=== PATIENT | female | born 1960 | race Caucasian/White ===

== ENCOUNTER 2020-09-07 13:49 | Outpatient (REF) | payer MEDICARE, MEDICAID, SELFPAY ==
[2020-09-07 15:20] LABS: Thyroid Stimulating Hormone 1.63 uIU/mL (0.32-4.0)
== END 2020-09-07 13:50 | disposition home or self-care (01) ==
LOC: HO.LAB 13:49
PROVIDERS: PCP Internal Medicine; Visit Provider Internal Medicine
DX: E89.0 Postprocedural hypothyroidism (principal); I10 Essential (primary) hypertension; J45.909 Unspecified asthma, uncomplicated; M54.5 Low back pain
CPT/HCPCS: 36415; 84443

== ENCOUNTER 2021-01-30 13:10 | Outpatient (REF) | payer MEDICARE, MEDICAID, SELFPAY ==
[2021-01-30 15:13] LABS: MANUAL DIFF FLAG NO
[2021-01-30 15:25] LABS: Basophils Percent Auto 0.8 % (0-2); Eosinophils Absolute Auto 0.1 X10*3/uL (0.0-0.4); Eosinophils Percent Auto 2.5 % (0-4); Hematocrit 38.5 % (37-47); Hemoglobin 12.8 g/dl (12.0-16.0); Imm Gran Abs Auto 0.01 X10*3/uL (0.00-0.03); Imm Gran Pct Auto 0.2 % (0.0-0.4); Lymphocytes Absolute Auto 1.9 X10*3/uL (1.2-4.9); Lymphocytes Percent Auto 36.1 % (20-40); Mean Corpuscular HGB Conc 33.2 g/dl (31.0-35.0); Mean Corpuscular Hemoglobin 31.8 pg (27.0-33.0); Mean Corpuscular Volume 95.5 fL (80-98); Mean Platelet Volume 10.4 fL (9.4-12.3); Monocytes Absolute Auto 0.6 X10*3/uL (0.1-1.2); Monocytes Percent Auto 10.5 % (2-11); Neutrophils Absolute Auto 2.6 X10*3/uL (2.0-8.3); Neutrophils Percent Auto 49.9 % (45-73); Platelet Count 273 X10*3/uL (160-400); Red Blood Count 4.03 X10*6/uL (4.20-5.50); Red Cell Distribution Width 12.3 % (11.0-16.0); White Blood Count 5.2 X10*3/uL (4.8-10.8)
[2021-01-30 15:32] LABS: Alanine Aminotransferase 17 U/L (0-31); Albumin Level 4.1 g/dL (3.5-5.0); Anion Gap 12 (12-20); Aspartate Amino Transferase 12 U/L (5-31); Bilirubin Total 0.5 mg/dL (0.0-1.0); Blood Urea Nitrogen 13 mg/dL (9-16); Calcium 9.1 mg/dL (8.4-10.2); Carbon Dioxide 28 mmol/L (22-29); Chloride 103 mmol/L (96-108); Cholesterol 135 mg/dL; Estimated Glomerular Filt Rate 56; Glucose Random 84 mg/dL (60-115); HDL Cholesterol 55 mg/dL; Potassium 3.6 mmol/L (3.3-5.1); Sodium 139 mmol/L (135-145); Total Protein 6.8 g/dL (6.5-8.0); Triglycerides 80 mg/dL
[2021-01-30 15:33] LABS: Alkaline Phosphatase 69 U/L (39-117); LDL Cholesterol Calculated 64 mg/dl
[2021-01-30 15:57] LABS: Thyroid Stimulating Hormone 1.66 uIU/mL (0.32-4.0)
== END 2021-01-30 13:11 | disposition home or self-care (01) ==
LOC: HO.LAB 13:10
PROVIDERS: PCP Internal Medicine; Visit Provider Internal Medicine
DX: E89.0 Postprocedural hypothyroidism (principal); F90.1 Attention-deficit hyperactivity disorder, predominantly hyperactive type; H81.12 Benign paroxysmal vertigo, left ear; I10 Essential (primary) hypertension; N30.00 Acute cystitis without hematuria
CPT/HCPCS: 36415; 80053; 80061; 84443; 85025

== ENCOUNTER 2021-02-15 12:31 | Outpatient (REF) | payer MEDICARE, MEDICAID, SELFPAY | END 2021-02-15 12:32 | disposition home or self-care (01) | LOC: HO.10HDL 12:31 | PROVIDERS: Visit Provider Internal Medicine | DX: R35.0 Frequency of micturition (principal); E89.0 Postprocedural hypothyroidism; G47.33 Obstructive sleep apnea (adult) (pediatric); I10 Essential (primary) hypertension | CPT/HCPCS: 87086 ==

== ENCOUNTER → 2021-03-15 11:35 | Outpatient (BNVA) | payer MEDICARE, MEDICAID, SELFPAY | PROVIDERS: PCP Internal Medicine | DX: N39.0 Urinary tract infection, site not specified (principal) | CPT/HCPCS: Q3014 ==

== ENCOUNTER 2021-03-22 11:04 | Outpatient (REF) | payer MEDICARE, MEDICAID, SELFPAY ==
--- NOTE | ~2021-03-22 | MM_ITS ---
EXAMINATION: MM SCREENING DIGITAL BREAST TOMOSYNTHESIS, BILATERAL CLINICAL INFORMATION: Screening. Asymptomatic. The lifetime risk of breast cancer based on the Tyrer-Cuzick Model is 3.8%. COMPARISON: Mammography: February 10, 2020 and studies dating back to May 03, 2014 TECHNIQUE: Digital breast tomosynthesis is performed in both the craniocaudal and mediolateral oblique views along with computer-aided detection (CAD). Synthesized 2D images are generated from the tomosynthesis. FINDINGS: There are scattered areas of fibroglandular density (ACR BI-RADS breast composition Category b). There are no significant masses, abnormal calcifications, or other abnormalities. MM/MM tomosynthesis screening BI IMPRESSION: There are no significant changes from prior study. ASSESSMENT: BI-RADS 1: Negative RECOMMENDATION: Routine annual mammography screening. This patient's information was entered into a reminder system with a target due date for their next mammogram.
== END 2021-03-22 11:05 | disposition home or self-care (01) ==
LOC: HO.MAMMO 11:04
PROVIDERS: Visit Provider Internal Medicine
DX: Z12.31 Encounter for screening mammogram for malignant neoplasm of breast (principal)
CPT/HCPCS: 77063; 77067

== ENCOUNTER → 2021-06-08 11:41 | Outpatient (BNVA) | payer MEDICARE, MEDICAID, SELFPAY | PROVIDERS: PCP Internal Medicine | DX: N39.0 Urinary tract infection, site not specified (principal); R32 Unspecified urinary incontinence | CPT/HCPCS: 51798; 99212 ==

== ENCOUNTER 2021-07-20 13:29 | Outpatient (REF) | payer MEDICARE, MEDICAID, SELFPAY | END 2021-07-20 13:30 | disposition home or self-care (01) | LOC: HO.LAB 13:29 | PROVIDERS: PCP Internal Medicine | DX: N39.0 Urinary tract infection, site not specified (principal) | CPT/HCPCS: 87086; 87088; 87186; 99212 ==

== ENCOUNTER 2021-08-08 14:43 | Outpatient (REF) | payer MEDICARE, MEDICAID, SELFPAY ==
[2021-08-08 15:44] LABS: Alanine Aminotransferase 17 U/L (0-31); Albumin Level 4.1 g/dL (3.5-5.0); Alkaline Phosphatase 66 U/L (39-117); Anion Gap 13 (12-20); Aspartate Amino Transferase 13 U/L (5-31); Bilirubin Total 0.8 mg/dL (0.0-1.0); Blood Urea Nitrogen 17 mg/dL (9-16); Calcium 9.3 mg/dL (8.4-10.2); Carbon Dioxide 23 mmol/L (22-29); Chloride 103 mmol/L (96-108); Estimated Glomerular Filt Rate 50; Glucose Random 116 mg/dL (60-115); Sodium 136 mmol/L (135-145); Total Protein 6.8 g/dL (6.5-8.0)
[2021-08-08 16:05] LABS: Thyroid Stimulating Hormone 1.12 uIU/mL (0.32-4.0)
[2021-08-08 16:43] LABS: Appearance Urine CLEAR; Color Urine YELLOW; Glucose Urine UA NEG (NEG); Leukocyte Esterase Urine NEG (NEG); Nitrite Urine NEG (NEG); Specific Gravity - Urine <= 1.005 (1.005-1.025); Urine Blood NEG (NEG); Urine Ketones NEG (NEG); Urine Protein NEG (NEG-TRACE)
[2021-08-08 16:52] LABS: RBC Urine 0 /HPF (0); WBC Urine 0 /HPF (0-4)
== END 2021-08-08 14:44 | disposition home or self-care (01) ==
LOC: HO.LAB 14:43
PROVIDERS: PCP Internal Medicine; Visit Provider Internal Medicine
DX: E89.0 Postprocedural hypothyroidism (principal); N39.0 Urinary tract infection, site not specified; G47.33 Obstructive sleep apnea (adult) (pediatric); I10 Essential (primary) hypertension; R35.0 Frequency of micturition
CPT/HCPCS: 36415; 80053; 81001; 84443; 87086

== ENCOUNTER 2021-08-15 11:56 | Outpatient (REF) | payer MEDICARE, MEDICAID, SELFPAY ==
--- NOTE | ~2021-08-15 | XR_ITS ---
EXAMINATION: BILATERAL HIP X-RAY CLINICAL INFORMATION: Osteoarthritis COMPARISON: Previous right hip x-ray August 2014 TECHNIQUE: 2 views of each hip FINDINGS: Right hip: Bone alignment is normal. No fracture or dislocation is seen. The joint space is normal. Soft tissues are normal. Left hip: Bone alignment is normal. No fracture or dislocation is seen. The joint space is normal. Soft tissues are normal. XR/XR hip RT min 2V IMPRESSION: Unremarkable exam.
--- NOTE | ~2021-08-15 | XR_ITS ---
EXAMINATION: BILATERAL HIP X-RAY CLINICAL INFORMATION: Osteoarthritis COMPARISON: Previous right hip x-ray August 2014 TECHNIQUE: 2 views of each hip FINDINGS: Right hip: Bone alignment is normal. No fracture or dislocation is seen. The joint space is normal. Soft tissues are normal. Left hip: Bone alignment is normal. No fracture or dislocation is seen. The joint space is normal. Soft tissues are normal. XR/XR hip LT min 2V IMPRESSION: Unremarkable exam.
== END 2021-08-15 11:57 | disposition home or self-care (01) ==
LOC: HO.XRAY 11:56
PROVIDERS: PCP Internal Medicine; Visit Provider Internal Medicine
DX: M16.0 Bilateral primary osteoarthritis of hip (principal)
CPT/HCPCS: 73502

== ENCOUNTER → 2021-08-17 10:47 | Outpatient (BNVA) | payer MEDICARE, MEDICAID, SELFPAY | PROVIDERS: PCP Internal Medicine | CPT/HCPCS: Q3014 ==

== ENCOUNTER 2021-09-12 10:08 | Outpatient (REF) | payer MEDICARE, MEDICAID, SELFPAY ==
--- NOTE | ~2021-09-12 | XR_ITS ---
EXAMINATION: XR CHEST CLINICAL INFORMATION: Nicotine dependence COMPARISON: 10/21/2006 TECHNIQUE: 2 views of the chest were obtained. FINDINGS: The lungs are well expanded. There is no focal consolidation, edema, or effusion. No pneumothorax. The cardiomediastinal silhouette is within normal limits. No acute osseous abnormality. XR/XR chest 2V IMPRESSION: Clear lungs.
== END 2021-09-12 10:09 | disposition home or self-care (01) ==
LOC: HO.XRAY 10:08
PROVIDERS: PCP Internal Medicine; Visit Provider Internal Medicine
DX: R06.00 Dyspnea, unspecified (principal); G47.33 Obstructive sleep apnea (adult) (pediatric); E66.01 Morbid (severe) obesity due to excess calories; Z87.891 Personal history of nicotine dependence
CPT/HCPCS: 71046; 99202

== ENCOUNTER → 2021-10-18 09:55 | Outpatient (BNVA) | payer MEDICARE, MEDICAID, SELFPAY | PROVIDERS: PCP Internal Medicine | DX: Z13.89 Encounter for screening for other disorder (principal) | CPT/HCPCS: Q3014 ==

== ENCOUNTER → 2021-10-19 13:55 | Outpatient (REF) | payer MEDICARE, MEDICAID, SELFPAY ==
--- NOTE | 2021-10-19 17:17 | PFT_ITS ---
Forced vital capacity 95%, FEV1 103%, FEV1/FVC ratio is 83. FEF 25-75 126% and MVV 91%. Postbronchodilator therapy, there is no change. Total lung capacity 95%. Residual volume 96%. Diffusion capacity 81%. CONCLUSION: Normal pulmonary function test. There is no evidence of obstructive or restrictive pulmonary disorder. MD NADIR Russell/LOU / [id number]
== END | disposition home or self-care (01) ==
LOC: HO.RESP 13:55
PROVIDERS: PCP Internal Medicine; Visit Provider Internal Medicine
DX: R06.00 Dyspnea, unspecified (principal); E66.01 Morbid (severe) obesity due to excess calories; Z87.891 Personal history of nicotine dependence; Z79.52 Long term (current) use of systemic steroids
CPT/HCPCS: 94060; 94727; 94729

== ENCOUNTER 2021-10-25 10:28 | Outpatient (REF) | payer MEDICARE, MEDICAID, SELFPAY ==
[2021-10-25 10:38] LABS: MANUAL DIFF FLAG NO
[2021-10-25 11:15] LABS: Basophils Percent Auto 0.7 % (0-2); Eosinophils Absolute Auto 0.1 X10*3/uL (0.0-0.4); Eosinophils Percent Auto 2.3 % (0-4); Hematocrit 37.6 % (37.0-47.0); Hemoglobin 12.4 g/dl (12.0-16.0); Imm Gran Abs Auto 0.02 X10*3/uL (0.00-0.03); Imm Gran Pct Auto 0.5 % (0.0-0.4); Lymphocytes Absolute Auto 1.8 X10*3/uL (1.2-4.9); Lymphocytes Percent Auto 41.2 % (20-40); Mean Corpuscular Volume 96.9 fL (80.0-98.0); Monocytes Absolute Auto 0.4 X10*3/uL (0.1-1.2); Monocytes Percent Auto 8.8 % (2-11); Neutrophils Percent Auto 46.5 % (45-73); Platelet Count 248 X10*3/uL (160-400); Red Blood Count 3.88 X10*6/uL (4.20-5.50); Red Cell Distribution Width 12.6 % (11.0-16.0); White Blood Count 4.3 X10*3/uL (4.8-10.8)
[2021-10-25 12:02] LABS: Alanine Aminotransferase 16 U/L (0-31); Albumin Level 3.9 g/dL (3.5-5.0); Alkaline Phosphatase 71 U/L (39-117); Anion Gap 11 (12-20); Aspartate Amino Transferase 11 U/L (5-31); Bilirubin Total 0.5 mg/dL (0.0-1.0); Blood Urea Nitrogen 15 mg/dL (9-16); Calcium 8.9 mg/dL (8.4-10.2); Carbon Dioxide 23 mmol/L (22-29); Chloride 109 mmol/L (96-108); Estimated Glomerular Filt Rate 51; Glucose Random 95 mg/dL (60-115); Potassium 4.3 mmol/L (3.3-5.1); Sodium 139 mmol/L (135-145); Total Protein 6.7 g/dL (6.5-8.0)
[2021-10-25 12:58] LABS: Vitamin B12 262 pg/mL (200-900)
== END 2021-10-25 10:29 | disposition home or self-care (01) ==
LOC: HO.LAB 10:28
PROVIDERS: Visit Provider Internal Medicine
DX: B35.8 Other dermatophytoses (principal); E87.6 Hypokalemia; E89.0 Postprocedural hypothyroidism; I10 Essential (primary) hypertension; M25.552 Pain in left hip; M54.50 Low back pain, unspecified; R06.02 Shortness of breath; R53.83 Other fatigue
CPT/HCPCS: 36415; 80053; 82607; 85025

== ENCOUNTER 2021-10-26 14:32 | Outpatient (REF) | payer MEDICARE, MEDICAID, SELFPAY ==
--- NOTE | ~2021-10-26 | CT_ITS ---
EXAMINATION: CT CHEST SCREENING CLINICAL INFORMATION: Personal history of nicotine dependence. Former smoker quit 30 years ago. COMPARISON: Chest x-ray 09/12/2021. TECHNIQUE: Multidetector volumetric CT imaging of the chest is performed without contrast using low dose technique. Additional 2D coronal and sagittal reformatted images and axial 3D maximum intensity projection (MIP) images are generated on the CT workstation. This CT examination was performed using dose optimization techniques as appropriate, variously including the following: *Automated exposure control *Adjustment of mA and/or kV according to patient size (this includes techniques or standardized protocols for targeted exams where dose is matched to indication/reason for exam; i.e. extremities or head) *Use of iterative reconstruction technique DLP: 67 mGy-cm FINDINGS: LUNGS: The lungs are well expanded and clear of acute pneumonic process. There are 1 mm punctate calcifications scattered in the superior segments of both lower lobes likely tiny granulomas. No noncalcified pulmonary nodule, mass, consolidation or atelectasis seen. MEDIASTINUM: The thyroid lobes are symmetrical and normal. Central trachea and the bronchi are widely patent. The heart size and the great vessels are normal caliber. No abnormal size mediastinal or hilar lymph node seen. PLEURA: There is no pleural effusion. No pleural mass or thickening. AXILLA: No lymphadenopathy. UPPER ABDOMEN: Unremarkable. OSSEOUS STRUCTURES: Unremarkable. CT/CT lung screening IMPRESSION: Unremarkable chest exam except for tiny 1 mm calcified granulomas. ASSESSMENT: Lung-RADS category: 2. Benign. RECOMMENDATION: Low-dose annual yearly CT chest exam.
== END 2021-10-26 14:33 | disposition home or self-care (01) ==
LOC: HO.CT 14:32
PROVIDERS: PCP Internal Medicine; Visit Provider Physician Assistant Medical
DX: Z12.2 Encounter for screening for malignant neoplasm of respiratory organs (principal); Z87.891 Personal history of nicotine dependence
CPT/HCPCS: 71271; G0296

== ENCOUNTER → 2021-11-08 14:10 | Outpatient (BNVA) | payer MEDICARE, MEDICAID, SELFPAY | PROVIDERS: PCP Internal Medicine; Visit Provider Internal Medicine | DX: R06.00 Dyspnea, unspecified (principal); E66.01 Morbid (severe) obesity due to excess calories; G47.33 Obstructive sleep apnea (adult) (pediatric); Z68.41 Body mass index [BMI] 40.0-44.9, adult | CPT/HCPCS: 99212 ==

== ENCOUNTER 2022-02-07 11:41 | Outpatient (REF) | payer MEDICARE, MEDICAID, SELFPAY ==
[2022-02-07 12:02] LABS: MANUAL DIFF FLAG NO
[2022-02-07 12:17] LABS: Basophils Percent Auto 0.8 % (0-2); Eosinophils Absolute Auto 0.1 X10*3/uL (0.0-0.4); Eosinophils Percent Auto 1.6 % (0-4); Hematocrit 38.5 % (37.0-47.0); Imm Gran Abs Auto 0.01 X10*3/uL (0.00-0.03); Imm Gran Pct Auto 0.3 % (0.0-0.4); Lymphocytes Absolute Auto 1.4 X10*3/uL (1.2-4.9); Lymphocytes Percent Auto 37.7 % (20-40); Mean Corpuscular HGB Conc 33.8 g/dl (31.0-35.0); Mean Corpuscular Hemoglobin 32.4 pg (27.0-33.0); Mean Platelet Volume 9.8 fL (9.4-12.3); Monocytes Absolute Auto 0.3 X10*3/uL (0.1-1.2); Monocytes Percent Auto 9.3 % (2-11); Neutrophils Absolute Auto 1.8 x10*3/uL (2.0-8.3); Neutrophils Percent Auto 50.3 % (45-73); Platelet Count 247 X10*3/uL (160-400); Red Blood Count 4.01 X10*6/uL (4.20-5.50); Red Cell Distribution Width 12.4 % (11.0-16.0); White Blood Count 3.7 X10*3/uL (4.8-10.8)
[2022-02-07 12:52] LABS: Alanine Aminotransferase 15 U/L (0-31); Albumin Level 4.2 g/dL (3.5-5.0); Alkaline Phosphatase 71 U/L (39-117); Anion Gap 16 (12-20); Aspartate Amino Transferase 11 U/L (5-31); Bilirubin Total 0.6 mg/dL (0.0-1.0); Blood Urea Nitrogen 15 mg/dL (9-16); Calcium 9.1 mg/dL (8.4-10.2); Carbon Dioxide 20 mmol/L (22-29); Chloride 106 mmol/L (96-108); Cholesterol 157 mg/dL; Estimated Glomerular Filt Rate 45; Glucose Random 96 mg/dL (60-115); HDL Cholesterol 49 mg/dL; LDL Cholesterol Calculated 98 mg/dl; Potassium 4.5 mmol/L (3.3-5.1); Sodium 137 mmol/L (135-145); Triglycerides 52 mg/dL
[2022-02-07 13:05] LABS: Appearance Urine Cloudy; Color Urine Yellow; Glucose Urine UA Negative (Negative); Leukocyte Esterase Urine Large (3+) (Negative); Nitrite Urine Positive (Negative); PH 6.5 (5.0-9.0); UMIC TRIGGER UA YES; Urine Blood Negative (Negative); Urine Ketones Negative (Negative); Urine Protein Negative (Neg-Trace)
[2022-02-07 13:09] LABS: Bacteria Urine 4+ (None Seen); Hyaline Casts Urine 0-2 /LPF (0-2); RBC Urine 0-2 /HPF (0-2); WBC Urine >50 /HPF (0-5)
[2022-02-07 13:15] LABS: Thyroid Stimulating Hormone 0.29 uIU/mL (0.32-4.0)
== END 2022-02-07 11:42 | disposition home or self-care (01) ==
LOC: HO.LAB 11:41
PROVIDERS: PCP Internal Medicine; Visit Provider Internal Medicine
DX: E87.6 Hypokalemia (principal); E89.0 Postprocedural hypothyroidism; I10 Essential (primary) hypertension
CPT/HCPCS: 36415; 80053; 80061; 81001; 81003; 84443; 85025

== ENCOUNTER 2022-02-14 12:35 | Outpatient (REF) | payer MEDICARE, MEDICAID, SELFPAY | END 2022-02-14 12:36 | disposition home or self-care (01) | LOC: HO.10HDL 12:35 | PROVIDERS: Visit Provider Internal Medicine | DX: Z00.00 Encounter for general adult medical examination without abnormal findings (principal); I10 Essential (primary) hypertension; N18.9 Chronic kidney disease, unspecified; N30.00 Acute cystitis without hematuria; E89.0 Postprocedural hypothyroidism; G47.33 Obstructive sleep apnea (adult) (pediatric); B96.1 Klebsiella pneumoniae [K. pneumoniae] as the cause of diseases classified elsewhere; Z16.11 Resistance to penicillins | CPT/HCPCS: 87086; 87088; 87186 ==

== ENCOUNTER 2022-03-28 13:08 | Outpatient (REF) | payer MEDICARE, MEDICAID, SELFPAY ==
--- NOTE | ~2022-03-28 | MM_ITS ---
EXAMINATION: MM SCREENING DIGITAL BREAST TOMOSYNTHESIS, BILATERAL CLINICAL INFORMATION: Screening. Asymptomatic. COMPARISON: Mammography: March 22, 2021 and studies dating back to June 01, 2015 TECHNIQUE: Digital breast tomosynthesis is performed in both the craniocaudal and mediolateral oblique views along with computer-aided detection (CAD). Synthesized 2D images are generated from the tomosynthesis. FINDINGS: The breasts are almost entirely fatty (ACR BI-RADS breast composition Category a). There are no significant masses, abnormal calcifications, or other abnormalities. MM/MM tomosynthesis screening BI IMPRESSION: No significant changes ASSESSMENT: BI-RADS 1: Negative RECOMMENDATION: Routine annual mammography screening. This patient's information was entered into a reminder system with a target due date for their next mammogram.
== END 2022-03-28 13:09 | disposition home or self-care (01) ==
LOC: HO.MAMMO 13:08
PROVIDERS: PCP Internal Medicine; Visit Provider Internal Medicine
DX: Z12.31 Encounter for screening mammogram for malignant neoplasm of breast (principal)
CPT/HCPCS: 77063; 77067

== ENCOUNTER 2022-04-12 11:54 | Outpatient (REF) | payer MEDICARE, MEDICAID, SELFPAY ==
--- NOTE | ~2022-04-12 | US_ITS ---
EXAMINATION: US RETROPERITONEAL LIMITED (RENAL ONLY) CLINICAL INFORMATION: Other symptoms and signs involving the genitourinary system. COMPARISON: None TECHNIQUE: Real-time imaging of the kidneys. FINDINGS: RIGHT KIDNEY: 9.9 x 3.9 x 6.1 cm (SAG x AP x TRV). The kidney is normal in size, contour, and echogenicity. Renal cortical thickness is normal. No calculi or focal parenchymal lesions. No hydronephrosis. LEFT KIDNEY: 8.9 x 5.2 x 5.5 cm (SAG x AP x TRV). The kidney is normal in size, contour, and echogenicity. Renal cortical thickness is normal. No calculi or focal parenchymal lesions. No hydronephrosis. US/US renal BI IMPRESSION: Unremarkable renal ultrasound.
== END 2022-04-12 11:55 | disposition home or self-care (01) ==
LOC: HO.US 11:54
DX: R39.89 Other symptoms and signs involving the genitourinary system (principal)
CPT/HCPCS: 76775

== ENCOUNTER 2022-04-26 11:29 | Outpatient (REF) | payer MEDICARE, MEDICAID, SELFPAY | END 2022-04-26 11:30 | disposition home or self-care (01) | LOC: HO.LAB 11:29 | PROVIDERS: Visit Provider Nurse Practitioner Family | DX: N32.81 Overactive bladder (principal); K58.9 Irritable bowel syndrome, unspecified; R32 Unspecified urinary incontinence; N39.0 Urinary tract infection, site not specified | CPT/HCPCS: 51798; 87086; 99212 ==

== ENCOUNTER → 2022-05-02 14:28 | Outpatient (BNVA) | payer MEDICARE, MEDICAID, SELFPAY | PROVIDERS: PCP Internal Medicine; Visit Provider Internal Medicine | DX: R06.00 Dyspnea, unspecified (principal); E66.01 Morbid (severe) obesity due to excess calories; G47.33 Obstructive sleep apnea (adult) (pediatric); Z68.41 Body mass index [BMI] 40.0-44.9, adult; Z87.891 Personal history of nicotine dependence; Z99.89 Dependence on other enabling machines and devices | CPT/HCPCS: 99212 ==

== ENCOUNTER 2022-05-09 12:42 | Outpatient (REF) | payer MEDICARE, MEDICAID, SELFPAY ==
[2022-05-09 14:19] LABS: Alanine Aminotransferase 16 U/L (0-31); Albumin Level 4.3 g/dL (3.5-5.0); Alkaline Phosphatase 74 U/L (39-117); Anion Gap 16 (12-20); Aspartate Amino Transferase 13 U/L (5-31); Bilirubin Total 0.5 mg/dL (0.0-1.0); Blood Urea Nitrogen 17 mg/dL (9-16); Calcium 9.2 mg/dL (8.4-10.2); Carbon Dioxide 23 mmol/L (22-29); Chloride 104 mmol/L (96-108); Estimated Glomerular Filt Rate 45; Glucose Random 88 mg/dL (60-115); Potassium 4.5 mmol/L (3.3-5.1); Sodium 138 mmol/L (135-145); Total Protein 7.1 g/dL (6.5-8.0)
== END 2022-05-09 12:43 | disposition home or self-care (01) ==
LOC: HO.10HDL 12:42
PROVIDERS: Visit Provider Internal Medicine
DX: Z00.00 Encounter for general adult medical examination without abnormal findings (principal); E89.0 Postprocedural hypothyroidism; N30.00 Acute cystitis without hematuria; I12.9 Hypertensive chronic kidney disease with stage 1 through stage 4 chronic kidney disease, or unspecified chronic kidney disease; N18.9 Chronic kidney disease, unspecified
CPT/HCPCS: 36415; 80053

== ENCOUNTER → 2022-07-25 11:03 | Outpatient (BNVA) | payer MEDICARE, MEDICAID, SELFPAY | PROVIDERS: PCP Internal Medicine; Visit Provider Nurse Practitioner Family | DX: N32.81 Overactive bladder (principal); Z79.899 Other long term (current) drug therapy | CPT/HCPCS: Q3014 ==

== ENCOUNTER → 2022-08-29 11:01 | Outpatient (BNVA) | payer MEDICARE, MEDICAID, SELFPAY | PROVIDERS: PCP Internal Medicine; Visit Provider Internal Medicine | DX: R06.00 Dyspnea, unspecified (principal); E66.01 Morbid (severe) obesity due to excess calories; Z68.42 Body mass index [BMI] 45.0-49.9, adult; G47.33 Obstructive sleep apnea (adult) (pediatric); Z87.891 Personal history of nicotine dependence | CPT/HCPCS: 99212 ==

== ENCOUNTER 2022-09-19 12:21 | Outpatient (REF) | payer MEDICARE, MEDICAID, SELFPAY ==
[2022-09-19 15:29] LABS: Alanine Aminotransferase 16 U/L (0-31); Albumin Level 3.9 g/dL (3.5-5.0); Alkaline Phosphatase 69 U/L (39-117); Anion Gap 9 (12-20); Aspartate Amino Transferase 13 U/L (5-31); Bilirubin Total 0.5 mg/dL (0.0-1.0); Blood Urea Nitrogen 16 mg/dL (9-16); Calcium 8.9 mg/dL (8.4-10.2); Carbon Dioxide 23 mmol/L (22-29); Chloride 108 mmol/L (96-108); Estimated Glomerular Filt Rate 48; Glucose Random 93 mg/dL (60-115); Potassium 4.3 mmol/L (3.3-5.1); Sodium 136 mmol/L (135-145); Total Protein 6.4 g/dL (6.5-8.0)
[2022-09-19 16:04] LABS: Free T4 (Free Thyroxine) 1.08 ng/dL (0.71-1.85)
[2022-09-20 18:39] LABS: Triiodothyronine T3 Free 3.3 pg/mL (2.3-4.2)
== END 2022-09-19 12:22 | disposition home or self-care (01) ==
LOC: HO.10HDL 12:21
PROVIDERS: Visit Provider Internal Medicine
DX: E89.0 Postprocedural hypothyroidism (principal); G47.33 Obstructive sleep apnea (adult) (pediatric); I10 Essential (primary) hypertension; M54.9 Dorsalgia, unspecified; F17.201 Nicotine dependence, unspecified, in remission
CPT/HCPCS: 36415; 80053; 84439; 84443; 84481

== ENCOUNTER 2022-10-31 10:36 | Outpatient (REF) | payer MEDICARE, MEDICAID, SELFPAY ==
--- NOTE | ~2022-10-31 | CT_ITS ---
EXAMINATION: LUNG CANCER SCREENING CT CHEST WITHOUT CONTRAST CLINICAL INFORMATION: Former smoker with 30 pack year history, quit 2 years ago COMPARISON: 10/26/2021 TECHNIQUE: Multidetector volumetric CT imaging of the chest was obtained noncontrast using low dose screening CT technique. Axial thin section 0.625 mm reformations in soft tissue and lung windows were obtained. Sagittal and coronal reformations were obtained. Axial MIP images were also created and reviewed. This CT examination was performed using dose optimization techniques as appropriate, variously including the following: *Automated exposure control *Adjustment of mA and/or kV according to patient size (this includes techniques or standardized protocols for targeted exams where dose is matched to indication/reason for exam; i.e. extremities or head) *Use of iterative reconstruction technique TOTAL EXAM DLP: 79.78 mGy-cm FINDINGS: PULMONARY NODULES (see saunders images): No suspicious pulmonary nodules. LUNGS / PLEURA: Lungs are clear. No pleural effusion or pneumothorax. MEDIASTINUM / KITA: Heart normal in size without pericardial effusion. Great vessels normal caliber. No lymphadenopathy. Coronary calcifications absent. Imaged thyroid gland unremarkable. CHEST WALL / AXILLA: Unremarkable. UPPER ABDOMEN: Included portions grossly unremarkable allowing for limitations in technique. OSSEOUS STRUCTURES: No acute or suspicious osseous abnormalities. CT/CT lung screening IMPRESSION: * No evidence of pulmonary malignancy. * There are no pulmonary nodules that meet criteria for short interval follow-up at this time. ASSESSMENT: Lung RADS category: 1. Negative. No nodules or definitely benign nodules. Continue annual screening with low-dose CT in 12 months. Probability of malignancy less than 1%. RECOMMENDATION: Follow up low dose CT chest in 1 year.
== END 2022-10-31 10:37 | disposition home or self-care (01) ==
LOC: HO.CT 10:36
PROVIDERS: PCP Internal Medicine; Visit Provider Physician Assistant Medical
DX: Z12.2 Encounter for screening for malignant neoplasm of respiratory organs (principal); Z87.891 Personal history of nicotine dependence
CPT/HCPCS: 71271

== ENCOUNTER 2022-11-08 12:31 | Outpatient (REF) | payer MEDICARE, MEDICAID, SELFPAY ==
[2022-11-08 14:00] LABS: Appearance Urine Clear; Color Urine Yellow; Glucose Urine UA Negative (Negative); Leukocyte Esterase Urine Small (1+) (Negative); Nitrite Urine Negative (Negative); PH 5.5 (5.0-9.0); UMIC TRIGGER UA YES; Urine Blood Negative (Negative); Urine Ketones Negative (Negative); Urine Protein Negative (Neg-Trace)
[2022-11-08 14:04] LABS: Bacteria Urine 4+ (None Seen); Hyaline Casts Urine 0-2 /LPF (0-2); RBC Urine 0-2 /HPF (0-2); Squamous Epithelial Cell Urine 0-2 /HPF (0-2)
== END 2022-11-08 12:32 | disposition home or self-care (01) ==
LOC: HO.LAB 12:31
PROVIDERS: PCP Internal Medicine; Visit Provider Nurse Practitioner Family
DX: N39.0 Urinary tract infection, site not specified (principal)
CPT/HCPCS: 81001; 87086; 87088; 87186

== ENCOUNTER 2022-12-24 11:05 | Outpatient (REF) | payer MEDICARE, MEDICAID, SELFPAY ==
[2022-12-24 11:39] LABS: MANUAL DIFF FLAG NO
[2022-12-24 12:09] LABS: Basophils Percent Auto 0.6 % (0-2); Eosinophils Absolute Auto 0.1 X10*3/uL (0.0-0.4); Eosinophils Percent Auto 1.8 % (0-4); Hematocrit 37.8 % (37.0-47.0); Hemoglobin 12.6 g/dl (12.0-16.0); Imm Gran Abs Auto 0.01 X10*3/uL (0.00-0.03); Imm Gran Pct Auto 0.2 % (0.0-0.4); Lymphocytes Absolute Auto 1.7 X10*3/uL (1.2-4.9); Lymphocytes Percent Auto 33.2 % (20-40); Mean Corpuscular HGB Conc 33.3 g/dl (31.0-35.0); Mean Corpuscular Hemoglobin 32.1 pg (27.0-33.0); Mean Corpuscular Volume 96.2 fL (80.0-98.0); Mean Platelet Volume 9.9 fL (9.4-12.3); Monocytes Absolute Auto 0.4 X10*3/uL (0.1-1.2); Monocytes Percent Auto 8.5 % (2-11); Neutrophils Absolute Auto 2.8 x10*3/uL (2.0-8.3); Neutrophils Percent Auto 55.7 % (45-73); Platelet Count 238 X10*3/uL (160-400); Red Blood Count 3.93 X10*6/uL (4.20-5.50); Red Cell Distribution Width 12.2 % (11.0-16.0)
[2022-12-24 13:18] LABS: Alanine Aminotransferase 16 U/L (0-31); Albumin Level 4.1 g/dL (3.5-5.0); Alkaline Phosphatase 67 U/L (39-117); Anion Gap 12 (12-20); Aspartate Amino Transferase 14 U/L (5-31); Bilirubin Total 0.6 mg/dL (0.0-1.0); Blood Urea Nitrogen 12 mg/dL (9-16); Carbon Dioxide 23 mmol/L (22-29); Chloride 106 mmol/L (96-108); Cholesterol 133 mg/dL; Estimated Glomerular Filt Rate 53; Glucose Random 94 mg/dL (60-115); HDL Cholesterol 49 mg/dL; LDL Cholesterol Calculated 74 mg/dl; Potassium 3.9 mmol/L (3.3-5.1); Sodium 137 mmol/L (135-145); Total Protein 6.9 g/dL (6.5-8.0); Triglycerides 51 mg/dL
[2022-12-24 13:36] LABS: Free T4 (Free Thyroxine) 1.09 ng/dL (0.71-1.85); Thyroid Stimulating Hormone 0.97 uIU/mL (0.32-4.0)
[2022-12-26 00:38] LABS: Triiodothyronine T3 Free 3.3 pg/mL (2.3-4.2)
== END 2022-12-24 11:06 | disposition home or self-care (01) ==
LOC: HO.LAB 11:05
PROVIDERS: PCP Internal Medicine; Visit Provider Internal Medicine
DX: E89.0 Postprocedural hypothyroidism (principal); L30.4 Erythema intertrigo; G47.33 Obstructive sleep apnea (adult) (pediatric); N39.0 Urinary tract infection, site not specified
CPT/HCPCS: 36415; 80053; 80061; 84439; 84443; 84481; 85025; 87086; 87088; 87186

== ENCOUNTER 2023-02-12 11:34 | Outpatient (AMB) | payer MEDICARE, MEDICAID, SELFPAY ==
--- NOTE | 2023-02-12 11:34 | A.OFFVIS_ITS ---
Intake Intake Visit Reasons: 6m follow up/PVR Intake Note: Patient is present for follow up OAB/incontinence Urology Medications: solifenacin (vesicare) Blood Thinner: none PVR: 28ml's Patient Safety Coordinator Required: No Accompanied by: Self / Same As Patient Allergies adhesive tape [ADHESIVE TAPE] Allergy (Intermediate, Verified 02/12/23 19:34) BLISTERS clindamycin [CLINDAMYCIN] Allergy (Intermediate, Verified 02/12/23 19:34) FACE SWELLING/ITCHING epinephrine [EPINEPHRINE] Adverse Reaction (Intermediate, Verified 02/12/23 19:34) TACHYCARDIA FROM SANIYA W/EPINEPHRINE adhesive Allergy (Unknown, Uncoded 02/12/23 19:34) Unknown Clindamycin HCl Allergy (Unknown, Uncoded 02/12/23 19:34) Unknown -SANIYA W/EPINEPHRINE Adverse Reaction (Intermediate, Uncoded 02/12/23 19:34) TACHYCARDIA Medication List - Last Reconciled 02/12/23 by DASH Restrepo- albuterol sulfate 90 mcg/actuation (ProAir HFA) 2 puffs inhalation Q4-6H PRN 60 days budesonide 180 mcg/actuation (Pulmicort Flexhaler) 2 inhalations inhalation BID bupropion HCl 300 mg PO QAM ciprofloxacin HCl 250 mg PO BID 5 days clotrimazole-betamethasone 1-0.05 % appl topical dextroamphetamine-amphetamine 10 mg 1 tab PO TID levothyroxine 125 mcg PO DAILY lorazepam 0.5 mg PO DAILY PRN nystatin 1 appl topical DAILY omeprazole 20 mg PO DAILY solifenacin (Vesicare) 10 mg PO DAILY 90 days spironolactone 25 mg PO DAILY telmisartan 80 mg PO DAILY HPI HPI Comments History of Present Illness Details Jacqueline is a 62-year-old female patient of Dr. Nova. She has a past medical history of overactive bladder, urinary incontinence, history of Graves disease, nicotine dependence quit in 2019, obstructive sleep apnea, obesity, and frequent urinary tract infections. She presents to the office today for follow-up of her lower urinary tract symptoms and recurrent urinary tract infections. In discussion with the patient today she discusses at length recently losing her 100 year old mother over the last 2 weeks. When asked she reports to be coping well as she reports her mother to have lives a long good life. When asked she reports foul-smelling urine in bladder pressure. In office urinalysis results reviewed with the patient today negative nitrates negative leukocytes however 2+ microscopic hematuria noted. She also discusses at length her attempt in trying to lose weight and manage better eating habits now that her mom has passed and she van have a better schedule. In discussion with the patient today regarding urological issues and concerns she reports [employer] to be working extremely well for her and her urinary incontinence she had been experiencing. She denies urinary urgency, urinary frequency, incontinence, nocturia, hematuria, dysuria, changes to urinary stream, flank pain, fever, and or chills. PVR 28ml's. She otherwise offers no issues or concerns at this time. [facility] Medical History Overactive bladder Urinary incontinence Bladder pain Urinary incontinence History of Graves' disease Personal history of nicotine dependence VAHE (obstructive sleep apnea) (~2010) Dyspnea on exertion Morbid obesity Frequent UTI Surgical History History of hysterectomy History of eye surgery History of colonoscopy History of appendectomy (~1999) Social History Patient Tobacco Use Status: Former Tobacco user Quit Date: 07/2019 Years Smoked: (onset 14, 1on/off - 1ppd x 35yrs, 35pyh - quit 07/2019) Review of Systems Const Reports as per HPI Eyes Reports no additional complaints ENT Reports no additional complaints Card Reports as per HPI Resp Reports as per HPI GI Reports as per HPI Reports as per HPI Musc Reports no additional complaints Neuro Reports no additional complaints Psych Reports as per HPI Endo Reports as per HPI Evans/Lymph Reports no additional complaints Aller/Immun Reports no additional complaints Physical Exam Const General: cooperative, healthy appearing, comfortable, no acute distress, well developed, alert and awake Orientation/consciousness: patient oriented x3 Limitations: no limitations HEENT Head: Yes normal to inspection, Yes normocephalic and Yes atraumatic Ears: hearing grossly normal bilaterally Eyes General: appearance normal, both eyes and all related structures Neck Neck: Yes normal visual inspection and Yes trachea midline Chest Chest palpation & inspection: normal inspection of the chest Resp Effort & Inspection: normal respiratory effort and able to speak in complete sentences Cardio Rate: regular rate GI Inspection: Yes normal to inspection General: Yes no CVA tenderness Back/Spine/Pelvis Back: no CVA tenderness Skin General skin exam: no rashes or lesions noted Neuro General: patient oriented x3 Extrem General: Yes normal to inspection Psych Appearance: grossly normal and well kempt Mental Status: mental status grossly normal Speech and movement: Normal speech and movement present and Clear speech present Affect: normal affect Attitude: cooperative Thought process: Normal thought process present Thought content: Normal thought content present Insight: Fair insight present (Psych) Judgement: Fair judgement present (Psych) Office Procedures Post Void Residual Post Residual Void Post Void Residual (PVR): 28 [id number] Void Residual by ultrasound Results AMB Urinalysis, Automated UA Leukoctes 0 Lluvia/uL Last Edit by [employer] on 02/12/23 11:58 UA Nitrite Last Edit by [employer] on 02/12/23 11:58 UA Urobilinogen 0.2 mg/dL Last Edit by [employer] on 02/12/23 11:58 UA Protein 0 mg/dL Last Edit by [employer] on 02/12/23 11:58 UA pH 7.0 Last Edit by [employer] on 02/12/23 11:58 UA Blood 25 Joss/uL Last Edit by [employer] on 02/12/23 11:58 UA Specific [place] 1.010 Last Edit by [employer] on 02/12/23 11:58 UA Ketone Last Edit by [employer] on 02/12/23 11:58 UA Bilirubin 0 mg/dL Last Edit by [employer] on 02/12/23 11:58 UA Glucose 0 mg/dL Last Edit by [employer] on 02/12/23 11:58 Results Reviewed Results Reviewed: Laboratory Last Values Urine pH (Auto) 7.0 02/12/23 11:37 Specific [place] (Auto) 1.010 02/12/23 11:37 Urine Protein (Auto) 0 mg/dL 02/12/23 11:37 Glucose (UA)(Auto) 0 mg/dL 02/12/23 11:37 Urine Blood (Auto) 25 Joss/uL 02/12/23 11:37 Urine Bilirubin (Auto) 0 mg/dL 02/12/23 11:37 Urine Urobilinogen (Auto) 0.2 mg/dL 02/12/23 11:37 Leukocyte Esterase (Auto) 0 Lluvia/uL 02/12/23 11:37 Assessment & Plan Assessment & Plan (1) Overactive bladder: Code(s): N32.81 - Overactive bladder (2) Urinary incontinence: Code(s): R32 - Unspecified urinary incontinence (3) Foul smelling urine: Code(s): R82.90 - Unspecified abnormal findings in urine (4) Sensation of pressure in bladder area: Code(s): R39.89 - Other symptoms and signs involving the genitourinary system Plan In office urinalysis results reviewed with the patient today; will send for urine culture. Continue VESIcare as patient reports to be happy with lessened incontinent episodes. Discussed at length symptoms can be related to microscopic hematuria. Discussed at length microscopic hematuria workup given patient's history of nicotine dependence however patient declines at this time. Will send urine for cytology. Discussed obtaining retroperitoneal ultrasound for further assessment evaluation. Continue Estrace creamDiscussed UTI prevention with D mannose supplement, vitamin-C, increasing fluid intake, behavioral therapy with timed voiding, perineal hygiene and postcoital voiding, and management of constipation with stool softeners and increased fiber intake. as discussed and prescribed. Follow-up in 6-8 weeks with imaging to be completed prior; or sooner with any issues, concerns, and or questions. Orders: Orders US retroperitoneal comp Today N32.81 - Overactive bladder, R32 - Unspecified urinary incontinence AMB Urinalysis Automated Today Z13.9 - Encounter for screening, unspecified AMB Post Void Residual by ultrasound Today N32.81 - Overactive bladder Urine Culture Today N39.0 - Urinary tract infection, site not specified Urine Cytology Today R39.89 - Other symptoms and signs involving the genitourinary system Patient Instructions: The patient had an opportunity to ask questions regarding the treatment plan. All questions were answered. Physical exam, labs, and imaging were discussed and reviewed in detail. As well as risks, benefits, and discussion of treatment choices. No major barriers to understanding were identified. The patient expressed understanding and agreement with the above treatment plan. The patient was made aware they should contact our office by phone for worsening of their current condition, the appearance of new symptoms, or with any questions or concerns. Compliance is encouraged with any medications and follow up testing that is ordered. It is a privilege to be allowed the opportunity to participate in? your urological care.? Again, if you have any questions or concerns If you have any questions or concerns please do not hesitate to contact me. The office is [phone]. This note is constructed using voice recognition software. While every effort has been made to ensure accuracy motor vehicle emissions inspector errors may have been included. Yours sincerely, GEE Restrepo Coding Level of Care Code Est Pt Level 3 (53010) Diagnoses Overactive bladder N32.81 Urinary incontinence R32 Foul smelling urine R82.90 Sensation of pressure in bladder area R39.89 CPT Codes Post Residual Void - PVR CPT Code: 82802-Dwfj Void Residual by ultrasound ([id number])
== END 2023-02-12 12:17 | disposition home or self-care (01) ==
PROVIDERS: PCP Internal Medicine; Visit Provider Nurse Practitioner Family
DX: N32.81 Overactive bladder (principal); R32 Unspecified urinary incontinence; R82.90 Unspecified abnormal findings in urine; R39.89 Other symptoms and signs involving the genitourinary system; Z13.9 Encounter for screening, unspecified
CPT/HCPCS: 99213

== ENCOUNTER 2023-02-12 11:34 | Outpatient (REF) | payer MEDICARE, MEDICAID, SELFPAY ==
[2023-02-12 16:52] LABS: Urine Cytology See Pathology rpt
== END 2023-02-12 11:35 | disposition home or self-care (01) ==
LOC: HO.LNP 11:34
PROVIDERS: Visit Provider Nurse Practitioner Family
DX: N39.0 Urinary tract infection, site not specified (principal); R32 Unspecified urinary incontinence; N32.81 Overactive bladder; R82.90 Unspecified abnormal findings in urine; R39.89 Other symptoms and signs involving the genitourinary system; Z79.899 Other long term (current) drug therapy
CPT/HCPCS: 51798; 81003; 87086; 87088; 87186; 88112; 99212

== ENCOUNTER 2023-02-27 11:09 | Outpatient (AMB) | payer MEDICARE, MEDICAID, SELFPAY ==
--- NOTE | 2023-02-27 11:20 | MHC.OFFVIS ---
Intake Vital Signs 02/27/23 11:21 Height 5 ft 1 in Weight 234 lb BMI 44.2 BP 110/64 Blood Pressure Location Lt radial Position Sitting Pulse 82 Pulse Source Pulse Oximeter Pulse Oximetry (%) 98 Oxygen Delivery Method Room Air Intake Visit Reasons: Dyspnea Intake Note: pt is here for follow of of VAHE and dyspnea, she lost her mom a few months ago, and had cpap missing dates due to this. Answering Service Operator Required: No Allergies adhesive tape [ADHESIVE TAPE] Allergy (Intermediate, Verified 02/27/23 11:44) BLISTERS clindamycin [CLINDAMYCIN] Allergy (Intermediate, Verified 02/27/23 11:44) FACE SWELLING/ITCHING epinephrine [EPINEPHRINE] Adverse Reaction (Intermediate, Verified 02/27/23 11:44) TACHYCARDIA FROM SANIYA W/EPINEPHRINE adhesive Allergy (Unknown, Uncoded 02/27/23 11:44) Unknown Clindamycin HCl Allergy (Unknown, Uncoded 02/27/23 11:44) Unknown -SANIYA W/EPINEPHRINE Adverse Reaction (Intermediate, Uncoded 02/27/23 11:44) TACHYCARDIA Medication List - Last Reconciled 02/27/23 by Mac Irene MD albuterol sulfate 90 mcg/actuation (ProAir HFA) 2 puffs inhalation Q4-6H PRN 60 days bupropion HCl 300 mg PO QAM clotrimazole-betamethasone 1-0.05 % appl topical dextroamphetamine-amphetamine 10 mg 1 tab PO TID estradiol 0.01%(0.1mg/gram) (Estrace) pea sized amount to urethra three times a week; 30 days levothyroxine 125 mcg PO DAILY lorazepam 0.5 mg PO DAILY PRN nystatin 1 appl topical DAILY omeprazole 20 mg PO DAILY solifenacin (Vesicare) 10 mg PO DAILY 90 days spironolactone 25 mg PO DAILY telmisartan 80 mg PO DAILY Do you need a note to return to daycare/school/sports/work: No HPI Dyspnea HPI Details 63 YEARS OLD FEMALE IS HERE AFTER 6 MONTHS FOR FOLLOW-UP. SHE IS GROSSLY OBESE , WITH DIAGNOSIS OF OBSTRUCTIVE SLEEP APNEA, AND USES CPAP EVERY NIGHT. LATELY SHE WAS TAKING CARE OF HER 100 YEARS OLD MOTHER WHO FINALLY . SO SHE WAS STAYING WITH HER MOST OF THE TIME AND THUS FOR THE LAST FEW WEEKS HAS NOT USE THE CPAP REGULARLY. NOW SHE IS USING CPAP EVERY NIGHT AND SLEEPS WELL. THERE IS NO ISSUE WITH THE CPAP MASK OR MACHINE. SHE DENIES ANY DAYTIME SLEEPINESS. WEIGHT IS DOWN BY A FEW LBS. BREATHING HAS BEEN OKAY AND SHE DOES USE ALBUTEROL ONLY ONCE IN A WHILE. [facility] Medical History Overactive bladder Urinary incontinence Bladder pain Urinary incontinence History of Graves' disease Personal history of nicotine dependence VAHE (obstructive sleep apnea) (~2010) Dyspnea on exertion Morbid obesity Frequent UTI Surgical History History of hysterectomy History of eye surgery History of colonoscopy History of appendectomy (~1999) Social History Patient Tobacco Use Status: Former Tobacco user Quit Date: 07/2019 Years Smoked: (onset 14, 1on/off - 1ppd x 35yrs, 35pyh - quit 07/2019) Review of Systems Const All systems reviewed & are unremarkable except as noted in HPI and below Reports fatigue and Reports weight gain Eyes Reports no additional complaints ENT Reports no additional complaints Card Denies chest pain, Denies edema and Denies irregular heart rhythm Resp Reports as per HPI GI Reports heartburn (GERD symptoms controlled with medicine) Reports nocturia Musc Reports myalgias (Chronic muscle aches) Skin/Breast Reports system reviewed and no additional complaints, except as documented Neuro Reports no additional complaints Psych Reports anxiety Endo Reports fatigue Physical Exam Vital Signs: Last Vital Signs Pulse 82 02/27/23 11:21 BP 110/64 02/27/23 11:21 Pulse Ox 98 02/27/23 11:21 Oxygen Delivery Method Room Air 02/27/23 11:21 BMI result Body Mass Index 44.2 Patient is grossly obese with a round face and short and obese neck Const General: comfortable (But short of breath during conversation), no acute distress, alert and awake Orientation/consciousness: patient oriented x3 HEENT Head: Yes normal to inspection General nose exam: No nasal polyps present and No nasal discharge present Face and sinus: Yes sinuses nontender Mouth: oropharynx normal Throat: Yes posterior oropharynx normal Eyes General: appearance normal, both eyes and all related structures Neck Neck: Yes normal visual inspection, Yes no lymphadenopathy, Yes trachea midline, Yes no JVD and Yes other (Neck circumference 18 in) Thyroid: Thyroid normal Chest Chest palpation & inspection: normal inspection of the chest, normal palpation of entire chest wall and no tenderness Resp Other: Percussion note is not perceptible because of the obese chest wall. Breath sounds are distant and decreased especially over the basilar areas. No wheezes or rhonchi are heard. Cardio Palpation: PMI not normal (Not palpable) Rate: regular rate Rhythm: regular rhythm Heart sounds: no gallops and no murmurs GI Palpation (GI): Soft to palpation, nontender, No hepatosplenomegaly present, no masses and Other GI palpation findings present (Abdomen is grossly obese and protuberant) Auscultation: normal bowel sounds Back/Spine/Pelvis Thoracic/Lumbar Spine: thoracic and lumbar spine normal to inspection and thoraco-lumbar ROM limited Skin General skin exam: no rashes or lesions noted Neuro General: patient oriented x3 and no focal motor deficits Cranial nerves: Yes CN's II-XII intact bilaterally Extrem General: Yes normal to inspection (But somewhat bulky), Yes no clubbing, cyanosis or edema and Yes no calf tenderness Psych Speech and movement: Normal speech and movement present Affect: Anxious affect present Results Reviewed Results Reviewed: COMPLIANCE REPORT NOT AVAILABLE. BUT PATIENT CLAIMS THAT SHE IS USING CPAP. REGULARLY EVERY NIGHT Assessment & Plan Assessment & Plan (1) Personal history of nicotine dependence: Comment: (onset 14, 1on/off - 1ppd x 35yrs, 35pyh - QUIT IN 2019 Code(s): Z87.891 - Personal history of nicotine dependence (2) Morbid obesity: Comment: CONTINUES TO BE GROSSLY OBESE BMI= 44.2 I HAVE STRESS THAT SHE SHOULD TRY TO WALK AT LEAST ABOUT 1 OR 2 MILES EVERY DAY. AND CUT DOWN THE PORTIONS OF HER DIET. Code(s): E66.01 - Morbid (severe) obesity due to excess calories (3) VAHE (obstructive sleep apnea): Onset Date: ~2010 Comment: (Hx VAHE, dx 2010 - on cpap) PATIENT DOES HAVE CPAP, HIS SAY NEW, REFURBISHED DEVICE. FUNCTIONS WELL, SHE IS INSTRUCTED TO USE IT REGULARLY AT LEAST FOR 5 HOURS PER NIGHT. Code(s): G47.33 - Obstructive sleep apnea (adult) (pediatric) (4) Dyspnea on exertion: Comment: Dyspnea on exertion is multi factorial, including gross abdominal obesity, history of past smoking, PULMONARY FUNCTION TEST HAS NOT SHOWN ANY OBSTRUCTIVE OR RESTRICTIVE PULMONARY DISORDER. I explained to her all the findings, reassured her. Advise that she should continue to do deep breathing exercises. Continue to lose weight slowly. May keep ProAir on hand to use just in case if she feels like having wheezing or congestion. Code(s): R06.00 - Dyspnea, unspecified Coding Level of Care Code Est Pt Level 3 (39967) Diagnoses Personal history of nicotine dependence Z87.891 Morbid obesity E66.01 VAHE (obstructive sleep apnea) G47.33 Dyspnea on exertion R06.00
[2023-02-27 11:21] VITALS: BP 110/64; PULSE 82; O2SAT 98; BMI 44.2
== END 2023-02-27 11:48 | disposition home or self-care (01) ==
PROVIDERS: PCP Internal Medicine; Visit Provider Internal Medicine
DX: Z87.891 Personal history of nicotine dependence (principal); E66.01 Morbid (severe) obesity due to excess calories; G47.33 Obstructive sleep apnea (adult) (pediatric); R06.00 Dyspnea, unspecified
CPT/HCPCS: 99213

== ENCOUNTER → 2023-02-27 11:09 | Outpatient (BNVA) | payer MEDICARE, MEDICAID, SELFPAY | PROVIDERS: PCP Internal Medicine; Visit Provider Internal Medicine | DX: G47.33 Obstructive sleep apnea (adult) (pediatric) (principal); E66.01 Morbid (severe) obesity due to excess calories; R06.00 Dyspnea, unspecified; Z87.891 Personal history of nicotine dependence; Z68.41 Body mass index [BMI] 40.0-44.9, adult | CPT/HCPCS: 99212 ==

== ENCOUNTER 2023-03-05 12:21 | Outpatient (REF) | payer MEDICARE, MEDICAID, SELFPAY ==
--- NOTE | ~2023-03-05 | US_ITS ---
EXAMINATION: US RETROPERITONEAL COMPLETE (RENAL) CLINICAL INFORMATION: Overactive bladder. COMPARISON: Ultrasound retroperitoneal limited (renal only) 04/12/2022. TECHNIQUE: Real-time imaging of the kidneys and bladder. FINDINGS: RIGHT KIDNEY: 10.2 x 3.6 x 5.0 cm (SAG x AP x TRV). The kidney is normal in size, contour, and echogenicity. Renal cortical thickness is normal. No calculi or focal parenchymal lesions. No hydronephrosis. LEFT KIDNEY: 8.9 x 5.6 x 5.0 cm (SAG x AP x TRV). The kidney is normal in size, contour, and echogenicity. Renal cortical thickness is normal. No calculi or focal parenchymal lesions. No hydronephrosis. BLADDER: Well distended and normal. Bilateral ureteral jets are demonstrated. Prevoid bladder volume is 239 mL. Postvoid bladder volume is 33 mL. US/US retroperitoneal comp IMPRESSION: Unremarkable examination.
== END 2023-03-05 12:22 | disposition home or self-care (01) ==
LOC: HO.US 12:21
PROVIDERS: PCP Internal Medicine; Visit Provider Nurse Practitioner Family
DX: N32.81 Overactive bladder (principal); R32 Unspecified urinary incontinence
CPT/HCPCS: 76770

== ENCOUNTER 2023-04-16 12:08 | Outpatient (REF) | payer MEDICARE, MEDICAID, SELFPAY ==
[2023-04-16 13:25] LABS: Alanine Aminotransferase 21 U/L (0-31); Alkaline Phosphatase 61 U/L (39-117); Anion Gap 11 (12-20); Aspartate Amino Transferase 14 U/L (5-31); Bilirubin Total 0.3 mg/dL (0.0-1.0); Blood Urea Nitrogen 20 mg/dL (9-16); Calcium 9.1 mg/dL (8.4-10.2); Carbon Dioxide 24 mmol/L (22-29); Chloride 105 mmol/L (96-108); Estimated Glomerular Filt Rate 47; Glucose Random 79 mg/dL (60-115); Potassium 4.4 mmol/L (3.3-5.1); Sodium 136 mmol/L (135-145); Total Protein 7.2 g/dL (6.5-8.0)
[2023-04-16 13:40] LABS: Thyroid Stimulating Hormone 2.34 uIU/mL (0.32-4.0)
== END 2023-04-16 12:09 | disposition home or self-care (01) ==
LOC: HO.LAB 12:08
PROVIDERS: PCP Internal Medicine; Visit Provider Internal Medicine
DX: E89.0 Postprocedural hypothyroidism (principal); G47.33 Obstructive sleep apnea (adult) (pediatric); I10 Essential (primary) hypertension; M54.50 Low back pain, unspecified; F17.201 Nicotine dependence, unspecified, in remission
CPT/HCPCS: 36415; 80053; 84443; 87086; 87088; 87186

== ENCOUNTER 2023-05-20 12:00 | Outpatient (AMB) | payer MEDICARE, MEDICAID, SELFPAY ==
--- NOTE | 2023-05-20 12:03 | A.OFFVIS_ITS ---
Intake Intake Visit Reasons: US f/u Intake Note: Patient is present for follow up OAB/incontinence Urology Medications: solifenacin (vesicare), estrace cream Blood Thinner: none PVR: 13ml's Medical Data Entry Clerk Required: No Accompanied by: Self / Same As Patient Allergies adhesive tape [ADHESIVE TAPE] Allergy (Intermediate, Verified 05/20/23 12:36) BLISTERS clindamycin [CLINDAMYCIN] Allergy (Intermediate, Verified 05/20/23 12:36) FACE SWELLING/ITCHING epinephrine [EPINEPHRINE] Adverse Reaction (Intermediate, Verified 05/20/23 12:36) TACHYCARDIA FROM SANIYA W/EPINEPHRINE adhesive Allergy (Unknown, Uncoded 05/20/23 12:36) Unknown Clindamycin HCl Allergy (Unknown, Uncoded 05/20/23 12:36) Unknown -SANIYA W/EPINEPHRINE Adverse Reaction (Intermediate, Uncoded 05/20/23 12:36) TACHYCARDIA Medication List - Last Reconciled 05/20/23 by DASH Restrepo-STACY albuterol sulfate 90 mcg/actuation (ProAir HFA) 2 puffs inhalation Q4-6H PRN 60 days bupropion HCl 300 mg PO QAM clotrimazole-betamethasone 1-0.05 % appl topical dextroamphetamine-amphetamine 10 mg 1 tab PO TID estradiol 0.01%(0.1mg/gram) (Estrace) pea sized amount to urethra three times a week; 30 days levothyroxine 125 mcg PO DAILY lorazepam 0.5 mg PO DAILY PRN nystatin 1 appl topical DAILY omeprazole 20 mg PO DAILY solifenacin (Vesicare) 10 mg PO DAILY 90 days spironolactone 25 mg PO DAILY telmisartan 80 mg PO DAILY HPI HPI Comments History of Present Illness Details Jacqueline is a 63-year-old female patient of Dr. Nova. She has a past medical history of overactive bladder, urinary incontinence, history of Graves disease, nicotine dependence quit in 2019, obstructive sleep apnea, obesity, and frequent urinary tract infections. She presents to the office today for follow-up of her lower urinary tract symptoms and recurrent urinary tract infections. Recent retroperitoneal ultrasound results reviewed with the patient today. Bilateral kidneys with no calculi, lesions, and or hydronephrosis. The bladder is well distended and normal. Bilateral ureteral jets are demonstrated. Prevoid bladder volume is approximately 240 mL. Postvoid bladder volume is approximately 30 mLs. In office urinalysis results reviewed with the patient today. She also discusses at length her attempt in trying to lose weight and manage better eating habits now that her mom has passed. In discussion with the patient today regarding urological issues and concerns she reports VESIcare to be working extremely well for her and her urinary incontinence she had been experiencing. She reports having decreased her use of incontinent pads with taking 5mg of Vesicare daily. She denies urinary urgency, urinary frequency, incontinence, nocturia, hematuria, dysuria, changes to urinary stream, flank pain, fever, and or chills. PVR 13 ml's. She otherwise offers no issues or concerns at this time. [facility] Medical History (Updated 05/20/23 @ 12:35 by Franca Snyder [facility]) Overactive bladder Urinary incontinence Bladder pain History of Graves' disease Personal history of nicotine dependence VAHE (obstructive sleep apnea) (~2010) Dyspnea on exertion Morbid obesity Frequent UTI Surgical History History of hysterectomy History of eye surgery History of colonoscopy History of appendectomy (~1999) Social History Patient Tobacco Use Status: Former Tobacco user Quit Date: 07/2019 Years Smoked: (onset 14, 1on/off - 1ppd x 35yrs, 35pyh - quit 07/2019) Review of Systems Const Reports as per HPI Eyes Reports no additional complaints ENT Reports no additional complaints Card Reports as per HPI Resp Reports as per HPI GI Reports as per HPI Reports as per HPI Musc Reports no additional complaints Neuro Reports no additional complaints Psych Reports as per HPI Endo Reports as per HPI Evans/Lymph Reports no additional complaints Aller/Immun Reports no additional complaints Physical Exam Const General: cooperative, healthy appearing, comfortable, no acute distress, well developed, alert and awake Orientation/consciousness: patient oriented x3 Limitations: no limitations HEENT Head: Yes normal to inspection, Yes normocephalic and Yes atraumatic Ears: hearing grossly normal bilaterally Eyes General: appearance normal, both eyes and all related structures Neck Neck: Yes normal visual inspection and Yes trachea midline Chest Chest palpation & inspection: normal inspection of the chest Resp Effort & Inspection: normal respiratory effort and able to speak in complete sentences Cardio Rate: regular rate GI Inspection: Yes normal to inspection General: Yes no CVA tenderness Back/Spine/Pelvis Back: no CVA tenderness Skin General skin exam: no rashes or lesions noted Neuro General: patient oriented x3 Extrem General: Yes normal to inspection Psych Appearance: grossly normal and well kempt Mental Status: mental status grossly normal Speech and movement: Normal speech and movement present and Clear speech present Affect: normal affect Attitude: cooperative Thought process: Normal thought process present Thought content: Normal thought content present Insight: Fair insight present (Psych) Judgement: Fair judgement present (Psych) Office Procedures Post Void Residual Post Residual Void Post Void Residual (PVR): 13 [id number] Void Residual by ultrasound Results AMB Urinalysis, Automated UA Leukoctes 0 Lluvia/uL Last Edit by Angelica Grimes on 05/20/23 12:24 UA Nitrite Negative Last Edit by Angelica Quinterojesse on 05/20/23 12:24 UA Urobilinogen 0.2 mg/dL Last Edit by Angelica Grimes on 05/20/23 12:24 UA Protein 15 mg/dL Last Edit by Angelica [employer] on 05/20/23 12:24 UA pH 6.0 Last Edit by [employer] on 05/20/23 12:24 UA Blood 0 Joss/uL Last Edit by Angelica Grimes on 05/20/23 12:24 UA Specific [place] 1.030 Last Edit by [employer] on 05/20/23 12:24 UA Ketone Negative Last Edit by [employer] on 05/20/23 12:24 UA Bilirubin 0 mg/dL Last Edit by [employer] on 05/20/23 12:24 UA Glucose 0 mg/dL Last Edit by [employer] on 05/20/23 12:24 Results Reviewed Results Reviewed: Laboratory Last Values Urine pH (Auto) 6.0 05/20/23 12:05 Specific [place] (Auto) 1.030 05/20/23 12:05 Urine Protein (Auto) 15 mg/dL 05/20/23 12:05 Glucose (UA)(Auto) 0 mg/dL 05/20/23 12:05 Urine Ketones (Auto) Negative 05/20/23 12:05 Urine Blood (Auto) 0 Joss/uL 05/20/23 12:05 Urine Nitrite (Auto) Negative 05/20/23 12:05 Urine Bilirubin (Auto) 0 mg/dL 05/20/23 12:05 Urine Urobilinogen (Auto) 0.2 mg/dL 05/20/23 12:05 Leukocyte Esterase (Auto) 0 Lluvia/uL 05/20/23 12:05 Date of Service: 03/05/23 EXAMINATION: US RETROPERITONEAL COMPLETE (RENAL) FINDINGS: RIGHT KIDNEY: 10.2 x 3.6 x 5.0 cm (SAG x AP x TRV). The kidney is normal in size, contour, and echogenicity. Renal cortical thickness is normal. No calculi or focal parenchymal lesions. No hydronephrosis. LEFT KIDNEY: 8.9 x 5.6 x 5.0 cm (SAG x AP x TRV). The kidney is normal in size, contour, and echogenicity. Renal cortical thickness is normal. No calculi or focal parenchymal lesions. No hydronephrosis. BLADDER: Well distended and normal. Bilateral ureteral jets are demonstrated. Prevoid bladder volume is 239 mL. Postvoid bladder volume is 33 mL. US/US retroperitoneal comp IMPRESSION: Unremarkable examination. Assessment & Plan Assessment & Plan (1) Urinary incontinence: Code(s): R32 - Unspecified urinary incontinence (2) Frequent UTI: Code(s): N39.0 - Urinary tract infection, site not specified (3) Overactive bladder: Code(s): N32.81 - Overactive bladder (4) Foul smelling urine: Code(s): R82.90 - Unspecified abnormal findings in urine (5) Sensation of pressure in bladder area: Code(s): R39.89 - Other symptoms and signs involving the genitourinary system Plan In office urinalysis results reviewed with the patient today; as noted above Continue VESIcare as patient reports to be happy with lessened incontinent episodes. Recent retroperitoneal ultrasound results reviewed with the patient today. Continue Estrace cream Discussed UTI prevention with D mannose supplement, vitamin-C, increasing fluid intake, behavioral therapy with timed voiding, perineal hygiene and postcoital voiding, and management of constipation with stool softeners and increased fiber intake. as discussed and prescribed. Follow-up in 6 months with PVR; or sooner with any issues, concerns, and or questions. Orders: Orders AMB Urinalysis Automated Today Z13.9 - Encounter for screening, unspecified AMB Post Void Residual by ultrasound Today R32 - Unspecified urinary incontinence Patient Instructions: The patient had an opportunity to ask questions regarding the treatment plan. All questions were answered. Physical exam, labs, and imaging were discussed and reviewed in detail. As well as risks, benefits, and discussion of treatment choices. No major barriers to understanding were identified. The patient expressed understanding and agreement with the above treatment plan. The patient was made aware they should contact our office by phone for worsening of their current condition, the appearance of new symptoms, or with any questions or concerns. Compliance is encouraged with any medications and follow up testing that is ordered. It is a privilege to be allowed the opportunity to participate in? your urological care.? Again, if you have any questions or concerns If you have any questions or concerns please do not hesitate to contact me. The office is [phone]. This note is constructed using voice recognition software. While every effort has been made to ensure accuracy plant equipment engineer errors may have been included. Yours sincerely, GEE Restrepo Coding Level of Care Code Est Pt Level 3 (53266) Diagnoses Urinary incontinence R32 Frequent UTI N39.0 Overactive bladder N32.81 Foul smelling urine R82.90 Sensation of pressure in bladder area R39.89 CPT Codes Post Residual Void - PVR CPT Code: 51423-[id number] Void Residual by ultrasound ([id number])
== END 2023-05-20 12:34 | disposition home or self-care (01) ==
PROVIDERS: PCP Internal Medicine; Visit Provider Nurse Practitioner Family
DX: R32 Unspecified urinary incontinence (principal); N39.0 Urinary tract infection, site not specified; N32.81 Overactive bladder; R82.90 Unspecified abnormal findings in urine; R39.89 Other symptoms and signs involving the genitourinary system
CPT/HCPCS: 99213

== ENCOUNTER → 2023-05-20 12:00 | Outpatient (BNVA) | payer MEDICARE, MEDICAID, SELFPAY | PROVIDERS: PCP Internal Medicine; Visit Provider Nurse Practitioner Family | DX: N32.81 Overactive bladder (principal); N39.0 Urinary tract infection, site not specified; R82.90 Unspecified abnormal findings in urine; R39.89 Other symptoms and signs involving the genitourinary system | CPT/HCPCS: 51798; 81003; 99212 ==

== ENCOUNTER 2023-06-12 10:58 | Outpatient (REF) | payer MEDICARE, MEDICAID, SELFPAY | END 2023-06-12 10:59 | disposition home or self-care (01) | LOC: HO.MAMMO 10:58 | PROVIDERS: PCP Internal Medicine; Visit Provider Internal Medicine | DX: Z12.31 Encounter for screening mammogram for malignant neoplasm of breast (principal) | CPT/HCPCS: 77063; 77067 ==

== ENCOUNTER → 2023-06-12 11:00 | Outpatient (BNV) | payer MEDICARE, MEDICAID, SELFPAY | PROVIDERS: PCP Internal Medicine; Visit Provider Radiology Diagnostic Radiology | DX: Z12.31 Encounter for screening mammogram for malignant neoplasm of breast (principal) | CPT/HCPCS: 77063; 77067 ==

== ENCOUNTER 2023-08-21 15:00 | Outpatient (REF) | payer MEDICARE, MEDICAID, SELFPAY ==
[2023-08-21 15:43] LABS: Appearance Urine Clear; Color Urine Yellow; Glucose Urine UA Negative (Negative); Leukocyte Esterase Urine Small (1+) (Negative); Nitrite Urine Positive (Negative); PH 6.5 (5.0-9.0); UMIC TRIGGER UA YES; Urine Blood Trace (Negative); Urine Ketones Negative (Negative); Urine Protein Negative (Neg-Trace)
[2023-08-21 15:49] LABS: Bacteria Urine 4+ (None Seen); Hyaline Casts Urine 0-2 /LPF (0-2); RBC Urine 0-2 /HPF (0-2); WBC Urine 21-50 /HPF (0-5)
== END 2023-08-21 15:01 | disposition home or self-care (01) ==
LOC: HO.LAB 15:00
PROVIDERS: PCP Internal Medicine; Visit Provider Nurse Practitioner Family
DX: N39.0 Urinary tract infection, site not specified (principal)
CPT/HCPCS: 81001; 87086; 87088; 87186

== ENCOUNTER 2023-08-25 10:27 | Outpatient (AMB) | payer MEDICARE, MEDICAID, SELFPAY ==
[2023-08-25 10:46] VITALS: BP 104/74; PULSE 80; O2SAT 96; BMI 46.5
--- NOTE | 2023-08-25 10:46 | MHC.OFFVIS ---
Intake Vital Signs 08/25/23 10:46 Height 5 ft 1 in Weight 246 lb BMI 46.5 BP 104/74 Blood Pressure Location Lt brachial Position Sitting Pulse 80 Pulse Source Pulse Oximeter Pulse Oximetry (%) 96 Oxygen Delivery Method Room Air Intake Visit Reasons: Dyspnea Intake Note: pt is here for follow up and states she is starting to exercise, some short of breath, but not bad, but pain is the cause of this. Japanese Professor Required: No Allergies adhesive tape [ADHESIVE TAPE] Allergy (Intermediate, Verified 08/25/23 11:01) BLISTERS clindamycin [CLINDAMYCIN] Allergy (Intermediate, Verified 08/25/23 11:01) FACE SWELLING/ITCHING epinephrine [EPINEPHRINE] Adverse Reaction (Intermediate, Verified 08/25/23 11:01) TACHYCARDIA FROM SANIYA W/EPINEPHRINE adhesive Allergy (Unknown, Uncoded 08/25/23 11:01) Unknown Clindamycin HCl Allergy (Unknown, Uncoded 08/25/23 11:01) Unknown -SANIYA W/EPINEPHRINE Adverse Reaction (Intermediate, Uncoded 08/25/23 11:01) TACHYCARDIA Medication List - Last Reconciled 08/25/23 by Mac Irene MD albuterol sulfate 90 mcg/actuation (ProAir HFA) 2 puffs inhalation Q4-6H PRN 60 days bupropion HCl XL 300 mg PO QAM ciprofloxacin HCl 250 mg PO BID 7 days clotrimazole-betamethasone 1-0.05 % appl topical dextroamphetamine-amphetamine 10 mg 1 tab PO TID diclofenac sodium 75 mg PO BID estradiol 0.01%(0.1mg/gram) (Estrace) pea sized amount to urethra three times a week; 30 days ibuprofen 600 mg PO TID levothyroxine 125 mcg PO DAILY lorazepam 0.5 mg PO DAILY PRN nystatin 1 appl topical DAILY omeprazole 20 mg PO DAILY solifenacin (Vesicare) 10 mg PO DAILY 90 days spironolactone 25 mg PO DAILY telmisartan 80 mg PO DAILY Do you need a note to return to daycare/school/sports/work: No HPI Dyspnea HPI Details Jacqueline is 63 years old female with morbid obesity, and obstructive sleep apnea. She is here for 6 months follow-up. She uses CPAP very regularly every night and sleeps well at least for 6 hours at night. There is no issue with the CPAP mask or CPAP device. Her main problem is that she is not able to lose weight. During the winter months she has actually gained about 12 lb of weight due to inactivity. She is not in any regular exercise program. She is watching her diet on her own but she is not participating in any program. She denies any depression but she is somewhat frustrated, as she is not able to lose weight. She is on thyroid replacement therapy and her TSH level has been in normal range [facility] Medical History Overactive bladder Urinary incontinence Bladder pain History of Graves' disease Personal history of nicotine dependence VAHE (obstructive sleep apnea) (~2010) Dyspnea on exertion Morbid obesity Frequent UTI Surgical History History of hysterectomy History of eye surgery History of colonoscopy History of appendectomy (~1999) Social History Patient Tobacco Use Status: Former Tobacco user Quit Date: 07/2019 Years Smoked: (onset 14, 1on/off - 1ppd x 35yrs, 35pyh - quit 07/2019) Review of Systems Const All systems reviewed & are unremarkable except as noted in HPI and below Reports fatigue and Reports weight gain Eyes Reports no additional complaints ENT Reports no additional complaints Card Denies chest pain, Denies edema and Denies irregular heart rhythm Resp Reports as per HPI GI Reports heartburn (GERD symptoms controlled with medicine) Reports nocturia Musc Reports myalgias (Chronic muscle aches) Skin/Breast Reports system reviewed and no additional complaints, except as documented Neuro Reports no additional complaints Psych Reports anxiety Endo Reports fatigue Physical Exam Vital Signs: Last Vital Signs Pulse 80 08/25/23 10:46 BP 104/74 08/25/23 10:46 Pulse Ox 96 08/25/23 10:46 Oxygen Delivery Method Room Air 08/25/23 10:46 BMI result Body Mass Index 46.5 Patient is grossly obese with a round face and short and obese neck Const General: comfortable (But short of breath during conversation), no acute distress, alert and awake Orientation/consciousness: patient oriented x3 HEENT Head: Yes normal to inspection General nose exam: No nasal polyps present and No nasal discharge present Face and sinus: Yes sinuses nontender Mouth: oropharynx normal Throat: Yes posterior oropharynx normal Eyes General: appearance normal, both eyes and all related structures Neck Neck: Yes normal visual inspection, Yes no lymphadenopathy, Yes trachea midline, Yes no JVD and Yes other (Neck circumference 18 in) Thyroid: Thyroid normal Chest Chest palpation & inspection: normal inspection of the chest, normal palpation of entire chest wall and no tenderness Resp Other: Percussion note is not perceptible because of the obese chest wall. Breath sounds are distant and decreased especially over the basilar areas. No wheezes or rhonchi are heard. Cardio Palpation: PMI not normal (Not palpable) Rate: regular rate Rhythm: regular rhythm Heart sounds: no gallops and no murmurs GI Palpation (GI): Soft to palpation, nontender, No hepatosplenomegaly present, no masses and Other GI palpation findings present (Abdomen is grossly obese and protuberant) Auscultation: normal bowel sounds Back/Spine/Pelvis Thoracic/Lumbar Spine: thoracic and lumbar spine normal to inspection and thoraco-lumbar ROM limited Skin General skin exam: no rashes or lesions noted Neuro General: patient oriented x3 and no focal motor deficits Cranial nerves: Yes CN's II-XII intact bilaterally Extrem General: Yes normal to inspection (But somewhat bulky), Yes no clubbing, cyanosis or edema and Yes no calf tenderness Psych Speech and movement: Normal speech and movement present Affect: Anxious affect present Results Reviewed Results Reviewed: Compliance report not available Assessment & Plan Assessment & Plan (1) Morbid obesity: Comment: CONTINUES TO BE GROSSLY OBESE BMI= 46.5 Code(s): E66.01 - Morbid (severe) obesity due to excess calories Plan: I HAVE STRESSED THAT SHE SHOULD TRY TO WALK AT LEAST ABOUT 1 OR 2 MILES EVERY DAY. AND CUT DOWN THE PORTIONS OF HER DIET. NEEDS TO JOIN A WEIGHT MANAGEMENT PROGRAM (2) VAHE (obstructive sleep apnea): Onset Date: ~2010 Comment: (Hx VAHE, dx 2010 - on cpap) PATIENT DOES HAVE CPAP, HAS A NEW REFURBISHED DEVICE. FUNCTIONS WELL, Code(s): G47.33 - Obstructive sleep apnea (adult) (pediatric) Plan: ADVISED TO KEEP ON USING THE CPAP AT [facility] FOR 6 HOURS EVERY NIGHT. (3) Personal history of nicotine dependence: Comment: (onset 14, 1on/off - 1ppd x 35yrs, 35pyh - QUIT IN 2019 . SHE IS IN ANNUAL SCREENING PROGRAM Code(s): Z87.891 - Personal history of nicotine dependence Plan: Continue to have annual lung screening with LDCT (4) Dyspnea on exertion: Comment: Dyspnea on exertion is multi factorial, including gross abdominal obesity, history of past smoking, PULMONARY FUNCTION TEST HAS NOT SHOWN ANY OBSTRUCTIVE OR RESTRICTIVE PULMONARY DISORDER. Code(s): R06.00 - Dyspnea, unspecified Plan: I explained to her the findings of pulmonary function test, which are almost normal. Advised that she should continue to do deep breathing exercises. Continue to lose weight slowly. May keep ProAir on hand to use just in case if she feels like having wheezing or congestion. Coding Level of Care Code Est Pt Level 3 (30229) Diagnoses Morbid obesity E66.01 VAHE (obstructive sleep apnea) G47.33 Personal history of nicotine dependence Z87.891 Dyspnea on exertion R06.00
== END 2023-08-25 11:16 | disposition home or self-care (01) ==
PROVIDERS: PCP Internal Medicine; Visit Provider Internal Medicine
DX: E66.01 Morbid (severe) obesity due to excess calories (principal); G47.33 Obstructive sleep apnea (adult) (pediatric); Z87.891 Personal history of nicotine dependence; R06.00 Dyspnea, unspecified
CPT/HCPCS: 99213

== ENCOUNTER → 2023-08-25 10:27 | Outpatient (BNVA) | payer MEDICARE, MEDICAID, SELFPAY | PROVIDERS: PCP Internal Medicine; Visit Provider Internal Medicine | DX: R06.00 Dyspnea, unspecified (principal); E66.01 Morbid (severe) obesity due to excess calories; G47.33 Obstructive sleep apnea (adult) (pediatric); Z87.891 Personal history of nicotine dependence; Z68.42 Body mass index [BMI] 45.0-49.9, adult | CPT/HCPCS: 99212 ==

== ENCOUNTER 2023-10-08 06:13 | Day surgery (SDC) | payer MEDICARE, OTHER, SELFPAY ==
[2023-10-06 14:32] VITALS: BMI 43.9
--- NOTE | 2023-10-07 09:41 | HO.ANESPROP2 ---
HPI - Anesthesia Eval Consult details Narrative: 63yo F for Upper Endoscopy BMI = 46.5 Seen by pulmo 08/2023 for [place]: I explained to her the findings of pulmonary function test, which are almost normal. Advised that she should continue to do deep breathing exercises. Continue to lose weight slowly. PMFSH Active Problems Active Problems: All Active Problems Sensation of pressure in bladder area (Acute) Foul smelling urine (Acute) Overactive bladder (Acute) Urinary incontinence (Acute) Bladder pain (Acute) Personal history of nicotine dependence (Acute) VAHE (obstructive sleep apnea) (Acute ~2010) Dyspnea on exertion (Acute) Morbid obesity (Acute) Frequent UTI (Acute) Past Medical History Medical History IBS (irritable bowel syndrome) GERD (gastroesophageal reflux disease) HTN (hypertension) Back pain Arthritis Anxiety Depression ADHD Overactive bladder Urinary incontinence Bladder pain History of Graves' disease Personal history of nicotine dependence VAHE (obstructive sleep apnea) (~2010) Dyspnea on exertion Morbid obesity Frequent UTI Surgical History Surgical History History of esophagogastroduodenoscopy (EGD) Hx of foot surgery Hx of breast lump removal History of hysterectomy History of eye surgery History of colonoscopy History of appendectomy (~1999) Social History Social History Patient Tobacco Use Status: Former Tobacco user Years Smoked: (onset 14, 1on/off - 1ppd x 35yrs, 35pyh - quit 07/2019) Meds Allergies Allergy/AdvReac Type Severity Reaction Status Date / Time adhesive tape [ADHESIVE TAPE] Allergy Intermediate BLISTERS Verified 10/15/23 11:03 clindamycin [CLINDAMYCIN] Allergy Intermediate FACE Verified 10/15/23 11:03 SWELLING/ITCHING epinephrine [EPINEPHRINE] AdvReac Intermediate TACHYCARDIA Verified 10/15/23 11:03 FROM SANIYA W/EPINEPHRINE adhesive Allergy Unknown Unknown Uncoded 10/15/23 11:03 Clindamycin HCl Allergy Unknown Unknown Uncoded 10/15/23 11:03 -SANIYA W/EPINEPHRINE AdvReac Intermediate TACHYCARDIA Uncoded 10/15/23 11:03 Home Medications ?Medication ?Instructions ?Recorded ?Confirmed ?Last Taken ?Type dextroamphetamine-amphetamine 10 20 tab PO DAILY 06/08/21 10/15/23 Unknown History mg tablet omeprazole 20 mg capsule,delayed 20 mg PO DAILY 06/08/21 10/15/23 Unknown History release bupropion HCl 300 mg 24 hr tablet, 300 mg PO QAM 07/20/21 10/15/23 Unknown History extended release lorazepam 0.5 mg tablet 0.5 mg PO DAILY PRN Anxiety 07/20/21 10/15/23 Unknown History nystatin 100,000 unit/gram topical 1 appl topical TID 09/12/21 10/15/23 Unknown History powder telmisartan 80 mg tablet 80 mg PO DAILY 09/12/21 10/15/23 Unknown History spironolactone 25 mg tablet 25 mg PO DAILY 11/08/21 10/15/23 Unknown History levothyroxine 125 mcg tablet 125 mcg PO DAILY 02/12/23 10/15/23 Unknown History ibuprofen 600 mg tablet 600 mg PO TID 08/25/23 10/15/23 Unknown History Voltaren 10/06/23 10/15/23 Unknown History acetaminophen 10/06/23 10/15/23 Unknown History loperamide 2 mg tablet 2 mg PO QID PRN Diarrhea 10/06/23 10/15/23 Unknown History Exam Height,Weight and Vital Signs: Height 5 ft 2 in Weight 108.862 kg Pertinent Lab Results Pertinent Lab Results: Laboratory Tests 12/24/22 04/16/23 11:32 12:21 WBC 5.0 Hgb 12.6 Hct 37.8 Plt Count 238 Sodium 136 Potassium 4.4 Chloride 105 Carbon Dioxide 24 BUN 20 H Creatinine 1.15 Assessment and Plan Assessment Anesthesia Assessment: Chart Reviewed
[2023-10-08 06:19] VITALS: BMI 44.0
[2023-10-08 06:36] VITALS: BP 128/68; PULSE 82; RESP 16; TEMP 36.1; O2SAT 96
[2023-10-08] MEDS: Lactated Ringers 1,000 ML 100 ML IVCONT (06:44)
--- NOTE | 2023-10-08 07:20 | P.CONAN_ITS ---
[facility] Active Problems Active Problems: All Active Problems Sensation of pressure in bladder area (Acute) Foul smelling urine (Acute) Overactive bladder (Acute) Urinary incontinence (Acute) Bladder pain (Acute) Personal history of nicotine dependence (Acute) VAHE (obstructive sleep apnea) (Acute ~2010) Dyspnea on exertion (Acute) Morbid obesity (Acute) Frequent UTI (Acute) Past Medical History Medical History IBS (irritable bowel syndrome) GERD (gastroesophageal reflux disease) HTN (hypertension) Back pain Arthritis Anxiety Depression ADHD Overactive bladder Urinary incontinence Bladder pain History of Graves' disease Personal history of nicotine dependence VAHE (obstructive sleep apnea) (~2010) Dyspnea on exertion Morbid obesity Frequent UTI Functional capacity: independent ambulation Patient : No Family History Family history of problems with anesthesia: No Surgical History Surgical History History of esophagogastroduodenoscopy (EGD) Hx of foot surgery Hx of breast lump removal History of hysterectomy History of eye surgery History of colonoscopy History of appendectomy (~1999) History of Problems with Anesthesia: No Social History Social History Patient Tobacco Use Status: Former Tobacco user Quit Date: 2020 Years Smoked: (onset 14, 1on/off - 1ppd x 35yrs, 35pyh - quit 07/2019) Use of substances other than those prescribed or required for medical reasons: No Are you DNR?: No Advance Directives: No Advance Directives Information Provided: Yes Meds Allergies Allergy/AdvReac Type Severity Reaction Status Date / Time adhesive tape [ADHESIVE TAPE] Allergy Intermediate BLISTERS Verified 08/25/23 11:01 clindamycin [CLINDAMYCIN] Allergy Intermediate FACE Verified 08/25/23 11:01 SWELLING/ITCHING epinephrine [EPINEPHRINE] AdvReac Intermediate TACHYCARDIA Verified 08/25/23 11:01 FROM SANIYA W/EPINEPHRINE adhesive Allergy Unknown Unknown Uncoded 08/25/23 11:01 Clindamycin HCl Allergy Unknown Unknown Uncoded 08/25/23 11:01 -SANIYA W/EPINEPHRINE AdvReac Intermediate TACHYCARDIA Uncoded 08/25/23 11:01 Active Medications: Current Medications Lactated Ringer's (Lr) 1,000 mls @ 100 mls/hr IVCONT .Q10H DELIA Last Admin: 10/08/23 06:44 Dose: 100 mls/hr Home Medications ?Medication ?Instructions ?Recorded ?Confirmed ?Last Taken ?Type dextroamphetamine-amphetamine 10 20 tab PO DAILY 06/08/21 10/06/23 Unknown History mg tablet omeprazole 20 mg capsule,delayed 20 mg PO DAILY 06/08/21 10/06/23 Unknown History release bupropion HCl 300 mg 24 hr tablet, 300 mg PO QAM 07/20/21 10/06/23 Unknown History extended release lorazepam 0.5 mg tablet 0.5 mg PO DAILY PRN Anxiety 07/20/21 10/06/23 Unknown History nystatin 100,000 unit/gram topical 1 appl topical TID 09/12/21 10/06/23 Unknown History powder telmisartan 80 mg tablet 80 mg PO DAILY 09/12/21 10/06/23 Unknown History spironolactone 25 mg tablet 25 mg PO DAILY 11/08/21 10/06/23 Unknown History levothyroxine 125 mcg tablet 125 mcg PO DAILY 02/12/23 10/06/23 Unknown History ibuprofen 600 mg tablet 600 mg PO TID 08/25/23 08/25/23 Unknown History Voltaren 10/06/23 Unknown History acetaminophen 10/06/23 Unknown History loperamide 2 mg tablet 2 mg PO QID PRN Diarrhea 10/06/23 10/06/23 Unknown History Exam Height,Weight and Vital Signs: Height 5 ft 2 in Weight 109.032 kg Last Vital Signs Temp 96.9 F 10/08/23 06:36 Pulse 82 10/08/23 06:36 Resp 16 10/08/23 06:36 BP 128/68 10/08/23 06:36 Pulse Ox 96 10/08/23 06:36 O2 Del Method Room Air 10/08/23 06:36 Airway Mallampati Class: IV TM Dist: >3cm Neck ROM: Full Heart: RRR Lungs: CTA Assessment and Plan Assessment Anesthesia Assessment: Anesthesia Plan Discussed Final Anesthetic Review Family History of Problems with Anesthesia: No History of Problems with Anesthesia: No NPO: Yes ASA Class: III Final Preanesthetic Review: Meds/Allgs Chart Reviewed, Consent Obtained/Reviewed and Anes Risks/Benef Reviewed Patient Risk: Intermediate Procedure Risk: Low Anesthetic Plan Anesthetic Plan: MAC: Disposition: Standard PACU
[2023-10-08 08:05] VITALS: BP 154/78; PULSE 98; RESP 16; TEMP 36.3; O2SAT 95
--- NOTE | 2023-10-08 08:08 | PM.OP ---
Brief Operative Note Date of Service: 10/08/23 Pre-op diagnosis: GERD Post-op diagnosis: other (Hiatal hernia, GERD) Procedure: EGD with biopsies Surgeon: Anthony Alvarado MD Anesthesia: MAC Was an Forming And Assembling Supervisor used for this Procedure?: No Estimated blood loss (mL): 2.0 Pathology: other (A. EG Junction at 35cm B. Gastric antrum) Condition: stable Disposition: PACU
[2023-10-08 08:20] VITALS: BP 146/74; PULSE 95; RESP 20; TEMP 37.2; O2SAT 97
--- NOTE | 2023-10-08 08:32 | OP_ITS ---
DATE OF SERVICE: 10/08/2023 SURGEON: Anthony Alvarado MD INDICATIONS: The patient presents for evaluation of gastroesophageal reflux. Full consent obtained from her for this, including risks of bleeding and perforation. PREOPERATIVE DIAGNOSIS: Gastroesophageal reflux. POSTOPERATIVE DIAGNOSIS: Gastroesophageal reflux, hiatal hernia, gastritis. PROCEDURE PERFORMED: Esophagogastroduodenoscopy with biopsy. ESTIMATED BLOOD LOSS: COMPLICATIONS: ANESTHESIA: Monitored anesthesia care. ASSISTANTS: SPECIMENS: DESCRIPTION OF PROCEDURE: The patient was placed in the left lateral decubitus position. The Olympus video gastroscope was passed in the posterior oropharynx and upper esophagus under direct vision. The scope was passed slowly into the distal esophagus. The gastroesophageal junction appeared at 35 cm. This area was slightly irregular consistent with chronic reflux and possibly small, less than 1 cm areas of Clark mucosa. There was no esophagitis nor ulceration. The scope entered the stomach. There was a small hiatal hernia. The scope was advanced to pylorus and duodenum was cannulated to the descending portion. The duodenum including the bulb appeared normal without mass or ulceration. The scope was withdrawn back in the stomach. The gastric antrum had some areas of erythema and less than 5 mm erosions. There was good peristalsis. The scope was retroflexed visualizing the proximal stomach carefully which appeared normal, without any sign of mass or ulceration. The scope was straightened. Biopsies were obtained from the gastric antrum. The scope was withdrawn back in the esophagus. Biopsies were obtained from the EG junction at 35 cm. Proximal to this, the esophageal mucosa appeared normal. Scope was withdrawn from the patient. She tolerated the procedure well and was returned to the recovery area in stable condition. IMPRESSION: 1. Hiatal hernia, gastroesophageal reflux, rule out Clark esophagus. 2. Gastritis. PLAN: The results of biopsies will be checked. She has been advised to not use any aspirin and NSAIDs for at least 2 weeks. She was advised to continue omeprazole at least once a day, but take a 2nd dose later in the day if need be. We did review that she definitely needs to consider joining a weight loss program such as at the [facility] to try to lose weight as I would obviously be good for her overall health as well as to help with her reflux. She will see me on a p.r.n. basis. MD VIN Bell/LOU / [phone]
--- NOTE | 2023-10-08 16:48 | HO.POSTANES ---
Post Anesthesia Evaluation Post Anesthesia Evaluation Date of Service: 10/08/23 Vital Signs: Vital Signs Temp Pulse Resp BP Pulse Ox O2 Del Method O2 Flow Rate 10/08/23 08:20 98.9 F 95 20 146/74 H 97 Room Air 10/08/23 08:05 97.3 F 98 16 154/78 H 95 Simple Mask 4 10/08/23 06:36 96.9 F 82 16 128/68 96 Room Air Anesthesia: Monitored Mental Status: Awake Pain Control: Satisfactory Nausea/Vomiting: None Hydration: Adequate Anesthesia-Related Issues: No Anes. Related Issues
== END 2023-10-08 08:46 | disposition home or self-care (01) ==
PROVIDERS: PCP Internal Medicine; Visit Provider Internal Medicine
PROC: 0DJ08ZZ Inspection of Upper Intestinal Tract, Via Natural or Artificial Opening Endoscopic (ICD-10-PCS; CPT 43235; principal; 2023-10-08 07:30)
DX: K29.60 Other gastritis without bleeding (principal); K31.A19 Gastric intestinal metaplasia without dysplasia, unspecified site; K44.9 Diaphragmatic hernia without obstruction or gangrene; R19.2 Visible peristalsis; K21.9 Gastro-esophageal reflux disease without esophagitis; I10 Essential (primary) hypertension; E05.00 Thyrotoxicosis with diffuse goiter without thyrotoxic crisis or storm; F90.9 Attention-deficit hyperactivity disorder, unspecified type; E66.9 Obesity, unspecified; Z68.42 Body mass index [BMI] 45.0-49.9, adult; G47.33 Obstructive sleep apnea (adult) (pediatric); Z99.89 Dependence on other enabling machines and devices; Z87.891 Personal history of nicotine dependence; Z87.440 Personal history of urinary (tract) infections; Z79.899 Other long term (current) drug therapy
CPT/HCPCS: 43239; 88305; 88313; 88342; J1596; J2704

== ENCOUNTER 2023-10-15 07:07 | Outpatient (REF) | payer MEDICARE, OTHER, SELFPAY ==
--- NOTE | ~2023-10-15 | XR_ITS ---
EXAMINATION: XR SHOULDER, LEFT CLINICAL INFORMATION: Pain in left shoulder. COMPARISON: None available. TECHNIQUE: Two views of the left shoulder. FINDINGS: The bones are diffusely demineralized. Mild narrowing of the acromioclavicular joint. Mild hypertrophic change along the inferomedial aspect of the humeral head. Small calcification in the soft tissues adjacent to the greater tuberosity. XR/XR shoulder LT min 2V IMPRESSION: Mild degenerative changes.
== END 2023-10-15 07:08 | disposition home or self-care (01) ==
LOC: HO.HOSX 07:07
PROVIDERS: Visit Provider Orthopaedic Surgery
DX: Z13.89 Encounter for screening for other disorder (principal)
CPT/HCPCS: 73030

== ENCOUNTER 2023-10-15 10:24 | Outpatient (REF) | payer MEDICARE, OTHER, SELFPAY ==
[2023-10-15 13:11] LABS: MANUAL DIFF FLAG NO
[2023-10-15 13:29] LABS: Basophils Percent Auto 0.7 % (0-2); Eosinophils Absolute Auto 0.1 X10*3/uL (0.0-0.4); Eosinophils Percent Auto 1.5 % (0-4); Hematocrit 38.8 % (37.0-47.0); Hemoglobin 13.3 g/dl (12.0-16.0); Imm Gran Abs Auto 0.01 X10*3/uL (0.00-0.03); Imm Gran Pct Auto 0.2 % (0.0-0.4); Lymphocytes Absolute Auto 1.5 X10*3/uL (1.2-4.9); Lymphocytes Percent Auto 33.6 % (20-40); Mean Corpuscular HGB Conc 34.3 g/dl (31.0-35.0); Mean Corpuscular Hemoglobin 32.8 pg (27.0-33.0); Mean Corpuscular Volume 95.8 fL (80.0-98.0); Mean Platelet Volume 10.1 fL (9.4-12.3); Monocytes Absolute Auto 0.4 X10*3/uL (0.1-1.2); Monocytes Percent Auto 9.1 % (2-11); Neutrophils Absolute Auto 2.5 x10*3/uL (2.0-8.3); Neutrophils Percent Auto 54.9 % (45-73); Platelet Count 254 X10*3/uL (160-400); Red Blood Count 4.05 X10*6/uL (4.20-5.50); Red Cell Distribution Width 12.5 % (11.0-16.0); White Blood Count 4.5 X10*3/uL (4.8-10.8)
[2023-10-15 13:53] LABS: Alanine Aminotransferase 22 U/L (0-31); Albumin Level 4.2 g/dL (3.5-5.0); Alkaline Phosphatase 54 U/L (39-117); Anion Gap 12 (12-20); Aspartate Amino Transferase 17 U/L (5-31); Bilirubin Total 0.4 mg/dL (0.0-1.0); Blood Urea Nitrogen 16 mg/dL (9-16); Calcium 8.9 mg/dL (8.4-10.2); Carbon Dioxide 20 mmol/L (22-29); Chloride 109 mmol/L (96-108); Cholesterol 131 mg/dL (<200); Estimated Glomerular Filt Rate 47; Glucose Random 103 mg/dL (60-115); HDL Cholesterol 51 mg/dL (>40); LDL Cholesterol Calculated 71 mg/dL (<100); Potassium 4.2 mmol/L (3.3-5.1); Sodium 137 mmol/L (135-145); Total Protein 7.2 g/dL (6.5-8.0); Triglycerides 47 mg/dL (<150)
[2023-10-15 14:12] LABS: Thyroid Stimulating Hormone 0.84 uIU/mL (0.32-4.0)
== END 2023-10-15 10:25 | disposition home or self-care (01) ==
LOC: HO.10HDL 10:24
PROVIDERS: Visit Provider Internal Medicine
DX: E89.0 Postprocedural hypothyroidism (principal); F17.201 Nicotine dependence, unspecified, in remission; G47.33 Obstructive sleep apnea (adult) (pediatric); I10 Essential (primary) hypertension; M25.512 Pain in left shoulder
CPT/HCPCS: 36415; 73030; 80053; 80061; 84443; 85025; 99202; 99285

== ENCOUNTER 2023-10-15 10:40 | Outpatient (AMB) | payer MEDICARE, MEDICAID, SELFPAY ==
[2023-10-15 10:50] VITALS: BMI 43.9
--- NOTE | 2023-10-15 10:50 | MHC.OFFVIS ---
Vital Signs 10/15/23 10:50 Height 5 ft 2 in Weight 240 lb BMI 43.9 Intake Visit Reasons: [employer]-Left shoulder RTC tendinitis Intake Note: Jacqueline is a 63 year old Right hand dominant female who presents as a new patient with Left shoulder pain and weakness. The patient describes her pain as sharp and severe in nature. Her pain has gotten worse over the last 3 years in spite of continued non operative treatments. The patient states that she did injure her shoulder over the last few years while taking care of her sick mother. Her mother last January. The patient reports difficulty lifting her left hand above shoulder height. She has had injections which gave her minimal relief. She has also done physical therapy exercises which aggravated her pain. She reports weakness when lifting her left hand above shoulder height. Allergies adhesive tape [ADHESIVE TAPE] Allergy (Intermediate, Verified 10/15/23 11:03) BLISTERS clindamycin [CLINDAMYCIN] Allergy (Intermediate, Verified 10/15/23 11:03) FACE SWELLING/ITCHING epinephrine [EPINEPHRINE] Adverse Reaction (Intermediate, Verified 10/15/23 11:03) TACHYCARDIA FROM SANIYA W/EPINEPHRINE adhesive Allergy (Unknown, Uncoded 10/15/23 11:03) Unknown Clindamycin HCl Allergy (Unknown, Uncoded 10/15/23 11:03) Unknown -SANIYA W/EPINEPHRINE Adverse Reaction (Intermediate, Uncoded 10/15/23 11:03) TACHYCARDIA Medication List - Last Reconciled 10/15/23 by Alvaro Jaquez MD [acetaminophen ] bupropion HCl XL 300 mg PO QAM dextroamphetamine-amphetamine 10 mg 20 tabs PO DAILY ibuprofen 600 mg PO TID levothyroxine 125 mcg PO DAILY loperamide 2 mg PO QID PRN lorazepam 0.5 mg PO DAILY PRN nystatin 1 appl topical TID omeprazole 20 mg PO DAILY solifenacin (Vesicare) 10 mg PO DAILY 90 days spironolactone 25 mg PO DAILY telmisartan 80 mg PO DAILY [Voltaren ] [facility] Medical History IBS (irritable bowel syndrome) GERD (gastroesophageal reflux disease) HTN (hypertension) Back pain Arthritis Anxiety Depression ADHD Overactive bladder Urinary incontinence Bladder pain History of Graves' disease Personal history of nicotine dependence VAHE (obstructive sleep apnea) (~2010) Dyspnea on exertion Morbid obesity Frequent UTI Surgical History History of esophagogastroduodenoscopy (EGD) Hx of foot surgery Hx of breast lump removal History of hysterectomy History of eye surgery History of colonoscopy History of appendectomy (~1999) Social History Patient Tobacco Use Status: Former Tobacco user Quit Date: 2020 Years Smoked: (onset 14, 1on/off - 1ppd x 35yrs, 35pyh - quit 07/2019) Physical Exam Vital Signs: BMI result Body Mass Index 43.9 Const Other: Well-nourished well-developed very friendly female awake alert and oriented x3 in no acute distress Extrem Other: Bilateral upper extremity examination shows good capillary refill, no skin lesions noted, normal sensation light touch Left shoulder examination shows decreased range of motion when compared to her right shoulder, positive impingement signs, 4+ out of 5 strength with supraspinatus testing, tenderness over her acromioclavicular joint, no instability Results Reviewed Results Reviewed: X-rays of the patient's left shoulder taken today show severe acromioclavicular joint narrowing, a type 2 acromion, no acute bony abnormalities Assessment & Plan Assessment & Plan (1) Left shoulder pain: Code(s): M25.512 - Pain in left shoulder Category: Medical Plan Ms. Casillas presents with progressively worsening left shoulder pain and weakness most likely due to a full-thickness rotator cuff tear. Thus, I will send the patient for an MRI of her left shoulder for further evaluation. She will continue with her range of motion exercises in the meantime to prevent stiffness. I will see her back following the MRI to discuss the findings and treatment options. Feel free to call me at any time should questions regarding her orthopedic management arise. Thank you very much for asking me to see this very friendly patient. I spent 21 minutes in reviewing the patient's records and imaging studies, seeing the patient and documenting in the medical record. Orders: Orders XR shoulder LT min 2V 10/15/23 M25.512 - Pain in left shoulder MR shoulder LT wo con 10/15/23 M75.122 - Complete rotator cuff tear or rupture of left shoulder, not specified as traumatic Coding Level of Care Code New Pt Level 3 (45928) Diagnoses Left shoulder pain M25.512
== END 2023-10-15 11:25 | disposition home or self-care (01) ==
PROVIDERS: PCP Internal Medicine; Visit Provider Orthopaedic Surgery
DX: M25.512 Pain in left shoulder (principal)
CPT/HCPCS: 99203

== ENCOUNTER 2023-11-03 10:50 | Outpatient (REF) | payer MEDICARE, MEDICAID, SELFPAY ==
--- NOTE | ~2023-11-03 | CT_ITS ---
EXAMINATION: CT LOW-DOSE SCREENING CHEST WITHOUT CONTRAST CLINICAL INFORMATION: Personal history of nicotine dependence. The patient has a 30 pack-year history of smoking, having quit 4 years ago. COMPARISON: CT chest 10/31/2022. X-ray chest 09/12/2021. TECHNIQUE: Multidetector volumetric CT imaging of the chest is performed on a Siemens SOMATOM Definition scanner without contrast using low dose technique. Additional 2D coronal and sagittal reformatted images and axial 3D maximum intensity projection (MIP) images are generated on the CT workstation. This CT examination was performed using dose optimization techniques as appropriate, variously including the following: *Automated exposure control *Adjustment of mA and/or kV according to patient size (this includes techniques or standardized protocols for targeted exams where dose is matched to indication/reason for exam; i.e. extremities or head) *Use of iterative reconstruction technique TOTAL EXAM DLP: 80 mGy-cm. CTDIvol: 2.42 mGy. FINDINGS: PULMONARY NODULES: Tiny punctate left lower lobe granuloma is again seen. Some small micronodules are present none larger than 3 mm. Turner images of all have been saved. No new, worrisome or concerning nodule detected. LUNGS: Lungs bilaterally symmetrically expanded. There are mild emphysematous changes seen along with bronchial thickening without bronchiectasis. No effusion or pneumothorax. Central airways patent. MEDIASTINUM: No mediastinal, hilar or axillary adenopathy or free fluid collection. CORONARY ARTERY CALCIFICATION: None visualized on this study. THYROID GLAND: Unremarkable to the extent seen. CARDIOVASCULAR STRUCTURES: Aortic and heart size normal. No pericardial effusion. CHEST WALL/AXILLA: Unremarkable. UPPER ABDOMEN: Included portions of the solid organs in the upper abdomen unremarkable on noncontrast imaging. Small hiatal hernia is noted. OSSEOUS STRUCTURES: No suspicious focal findings. CT/CT lung screening IMPRESSION: 1. No evidence of pulmonary malignancy. 2. Mild emphysema and bronchial thickening. 3. Other incidental findings as described above. 4. Lung-RADS Category Negative. There are no clinically significant or potentially clinically significant findings not related to the lungs requiring urgent additional evaluation. ASSESSMENT: 1. Lung-RADS Category 2: Benign appearance or behavior of nodules. N/A RECOMMENDATION: Continued routine annual low-dose CT lung screening in 1 year is recommended. An order for CT CHEST LOW DOSE CANCER SCREENING ([id number]) can be placed.
== END 2023-11-03 10:51 | disposition home or self-care (01) ==
LOC: HO.CT 10:50
PROVIDERS: PCP Internal Medicine; Visit Provider Physician Assistant Medical
DX: Z12.2 Encounter for screening for malignant neoplasm of respiratory organs (principal); Z87.891 Personal history of nicotine dependence
CPT/HCPCS: 71271

== ENCOUNTER 2023-11-18 12:36 | Outpatient (AMB) | payer MEDICARE, MEDICAID, SELFPAY ==
--- NOTE | 2023-11-18 12:42 | A.OFFVIS_ITS ---
Intake Visit Reasons: O/V left shoulder MRI review Intake Note: Jacqueline is a 63 year old Right hand dominant female who presents with left shoulder pain. The patient states that she did aggravate her left shoulder while caring for her sick mother over the last few years. Her mother in January of 2023. The patient is due to start formal physical therapy at [facility] next week. She has tried Tylenol which gives only mild relief. She has not had an injection given into her shoulder. Allergies adhesive tape [ADHESIVE TAPE] Allergy (Intermediate, Verified 11/18/23 12:42) BLISTERS clindamycin [CLINDAMYCIN] Allergy (Intermediate, Verified 11/18/23 12:42) FACE SWELLING/ITCHING epinephrine [EPINEPHRINE] Adverse Reaction (Intermediate, Verified 11/18/23 12:42) TACHYCARDIA FROM SANIYA W/EPINEPHRINE adhesive Allergy (Unknown, Uncoded 11/18/23 12:42) Unknown Clindamycin HCl Allergy (Unknown, Uncoded 11/18/23 12:42) Unknown -SANIYA W/EPINEPHRINE Adverse Reaction (Intermediate, Uncoded 11/18/23 12:42) TACHYCARDIA Medication List - Last Reconciled 11/18/23 by Alvaro Jaquez MD [acetaminophen ] bupropion HCl XL 300 mg PO QAM dextroamphetamine-amphetamine 10 mg 20 tabs PO DAILY ibuprofen 600 mg PO TID levothyroxine 125 mcg PO DAILY loperamide 2 mg PO QID PRN lorazepam 0.5 mg PO DAILY PRN nystatin 1 appl topical TID omeprazole 20 mg PO DAILY solifenacin (Vesicare) 10 mg PO DAILY 90 days telmisartan 80 mg PO DAILY [Voltaren ] [facility] Medical History IBS (irritable bowel syndrome) GERD (gastroesophageal reflux disease) HTN (hypertension) Back pain Arthritis Anxiety Depression ADHD Overactive bladder Urinary incontinence Bladder pain History of Graves' disease Personal history of nicotine dependence VAHE (obstructive sleep apnea) (~2010) Dyspnea on exertion Morbid obesity Frequent UTI Surgical History History of esophagogastroduodenoscopy (EGD) Hx of foot surgery Hx of breast lump removal History of hysterectomy History of eye surgery History of colonoscopy History of appendectomy (~1999) Social History Patient Tobacco Use Status: Former Tobacco user Years Smoked: (onset 14, 1on/off - 1ppd x 35yrs, 35pyh - quit 07/2019) Physical Exam Const Other: Well-nourished well-developed very friendly female awake alert and oriented x3 in no acute distress Extrem Other: Bilateral upper extremity examination shows good capillary refill, no skin lesions noted, normal sensation light touch Left shoulder examination shows decreased active and passive range of motion when compared to her right shoulder, 4+ out of 5 strength with supraspinatus testing, positive impingement signs, tenderness over her acromioclavicular joint, no instability Office Procedures Joint Injection/Drain Joint Injection/Drain Primary Site: left shoulder Prep: site was prepped using aseptic technique Injected: 40 mg of, DepoMedrol and 1% plain lidocaine Procedure: The patient tolerated the procedure well Coding 41947 - Large joint Procedure code (CPT) selection complete Results Reviewed Results Reviewed: MRI of the patient's left shoulder shows mild to moderate glenohumeral joint degenerative changes, a type 2 acromion, severe acromioclavicular joint narrowing, signal change within the supraspinatus tendon due to rotator cuff tendinosis versus a possible small tear Assessment & Plan Assessment & Plan (1) Left shoulder pain: Code(s): M25.512 - Pain in left shoulder Category: Medical Plan Ms. Casillas presents with left shoulder pain due to impingement syndrome, acromioclavicular joint arthritis and rotator cuff tendinosis versus a small tear. I had a lengthy discussion with the patient regarding the treatment options. The risks and benefits of a left shoulder cortisone injection were discussed at length with the patient. The patient wished to proceed with the injection. She tolerated the injection well. The do's and don'ts of lifting were discussed at length with the patient. She will follow up for formal physical therapy next week. She will follow up with me on an as-needed basis should her symptoms not plateau at an unacceptable level over the next few months. Feel free to call me at any time should questions regarding her orthopedic management arise. I spent 22 minutes in reviewing the patient's records and imaging studies, seeing the patient and documenting in the medical record. Orders: Orders AMB Joint Injection/Aspiration Today M25.512 - Pain in left shoulder Coding Level of Care Code Est Pt Level 3 (67678) Diagnoses Left shoulder pain M25.512 CPT Codes Coding - 42731 Large joint: 72539 - Large joint ([id number])
== END 2023-11-18 13:11 | disposition home or self-care (01) ==
PROVIDERS: PCP Internal Medicine; Visit Provider Orthopaedic Surgery
DX: M25.512 Pain in left shoulder (principal)
CPT/HCPCS: 20610; 99213

== ENCOUNTER 2023-11-18 12:36 | Outpatient (REF) | payer MEDICARE, MEDICAID, SELFPAY ==
[2023-11-18 14:08] LABS: Appearance Urine Cloudy; Color Urine Yellow; Glucose Urine UA Negative (Negative); Leukocyte Esterase Urine Moderate (2+) (Negative); Nitrite Urine Positive (Negative); UMIC TRIGGER UA YES; Urine Blood Negative (Negative); Urine Ketones Negative (Negative); Urine Protein Negative (Neg-Trace)
[2023-11-18 14:13] LABS: Bacteria Urine 4+ (None Seen); Hyaline Casts Urine 0-2 /LPF (0-2); RBC Urine 0-2 /HPF (0-2); WBC Urine 21-50 /HPF (0-5)
== END 2023-11-18 12:37 | disposition home or self-care (01) ==
LOC: HO.LAB 12:36
PROVIDERS: Absent Provider Nurse Practitioner Family; PCP Internal Medicine; Visit Provider Orthopaedic Surgery
DX: M25.512 Pain in left shoulder (principal); N39.0 Urinary tract infection, site not specified; R39.89 Other symptoms and signs involving the genitourinary system; R82.90 Unspecified abnormal findings in urine
CPT/HCPCS: 20610; 81001; 87086; 87088; 87186; 99212; J1010

== ENCOUNTER 2023-12-19 16:33 | Outpatient (REF) | payer MEDICARE, MEDICAID, SELFPAY ==
[2023-12-19 19:20] LABS: Appearance Urine Cloudy; Color Urine Yellow; Glucose Urine UA Negative (Negative); Leukocyte Esterase Urine Large (3+) (Negative); Nitrite Urine Positive (Negative); PH 6.5 (5.0-9.0); UMIC TRIGGER UA YES; Urine Blood Negative (Negative); Urine Ketones Negative (Negative); Urine Protein Negative (Neg-Trace)
[2023-12-19 19:24] LABS: Bacteria Urine 4+ (None Seen); Hyaline Casts Urine 0-2 /LPF (0-2); RBC Urine 0-2 /HPF (0-2); Squamous Epithelial Cell Urine 0-2 /HPF (0-2); WBC Urine >50 /HPF (0-5)
== END 2023-12-19 16:34 | disposition home or self-care (01) ==
LOC: HO.LAB 16:33
PROVIDERS: PCP Internal Medicine; Visit Provider Nurse Practitioner Family
DX: N32.81 Overactive bladder (principal); R32 Unspecified urinary incontinence; R39.89 Other symptoms and signs involving the genitourinary system; N39.0 Urinary tract infection, site not specified
CPT/HCPCS: 81001; 87086; 87088; 87186

== ENCOUNTER 2024-01-06 14:41 | Outpatient (AMB) | payer MEDICARE, MEDICAID, SELFPAY ==
--- NOTE | 2024-01-06 14:46 | MHC.OFFVIS ---
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 Accompanied by: Self / Same As Patient Allergies adhesive tape [ADHESIVE TAPE] Allergy (Intermediate, Verified 01/06/24 15:15) BLISTERS clindamycin [CLINDAMYCIN] Allergy (Intermediate, Verified 01/06/24 15:15) FACE SWELLING/ITCHING epinephrine [EPINEPHRINE] Adverse Reaction (Intermediate, Verified 01/06/24 15:15) TACHYCARDIA FROM SANIYA W/EPINEPHRINE adhesive Allergy (Unknown, Uncoded 01/06/24 15:15) Unknown Clindamycin HCl Allergy (Unknown, Uncoded 01/06/24 15:15) Unknown -SANIYA W/EPINEPHRINE Adverse Reaction (Intermediate, Uncoded 01/06/24 15:15) TACHYCARDIA Medication List - Last Reconciled 01/06/24 by DASH Restrepo-BC [acetaminophen ] bupropion HCl XL 300 mg PO QAM dextroamphetamine-amphetamine 10 mg 20 tabs PO DAILY estradiol 0.01%(0.1mg/gram) (Estrace) 1 g vaginal 3XW ibuprofen 600 mg PO TID levothyroxine 125 mcg PO DAILY loperamide 2 mg PO QID PRN lorazepam 0.5 mg PO DAILY PRN nitrofurantoin macrocrystal 100 mg PO BID 14 days nystatin 1 appl topical TID omeprazole 20 mg PO DAILY solifenacin (Vesicare) 10 mg PO DAILY 90 days telmisartan 80 mg PO DAILY [Voltaren ] HPI Comments Details: Jacqueline is a 63-year-old female patient of Dr. Nova. She has a past medical history of overactive bladder, urinary incontinence, history of Graves disease, nicotine dependence quit in 2019, obstructive sleep apnea, obesity, and frequent urinary tract infections. She presents to the office today for follow-up of her lower urinary tract symptoms and recurrent urinary tract infections. Of note, since last office visit approximately 7 months ago has had 3 urinary tract infections. Urine culture results have been reviewed with the patient today 09/09 noted citrobacter youngae, 12/09 Klebsiella pneumoniae and most recent 01/09 E coli. She has since finished/completed antibiotic therapy with Macrobid as prescribed. She does report since her last office visit here she has not been compliant with her Estrace cream as prescribed and since the beginning of August has been on a no sugar and no flour diet as she has gained a significant amount of weight since the loss of her mother. She currently denies any bothersome urinary issues or concerns. She denies any UTI like symptoms however has recently completed antibiotic therapy just 2 days ago. In office urinalysis results reviewed with the patient today. PVR 148 mL. Discussed discontinuation of VESIcare given incomplete bladder emptying. Previous workup has included a retroperitoneal ultrasound noting bilateral kidneys with no calculi, lesions, and or hydronephrosis. The bladder is well distended and normal. Bilateral ureteral jets are demonstrated. Prevoid bladder volume is approximately 240 mL. Postvoid bladder volume is approximately 30 mLs. She denies urinary urgency, urinary frequency, incontinence,hematuria, dysuria, changes to urinary stream, flank pain, fever, and or chills. She otherwise offers no issues or concerns at this time. [facility] Medical History IBS (irritable bowel syndrome) GERD (gastroesophageal reflux disease) HTN (hypertension) Back pain Arthritis Anxiety Depression ADHD Overactive bladder Urinary incontinence Bladder pain History of Graves' disease Personal history of nicotine dependence VAHE (obstructive sleep apnea) (~2010) Dyspnea on exertion Morbid obesity Frequent UTI Surgical History History of esophagogastroduodenoscopy (EGD) Hx of foot surgery Hx of breast lump removal History of hysterectomy History of eye surgery History of colonoscopy History of appendectomy (~1999) Social History Patient Tobacco Use Status: Former Tobacco user Years Smoked: (onset 14, 1on/off - 1ppd x 35yrs, 35pyh - quit 07/2019) Review of Systems Const Reports as per HPI Eyes Reports no additional complaints ENT Reports no additional complaints Card Reports as per HPI Resp Reports as per HPI GI Reports as per HPI Reports as per HPI Musc Reports no additional complaints Neuro Reports no additional complaints Psych Reports as per HPI Endo Reports as per HPI Evans/Lymph Reports no additional complaints Aller/Immun Reports no additional complaints Physical Exam Const General: cooperative, healthy appearing, comfortable, no acute distress, well developed, alert and awake Nutritional Appearance: overweight Orientation/consciousness: patient oriented x3 Limitations: no limitations HEENT Head: Yes normal to inspection, Yes normocephalic and Yes atraumatic Ears: hearing grossly normal bilaterally Eyes General: appearance normal, both eyes and all related structures Neck Neck: Yes normal visual inspection and Yes trachea midline Chest Chest palpation & inspection: normal inspection of the chest Resp Effort & Inspection: normal respiratory effort and able to speak in complete sentences Cardio Rate: regular rate GI Inspection: Yes normal to inspection General: Yes no CVA tenderness Back/Spine/Pelvis Back: no CVA tenderness Skin General skin exam: no rashes or lesions noted Neuro General: patient oriented x3 Extrem General: Yes normal to inspection Psych Appearance: grossly normal and well kempt Mental Status: mental status grossly normal Speech and movement: Normal speech and movement present and Clear speech present Affect: normal affect Attitude: cooperative Thought process: Normal thought process present Thought content: Normal thought content present Insight: Fair insight present (Psych) Judgement: Fair judgement present (Psych) Results AMB Urinalysis, Automated UA Leukoctes 0 Lluvia/uL Last Edit by [employer] on 01/06/24 15:16 UA Nitrite Negative Last Edit by [employer] on 01/06/24 15:16 UA Urobilinogen 0.2 mg/dL Last Edit by [employer] on 01/06/24 15:16 UA Protein 0 mg/dL Last Edit by [employer] on 01/06/24 15:16 UA pH 6.0 Last Edit by [employer] on 01/06/24 15:16 UA Blood 0 Joss/uL Last Edit by [employer] on 01/06/24 15:16 UA Specific Brooks 1.005 Last Edit by [employer] on 01/06/24 15:16 UA Ketone Negative Last Edit by [employer] on 01/06/24 15:16 UA Bilirubin 0 mg/dL Last Edit by [employer] on 01/06/24 15:16 UA Glucose 0 mg/dL Last Edit by [employer] on 01/06/24 15:16 Results Reviewed Results Reviewed: Laboratory Last Values Urine pH (Auto) 6.0 01/06/24 15:15 Specific Brooks (Auto) 1.005 01/06/24 15:15 Urine Protein (Auto) 0 mg/dL 01/06/24 15:15 Glucose (UA)(Auto) 0 mg/dL 01/06/24 15:15 Urine Ketones (Auto) Negative 01/06/24 15:15 Urine Blood (Auto) 0 Joss/uL 01/06/24 15:15 Urine Nitrite (Auto) Negative 01/06/24 15:15 Urine Bilirubin (Auto) 0 mg/dL 01/06/24 15:15 Urine Urobilinogen (Auto) 0.2 mg/dL 01/06/24 15:15 Leukocyte Esterase (Auto) 0 Lluvia/uL 01/06/24 15:15 Assessment & Plan Assessment & Plan (1) Overactive bladder: Code(s): N32.81 - Overactive bladder Category: Medical (2) Urinary incontinence: Code(s): R32 - Unspecified urinary incontinence Category: Medical (3) Frequent UTI: Code(s): N39.0 - Urinary tract infection, site not specified Category: Medical (4) Incomplete bladder emptying: Code(s): R33.9 - Retention of urine, unspecified Category: Medical Plan In office urinalysis results reviewed with the patient today; as noted above. PVR 148 mL. Discussed, educated, and stressed the importance of taking medications as prescribed. Stop VESIcare. Discussed at length potential causes of recurrent urinary tract infections. Discussed UTI prevention with D mannose supplement, vitamin-C, increasing fluid intake, behavioral therapy with timed voiding, perineal hygiene and postcoital voiding, and management of constipation with stool softeners and increased fiber intake. Continue Estrace cream as discussed and prescribed. . Discussed double voiding to assist with incomplete bladder emptying. Discuss trial of other OAB meds however will await PVR in 2 weeks with nursing to further assess. Follow-up with nursing in 2 weeks for in office PVR; or sooner with any issues, concerns, and or questions. Orders: Orders AMB Urinalysis Automated Today Z13.9 - Encounter for screening, unspecified Medications: Discontinued solifenacin (Vesicare) over active bladder Discontinued Reason: Doctor's Order 10 mg PO DAILY 90 days 90 tabs 1RF Patient Instructions: The patient had an opportunity to ask questions regarding the treatment plan. All questions were answered. Physical exam, labs, and imaging were discussed and reviewed in detail. As well as risks, benefits, and discussion of treatment choices. No major barriers to understanding were identified. The patient expressed understanding and agreement with the above treatment plan. The patient was made aware they should contact our office by phone for worsening of their current condition, the appearance of new symptoms, or with any questions or concerns. Compliance is encouraged with any medications and follow up testing that is ordered. It is a privilege to be allowed the opportunity to participate in? your urological care.? Again, if you have any questions or concerns If you have any questions or concerns please do not hesitate to contact me. The office is [phone]. This note is constructed using voice recognition software. While every effort has been made to ensure accuracy head start assistant teacher errors may have been included. Yours sincerely, GEE Restrepo Coding Level of Care Code Est Pt Level 4 (25972) Complex EM visit Add On G2211 Diagnoses Overactive bladder N32.81 Urinary incontinence R32 Frequent UTI N39.0 Incomplete bladder emptying R33.9 Time Spent (min) 35
== END 2024-01-06 15:39 | disposition home or self-care (01) ==
PROVIDERS: PCP Internal Medicine; Visit Provider Nurse Practitioner Family
DX: N32.81 Overactive bladder (principal); R32 Unspecified urinary incontinence; N39.0 Urinary tract infection, site not specified; R33.9 Retention of urine, unspecified; Z13.9 Encounter for screening, unspecified
CPT/HCPCS: 99214; G2211

== ENCOUNTER → 2024-01-06 14:41 | Outpatient (BNVA) | payer MEDICARE, MEDICAID, SELFPAY | PROVIDERS: PCP Internal Medicine; Visit Provider Nurse Practitioner Family | DX: N32.81 Overactive bladder (principal); N39.0 Urinary tract infection, site not specified; R32 Unspecified urinary incontinence; R33.9 Retention of urine, unspecified | CPT/HCPCS: 81003; 99212 ==

== ENCOUNTER 2024-01-20 13:04 | Outpatient (REF) | payer MEDICARE, MEDICAID, SELFPAY | END 2024-01-20 13:05 | disposition home or self-care (01) | LOC: HO.LAB 13:04 | PROVIDERS: PCP Internal Medicine; Visit Provider Nurse Practitioner Family | DX: R33.9 Retention of urine, unspecified (principal); R39.89 Other symptoms and signs involving the genitourinary system; R82.90 Unspecified abnormal findings in urine; N32.81 Overactive bladder; R32 Unspecified urinary incontinence; N39.0 Urinary tract infection, site not specified | CPT/HCPCS: 51798; 81003; 87086; 87088; 87186 ==

== ENCOUNTER 2024-01-20 13:04 | Outpatient (AMB) | payer MEDICARE, MEDICAID, SELFPAY ==
--- NOTE | 2024-01-20 13:25 | AM.OFFVISNUR ---
Intake Visit Reasons: 2w/PVR Allergies adhesive tape [ADHESIVE TAPE] Allergy (Intermediate, Verified 01/06/24 15:15) BLISTERS clindamycin [CLINDAMYCIN] Allergy (Intermediate, Verified 01/06/24 15:15) FACE SWELLING/ITCHING epinephrine [EPINEPHRINE] Adverse Reaction (Intermediate, Verified 01/06/24 15:15) TACHYCARDIA FROM SANIYA W/EPINEPHRINE adhesive Allergy (Unknown, Uncoded 01/06/24 15:15) Unknown Clindamycin HCl Allergy (Unknown, Uncoded 01/06/24 15:15) Unknown -SANIYA W/EPINEPHRINE Adverse Reaction (Intermediate, Uncoded 01/06/24 15:15) TACHYCARDIA Office Procedures Post Void Residual Post Residual Void Details: Patient presents to office for PVR after office visit approximately 2 weeks ago. Patient medication vesicare was discontinued at last office visit. Per last office visit note, depending on outcome of PVR trial of OAB can be discussed. Patient reporting having urgency, frequency, foul odor in urine and is unsure if it is a UTI again or because she stopped the vesicare medication. Reviewed with Franca FLYNN- run UA and culture to ensure no infection and still do PVR. Patient able to provide urine sample, urinalysis run. Urine will be sent for culture. Bladder scanned for approximately 54mls. Reviewed all information with Franca FLYNN: send patient 25mg myrbetriq and follow up with her in 6-8 weeks. Appt to be scheduled at checkout. Patient understood and agreeable with plan at this time Post Void Residual (PVR): 54 [id number] Void Residual by ultrasound Assessment & Plan Assessment & Plan Orders: Orders AMB Urinalysis Automated Today N32.81 - Overactive bladder, N39.0 - Urinary tract infection, site not specified, R32 - Unspecified urinary incontinence, R33.9 - Retention of urine, unspecified, R39.89 - Other symptoms and signs involving the genitourinary system, R82.90 - Unspecified abnormal findings in urine Urine Culture Today N32.81 - Overactive bladder, N39.0 - Urinary tract infection, site not specified, R32 - Unspecified urinary incontinence, R33.9 - Retention of urine, unspecified, R39.89 - Other symptoms and signs involving the genitourinary system, R82.90 - Unspecified abnormal findings in urine AMB Post Void Residual by ultrasound Today N32.81 - Overactive bladder, N39.0 - Urinary tract infection, site not specified, R32 - Unspecified urinary incontinence, R33.9 - Retention of urine, unspecified, R39.89 - Other symptoms and signs involving the genitourinary system
== END 2024-01-20 14:04 | disposition home or self-care (01) ==
PROVIDERS: PCP Internal Medicine; Visit Provider Nurse Practitioner Family
DX: R33.9 Retention of urine, unspecified (principal); R39.89 Other symptoms and signs involving the genitourinary system; R82.90 Unspecified abnormal findings in urine; N32.81 Overactive bladder; R32 Unspecified urinary incontinence; N39.0 Urinary tract infection, site not specified

== ENCOUNTER 2024-02-03 14:40 | Outpatient (AMB) | payer MEDICARE, MEDICAID, SELFPAY ==
[2024-02-03 14:41] VITALS: BMI 43.9
--- NOTE | 2024-02-03 14:41 | A.OFFVIS_ITS ---
Vital Signs 02/03/24 14:41 Height 5 ft 2 in Weight 240 lb BMI 43.9 Intake Visit Reasons: Left shoulder pain Intake Note: Jacqueline is a 63 year old Right hand dominant female who presents with left shoulder pain and stiffness. The patient states that she did aggravate her left shoulder while caring for her sick mother over the last few years. Her mother in January of 2023. The patient has been to formal physical therapy at [facility] which gave her mild relief. She has tried Tylenol which gives only mild relief. She has had injections in the past which gave her no relief. The patient reports difficulty lifting her left hand above shoulder height. Allergies adhesive tape [ADHESIVE TAPE] Allergy (Intermediate, Verified 02/03/24 14:41) BLISTERS clindamycin [CLINDAMYCIN] Allergy (Intermediate, Verified 02/03/24 14:41) FACE SWELLING/ITCHING epinephrine [EPINEPHRINE] Adverse Reaction (Intermediate, Verified 02/03/24 14:41) TACHYCARDIA FROM SANIYA W/EPINEPHRINE adhesive Allergy (Unknown, Uncoded 01/06/24 15:15) Unknown Clindamycin HCl Allergy (Unknown, Uncoded 01/06/24 15:15) Unknown -SANIYA W/EPINEPHRINE Adverse Reaction (Intermediate, Uncoded 01/06/24 15:15) TACHYCARDIA Medication List - Last Reconciled 02/03/24 by Alvaro Jaquez MD [acetaminophen ] bupropion HCl XL 300 mg PO QAM dextroamphetamine-amphetamine 10 mg 20 tabs PO DAILY estradiol 0.01%(0.1mg/gram) (Estrace) 1 g vaginal 3XW ibuprofen 600 mg PO TID levothyroxine 125 mcg PO DAILY loperamide 2 mg PO QID PRN lorazepam 0.5 mg PO DAILY PRN nitrofurantoin macrocrystal 100 mg PO BID 14 days nitrofurantoin monohyd/m-cryst 100 mg (Macrobid) 100 mg PO BID 14 days nystatin 1 appl topical TID omeprazole 20 mg PO DAILY telmisartan 80 mg PO DAILY vibegron (Gemtesa) 75 mg PO DAILY 30 days [Voltaren ] [facility] Medical History IBS (irritable bowel syndrome) GERD (gastroesophageal reflux disease) HTN (hypertension) Back pain Arthritis Anxiety Depression ADHD Overactive bladder Urinary incontinence Bladder pain History of Graves' disease Personal history of nicotine dependence VAHE (obstructive sleep apnea) (~2010) Dyspnea on exertion Morbid obesity Frequent UTI Surgical History History of esophagogastroduodenoscopy (EGD) Hx of foot surgery Hx of breast lump removal History of hysterectomy History of eye surgery History of colonoscopy History of appendectomy (~1999) Social History Patient Tobacco Use Status: Former Tobacco user Years Smoked: (onset 14, 1on/off - 1ppd x 35yrs, 35pyh - quit 07/2019) Physical Exam Vital Signs: BMI result Body Mass Index 43.9 Const Other: Well-nourished well-developed very friendly female awake alert and oriented x3 in no acute distress Extrem Other: Bilateral upper extremity examination shows good capillary refill, no skin lesions noted, normal sensation light touch Left shoulder examination shows decreased active and passive range of motion when compared to her right shoulder, 4+ out of 5 strength with supraspinatus testing, positive impingement signs, tenderness over her acromioclavicular joint, no instability Results Reviewed Results Reviewed: MRI of the patient's left shoulder shows severe acromioclavicular joint narrowing, a type 2 acromion, signal change within the supraspinatus tendon most likely due to adhesive capsulitis Assessment & Plan Assessment & Plan (1) Left shoulder pain: Code(s): M25.512 - Pain in left shoulder Category: Medical Plan Ms. Casillas presents with left shoulder pain and stiffness due to impingement syndrome, acromioclavicular joint arthritis and adhesive capsulitis. I had a lengthy discussion with the patient regarding the treatment options. At this point she has failed continued non operative treatments. The risks and benefits of left shoulder surgery were discussed at length with the patient. The patient wishes to proceed with surgery. Surgery will most likely involve left shoulder diagnostic arthroscopy with distal clavicle excision, acromioplasty, anterior ca psular release and manipulation under anesthesia. The patient will be scheduled for next available date. She will follow-up as instructed. Feel free to call me at any time should questions regarding her orthopedic management arise. I spent 20 minutes in reviewing the patient's records and imaging studies, seeing the patient and documenting in the medical record. Coding Level of Care Code Est Pt Level 3 (94853) Complex EM visit Add On G2211 Diagnoses Left shoulder pain M25.512
== END 2024-02-03 14:58 | disposition home or self-care (01) ==
PROVIDERS: PCP Internal Medicine; Visit Provider Orthopaedic Surgery
DX: M75.42 Impingement syndrome of left shoulder (principal)
CPT/HCPCS: 99213; G2211

== ENCOUNTER → 2024-02-03 14:40 | Outpatient (BNVA) | payer MEDICARE, MEDICAID, SELFPAY | PROVIDERS: PCP Internal Medicine; Visit Provider Orthopaedic Surgery | DX: M25.512 Pain in left shoulder (principal); M25.612 Stiffness of left shoulder, not elsewhere classified | CPT/HCPCS: 99212 ==

== ENCOUNTER 2024-02-26 14:03 | Outpatient (AMB) | payer MEDICARE, MEDICAID, SELFPAY ==
[2024-02-26 14:13] VITALS: BP 132/72; PULSE 90; O2SAT 98; BMI 39.5
--- NOTE | 2024-02-26 14:13 | A.OFFVIS_ITS ---
Vital Signs 02/26/24 14:13 Height 5 ft 2 in Weight 216 lb BMI 39.5 BP 132/72 Blood Pressure Location Lt brachial Position Sitting Pulse 90 Pulse Source Pulse Oximeter Pulse Oximetry (%) 98 Oxygen Delivery Method Room Air Intake Visit Reasons: Pre Op Asia Wu Shoulder Arthroscopy Intake Note: pre-op clearance for shoulder surgery on Mar.[address] Betancourt at , athroscopy surgery. She is using the cpap everynight. 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 Allergies adhesive tape [ADHESIVE TAPE] Allergy (Intermediate, Verified 02/26/24 14:33) BLISTERS clindamycin [CLINDAMYCIN] Allergy (Intermediate, Verified 02/26/24 14:33) FACE SWELLING/ITCHING epinephrine [EPINEPHRINE] Adverse Reaction (Intermediate, Verified 02/26/24 14:33) TACHYCARDIA FROM SANIYA W/EPINEPHRINE adhesive Allergy (Unknown, Uncoded 02/26/24 14:33) Unknown Clindamycin HCl Allergy (Unknown, Uncoded 02/26/24 14:33) Unknown -SANIYA W/EPINEPHRINE Adverse Reaction (Intermediate, Uncoded 02/26/24 14:33) TACHYCARDIA Medication List - Last Reconciled 02/26/24 by Mac Irene MD [acetaminophen ] bupropion HCl XL 300 mg PO QAM dextroamphetamine-amphetamine 10 mg 20 tabs PO DAILY estradiol 0.01%(0.1mg/gram) (Estrace) 1 g vaginal 3XW ibuprofen 600 mg PO TID PRN levothyroxine 125 mcg PO DAILY loperamide 2 mg PO QID PRN lorazepam 0.5 mg PO DAILY PRN nystatin 1 appl topical TID PRN omeprazole 20 mg PO DAILY telmisartan 80 mg PO DAILY vibegron (Gemtesa) 75 mg PO DAILY 30 days [Voltaren ] Do you need a note to return to daycare/school/sports/work: No HPI HPI Pre Op Asia Wu Shoulder Arthroscopy: Details: This 64 years old very pleasant female is here for follow-up for her sleep apnea. She also needs clearance for her surgical procedure, arthroscopy of the left shoulder by . Patient is a case of obstructive sleep apnea and is using CPAP very regularly every night. Except for the mask issue CPAP has been working fine and she uses it at least 6 hours every night. She denies any daytime sleepiness. However she takes dextroamphetamine 10 mg 2 tablets daily. Breathing brantley she is okay has only occasional cough. Denies any shortness of breath at rest or wheezing. She had pulmonary function test in 2021 which was normal . [facility] Medical History IBS (irritable bowel syndrome) GERD (gastroesophageal reflux disease) HTN (hypertension) Back pain Arthritis Anxiety Depression ADHD Overactive bladder Urinary incontinence Bladder pain History of Graves' disease Personal history of nicotine dependence VAHE (obstructive sleep apnea) (~2010) Dyspnea on exertion Morbid obesity Frequent UTI Surgical History History of esophagogastroduodenoscopy (EGD) Hx of foot surgery Hx of breast lump removal History of hysterectomy History of eye surgery History of colonoscopy History of appendectomy (~1999) Social History Patient Tobacco Use Status: Former Tobacco user Years Smoked: (onset 14, 1on/off - 1ppd x 35yrs, 35pyh - quit 07/2019) Review of Systems Const All systems reviewed & are unremarkable except as noted in HPI and below Reports fatigue and Reports weight gain Eyes Reports no additional complaints ENT Reports no additional complaints Card Denies chest pain, Denies edema and Denies irregular heart rhythm Resp Reports as per HPI GI Reports heartburn (GERD symptoms controlled with medicine) Reports nocturia Musc Reports myalgias (Chronic muscle aches) Skin/Breast Reports system reviewed and no additional complaints, except as documented Neuro Reports no additional complaints Psych Reports anxiety Endo Reports fatigue Physical Exam Vital Signs: Last Vital Signs Pulse 90 02/26/24 14:13 BP 132/72 02/26/24 14:13 Pulse Ox 98 02/26/24 14:13 Oxygen Delivery Method Room Air 02/26/24 14:13 BMI result Body Mass Index 39.5 Patient is grossly obese with a round face and short and obese neck Const General: comfortable (But short of breath during conversation), no acute distres s, alert and awake Orientation/consciousness: patient oriented x3 HEENT Head: Yes normal to inspection General nose exam: No nasal polyps present and No nasal discharge present Face and sinus: Yes sinuses nontender Mouth: oropharynx normal Throat: Yes posterior oropharynx normal Eyes General: appearance normal, both eyes and all related structures Neck Neck: Yes normal visual inspection, Yes no lymphadenopathy, Yes trachea midline, Yes no JVD and Yes other (Neck circumference 18 in) Thyroid: Thyroid normal Chest Chest palpation & inspection: normal inspection of the chest, normal palpation of entire chest wall and no tenderness Resp Other: Percussion note is not perceptible because of the obese chest wall. Breath sounds are distant and decreased especially over the basilar areas. No wheezes or rhonchi are heard. Cardio Palpation: PMI not normal (Not palpable) Rate: regular rate Rhythm: regular rhythm Heart sounds: no gallops and no murmurs GI Palpation (GI): Soft to palpation, nontender, No hepatosplenomegaly present, no masses and Other GI palpation findings present (Abdomen is grossly obese and protuberant) Auscultation: normal bowel sounds Back/Spine/Pelvis Thoracic/Lumbar Spine: thoracic and lumbar spine normal to inspection and thoraco-lumbar ROM limited Skin General skin exam: no rashes or lesions noted Neuro General: patient oriented x3 and no focal motor deficits Cranial nerves: Yes CN's II-XII intact bilaterally Extrem General: Yes normal to inspection (But somewhat bulky), Yes no clubbing, cyanosis or edema and Yes no calf tenderness Psych Speech and movement: Normal speech and movement present Affect: Anxious affect present Results Reviewed Results Reviewed: SPIROMETRY IN OFFICE COMPLIANCE REPORT NOT AVAILABLE, SHE HAS AN OLD RESPIRONICS MODEL. BUT SHE DOES USE IT VERY REGULARLY EVERY NIGHT LDCT ON 11/03/23 1. No evidence of pulmonary malignancy. 2. Mild emphysema and bronchial thickening. 3. Other incidental findings as described above. 4. Lung-RADS Category Negative. There are no clinically significant or potentially clinically significant findings not related to the lungs requiring urgent additional evaluation. ASSESSMENT: 1. Lung-RADS Category 2: Benign appearance or behavior of nodules. N/A RECOMMENDATION: Continued routine annual low-dose CT lung screening in 1 year is recommended. An order for CT CHEST LOW DOSE CANCER SCREENING ([id number]) can be placed. Assessment & Plan Assessment & Plan (1) Morbid obesity: Comment: CONTINUES TO BE GROSSLY OBESE BMI WAS 46.5. NOW DOWN TO 39.5 ( WAS 4 EXERCISES AT THE [employer], AND IS WATCHING HER DIET ) Code(s): E66.01 - Morbid (severe) obesity due to excess calories Category: Medical Plan: ENCOURAGED TO KEEP ON GOING FOR EXERCISE PROGRAM AND WATCH THE DIET. (2) VAHE (obstructive sleep apnea): Onset Date: ~2010 Comment: (Hx VAHE, dx 2010 - on cpap) PATIENT DOES HAVE CPAP, HAS A NEW REFURBISHED DEVICE. FUNCTIONS WELL, BUT DOES NOT TRANSMIT THE DATA FOR COMPLIANCE. Code(s): G47.33 - Obstructive sleep apnea (adult) (pediatric) Category: Medical Plan: CONTINUE TO USE CPAP EVERY NIGHT. WE WILL CONTACT THE DME ([facility]ER[facility] ) ABOUT COMPLIANCE AND ALSO ABOUT SUPPLIES. SHE HAS SOME ISSUES WITH THE FULLFACE MASK, WITH SOME PRESSURE OVER THE NASAL BRIDGE, ADVISED TO GO TO CPAP CLINIC OF THE DME SERVICE AND DISCUSS ABOUT THE MASK PROBLEM. (3) Personal history of nicotine dependence: Comment: (onset 14, 1on/off - 1ppd x 35yrs, 35pyh - QUIT IN 2020 . SHE IS IN ANNUAL SCREENING PROGRAM . LAST CT SCAN IN AUGUST 2023, BENIGN AND NO EVIDENCE OF ANY SIGNIFICANT NODULE OR MASS. Code(s): Z87.891 - Personal history of nicotine dependence Category: Medical Plan: CONTINUE LUNG SCREENING ON AN ANNUAL BASIS (4) Dyspnea on exertion: Comment: Dyspnea on exertion is multi factorial, including gross abdominal obesity, history of past smoking, PULMONARY FUNCTION TEST IN 2021 AND SPIROMETRY TODAY ARE ESSENTIALLY NORMAL. HER EXERCISE PROGRAM AND WEIGHT LOSS IS DEFINITELY HELPING. Code(s): R06.00 - Dyspnea, unspecified Category: Medical Plan: * PULMONARY CLEARANCE : FROM PULMONARY POINT OF VIEW SHE HAS NO CONTRAINDICATION TO THE PLANNED SURGICAL PROCEDURE AND IS CLEARED. Coding Level of Care Code Tele Est Pt Level 4 (07149) Diagnoses Morbid obesity E66.01 VAHE (obstructive sleep apnea) G47.33 Personal history of nicotine dependence Z87.891 Dyspnea on exertion R06.00
== END 2024-02-26 15:09 | disposition home or self-care (01) ==
PROVIDERS: PCP Internal Medicine; Visit Provider Internal Medicine
DX: G47.33 Obstructive sleep apnea (adult) (pediatric) (principal); Z87.891 Personal history of nicotine dependence; Z01.811 Encounter for preprocedural respiratory examination
CPT/HCPCS: 99214

== ENCOUNTER → 2024-02-26 14:03 | Outpatient (BNVA) | payer MEDICARE, MEDICAID, SELFPAY | PROVIDERS: PCP Internal Medicine; Visit Provider Internal Medicine | DX: Z01.811 Encounter for preprocedural respiratory examination (principal); E66.01 Morbid (severe) obesity due to excess calories; R06.00 Dyspnea, unspecified; G47.33 Obstructive sleep apnea (adult) (pediatric); Z68.39 Body mass index [BMI] 39.0-39.9, adult; Z99.89 Dependence on other enabling machines and devices; Z79.899 Other long term (current) drug therapy; Z87.891 Personal history of nicotine dependence | CPT/HCPCS: 99212 ==

== ENCOUNTER 2024-03-03 15:54 | Outpatient (AMB) | payer MEDICARE, MEDICAID, SELFPAY ==
--- NOTE | 2024-03-03 15:59 | MHC.OFFVIS ---
Intake Visit Reasons: 6w/med review Intake Note: Patient is present for follow up OAB/incontinence Urology Medications: solifenacin (vesicare), estrace cream Blood Thinner: none PVR: 0 Motel Clerk Required: No Accompanied by: Self / Same As Patient Allergies adhesive tape [ADHESIVE TAPE] Allergy (Intermediate, Verified 03/03/24 20:47) BLISTERS clindamycin [CLINDAMYCIN] Allergy (Intermediate, Verified 03/03/24 20:47) FACE SWELLING/ITCHING epinephrine [EPINEPHRINE] Adverse Reaction (Intermediate, Verified 03/03/24 20:47) TACHYCARDIA FROM SANIYA W/EPINEPHRINE adhesive Allergy (Unknown, Uncoded 03/03/24 20:47) Unknown Clindamycin HCl Allergy (Unknown, Uncoded 03/03/24 20:47) Unknown -SANIYA W/EPINEPHRINE Adverse Reaction (Intermediate, Uncoded 03/03/24 20:47) TACHYCARDIA Medication List - Last Reconciled 03/03/24 by DASH Restrepo-BC [acetaminophen ] bupropion HCl XL 300 mg PO QAM dextroamphetamine-amphetamine 10 mg 20 tabs PO DAILY estradiol 0.01%(0.1mg/gram) (Estrace) 1 g vaginal 3XW ibuprofen 600 mg PO TID PRN levothyroxine 125 mcg PO DAILY loperamide 2 mg PO QID PRN lorazepam 0.5 mg PO DAILY PRN nystatin 1 appl topical TID PRN omeprazole 20 mg PO DAILY solifenacin (Vesicare) 5 mg PO DAILY 90 days telmisartan 80 mg PO DAILY [Voltaren ] HPI Comments Details: Jacqueline is a 64-year-old female patient of Dr. Nova. She has a past medical history of overactive bladder, urinary incontinence, history of Graves disease, nicotine dependence quit in 2019, obstructive sleep apnea, obesity, and frequent urinary tract infections. She presents to the office today for follow-up of her lower urinary tract symptoms and recurrent urinary tract infections. Of note, patient was seen approximately 2 months ago at which time she was reporting UTI like symptoms and a urine culture was ordered and obtained in noted positive for E coli. She reports having completed a proximally 7 days of Macrobid however 10 day course was prescribed. She reports she was starting experience a med like taste in her mouth and was unsure if this is related to an oral issue she has been experiencing or the medication therefore she stopped taking all urological medications except her Estrace cream. Previous Urine culture results noted 09/09 noted citrobacter youngae, 12/09 Klebsiella pneumoniae and most recent 01/09 E coli. She currently denies any bothersome urinary issues. She reports no UTI like symptoms. She discusses her ongoing issue with her left shoulder and will be undergoing surgical intervention within the next 2 weeks. In office urinalysis results reviewed with the patient today. PVR 0 mL. Previous workup has included a retroperitoneal ultrasound noting bilateral kidneys with no calculi, lesions, and or hydronephrosis. The bladder is well distended and normal. Bilateral ureteral jets are demonstrated. Prevoid bladder volume is approximately 240 mL. Postvoid bladder volume is approximately 30 mLs. She denies urinary urgency, urinary frequency, incontinence,hematuria, dysuria, changes to urinary stream, flank pain, fever, and or chills. She discusses having lost a proximally 30 lb in the last 6 months and feels this has been helpful in lower urinary tract symptoms she had been experiencing. She otherwise offers no issues or concerns at this time. [facility] Medical History IBS (irritable bowel syndrome) GERD (gastroesophageal reflux disease) HTN (hypertension) Back pain Arthritis Anxiety Depression ADHD Overactive bladder Urinary incontinence Bladder pain History of Graves' disease Personal history of nicotine dependence VAHE (obstructive sleep apnea) (~2010) Dyspnea on exertion Morbid obesity Frequent UTI Surgical History History of esophagogastroduodenoscopy (EGD) Hx of foot surgery Hx of breast lump removal History of hysterectomy History of eye surgery History of colonoscopy History of appendectomy (~1999) Social History Patient Tobacco Use Status: Former Tobacco user Years Smoked: (onset 14, 1on/off - 1ppd x 35yrs, 35pyh - quit 07/2019) Review of Systems Const Reports as per HPI Eyes Reports no additional complaints ENT Reports no additional complaints Card Reports as per HPI Resp Reports as per HPI GI Reports as per HPI Reports as per HPI Musc Reports no additional complaints Neuro Reports no additional complaints Psych Reports as per HPI Endo Reports as per HPI Evans/Lymph Reports no additional complaints Aller/Immun Reports no additional complaints Physical Exam Const General: cooperative, healthy appearing, comfortable, no acute distress, well developed, alert and awake Nutritional Appearance: overweight Orientation/consciousness: patient oriented x3 Limitations: no limitations HEENT Head: Yes normal to inspection, Yes normocephalic and Yes atraumatic Ears: hearing grossly normal bilaterally Eyes General: appearance normal, both eyes and all related structures Neck Neck: Yes normal visual inspection and Yes trachea midline Chest Chest palpation & inspection: normal inspection of the chest Resp Effort & Inspection: normal respiratory effort and able to speak in complete sentences Cardio Rate: regular rate GI Inspection: Yes normal to inspection General: Yes no CVA tenderness Back/Spine/Pelvis Back: no CVA tenderness Skin General skin exam: no rashes or lesions noted Neuro General: patient oriented x3 Extrem General: Yes normal to inspection Psych Appearance: grossly normal and well kempt Mental Status: mental status grossly normal Speech and movement: Normal speech and movement present and Clear speech present Affect: normal affect Attitude: cooperative Thought process: Normal thought process present Thought content: Normal thought content present Insight: Fair insight present (Psych) Judgement: Fair judgement present (Psych) Office Procedures Post Void Residual Post Residual Void Post Void Residual (PVR): 0 [id number] Void Residual by ultrasound Results AMB Urinalysis, Automated UA Leukoctes 15 Lluvia/uL Last Edit by [employer] on 03/03/24 16:44 UA Nitrite Negative Last Edit by [employer] on 03/03/24 16:44 UA Urobilinogen 0.2 mg/dL Last Edit by [employer] on 03/03/24 16:44 UA Protein 0 mg/dL Last Edit by [employer] on 03/03/24 16:44 UA pH 6.5 Last Edit by [employer] on 03/03/24 16:44 UA Blood 0 Joss/uL Last Edit by [employer] on 03/03/24 16:44 UA Specific [place] 1.005 Last Edit by [employer] on 03/03/24 16:44 UA Ketone Negative Last Edit by [employer] on 03/03/24 16:44 UA Bilirubin 0 mg/dL Last Edit by [employer] on 03/03/24 16:44 UA Glucose 0 mg/dL Last Edit by Angelica Grimes on 03/03/24 16:44 Results Reviewed Results Reviewed: Laboratory Last Values Urine pH (Auto) 6.5 03/03/24 16:43 Specific [place] (Auto) 1.005 03/03/24 16:43 Urine Protein (Auto) 0 mg/dL 03/03/24 16:43 Glucose (UA)(Auto) 0 mg/dL 03/03/24 16:43 Urine Ketones (Auto) Negative 03/03/24 16:43 Urine Blood (Auto) 0 Joss/uL 03/03/24 16:43 Urine Nitrite (Auto) Negative 03/03/24 16:43 Urine Bilirubin (Auto) 0 mg/dL 03/03/24 16:43 Urine Urobilinogen (Auto) 0.2 mg/dL 03/03/24 16:43 Leukocyte Esterase (Auto) 15 Lluvia/uL 03/03/24 16:43 Assessment & Plan Assessment & Plan (1) Overactive bladder: Code(s): N32.81 - Overactive bladder Category: Medical (2) Urinary incontinence: Code(s): R32 - Unspecified urinary incontinence Category: Medical (3) Frequent UTI: Code(s): N39.0 - Urinary tract infection, site not specified Category: Medical (4) Incomplete bladder emptying: Code(s): R33.9 - Retention of urine, unspecified Category: Medical Plan In office urinalysis results reviewed with the patient today; as noted above. PVR 0mL. Continue VESIcare; prescription provided. Discussed at length potential causes of recurrent urinary tract infections. Discussed UTI prevention with D mannose supplement, vitamin-C, increasing fluid intake, behavioral therapy with timed voiding, perineal hygiene and postcoital voiding, and management of constipation with stool softeners and increased fiber intake. Continue Estrace cream as discussed and prescribed. Patient currently denies any bothersome urinary issues or concerns. She reports be happy with current voiding parameters. Wounds denies follow-up in 3 months with PVR; or sooner with any issues, concerns, and or questions. Orders: Orders AMB Urinalysis Automated Today Z13.9 - Encounter for screening, unspecified AMB Post Void Residual by ultrasound Today N39.41 - Urge incontinence Medications: New solifenacin (Vesicare) 5 mg PO DAILY 90 days 90 tabs 1RF Discontinued vibegron (Gemtesa) Discontinued Reason: Doctor's Order 75 mg PO DAILY 30 days 30 tabs 2RF N32.81 - Overactive bladder Patient Instructions: The patient had an opportunity to ask questions regarding the treatment plan. All questions were answered. Physical exam, labs, and imaging were discussed and reviewed in detail. As well as risks, benefits, and discussion of treatment choices. No major barriers to understanding were identified. The patient expressed understanding and agreement with the above treatment plan. The patient was made aware they should contact our office by phone for worsening of their current condition, the appearance of new symptoms, or with any questions or concerns. Compliance is encouraged with any medications and follow up testing that is ordered. It is a privilege to be allowed the opportunity to participate in? your urological care.? Again, if you have any questions or concerns If you have any questions or concerns please do not hesitate to contact me. The office is [phone]. This note is constructed using voice recognition software. While every effort has been made to ensure accuracy machine stripper cutter errors may have been included. Yours sincerely, GEE Restrepo Coding Level of Care Code Est Pt Level 4 (73957) Complex EM visit Add On G2211 Diagnoses Overactive bladder N32.81 Urinary incontinence R32 Frequent UTI N39.0 Incomplete bladder emptying R33.9 CPT Codes Post Residual Void - PVR CPT Code: 01756-Butw Void Residual by ultrasound ([id number]) Time Spent (min) 25
== END 2024-03-03 16:32 | disposition home or self-care (01) ==
PROVIDERS: PCP Internal Medicine; Visit Provider Nurse Practitioner Family
DX: N32.81 Overactive bladder (principal); R32 Unspecified urinary incontinence; N39.0 Urinary tract infection, site not specified; R33.9 Retention of urine, unspecified; Z13.9 Encounter for screening, unspecified
CPT/HCPCS: 99214; G2211

== ENCOUNTER → 2024-03-03 15:54 | Outpatient (BNVA) | payer MEDICARE, MEDICAID, SELFPAY | PROVIDERS: PCP Internal Medicine; Visit Provider Nurse Practitioner Family | DX: N32.81 Overactive bladder (principal); N39.41 Urge incontinence; N39.0 Urinary tract infection, site not specified; R33.9 Retention of urine, unspecified | CPT/HCPCS: 51798; 81003; 99212 ==

== ENCOUNTER 2024-03-19 05:50 | Day surgery (SDC) | payer MEDICARE, MEDICAID, SELFPAY ==
[2024-03-09 13:58] VITALS: BMI 39.5
--- NOTE | 2024-03-15 12:33 | HO.ANESPROP2 ---
Documented by User: Tereza Bell NP 03/15/24 12:36 HPI - Anesthesia Eval Consult details Narrative: 64yo F for Left Shoulder Arthroscopy, distal clavicle excision, acromioplasty, capuslar release, and manipulation, 03/19/[address] [facility] Pulmo. Optimized per 02/2024 office visit Dyspnea on exertion is multi factorial, including gross abdominal obesity, history of past smoking, PULMONARY FUNCTION TEST IN 2021 AND SPIROMETRY TODAY ARE ESSENTIALLY NORMAL. HER EXERCISE PROGRAM AND WEIGHT LOSS IS DEFINITELY HELPING. [facility] Active Problems Active Problems: All Active Problems Incomplete bladder emptying (Acute) Left shoulder pain (Acute) Sensation of pressure in bladder area (Acute) Foul smelling urine (Acute) Overactive bladder (Acute) Urinary incontinence (Acute) Bladder pain (Acute) Personal history of nicotine dependence (Acute) VAHE (obstructive sleep apnea) (Acute ~2010) Dyspnea on exertion (Acute) Morbid obesity (Acute) Frequent UTI (Acute) Past Medical History Medical History Bowel obstruction COVID-19 Hx of radiation therapy Thyroid disease IBS (irritable bowel syndrome) GERD (gastroesophageal reflux disease) HTN (hypertension) Back pain Arthritis Anxiety Depression ADHD Overactive bladder Urinary incontinence Bladder pain History of Graves' disease Personal history of nicotine dependence VAHE (obstructive sleep apnea) (~2010) Dyspnea on exertion Morbid obesity Frequent UTI Family History Family history of problems with anesthesia: No Surgical History Surgical History History of esophagogastroduodenoscopy (EGD) Hx of foot surgery Hx of breast lump removal History of hysterectomy History of eye surgery History of colonoscopy History of appendectomy (~1999) History of Problems with Anesthesia: No Social History Social History Are you a primary child care group leader to a significant other at home: No Do you presently have visiting nurse or other home services: No Patient Tobacco Use Status: Former Tobacco user Years Smoked: (onset 14, 1on/off - 1ppd x 35yrs, 35pyh - quit 07/2019) Use of substances other than those prescribed or required for medical reasons: No Have you been hit, kicked, punched, or otherwise hurt by someone within the past year? If so, by whom?: No Are you DNR?: No Advance Directives: No Advance Directives Information Provided: Yes Advance Directives on File: No Recently lost weight without trying: No Eating poorly because of decreased appetite: No Nutrition Risks: No Nutritional Risk Patient : No : No Poor oral hygiene: Yes (upper and lower crowns and missing teeth) Meds Allergies Allergy/AdvReac Type Severity Reaction Status Date / Time adhesive tape [ADHESIVE TAPE] Allergy Intermediate BLISTERS Verified 03/03/24 20:47 clindamycin [CLINDAMYCIN] Allergy Intermediate FACE Verified 03/03/24 20:47 SWELLING/ITCHING epinephrine [EPINEPHRINE] AdvReac Intermediate TACHYCARDIA Verified 03/03/24 20:47 FROM SANIYA W/EPINEPHRINE adhesive Allergy Unknown Unknown Uncoded 03/03/24 20:47 Clindamycin HCl Allergy Unknown Unknown Uncoded 03/03/24 20:47 -SANIYA W/EPINEPHRINE AdvReac Intermediate TACHYCARDIA Uncoded 03/03/24 20:47 Home Medications ?Medication ?Instructions ?Recorded ?Confirmed ?Last Taken ?Type dextroamphetamine-amphetamine 10 10 tab PO TID 06/08/21 03/09/24 Unknown History mg tablet omeprazole 20 mg capsule,delayed 20 mg PO DAILY 06/08/21 03/09/24 03/19/24 History release bupropion HCl 300 mg 24 hr tablet, 300 mg PO QAM 07/20/21 03/09/24 03/19/24 History extended release lorazepam 0.5 mg tablet 0.5 mg PO DAILY PRN Anxiety 07/20/21 03/09/24 Unknown History telmisartan 80 mg tablet 80 mg PO DAILY 09/12/21 03/09/24 Unknown History levothyroxine 125 mcg tablet 125 mcg PO DAILY 02/12/23 03/09/24 03/19/24 History loperamide 2 mg tablet 2 mg PO DAILY Diarrhea 10/06/23 03/09/24 Unknown History ibuprofen 600 mg tablet 600 mg PO TID PRN Pain 02/26/24 03/09/24 03/15/24 History nystatin 100,000 unit/gram topical 1 appl topical TID PRN Rash 02/26/24 03/09/24 Unknown History powder albuterol sulfate 90 mcg/actuation 1 inh inhalation QID PRN Shortness 03/09/24 03/09/24 Unknown History aerosol inhaler (Ventolin HFA) Of Breath Or Wheezing Exam Height,Weight and Vital Signs: Height 5 ft 2 in Weight 97.976 kg Pertinent Lab Results Pertinent Lab Results: Laboratory Tests 10/15/23 10:32 WBC 4.5 L Hgb 13.3 Hct 38.8 Plt Count 254 Sodium 137 Potassium 4.2 Chloride 109 H Carbon Dioxide 20 L BUN 16 Creatinine 1.15 Assessment and Plan Assessment Anesthesia Assessment: Chart Reviewed Final Anesthetic Review Family History of Problems with Anesthesia: No History of Problems with Anesthesia: No Documented by User: Barb Youssef MD 03/19/24 08:36 PMFSH Past Medical History Medical History Bowel obstruction COVID-19 Hx of radiation therapy Thyroid disease IBS (irritable bowel syndrome) GERD (gastroesophageal reflux disease) HTN (hypertension) Back pain Arthritis Anxiety Depression ADHD Overactive bladder Urinary incontinence Bladder pain History of Graves' disease Personal history of nicotine dependence VAHE (obstructive sleep apnea) (~2010) Dyspnea on exertion Morbid obesity Frequent UTI Surgical History Surgical History History of esophagogastroduodenoscopy (EGD) Hx of foot surgery Hx of breast lump removal History of hysterectomy History of eye surgery History of colonoscopy History of appendectomy (~1999) Social History Social History Are you a primary child care group leader to a significant other at home: No Do you presently have visiting nurse or other home services: No Patient Tobacco Use Status: Former Tobacco user Years Smoked: (onset 14, 1on/off - 1ppd x 35yrs, 35pyh - quit 07/2019) Use of substances other than those prescribed or required for medical reasons: No Have you been hit, kicked, punched, or otherwise hurt by someone within the past year? If so, by whom?: No Are you DNR?: No Advance Directives: No Advance Directives Information Provided: Yes Advance Directives on File: No Recently lost weight without trying: No Eating poorly because of decreased appetite: No Nutrition Risks: No Nutritional Risk Patient : No : No Poor oral hygiene: Yes (upper and lower crowns and missing teeth) Meds Allergies Allergy/AdvReac Type Severity Reaction Status Date / Time adhesive tape [ADHESIVE TAPE] Allergy Intermediate BLISTERS Verified 03/03/24 20:47 clindamycin [CLINDAMYCIN] Allergy Intermediate FACE Verified 03/03/24 20:47 SWELLING/ITCHING epinephrine [EPINEPHRINE] AdvReac Intermediate TACHYCARDIA Verified 03/03/24 20:47 FROM SANIYA W/EPINEPHRINE adhesive Allergy Unknown Unknown Uncoded 03/03/24 20:47 Clindamycin HCl Allergy Unknown Unknown Uncoded 03/03/24 20:47 -SANIYA W/EPINEPHRINE AdvReac Intermediate TACHYCARDIA Uncoded 03/03/24 20:47 Home Medications ?Medication ?Instructions ?Recorded ?Confirmed ?Last Taken ?Type dextroamphetamine-amphetamine 10 10 tab PO TID 06/08/21 03/09/24 Unknown History mg tablet omeprazole 20 mg capsule,delayed 20 mg PO DAILY 06/08/21 03/09/24 03/19/24 History release bupropion HCl 300 mg 24 hr tablet, 300 mg PO QAM 07/20/21 03/09/24 03/19/24 History extended release lorazepam 0.5 mg tablet 0.5 mg PO DAILY PRN Anxiety 07/20/21 03/09/24 Unknown History telmisartan 80 mg tablet 80 mg PO DAILY 09/12/21 03/09/24 Unknown History levothyroxine 125 mcg tablet 125 mcg PO DAILY 02/12/23 03/09/24 03/19/24 History loperamide 2 mg tablet 2 mg PO DAILY Diarrhea 10/06/23 03/09/24 Unknown History ibuprofen 600 mg tablet 600 mg PO TID PRN Pain 02/26/24 03/09/24 03/15/24 History nystatin 100,000 unit/gram topical 1 appl topical TID PRN Rash 02/26/24 03/09/24 Unknown History powder albuterol sulfate 90 mcg/actuation 1 inh inhalation QID PRN Shortness 03/09/24 03/09/24 Unknown History aerosol inhaler (Ventolin HFA) Of Breath Or Wheezing Exam Airway Mallampati Class: III TM Dist: >3cm Neck ROM: Limited Heart: rrr Lungs: cta Assessment and Plan Assessment Anesthesia Assessment: Anesthesia Plan Discussed Final Anesthetic Review NPO: Yes ASA Class: III Final Preanesthetic Review: No Changes in Pt Med Stat, Meds/Allgs Chart Reviewed, Consent Obtained/Reviewed and Anes Risks/Benef Reviewed Patient Risk: Intermediate Procedure Risk: Intermediate Anesthetic Plan Anesthetic Plan: GA and Regional Block Disposition: Standard PACU
[2024-03-19] VITALS (9 sets, daily range): BP systolic 106–139; BP diastolic 53–86; PULSE 67–89; RESP 16–22; TEMP 36.3–36.9; O2SAT 93–98; BMI 39.5
[2024-03-19] MEDS: Lactated Ringers 1,000 ML 100 ML IVCONT (06:34)
--- NOTE | 2024-03-19 07:35 | PC.NURSE ---
nerve block by dr alonzo patient tolerated well timeout prior to block patient verbalized understanding of careplan
[2024-03-19] MEDS: ondansetron HCL 4 MG/2 ML VIAL IVPUSH (09:25)
--- NOTE | 2024-03-19 09:25 | PM.OP ---
Brief Operative Note Date of Service: 03/19/24 Pre-op diagnosis: Left shoulder impingement syndrome, left shoulder acromioclavicular joint arthritis, left shoulder adhesive capsulitis Post-op diagnosis: same Procedure: Left shoulder diagnostic arthroscopy with left shoulder arthroscopic distal clavicle excision, left shoulder arthroscopic acromioplasty, left shoulder arthroscopic anterior capsular release, left shoulder manipulation under anesthesia Implants: none Surgeon: Alvaro Jaquez MD Anesthesia: GETA and regional Was an Marketing Database Consultant used for this Procedure?: No Estimated blood loss (mL): 10 Pathology: none sent Condition: stable Disposition: PACU
--- NOTE | 2024-03-19 09:26 | P.OP_ITS ---
Operative Note Operative Note Date of Service: 03/19/24 Narrative: After the patient was identified as Jacqueline Casillas and her left shoulder was initialed by myself the patient was brought to the holding area where a left shoulder interscalene regional block was performed by the anesthesiologist in routine fashion. The patient was then brought to the operating room where general anesthesia was induced by the anesthesiologist in routine fashion. The patient was given 2 g of IV Ancef preoperatively for infection prophylaxis. Examination under anesthesia of the patient's left shoulder showed decreased range of motion when compared to the right shoulder. The patient's left shoulder had forward flexion to 120 degrees compared to 170 degrees, external rotation to 20 degrees compared to 60 degrees, and internal rotation to 40 degrees compared to 50 degrees. The patient was gently positioned in the beach chair position with all bony prominences well padded. The patient's left shoulder region and upper extremity were prepped and draped in sterile fashion. A formal time-out was completed. A #11 scalpel blade was used to make a posterior portal 2 cm inferior and 1 cm medial to the posterolateral corner of the acromion. Blunt trocar technique was used to enter the glenohumeral joint in routine fashion. An anterior portal was made just lateral to the coracoid process after proper positioning was confirmed using a spinal needle. Diagnostic arthroscopy showed diffuse grade 1 and 2 degenerative changes of the glenoid and humeral head articular surfaces. The articular surfaces of the glenoid and humeral head were made smooth using the arthroscopic shaver. There was no evidence of rotator cuff tearing. There was no evidence of injury to the biceps tendon or its insertion onto the glenoid. There was inflammation of the anterior joint capsule consistent with adhesive capsulitis. The ArthroCare Wand was then used to perform an anterior capsular release between the inferior border of the biceps tendon and the superior border of the subscapularis tendon. The arthroscope was then placed from the posterior portal into the subacromial space. A lateral portal was made 2 fingerbreadths lateral to the anterior lateral corner of the acromion. The ArthroCare Wand was used to ablate soft tissues along the undersurface of the acromion as well as to excise the coracoacromial ligament. There was a sharp spur along the undersurface of the acromion which was removed using the hooded bur. The arthroscope was then placed into the lateral portal and the acromioplasty was completed with the bur in the posterior portal using the posterior aspect of the acromion as a cutting block. The ArthroCare Wand was then brought in through the anterior portal and was used to ablate soft tissues along the acromioclavicular joint and distal clavicle. The posterior and superior ligamentous structures were left intact. A distal clavicle excision of 8 mm was performed using the hooded bur. Any remaining bursal tissue was removed using the arthroscopic shaver. The subacrom ial space was irrigated and then drained. All arthroscopic instruments were removed. A gentle manipulation under anesthesia was then performed. Full passive range of motion was easily attained. The 3 portals were closed with 3-0 nylon interrupted suture. The subacromial space was injected with Marcaine. Dry sterile dressing was placed over all incisions. The patient's left upper extremity was placed into a sling. The patient was awoken and extubated in the operating room. The patient was transferred to the recovery room in stable condition.
[2024-03-19] MEDS: Haloperidol Lactate 5 MG/ML VIAL 1 MG IVPUSH (09:57)
[2024-03-19] MEDS: cefTRIAXone sodium 1 GM VIAL IVPUSH (10:01)
== END 2024-03-19 12:01 | disposition home or self-care (01) ==
PROVIDERS: PCP Internal Medicine; Visit Provider Orthopaedic Surgery
PROC: (CPT 29805; principal; 2024-03-19 07:30)
DX: M75.42 Impingement syndrome of left shoulder (principal); M75.02 Adhesive capsulitis of left shoulder; M19.012 Primary osteoarthritis, left shoulder; M25.612 Stiffness of left shoulder, not elsewhere classified; I10 Essential (primary) hypertension; E66.01 Morbid (severe) obesity due to excess calories; Z68.39 Body mass index [BMI] 39.0-39.9, adult; R06.00 Dyspnea, unspecified; G47.33 Obstructive sleep apnea (adult) (pediatric); F32.A Depression, unspecified; F41.9 Anxiety disorder, unspecified; Z88.1 Allergy status to other antibiotic agents; Z88.8 Allergy status to other drugs, medicaments and biological substances; L23.1 Allergic contact dermatitis due to adhesives; Z79.1 Long term (current) use of non-steroidal anti-inflammatories (NSAID); Z79.899 Other long term (current) drug therapy; Z87.891 Personal history of nicotine dependence; Z98.890 Other specified postprocedural states
CPT/HCPCS: 29824; 29825; 29826; J0131; J0171; J0665; J0690; J0696; J1100; J1630; J1885; J2003; J2250; J2371; J2405; J2704; J2795; J3010

== ENCOUNTER → 2024-03-19 05:50 | Outpatient (BNV) | payer MEDICARE, MEDICAID, SELFPAY | PROVIDERS: PCP Internal Medicine; Visit Provider Orthopaedic Surgery | DX: M75.42 Impingement syndrome of left shoulder (principal); M19.012 Primary osteoarthritis, left shoulder; M75.02 Adhesive capsulitis of left shoulder | CPT/HCPCS: 29824; 29826 ==

== ENCOUNTER 2024-04-01 11:34 | Outpatient (AMB) | payer MEDICARE, MEDICAID, SELFPAY ==
--- NOTE | 2024-04-01 11:52 | A.OFFVIS_ITS ---
Vital Signs 04/01/24 11:56 Height 5 ft 2 in Weight 212 lb BMI 38.8 Handedness Right Intake Visit Reasons: PO LT shoulder 03/19/24 DR Intake Note: Jacqueline is a 64 year old female who presents today post operatively s/p left shoulder 03/19/2024. She reports mild to moderate discomfort in her left shoulder. She continues with her home stretching program. She denies any fevers or chills. Allergies adhesive tape [ADHESIVE TAPE] Allergy (Intermediate, Verified 04/01/24 11:56) BLISTERS clindamycin [CLINDAMYCIN] Allergy (Intermediate, Verified 04/01/24 11:56) FACE SWELLING/ITCHING epinephrine [EPINEPHRINE] Adverse Reaction (Intermediate, Verified 04/01/24 11:56) TACHYCARDIA FROM SANIYA W/EPINEPHRINE adhesive Allergy (Unknown, Uncoded 04/01/24 11:56) Unknown Clindamycin HCl Allergy (Unknown, Uncoded 04/01/24 11:56) Unknown -SANIYA W/EPINEPHRINE Adverse Reaction (Intermediate, Uncoded 04/01/24 11:56) TACHYCARDIA Medication List - Last Reconciled 04/01/24 by Alvaro Jaquez MD albuterol sulfate 90 mcg/actuation (Ventolin HFA) 1 inh inhalation QID PRN bupropion HCl XL 300 mg PO QAM dextroamphetamine-amphetamine 10 mg 10 tabs PO TID estradiol 0.01%(0.1mg/gram) (Estrace) 1 g vaginal 3XW ibuprofen 600 mg PO TID PRN levothyroxine 125 mcg PO DAILY loperamide 2 mg PO DAILY lorazepam 0.5 mg PO DAILY PRN nystatin 1 appl topical TID PRN omeprazole 20 mg PO DAILY oxycodone 10 mg (2 x 5 mg) PO Q4H PRN 1 week solifenacin (Vesicare) 5 mg PO DAILY 90 days telmisartan 80 mg PO DAILY PFSH Medical History Bowel obstruction COVID-19 Hx of radiation therapy Thyroid disease IBS (irritable bowel syndrome) GERD (gastroesophageal reflux disease) HTN (hypertension) Back pain Arthritis Anxiety Depression ADHD Overactive bladder Urinary incontinence Bladder pain History of Graves' disease Personal history of nicotine dependence VAHE (obstructive sleep apnea) (~2010) Dyspnea on exertion Morbid obesity Frequent UTI Surgical History History of esophagogastroduodenoscopy (EGD) Hx of foot surgery Hx of breast lump removal History of hysterectomy History of eye surgery History of colonoscopy History of appendectomy (~1999) Social History Are you a primary childcare administrator to a significant other at home: No Do you presently have visiting nurse or other home services: No Patient Tobacco Use Status: Former Tobacco user Years Smoked: (onset 14, 1on/off - 1ppd x 35yrs, 35pyh - quit 07/2019) Physical Exam Vital Signs: BMI result Body Mass Index 38.8 Extrem Other: Left shoulder examination shows that the surgical incisions are well healed, no erythema, mild discomfort with active range of motion, no instability Assessment & Plan Assessment & Plan (1) Left shoulder pain: Code(s): M25.512 - Pain in left shoulder Category: Medical Plan Jacqueline is doing very well after undergoing left shoulder arthroscopic surgery on 03/19/2024. Her sutures were removed and Steri-Strips placed over her incisions. I did give her a prescription to go to formal physical therapy. I also refilled her prescription for oxycodone. The do's and don'ts of lifting were discussed at length with the patient. She will contact me prior to her follow- up appointment in 6 weeks should any questions or concerns arise. Feel free to call me at any time should questions regarding her orthopedic management arise. Orders: Orders PT Evaluation and Treatment Today M25.512 - Pain in left shoulder Medications: Changed From oxycodone Partial Fill upon patient request. Take 1-2 tabs every 4 hours as needed for pain following your left shoulder surgery on 03/19/24 10 mg (2 x 5 mg) PO Q4H 1 week PRN 40 tabs 0RF pain To oxycodone Partial Fill upon patient request. Take 1-2 tabs every 4 hours as needed for pain following your left shoulder surgery on 03/19/24 5 mg PO Q6H PRN 35 tabs 0RF pain Coding Level of Care Code Global (37946) Diagnoses Left shoulder pain M25.512
[2024-04-01 11:56] VITALS: BMI 38.8
== END 2024-04-01 12:09 | disposition home or self-care (01) ==
PROVIDERS: PCP Internal Medicine; Visit Provider Orthopaedic Surgery
DX: M25.512 Pain in left shoulder (principal)
CPT/HCPCS: 99024

== ENCOUNTER → 2024-04-01 11:34 | Outpatient (BNVA) | payer MEDICARE, MEDICAID, SELFPAY | PROVIDERS: PCP Internal Medicine; Visit Provider Orthopaedic Surgery | DX: M25.512 Pain in left shoulder (principal); Z47.89 Encounter for other orthopedic aftercare; Z98.890 Other specified postprocedural states | CPT/HCPCS: 99212 ==

== ENCOUNTER 2024-04-26 10:25 | Outpatient (REF) | payer MEDICARE, MEDICAID, SELFPAY ==
[2024-04-26 10:41] LABS: MANUAL DIFF FLAG NO
[2024-04-26 11:16] LABS: Basophils Percent Auto 0.6 % (0-2); Eosinophils Absolute Auto 0.1 X10*3/uL (0.0-0.4); Eosinophils Percent Auto 2.1 % (0-4); Hematocrit 39.9 % (37.0-47.0); Hemoglobin 13.5 g/dl (12.0-16.0); Imm Gran Abs Auto 0.01 X10*3/uL (0.00-0.03); Imm Gran Pct Auto 0.2 % (0.0-0.4); Lymphocytes Absolute Auto 1.6 X10*3/uL (1.2-4.9); Lymphocytes Percent Auto 34.3 % (20-40); Mean Corpuscular HGB Conc 33.8 g/dl (31.0-35.0); Mean Corpuscular Hemoglobin 32.5 pg (27.0-33.0); Mean Corpuscular Volume 96.1 fL (80.0-98.0); Mean Platelet Volume 10.7 fL (9.4-12.3); Monocytes Absolute Auto 0.4 X10*3/uL (0.1-1.2); Monocytes Percent Auto 9.2 % (2-11); Neutrophils Absolute Auto 2.5 x10*3/uL (2.0-8.3); Neutrophils Percent Auto 53.6 % (45-73); Platelet Count 203 X10*3/uL (160-400); Red Blood Count 4.15 X10*6/uL (4.20-5.50); White Blood Count 4.7 X10*3/uL (4.8-10.8)
[2024-04-26 12:35] LABS: Alanine Aminotransferase 23 U/L (0-31); Albumin Level 3.9 g/dL (3.5-5.0); Alkaline Phosphatase 58 U/L (39-117); Anion Gap 12 (12-20); Aspartate Amino Transferase 23 U/L (5-31); Bilirubin Total 0.4 mg/dL (0.0-1.0); Blood Urea Nitrogen 13 mg/dL (9-16); Calcium 9.1 mg/dL (8.4-10.2); Carbon Dioxide 24 mmol/L (22-29); Chloride 106 mmol/L (96-108); Cholesterol 142 mg/dL (<200); Estimated Glomerular Filt Rate > 60; Glucose Random 98 mg/dL (60-115); HDL Cholesterol 50 mg/dL (>40); LDL Cholesterol Calculated 83 mg/dL (<100); Potassium 4.4 mmol/L (3.3-5.1); Sodium 138 mmol/L (135-145); Total Protein 6.9 g/dL (6.5-8.0); Triglycerides 45 mg/dL (<150)
[2024-04-26 12:39] LABS: Thyroid Stimulating Hormone 0.14 uIU/mL (0.32-4.0)
--- OUTSIDE RECORDS SUMMARY | 2024-04-28 14:34 | XMS_ITS ---
Author Organization [facility] Address [address] [place] [id number] Care Team Providers Care Glove Wrapper Name Role Phone Lorie Nova Primary Care Provider Unavailab Anthony Hughes Unavailable [phone] REASON FOR VISIT Patient presents today for gerd Encounters Encounter Location Date Provider Diagnosis [facility] [address] [place] [phone] 04/17/2023 Anthony Alvarado PLAN OF TREATMENT No Information
--- OUTSIDE RECORDS SUMMARY | 2024-04-28 14:34 | XMS_ITS ---
Author Organization [facility] Address [address] [place] [phone] Care Team Providers Care Granite Fabricator Name Role Phone Lorie Nova Primary Care Provider Unavailab Anthony Hughes Unavailable [phone] REASON FOR VISIT gerd PROBLEMS Problem Type ICD Code Onset Dates Problem Status W/U Status Risk SNOMED Code Notes Problem Gastro-esophagea l reflux disease without esophagitis (K21.9) Active confirmed Gastro-esophage al reflux disease without esophagitis (348098902) Problem Gastritis, chronic (K29.50) Active confirmed Chronic gastritis (7644804) Encounters Encounter Location Date Provider Diagnosis [facility] Outpatient [address] [place] [phone] 10/08/2023 Anthony Alvarado Gastro-esophageal reflux disease without esophagitis K21.9 ; Gastritis, chronic K29.50 and Hiatal hernia K44.9 ASSESSMENTS Encounter Date Diagnosis Assessment Notes Treatment Notes Treatment Clinical Notes 10/08/2023 Gastro-esophageal reflux disease without esophagitis (ICD-10 - K21.9) 10/08/2023 Gastritis, chronic (ICD-10 - K29.50) 10/08/2023 Hiatal hernia (ICD-10 - K44.9) PLAN OF TREATMENT No Information
--- OUTSIDE RECORDS SUMMARY | 2024-04-28 14:34 | XMS_ITS ---
[facility] Address [address] [place] [phone] Care Team Providers Care Telegraphic Instrument Supervisor Name Role Phone Lorie Nova Primary Care Provider Anthony Chacon Unavailable [phone] ALLERGIES Allergen (clinical drug ingredient) Drug/Non Drug Allergy documented on EMR Reaction Allergy Type Onset Date Status epinephrine Epinephrine Unknown Drug Allergy Act garrett Sulfa Unknown Drug Allergy Active clindamycin Clindamycin HCl Unknown Drug Allergy Active bandage adhesive (uncoded) Unknown Allergy Active REASON FOR VISIT Patient presents today for gerd MEDICATIONS Medication SIG (Take, Route, Frequency, Duration) Notes Start Date End Date Status Spironolactone 25 MG Oral for 90 Active Nystatin [id number] UNIT/GM APPLY TOPICALLY TO AFFECTED AREA(S) THREE TIMES DAILY External for 14 Active Triamcinolone Acetonide 0.5 % APPLY TOPICALLY TO RASH TWICE DAILY External for 30 Active Solifenacin Succinate 10 MG TAKE 1 TABLE T BY MOUTH ONCE DAILY Oral for 90 Active Telmisartan 80 MG TAKE 1 TABLET BY TARAH TH ONCE DAILY Oral for 90 Active buPROPion HCl 300 mg 1 tablet Orally onc e a day Active Lorazepam 0.5 mg 1 tablet Oral once a day Active Loperamide HCl 2 MG 1 tablet Orally 1-3 times a day Active Levothyroxine Sodium 125 MCG 1 capsule O rally Once a day Active Amphetamine-Dextroamphetamin e 20 MG Oral for 30 Active tylenol Active ibuprofen Active Omeprazole 20 MG 1 capsule Orally Onc e a day Active Voltaren Active SOCIAL HISTORY Tobacco Use: Social History Observation Description Date Details (start date - stop date) Former Smoker NA - NA Sex Assigned At : Social History Observation Description Sex Assigned At Unknown Tobacco Use/Smoking Question Answer Notes Patient is a former smoker How long has it been since you last smoked? 5-10 years PROBLEMS Problem Type ICD Code Onset Dates Problem Status W/U Status Risk SNOMED Code Notes Problem Chronic GERD (K21.9) Active confirmed Gastroesophagea l reflux disease (425390432) VITAL SIGNS BMI 43.89 kg/m2 07/31/2023 Blood pressure systolic 00 mm Hg 07/31/19 24 Blood pressure diastolic 00 mm Hg 024 Height 62 in 07/31/2023 Temperature 97.1 degrees Fahrenheit 07/31/19 24 Weight 240 lbs 07/31/2023 Encounters Encounter Location Date Provider Diagnosis [facility] [address] [place] [phone] 07/31/2023 Anthony Alvarado Chronic GERD K21.9 ; Irritable bowel syndrome with diarrhea K58.0 and Encounter for screening for malignant neoplasm of colon Z12.11 ASSESSMENTS Encounter Date Diagnosis Assessment Notes Treatment Notes Treatment Clinical Notes 07/31/2023 Chronic GERD (ICD-10 - K21.9) 07/31/2023 Irritable bowel syndrome with diarrhea (ICD-10 - K58.0) Use Imodium as needed for loose stools 07/31/2023 Encounter for screening for malignant neoplasm of colon (ICD-10 - Z12.11) Repeat colonoscopy in 2025 PLAN OF TREATMENT Medication Medication Name Sig Start Date Stop Date Notes Omeprazole 20 MG 1 capsule Orally Once a day Treatment Notes Assessment Notes Irritable bowel syndrome with diarrhea U se Imodium as needed for loose stools Encounter for screening for malignant neoplasm of colon Repeat colonoscopy in 2025 Future Test Test Name Order Date UPPER GI ENDOSCOPY 07/31/2023 Next Appt Details Follow Up: prn, Reason: Progress Notes * Examination Category Sub-Category Detail Notes General Examination GENERAL APPEARANCE: pleasant , well nourished, well developed, in no acute distress HEAD: EYES: sclera non-icteric EARS: NOSE: THROAT: NECK/THYROID: no cervical lymphade nopathy, neck supple HEART: S1, S2 normal CHEST: LUNGS: clear to auscultatio n bilaterally ABDOMEN: normal bowel sounds, no guarding or rigidity, no guarding or rigidity, no masses palpable, soft, nontender, nondistended NEUROLOGIC: alert and oriented SKIN: nonjaundiced, no spi brenda angiomata EXTREMITIES: no edema PERIPHERAL PULSES: BACK: BREASTS: MUSCULOSKELETAL: MALE GENITOURINARY: LYMPH NODES: RECTAL EXAM: FEMALE GENITOURINARY: ORAL CAVITY: mucosa moist
--- OUTSIDE RECORDS SUMMARY | 2024-04-28 14:34 | XMS_ITS | Patient Health Record ---
Author Organization [facility] Address [address] [place] [address] Care Team Providers Care Head Of Marketing Name Role Phone Lorie Nova Primary Care Provider Anthony Chacon [phone] ALLERGIES Allergen (clinical drug ingredient) Drug/Non Drug Allergy documented on EMR Reaction Allergy Type Onset Date Status epinephrine Epinephrine Unknown Drug Allergy Act garrett Sulfa Unknown Drug Allergy Active clindamycin Clindamycin HCl Unknown Drug Allergy Active bandage adhesive (uncoded) Unknown Allergy Active RESULTS Component Value Reference Range Notes Pathology Reviewed date:10/30/2023 10:36:04 AM Interpretation: Performing Lab:[facility], [address] [place] [id number] Notes/Report: REASON FOR REFERRAL No Information MEDICATIONS Medication SIG (Take, Route, Frequency, Duration) Notes Start Date End Date Status Spironolactone 25 MG Oral for 90 Active buPROPion HCl 300 mg 1 tablet Orally onc e a day Active tylenol Active Nystatin 035164 UNIT/GM APPLY TOPICALLY TO AFFECTED AREA(S) THREE TIMES DAILY External for 14 Active ibuprofen Active Triamcinolone Acetonide 0.5 % APPLY TOPICALLY TO RASH TWICE DAILY External for 30 Active Omeprazole 20 MG 1 capsule Orally Onc e a day Active Voltaren Active Solifenacin Succinate 10 MG TAKE 1 TABLE T BY MOUTH ONCE DAILY Oral for 90 Active Lorazepam 0.5 mg 1 tablet Oral once a day Active Loperamide HCl 2 MG 1 tablet Orally 1-3 times a day Active Levothyroxine Sodium 125 MCG 1 capsule O rally Once a day Active Telmisartan 80 MG TAKE 1 TABLET BY TARAH TH ONCE DAILY Oral for 90 Active Amphetamine-Dextroamphetamin e 20 MG Oral for 30 Active IMMUNIZATIONS Vaccine Route Administration Date Status Comme nts Influenza Unknown 02/16/2015 Administered SOCIAL HISTORY Tobacco Use: Social History Observation [...] W/U Status Risk SNOMED Code Notes Problem Irritable bowel syndrome with diarrhea (K58.0) Active confirmed 139509544 Problem Encounter for screening for malignant neoplasm of colon (Z12.11) Active confirmed 117812546 Problem Encounter for screening for malignant neoplasm of rectum (Z12.12) Active confirmed Screening for malignant neoplasm of rectum (632659445) Problem Gastroesophageal reflux disease, esophagitis presence not specified (K21.9) Active confirmed 846527816 Problem Chronic GERD (K21.9) Active confirmed Gastroesophagea l reflux disease (421333071) Problem Gastro-esophageal reflux disease without esophagitis (K21.9) Active confirmed Gastro-esophage al reflux disease without esophagitis (326700883) Problem Gastritis, chronic (K29.50) Active confirmed Chronic gastrit is (3892347) VITAL SIGNS Temperature 97.1 degrees Fahrenheit 07/31/2023 Blood pressure diastolic 00 mm Hg 07/31/2023 Height 62 in 07/31/2023 Blood pressure systolic 00 mm Hg 07/31/2023 Weight 240 lbs 07/31/2023 BMI 43.89 kg/m2 07/31/2023 Encounters Encounter Location Date Provider Diagnosis [facility] [place] [address] [place], [place] [phone] 10/08/2023 Anthony Alvarado Gastro-esophageal reflux disease without esophagitis K21.9 ; Gastritis, chronic K29.50 and Hiatal hernia K44.9 [facility] [address] [place] [address] 07/31/2023 Anthony Alvaraod Chronic GERD K21.9 ; Irritable bowel syndrome with diarrhea K58.0 and Encounter for screening for malignant neoplasm of colon Z12.11 ASSESSMENTS Encounter Date Diagnosis Assessment Notes Treatment Notes Treatment Clinical Notes 10/08/2023 Gastro-esophageal reflux disease without esophagitis (ICD-10 - K21.9) 10/08/2023 Gastritis, chronic (ICD-10 - K29.50) 07/31/2023 Irritable bowel syndrome with diarrhea (ICD-10 - K58.0) Use Imodium as needed for loose stools 07/31/2023 Chronic GERD (ICD-10 - K21.9) 10/08/2023 Hiatal hernia (ICD-10 - K44.9) 07/31/2023 Encounter for screening for malignant neoplasm of colon (ICD-10 - Z12.11) Repeat colonoscopy in 2025 PLAN OF TREATMENT Future Test Test Name Order Date COLONOSCOPY 08/29/2015 UPPER GI ENDOSCOPY 07/31/2023 Insurance Providers Payer Name Payer Address Payer Phone Subscriber Number Group Number Insured Name Patient Relationship to Insured Coverage Start Date Coverage End Date MEDICARE OF [place] [address] [place] [address] [id number] JACQUELINE HENRY Self - patient is the insured MEDICAID OF [facility] [address] [place] [address] [id number] JACQUELINE HENRY Self - patient is the insured MEDICAL (GENERAL) HISTORY Medical History History ICD Code Colonoscopy 03/2005--hyperplastic polyp, no colitis Irritable bowel syndrome--no rmal duodenal biopsies in 1995 and colon biopsies in 2004; she had negative transglutaminase antibodies in 2008 Reflux--EGD in 1995--no esophagitis Hypertension Arthritis/back and knee Urinary incontinence/UTI's Depression/Anxiety ADHD GERD--EGD in 1995-no esophagitis Sleep apnea--uses CPAP Denies [place],DM,CVA,Lung disease,renal dise ase Grave's disease Eating disorder--overeats--goes to a sup port group Negative screening colonoscopy in 2015 Surgical History Surgery Date(Month/Year) Appendectomy JOSE Left breast lumpectomy-benign Foot surgery
== END 2024-04-26 10:26 | disposition home or self-care (01) ==
LOC: HO.LAB 10:25
PROVIDERS: PCP Internal Medicine; Visit Provider Internal Medicine
DX: E03.8 Other specified hypothyroidism (principal); E66.01 Morbid (severe) obesity due to excess calories; G47.33 Obstructive sleep apnea (adult) (pediatric); I10 Essential (primary) hypertension; K22.70 Barrett's esophagus without dysplasia
CPT/HCPCS: 36415; 80053; 80061; 84443; 85025

== ENCOUNTER 2024-06-01 13:14 | Outpatient (AMB) | payer MEDICARE, MEDICAID, SELFPAY ==
--- NOTE | 2024-06-01 13:18 | MHC.OFFVIS ---
Intake Visit Reasons: PO LT shoulder 03/19/24 DR-2 month follow up Intake Note: Jacqueline is a 64 year old female who presents today for a post operative visit after undergoing a left shoulder arthroscopy on 03/19/2024. She reports mild to moderate discomfort in her left shoulder. She continues with her physical therapy exercises. She denies any fevers or chills. Allergies adhesive tape [ADHESIVE TAPE] Allergy (Intermediate, Verified 06/01/24 13:21) BLISTERS clindamycin [CLINDAMYCIN] Allergy (Intermediate, Verified 06/01/24 13:21) FACE SWELLING/ITCHING epinephrine [EPINEPHRINE] Adverse Reaction (Intermediate, Verified 06/01/24 13:21) TACHYCARDIA FROM SANIYA W/EPINEPHRINE adhesive Allergy (Unknown, Uncoded 06/01/24 13:21) Unknown Clindamycin HCl Allergy (Unknown, Uncoded 06/01/24 13:21) Unknown -SANIYA W/EPINEPHRINE Adverse Reaction (Intermediate, Uncoded 06/01/24 13:21) TACHYCARDIA Medication List - Last Reviewed 06/01/24 by HOWARD Holder albuterol sulfate 90 mcg/actuation (Ventolin HFA) 1 inh inhalation QID PRN bupropion HCl XL 300 mg PO QAM dextroamphetamine-amphetamine 10 mg 10 tabs PO TID estradiol 0.01%(0.1mg/gram) (Estrace) 1 g vaginal 3XW ibuprofen 600 mg PO TID PRN levothyroxine 125 mcg PO DAILY loperamide 2 mg PO DAILY lorazepam 0.5 mg PO DAILY PRN nystatin 1 appl topical TID PRN omeprazole 20 mg PO DAILY solifenacin (Vesicare) 5 mg PO DAILY 90 days telmisartan 80 mg PO DAILY [facility] Medical History Bowel obstruction COVID-19 Hx of radiation therapy Thyroid disease IBS (irritable bowel syndrome) GERD (gastroesophageal reflux disease) HTN (hypertension) Back pain Arthritis Anxiety Depression ADHD Overactive bladder Urinary incontinence Bladder pain History of Graves' disease Personal history of nicotine dependence VAHE (obstructive sleep apnea) (~2010) Dyspnea on exertion Morbid obesity Frequent UTI Surgical History History of esophagogastroduodenoscopy (EGD) Hx of foot surgery Hx of breast lump removal History of hysterectomy History of eye surgery History of colonoscopy History of appendectomy (~1999) Social History Are you a primary progressive care manager to a significant other at home: No Do you presently have visiting nurse or other home services: No Patient Tobacco Use Status: Former Tobacco user Years Smoked: (onset 14, 1on/off - 1ppd x 35yrs, 35pyh - quit 07/2019) Physical Exam Extrem Other: Left shoulder examination shows that the surgical incisions are well healed, no erythema, slightly decreased range of motion when compared to her right shoulder, no instability Assessment & Plan Assessment & Plan (1) Left shoulder pain: Code(s): M25.512 - Pain in left shoulder Category: Medical Plan Ms. Casillas continues to do fairly well after undergoing left shoulder arthroscopic surgery on 03/19/2024. She will continue with her physical therapy exercises. The do's and don'ts of lifting were discussed at length with the patient. She will contact me prior to her follow-up appointment in 3 months should any questions or concerns arise. Feel free to call me at any time should questions regarding her orthopedic management arise. Coding Level of Care Code Global (24782) Diagnoses Left shoulder pain M25.512
--- OUTSIDE RECORDS SUMMARY | 2024-06-01 15:27 | XMS_ITS ---
Author Organization [facility] Address [address] [place] [address] Care Team Providers Care Sharepoint Solutions Architect Name Role Phone Lorie Nova Primary Care Provider Unavailab Anthony Hughes Unavailable [phone] REASON FOR VISIT gerd PROBLEMS Problem Type ICD Code Onset Dates Problem Status W/U Status Risk SNOMED Code Notes Problem Gastro-esophagea l reflux disease without esophagitis (K21.9) Active confirmed Gastro-esophage al reflux disease without esophagitis (472137985) Problem Gastritis, chronic (K29.50) Active confirmed Chronic gastritis (7566964) Encounters Encounter Location Date Provider Diagnosis [facility] [place] [address] [place] [phone] 10/08/2023 Anthony Alvarado Gastro-esophageal reflux disease without esophagitis K21.9 ; Gastritis, chronic K29.50 and Hiatal hernia K44.9 ASSESSMENTS Encounter Date Diagnosis Assessment Notes Treatment Notes Treatment Clinical Notes 10/08/2023 Gastro-esophageal reflux disease without esophagitis (ICD-10 - K21.9) 10/08/2023 Gastritis, chronic (ICD-10 - K29.50) 10/08/2023 Hiatal hernia (ICD-10 - K44.9) PLAN OF TREATMENT No Information
--- OUTSIDE RECORDS SUMMARY | 2024-06-01 15:27 | XMS_ITS | Patient Health Record ---
Author Organization [facility] Address [address] [place] [address] Care Team Providers Care Director Technical Name Role Phone Lorie Nova Primary Care Provider Anthony Chacon [phone] ALLERGIES Allergen (clinical drug ingredient) Drug/Non Drug Allergy documented on EMR Reaction Allergy Type Onset Date Status epinephrine Epinephrine Unknown Drug Allergy Act garrett Sulfa Unknown Drug Allergy Active clindamycin Clindamycin HCl Unknown Drug Allergy Active bandage adhesive (uncoded) Unknown Allergy Active RESULTS Component Value Reference Range Notes Pathology Reviewed date:10/30/2023 10:36:04 AM Interpretation: Performing Lab:[facility], [address] [place] [id number] Notes/Report: REASON FOR REFERRAL No Information MEDICATIONS Medication SIG (Take, Route, Frequency, Duration) Notes Start Date End Date Status Spironolactone 25 MG Oral for 90 Active buPROPion HCl 300 mg 1 tablet Orally onc e a day Active tylenol Active Nystatin 881302 UNIT/GM APPLY TOPICALLY TO AFFECTED AREA(S) THREE [...] bowel syndrome with diarrhea (K58.0) Active confirmed 104786872 Problem Encounter for screening for malignant neoplasm of colon (Z12.11) Active confirmed 513008393 Problem Encounter for screening for malignant neoplasm of rectum (Z12.12) Active confirmed Screening for malignant neoplasm of rectum (184893756) Problem Gastroesophageal reflux disease, esophagitis presence not specified (K21.9) Active confirmed 727286757 Problem Chronic GERD (K21.9) Active confirmed Gastroesophagea l reflux disease (250617491) Problem Gastro-esophageal reflux disease without esophagitis (K21.9) Active confirmed Gastro-esophage al reflux disease without esophagitis (979325874) Problem Gastritis, chronic (K29.50) Active confirmed Chronic gastrit is (4950089) VITAL SIGNS Temperature 97.1 degrees Fahrenheit 07/31/2023 Blood pressure diastolic 00 mm Hg 07/31/2023 Height 62 in 07/31/2023 Blood pressure systolic 00 mm Hg 07/31/2023 Weight 240 lbs 07/31/2023 BMI 43.89 kg/m2 07/31/2023 Encounters Encounter Location Date Provider Diagnosis [facility] [place] [address] [place], [place] [phone] 10/08/2023 Anthony Alvarado Gastro-esophageal reflux disease without esophagitis K21.9 ; Gastritis, chronic K29.50 and Hiatal hernia K44.9 [facility] [address] [place] [address] 07/31/2023 Anthony Alvarado Chronic GERD K21.9 ; [...] OF [place] [address] [place] [address] [id number] JACQUELINE HENRY Self - patient is the insured MEDICAID OF [facility] [address] [place] [address] [id number] JACQUELINE HENRY Self - patient is the insured MEDICAL (GENERAL) HISTORY Medical History History ICD Code Colonoscopy 03/2005--hyperplastic polyp, no colitis Irritable bowel syndrome--no rmal duodenal biopsies in 1995 and colon biopsies in 2004; she had negative transglutaminase antibodies in 2008 Reflux--EGD in 1995--no esophagitis Hypertension Arthritis/back and knee Urinary incontinence/UTI's Depression/Anxiety ADHD GERD--EGD in 1995-no esophagitis Sleep apnea--uses CPAP Denies [place],DM,CVA,Lung disease,renal dise ase Grave's disease Eating disorder--overeats--goes to a sup port group Negative screening colonoscopy in 2015 Surgical History Surgery Date(Month/Year) Appendectomy JOSE Left breast lumpectomy-benign Foot surgery
--- OUTSIDE RECORDS SUMMARY | 2024-06-01 15:27 | XMS_ITS ---
Author Organization [facility] Address [address] [place] [address] Care Team Providers Care Incident Commander Name Role Phone Lorie Nova Primary Care Provider Unavailab Anthony Hughes Unavailable [phone] REASON FOR VISIT Patient presents today for gerd Encounters Encounter Location Date Provider Diagnosis [facility] [address] [place] [phone] 04/17/2023 Anthony Alvarado PLAN OF TREATMENT No Information
--- OUTSIDE RECORDS SUMMARY | 2024-06-01 15:27 | XMS_ITS ---
Author Organization [facility] Address [address] [place] [phone] Care Team Providers Care Rabbit Dresser Name Role Phone Lorie Nova Primary Care Provider Anthony Chacon Unavailable [phone] ALLERGIES Allergen (clinical drug ingredient) Drug/Non Drug [...] 25 MG Oral for 90 Active Nystatin 432995 UNIT/GM APPLY TOPICALLY TO AFFECTED AREA(S) THREE [...] (K21.9) Active confirmed Gastroesophagea l reflux disease (802856073) VITAL SIGNS BMI 43.89 kg/m2 07/31/2023 Blood pressure systolic 00 mm Hg 07/31/19 24 Blood pressure diastolic 00 mm Hg 024 Height 62 in 07/31/2023 Temperature 97.1 degrees Fahrenheit 07/31/19 24 Weight 240 lbs 07/31/2023 Encounters Encounter Location Date Provider Diagnosis [facility] [address] [place] [address] 07/31/2023 Anthony Alvarado Chronic GERD K21.9 ; [...]
== END 2024-06-01 13:35 | disposition home or self-care (01) ==
PROVIDERS: PCP Internal Medicine; Visit Provider Orthopaedic Surgery
DX: M25.512 Pain in left shoulder (principal)
CPT/HCPCS: 99024

== ENCOUNTER → 2024-06-01 13:14 | Outpatient (BNVA) | payer MEDICARE, MEDICAID, SELFPAY | PROVIDERS: PCP Internal Medicine; Visit Provider Orthopaedic Surgery | DX: M25.512 Pain in left shoulder (principal) | CPT/HCPCS: 99212 ==

== ENCOUNTER 2024-06-09 10:32 | Outpatient (REF) | payer MEDICARE, MEDICAID, SELFPAY ==
--- OUTSIDE RECORDS SUMMARY | 2024-06-09 13:13 | XMS_ITS | Encounter Summary ---
Author Organization [facility] [employer] Address [address] [place] [address] [address] [place] [address] Care Team Providers Care Tin Whiz Machine Operator Name Role Phone Unavailable Primary Care Provider Unavailabl e Encounter Details Date Type Department Care Team (Latest Contact Info) Description 02/28/2022 Abstract [facility] Dental, Provider, DDS Social History Tobacco [...] Description 06/23/2024 11:00 AM EST Office Visit [facility] [address] [place] [address] Nino Ray BDS [address] [place] [address] 10/27/2024 11:00 AM EDT Office Visit [facility] [address] [place] [id number] Dory Heard [address] [place], [place] [phone] documented as of this encounter Visit Diagnoses Not on filedocumented in this encounter
--- OUTSIDE RECORDS SUMMARY | 2024-06-09 13:13 | XMS_ITS | Clinical Summary ---
Author Organization [employer] Address [address] [place] [address] 7[address] [place] [address] Care Team Providers Care Baseboard Heating Installer Name Role Phone Unavailable Primary Care Provider [...] Description 04/22/2024 2:00 PM EST Office Visit [address] [address] Dory Heard from Last 3 Months Social [...] Description 06/23/2024 11:00 AM EST Office Visit [facility] [address] [place] [address] Nino Ray BDS [address] [place] [address] 10/27/2024 11:00 AM EDT Office Visit [facility] [address] [place], [place] [phone] Dory Heard [address] [place], [place] [phone] Health Maintenance Due Date Last Done Comments [...]
== END 2024-06-09 10:33 | disposition home or self-care (01) ==
LOC: HO.LAB 10:32
PROVIDERS: PCP Internal Medicine; Visit Provider Nurse Practitioner Family
DX: N39.0 Urinary tract infection, site not specified (principal); N32.81 Overactive bladder; R32 Unspecified urinary incontinence; R82.90 Unspecified abnormal findings in urine; R33.9 Retention of urine, unspecified
CPT/HCPCS: 51798; 81003; 87086; 87088; 87186; 99212

== ENCOUNTER 2024-06-09 10:32 | Outpatient (AMB) | payer MEDICARE, MEDICAID, SELFPAY ==
--- NOTE | 2024-06-09 10:58 | MHC.OFFVIS ---
Intake Visit Reasons: 3M/ PVR Intake Note: Patient is Present for Follow Up PVR Urology Medication: Vesicare, Estradiol Antibiotic Allergies: Clindamycin Blood Thinners: None Last PVR:0ml Todays PVR:50ML Air Intercept Controller Required: No Accompanied by: Self / Same As Patient Allergies adhesive tape [ADHESIVE TAPE] Allergy (Intermediate, Verified 06/09/24 11:45) BLISTERS clindamycin [CLINDAMYCIN] Allergy (Intermediate, Verified 06/09/24 11:45) FACE SWELLING/ITCHING epinephrine [EPINEPHRINE] Adverse Reaction (Intermediate, Verified 06/09/24 11:45) TACHYCARDIA FROM SANIYA W/EPINEPHRINE adhesive Allergy (Unknown, Uncoded 06/09/24 11:45) Unknown Clindamycin HCl Allergy (Unknown, Uncoded 06/09/24 11:45) Unknown -SANIYA W/EPINEPHRINE Adverse Reaction (Intermediate, Uncoded 06/09/24 11:45) TACHYCARDIA Medication List - Last Reconciled 06/09/24 by DASH Restrepo- albuterol sulfate 90 mcg/actuation (Ventolin HFA) 1 inh inhalation QID PRN bupropion HCl XL 300 mg PO QAM ciprofloxacin HCl 250 mg PO BID 7 days dextroamphetamine-amphetamine 10 mg 10 tabs PO TID estradiol 0.01%(0.1mg/gram) (Estrace) 1 g vaginal 3XW ibuprofen 600 mg PO TID PRN levothyroxine 125 mcg PO DAILY loperamide 2 mg PO DAILY lorazepam 0.5 mg PO DAILY PRN nystatin 1 appl topical TID PRN omeprazole 20 mg PO DAILY solifenacin (Vesicare) 5 mg PO DAILY 90 days telmisartan 80 mg PO DAILY HPI Comments Details: Jacqueline is a 64-year-old female patient of Dr. Nova. She has a past medical history of overactive bladder, urinary incontinence, history of Graves disease, nicotine dependence quit in 2019, obstructive sleep apnea, obesity, and frequent urinary tract infections. She presents to the office today for follow-up of her lower urinary tract symptoms and recurrent urinary tract infections. In discussion with the patient today she reports noting over the last 3-5 days she has been having foul-smelling urine however new she had an appointment today and therefore did not call the office. In office urinalysis results reviewed with the patient today 1+ leukocytes positive nitrates. We discussed potential for urinary tract infection given foul-smelling urine and urinalysis today. When asked she does report compliance with Estrace cream as prescribed. She discusses her ongoing issues with her teeth and has an upcoming appointment with the dentist. Previous Urine culture results noted 09/09 noted citrobacter youngae, 12/09 Klebsiella pneumoniae and most recent 01/09 and 02/09 E coli. She discusses her recent left shoulder surgery with Dr. Jaquez and is recovering well. Previous workup has included a retroperitoneal ultrasound 03/10 noting bilateral kidneys with no calculi, lesions, and or hydronephrosis. The bladder is well distended and normal. Bilateral ureteral jets are demonstrated. Prevoid bladder volume is approximately 240 mL. Postvoid bladder volume is approximately 30 mLs. She denies urinary urgency, urinary frequency, incontinence,hematuria, dysuria, changes to urinary stream, flank pain, fever, and or chills. She does report utilizing 1 peripad per day as at times she can experience episodes of urge/stress incontinence however episodes are variable. She otherwise offers no issues or concerns at this time. [facility] Medical History Bowel obstruction COVID-19 Hx of radiation therapy Thyroid disease IBS (irritable bowel syndrome) GERD (gastroesophageal reflux disease) HTN (hypertension) Back pain Arthritis Anxiety Depression ADHD Overactive bladder Urinary incontinence Bladder pain History of Graves' disease Personal history of nicotine dependence VAHE (obstructive sleep apnea) (~2010) Dyspnea on exertion Morbid obesity Frequent UTI Surgical History History of esophagogastroduodenoscopy (EGD) Hx of foot surgery Hx of breast lump removal History of hysterectomy History of eye surgery History of colonoscopy History of appendectomy (~1999) Social History Are you a primary child care counselor to a significant other at home: No Do you presently have visiting nurse or other home services: No Patient Tobacco Use Status: Former Tobacco user Years Smoked: (onset 14, 1on/off - 1ppd x 35yrs, 35pyh - quit 07/2019) Review of Systems Const Reports as per HPI Eyes Reports no additional complaints ENT Reports no additional complaints Card Reports as per HPI Resp Reports as per [facility] GI Reports as per [facility] Reports as per [facility] Musc Reports no additional complaints Neuro Reports no additional complaints Psych Reports as per [facility] Endo Reports as per [facility] Evans/Lymph Reports no additional complaints Aller/Immun Reports no additional complaints Physical Exam Const General: cooperative, healthy appearing, comfortable, no acute distress, well developed, alert and awake Nutritional Appearance: overweight Orientation/consciousness: patient oriented x3 Limitations: no limitations HEENT Head: Yes normal to inspection, Yes normocephalic and Yes atraumatic Ears: hearing grossly normal bilaterally Eyes General: appearance normal, both eyes and all related structures Neck Neck: Yes normal visual inspection and Yes trachea midline Chest Chest palpation & inspection: normal inspection of the chest Resp Effort & Inspection: normal respiratory effort and able to speak in complete sentences Cardio Rate: regular rate GI Inspection: Yes normal to inspection General: Yes no CVA tenderness Back/Spine/Pelvis Back: no CVA tenderness Skin General skin exam: no rashes or lesions noted Neuro General: patient oriented x3 Extrem General: Yes normal to inspection Psych Appearance: grossly normal and well kempt Mental Status: mental status grossly normal Speech and movement: Normal speech and movement present and Clear speech present Affect: normal affect Attitude: cooperative Thought process: Normal thought process present Thought content: Normal thought content present Insight: Fair insight present (Psych) Judgement: Fair judgement present (Psych) Office Procedures Post Void Residual Post Residual Void Post Void Residual (PVR): 50 39360-[id number] Void Residual by ultrasound Results AMB Urinalysis, Automated UA Leukoctes 70 Lluvia/uL Last Edit by HOWARD Katz on 06/09/24 11:24 UA Nitrite Positive Last Edit by HOWARD Katz on 06/09/24 11:24 UA Urobilinogen 0.2 mg/dL Last Edit by HOWARD Katz on 06/09/24 11:24 UA Protein 0 mg/dL Last Edit by HOWARD Katz on 06/09/24 11:24 UA pH 6.0 Last Edit by HOWARD Katz on 06/09/24 11:24 UA Blood 0 Joss/uL Last Edit by HOWARD Katz on 06/09/24 11:24 UA Specific [place] 1.020 Last Edit by HOWARD Katz on 06/09/24 11:24 UA Ketone Negative Last Edit by HOWARD Katz on 06/09/24 11:24 UA Bilirubin 0 mg/dL Last Edit by HOWARD Katz on 06/09/24 11:24 UA Glucose 0 mg/dL Last Edit by HOWARD Katz on 06/09/24 11:24 Results Reviewed Results Reviewed: Laboratory Last Values Urine pH (Auto) 6.0 06/09/24 11:09 Specific [place] (Auto) 1.020 06/09/24 11:09 Urine Protein (Auto) 0 mg/dL 06/09/24 11:09 Glucose (UA)(Auto) 0 mg/dL 06/09/24 11:09 Urine Ketones (Auto) Negative 06/09/24 11:09 Urine Blood (Auto) 0 Joss/uL 06/09/24 11:09 Urine Nitrite (Auto) Positive 06/09/24 11:09 Urine Bilirubin (Auto) 0 mg/dL 06/09/24 11:09 Urine Urobilinogen (Auto) 0.2 mg/dL 06/09/24 11:09 Leukocyte Esterase (Auto) 70 Lluvia/uL 06/09/24 11:09 Assessment & Plan Assessment & Plan (1) Overactive bladder: Code(s): N32.81 - Overactive bladder Category: Medical (2) Urinary incontinence: Code(s): R32 - Unspecified urinary incontinence Category: Medical (3) Foul smelling urine: Code(s): R82.90 - Unspecified abnormal findings in urine Category: Medical (4) Frequent UTI: Code(s): N39.0 - Urinary tract infection, site not specified Category: Medical Plan In office urinalysis results reviewed the patient today; as noted above; will send for urine culture. PVR 50 mL. We discussed at length further treatment options for recurrent urinary tract infections. She does not wish to undergo further treatment options at this time. We discussed importance of calling office with UTI like symptoms when experiencing them. Discussed UTI prevention with D mannose supplement, vitamin-C, increasing fluid intake, behavioral therapy with timed voiding, perineal hygiene and postcoital voiding, and management of constipation with stool softeners and increased fiber intake. Continue Estrace cream as prescribed. Start Cipro as discussed and prescribed. We discussed near future in office cystoscopy given recurrent urinary tract infections however patient declines at this time. Follow-up in 3 months with PVR; or sooner with any issues, concerns, and or questions. Orders: Orders AMB Urinalysis Automated Today Z13.9 - Encounter for screening, unspecified AMB Post Void Residual by ultrasound Today R33.9 - Retention of urine, unspecified Urine Culture Today N39.0 - Urinary tract infection, site not specified Medications: Refilled ciprofloxacin HCl 250 mg PO BID 14 tabs 0RF 7 days N32.81 - Overactive bladder Patient Instructions: The patient had an opportunity to ask questions regarding the treatment plan. All questions were answered. Physical exam, labs, and imaging were discussed and reviewed in detail. As well as risks, benefits, and discussion of treatment choices. No major barriers to understanding were identified. The patient expressed understanding and agreement with the above treatment plan. The patient was made aware they should contact our office by phone for worsening of their current condition, the appearance of new symptoms, or with any questions or concerns. Compliance is encouraged with any medications and follow up testing that is ordered. It is a privilege to be allowed the opportunity to participate in? your urological care.? Again, if you have any questions or concerns If you have any questions or concerns please do not hesitate to contact me. The office is [phone]. This note is constructed using voice recognition software. While every effort has been made to ensure accuracy water supply technician errors may have been included. Yours sincerely, GEE Restrepo Coding Level of Care Code Est Pt Level 4 (21688) Diagnoses Overactive bladder N32.81 Urinary incontinence R32 Foul smelling urine R82.90 Frequent UTI N39.0 CPT Codes Post Residual Void - PVR CPT Code: [id number]-[id number] Void Residual by ultrasound ([id number])
--- OUTSIDE RECORDS SUMMARY | 2024-06-09 11:42 | XMS_ITS | Clinical Summary ---
Author Organization [employer] Address [address] [place] [address] [address] [place] [address] Care Team Providers Care Mineral Surveying Technician Name Role Phone Unavailable Primary Care Provider Unavailabl e Allergies Active Allergy Reactions Criticality Noted Date Comments Clindamycin Unknown 12/14/2012 Lidocaine 12/14/2012 Other reaction(s): heart palpatations Sulfa Antibiotics Hives 12/14/2012 Medications telmisartan (MIcarDIS) 80 MG tablet TAKE 1 TABLET BY MOUTH ONCE DAILY DISCONTINUE LOSARTAN/HCTZ 3 Active levothyroxine (Synthroid, Levoxyl) 125 MCG tablet Take 125 mcg by mouth in the morning. 3 Active spironolactone (Aldactone) 25 MG tablet Take 25 mg by mouth in the morning. 3 Active solifenacin (VESIcare) 10 MG tablet TAKE 1 TABLET BY MOUTH ONCE DAILY FOR OVER ACTIVE BLADDER 3 Active buPROPion XL (Wellbutrin XL) 300 MG 24 hr tablet 3 Active triamcinolone (Kenalog) 0.5 % cream APPLY TOPICALLY TO RASH TWICE DAILY 3 Active amphetamine-dex troamphetamine (Adderall) 10 MG tablet Take 1 tablet by mouth 3 times daily. 3 Active LORazepam (Ativan) 0.5 MG tablet TAKE 1 TABLET BY MOUTH AT BEDTIME NEEDED FOR SLEEP AND 1/2 TO 1 (ONE-HALF TO ONE) TABLET DAILY NEEDED FOR ANXIETY 3 Active omeprazole (PriLOSEC) [address] capsule Take 20 mg by mouth in the morning. 3 Active nystatin (Mycostatin) cream APPLY TOPICALLY TO AFFECTED AREA(S) THREE TIMES DAILY 3 Active loperamide (Imodium) 2 MG capsule Take 2 capsules by mouth. Active ibuprofen 600 MG tablet take 1 tablet (600MG) by oral route 3 times with food 9 Active diclofenac (Voltaren) 75 MG EC tablet Take 75 mg by mouth 2 times daily. 3 Active clotrimazole-be tamethasone (Lotrisone) cream APPLY CREAM TOPICALLY TWICE DAILY 2 Active ciclopirox (Loprox) 0.77 % cream Apply topically every 12 (twelve) hours. Active Ventolin HFA 108 (90 Base) MCG/ACT inhaler INHALE 2 PUFFS BY MOUTH 4 TIMES DAILY NEEDED 3 Active Encounters Date Type Department Care Team Description 04/22/2024 2:00 PM EST Office Visit [address] [address] Dory Heard from Last 3 Months Social History Tobacco Use Types Packs/Day Years Used Date Smoking Tobacco: Former Cigarettes Smokeless Tobacco: Never Tobacco Cessation:Counseling Given: Not Answered Comments Unknown Sex and Gender Information Value Date Recorded Sex Assigned at Female 03/18/2022 10:23 AM EDT Legal Sex Female 10:23 AM EDT Gender Identity Female 03/18/2022 10:23 AM EDT Sexual Orientation Straight 03/18/2022 10 :23 AM EDT Last Filed Vital Signs Vital Sign Reading Time Taken Comments Blood Pressure 135/64 04/22/2024 2:18 PM EST Pulse 88 04/22/2024 2:18 PM EST Temperature - - Respiratory Rate - - Oxygen Saturation - - Inhaled Oxygen Concentration - - Weight - - Height - - Body Mass Index - - Plan of Treatment Upcoming Encounters Date Type Department Care Team (Late st Contact Info) Description 06/23/2024 11:00 AM EST Office Visit [facility] [address] [place] [address] Nino Ray BDS [address] [place] [address] 10/27/2024 11:00 AM EDT Office Visit [facility] [address] [place], [place] [phone] Dory Heard [address] [place], [place] [id number] Health Maintenance Due Date Last Done Comments CT Colonography 1958 Colonoscopy 1958 Colorectal Cancer Screening 1958 Depression Screening 1958 FIT DNA/Cologuard 1958 FIT 1958 FOBT 1958 Lipid Panel 1958 SDOH Screening 1958 Sigmoidoscopy 1958 Alcohol/Substance Use Screening 1970 Hepatitis C Screening 02/24/1976 DTaP/Tdap/Td Vaccines (1 - Tdap) 1977 Mammogram 1998 Zoster Vaccines (1 of 2) 02/24/2008 Dental X-Ray: Full Mouth 06/20/2015 06/19/2012 Pneumococcal Vaccine: 65+ Years (1 of 1 - PCV) 2023 COVID-19 Vaccine (1 - season) 2024 Influenza Vaccine (#1) 2024 Dental Oral Exam 10/22/2024 04/22/2024, , 05/01/2018, Additional history exists Dental Prophylaxis 10/22/2024 04/22/2024, 1 , 05/06/2019, Additional history exists Tobacco Screening 04/22/2025 04/22/2024 Dental X-Ray: Bitewings 04/23/2025 04/22/20 24, 10/03/2022, 02/28/2022, Additional history exists RSV Patients and Patients Aged 60 years or older (1 - 1-dose 75+ series) 2033 HIB Vaccines Aged Out No longer eligi ble based on patient's age to complete this topic HPV Vaccines Aged Out No longer eligi ble based on patient's age to complete this topic Hepatitis A Vaccines Aged Out No long er eligible based on patient's age to complete this topic Hepatitis B Vaccines Aged Out No long er eligible based on patient's age to complete this topic IPV Vaccines Aged Out No longer eligi ble based on patient's age to complete this topic Meningococcal Vaccine Aged Out No pee gael eligible based on patient's age to complete this topic RSV under 20 months Aged Out No longe r eligible based on patient's age to complete this topic Rotavirus Vaccines Aged Out No longer eligible based on patient's age to complete this topic Procedures Procedure Name Priority Date/Time Associated Diagnosis Comments PERIODIC ORAL EVALUATION - ESTABLISHED PATIENT Routine 04/22/2024 2:00 PM EST PROPHYLAXIS - ADULT Routine 04/22/2024 2 :00 PM EST BITEWINGS - 4 RADIOGRAPHIC IMAGES Routine 04/22/2024 2:00 PM EST ADJUNCTIVE GENERAL SERVICES - PROFESSIONAL VISITS - CASE PRESENTATION, SUBSEQUENT TO DETAILED AND EXTENSIVE TREATMENT PLANNING Routine 04/22/2024 2:00 PM EST DIAGNOSTIC - DIAGNOSTIC IMAGING - INTRAORAL - COMPREHENSIVE SERIES OF RADIOGRAPHIC IMAGES Routine 06/19/2012 12:00 AM EST from Last 3 Months or Most Recently Relevant to Health Maintenance Insurance [employer] [employer] ST[place] AD[place]
--- OUTSIDE RECORDS SUMMARY | 2024-06-09 11:42 | XMS_ITS ---
Author Organization [facility] Address [address] [place] [phone] Care Team Providers Care Marketing Strategy Lead Name Role Phone Lorie Nova Primary Care Provider Anthony Chacon Unavailable [phone] ALLERGIES Allergen (clinical drug ingredient) Drug/Non Drug [...] 25 MG Oral for 90 Active Nystatin 141224 UNIT/GM APPLY TOPICALLY TO AFFECTED AREA(S) THREE [...] (K21.9) Active confirmed Gastroesophagea l reflux disease (099181979) VITAL SIGNS BMI 43.89 kg/m2 07/31/2023 Blood pressure systolic 00 mm Hg 07/31/19 24 Blood pressure diastolic 00 mm Hg 024 Height 62 in 07/31/2023 Temperature 97.1 degrees Fahrenheit 07/31/19 24 Weight 240 lbs 07/31/2023 Encounters Encounter Location Date Provider Diagnosis [facility] [address] [place] [address] 07/31/2023 Anthony Alvarado Chronic GERD K21.9 ; [...]
--- OUTSIDE RECORDS SUMMARY | 2024-06-09 11:42 | XMS_ITS | Encounter Summary ---
Author Organization [facility] [facility] [employer] Address [address] [place] [address] [address] [place] [address] Care Team Providers Care Wood Carver Hand Name Role Phone Unavailable Primary Care Provider Unavailabl e Encounter Details Date Type Department Care Team (Latest Contact Info) Description 02/28/2022 Abstract [facility] CONVERSIONS Dental, Provider, DDS Social History Tobacco Use Types Packs/Day Years Used Date Smoking Tobacco: Never Assessed Comments Unknown Sex and Gender Information Value Date Recorded Sex Assigned at Female 03/18/2022 10:23 AM EDT Legal Sex Female 10:23 AM EDT Gender Identity Female 03/18/2022 10:23 AM EDT Sexual Orientation Straight 03/18/2022 10 :23 AM EDT documented as of this encounter Plan of Treatment Upcoming Encounters Date Type Department Care Team (Late st Contact Info) Description 06/23/2024 11:00 AM EST Office Visit [facility] [address] [place] [address] Nino Ray BDS [address] [place] [address] 10/27/2024 11:00 AM EDT Office Visit [facility] [address] [place] [address] Dory Heard [address] [place], [place] [phone] documented as of this encounter Visit Diagnoses Not on filedocumented in this encounter
--- OUTSIDE RECORDS SUMMARY | 2024-06-09 11:42 | XMS_ITS | Patient Health Record ---
Author Organization [facility] Address [address] [place] [phone] Care Team Providers Care Golf Range Attendant Name Role Phone Lorie Nova Primary Care Provider Anthony Chacon [phone] ALLERGIES Allergen (clinical drug ingredient) Drug/Non Drug Allergy documented on EMR Reaction Allergy Type Onset Date Status epinephrine Epinephrine Unknown Drug Allergy Act garrett Sulfa Unknown Drug Allergy Active clindamycin Clindamycin HCl Unknown Drug Allergy Active bandage adhesive (uncoded) Unknown Allergy Active RESULTS Component Value Reference Range Notes Pathology Reviewed date:10/30/2023 10:36:04 AM Interpretation: Performing Lab:[facility], [address] [place] [phone] Notes/Report: REASON FOR REFERRAL No Information MEDICATIONS Medication SIG (Take, Route, Frequency, Duration) Notes Start Date End Date Status Spironolactone 25 MG Oral for 90 Active buPROPion HCl 300 mg 1 tablet Orally onc e a day Active tylenol Active Nystatin 304622 UNIT/GM APPLY TOPICALLY TO AFFECTED AREA(S) THREE [...] bowel syndrome with diarrhea (K58.0) Active confirmed 803808306 Problem Encounter for screening for malignant neoplasm of colon (Z12.11) Active confirmed 957129397 Problem Encounter for screening for malignant neoplasm of rectum (Z12.12) Active confirmed Screening for malignant neoplasm of rectum (694599062) Problem Gastroesophageal reflux disease, esophagitis presence not specified (K21.9) Active confirmed 141695715 Problem Chronic GERD (K21.9) Active confirmed Gastroesophagea l reflux disease (861143389) Problem Gastro-esophageal reflux disease without esophagitis (K21.9) Active confirmed Gastro-esophage al reflux disease without esophagitis (361456467) Problem Gastritis, chronic (K29.50) Active confirmed Chronic gastrit is (0653982) VITAL SIGNS Temperature 97.1 degrees Fahrenheit 07/31/2023 Blood pressure diastolic 00 mm Hg 07/31/2023 Height 62 in 07/31/2023 Blood pressure systolic 00 mm Hg 07/31/2023 Weight 240 lbs 07/31/2023 BMI 43.89 kg/m2 07/31/2023 Encounters Encounter Location Date Provider Diagnosis [facility] [address] [place], [place] [phone] 10/08/2023 Anthony Alvarado Gastro-esophageal reflux disease without esophagitis K21.9 ; Gastritis, chronic K29.50 and Hiatal hernia K44.9 [facility] [address] [place] [address] 07/31/2023 Anthony Alvarado Chronic GERD K21.9 ; [...] OF [place] [address] [place] [address] [id number] JACQUELINE HENRY Self - patient is the insured MEDICAID OF [facility] [address] [place] [address] [id number] JACQUELINE HENRY Self - patient is the insured MEDICAL (GENERAL) HISTORY Medical History History ICD Code Colonoscopy 03/2005--hyperplastic polyp, no colitis Irritable bowel syndrome--no rmal duodenal biopsies in 1995 and colon biopsies in 2004; she had negative transglutaminase antibodies in 2008 Reflux--EGD in 1995--no esophagitis Hypertension Arthritis/back and knee Urinary incontinence/UTI's Depression/Anxiety ADHD GERD--EGD in 1995-no esophagitis Sleep apnea--uses CPAP Denies IN,DM,CVA,Lung disease,renal dise ase Grave's disease Eating disorder--overeats--goes to a sup port group Negative screening colonoscopy in 2015 Surgical History Surgery Date(Month/Year) Appendectomy JOSE Left breast lumpectomy-benign Foot surgery
--- OUTSIDE RECORDS SUMMARY | 2024-06-09 11:42 | XMS_ITS ---
Author Organization [facility] Address [address] [place] [phone] Care Team Providers Care Sand Polisher Name Role Phone Lorie Nova Primary Care Provider Unavailab Anthony Hughes Unavailable [phone] REASON FOR VISIT gerd PROBLEMS Problem Type ICD Code Onset Dates Problem Status W/U Status Risk SNOMED Code Notes Problem Gastro-esophagea l reflux disease without esophagitis (K21.9) Active confirmed Gastro-esophage al reflux disease without esophagitis (460848064) Problem Gastritis, chronic (K29.50) Active confirmed Chronic gastritis (2667712) Encounters Encounter Location Date Provider Diagnosis [facility] Outpatient [address] [place] [phone] 10/08/2023 Anthony Alvarado Gastro-esophageal reflux disease without esophagitis K21.9 ; Gastritis, chronic K29.50 and Hiatal hernia K44.9 ASSESSMENTS Encounter Date Diagnosis Assessment Notes Treatment Notes Treatment Clinical Notes 10/08/2023 Gastro-esophageal reflux disease without esophagitis (ICD-10 - K21.9) 10/08/2023 Gastritis, chronic (ICD-10 - K29.50) 10/08/2023 Hiatal hernia (ICD-10 - K44.9) PLAN OF TREATMENT No Information
--- OUTSIDE RECORDS SUMMARY | 2024-06-09 11:42 | XMS_ITS ---
Author Organization [facility] Address [address] [place] [phone] Care Team Providers Care Hoop Driving Machine Operator Name Role Phone Lorie Nova Primary Care Provider Unavailab Anthony Hughes Unavailable [phone] REASON FOR VISIT Patient presents today for gerd Encounters Encounter Location Date Provider Diagnosis [facility] [address] [place] [phone] 04/17/2023 Anthony Alvarado PLAN OF TREATMENT No Information
== END 2024-06-09 11:45 | disposition home or self-care (01) ==
PROVIDERS: PCP Internal Medicine; Visit Provider Nurse Practitioner Family
DX: N32.81 Overactive bladder (principal); R32 Unspecified urinary incontinence; R82.90 Unspecified abnormal findings in urine; N39.0 Urinary tract infection, site not specified; Z13.9 Encounter for screening, unspecified
CPT/HCPCS: 99214

== ENCOUNTER 2024-06-25 10:17 | Outpatient (REF) | payer MEDICARE, MEDICAID, SELFPAY | END 2024-06-25 10:18 | disposition home or self-care (01) | LOC: HO.MAMMO 10:17 | PROVIDERS: PCP Internal Medicine; Visit Provider Internal Medicine | DX: Z12.31 Encounter for screening mammogram for malignant neoplasm of breast (principal) ==

== ENCOUNTER → 2024-06-25 11:15 | Outpatient (BNV) | payer MEDICARE, MEDICAID, SELFPAY | PROVIDERS: PCP Internal Medicine; Visit Provider Internal Medicine | DX: Z12.31 Encounter for screening mammogram for malignant neoplasm of breast (principal) | CPT/HCPCS: 77063; 77067 ==

== ENCOUNTER 2024-07-26 13:08 | Outpatient (REF) | payer MEDICARE, MEDICAID, SELFPAY ==
--- OUTSIDE RECORDS SUMMARY | 2024-07-26 14:50 | XMS_ITS | Encounter Summary ---
Author Organization [facility] [employer] Address [address] [place] [address] 7 [place] [address] Care Team Providers Care Textile Knitter Name Role Phone Unavailable Primary Care Provider Unavailabl e Encounter Details Date Type Department Care Team (Latest Contact Info) Description 02/28/2022 Abstract [facility] Dental, Provider, DDS Social History Tobacco [...] Care Team (Late st Contact Info) Description 07/28/2024 3:00 PM EDT Office Visit [facility] [address] [place] [address] Nino Ray BDS [address] [place] [address] 10/27/2024 11:00 AM EDT Office Visit [facility] [address] [place] [address] Dory Heard [address] [place] [address] documented as of this encounter Visit Diagnoses Not on filedocumented in this encounter
--- OUTSIDE RECORDS SUMMARY | 2024-07-26 14:50 | XMS_ITS ---
Author Organization [facility] Address [address] [place] [phone] Care Team Providers Care Waterproofing Mixer Name Role Phone Lorie Nova Primary Care Provider Anthony Chacon Unavailable [phone] Allergies Allergen (clinical drug ingredient) Drug/Non Drug Allergy documented on EMR Reaction Allergy Type Onset Date Status epinephrine Epinephrine Unknown Drug Allergy Act garrett Sulfa Unknown Drug Allergy Active clindamycin Clindamycin HCl Unknown Drug Allergy Active bandage adhesive (uncoded) Unknown Allergy Active REASON FOR VISIT Patient presents today for gerd Medications Medication SIG (Take, Route, Frequency, Duration) Notes Start Date End Date Status Spironolactone 25 MG Oral for 90 Active Nystatin 470610 UNIT/GM APPLY TOPICALLY TO AFFECTED AREA(S) THREE [...] Onc e a day Active Voltaren Active Social History Tobacco Use: Social History Observation Description Date Details (start date - stop date) Former Smoker NA - NA Tobacco Use/Smoking Question Answer Notes Patient is a former smoker How long has it been since you last smoked? 5-10 years Section Notes: Nonsmoker since 2019; no alc ohol Problems Problem Type SNOMED Code ICD Code Onset Dates Problem Status W/U Status Risk Notes Problem Gastroesophageal reflux disease (986131647) Chronic GERD (K21.9) Active confirmed Vital Signs Temperature 97.1 degrees Fahrenheit 07/31/19 24 Blood pressure systolic 00 mm Hg 07/31/19 24 Blood pressure diastolic 00 mm Hg 024 Height 62 in 07/31/2023 Weight 240 lbs 07/31/2023 BMI 43.89 kg/m2 07/31/2023 Encounters Encounter Location Date Provider Diagnosis [facility] [address] [place] [address] 07/31/2023 Anthony Alvarado Chronic GERD K21.9 ; Irritable bowel syndrome with diarrhea K58.0 and Encounter for screening for malignant neoplasm of colon Z12.11 Assessments Encounter Date Diagnosis (ICD Code) Assessment Notes Treatment Notes Treatment Clinical Notes Section Notes 07/31/2023 Chronic GERD (ICD-10 - K21.9) Overall, Jacqueline's reflux remains somewhat problematic despite daily omeprazole. She is also having some discomfort with swallowing. We did have a detailed discussion today regarding her weight and eating habits which certainly play a role in her GI symptoms, as well as in her other medical issues including her sleep apnea and fatigue. Given her increasing upper GI complaints, long-standing symptomatology of reflux, and ongoing heartburn despite omeprazole, I did recommend she undergo an upper endoscopy for further evaluation. Full consent was obtained from her for this, including risks of bleeding and perforation. The procedure will be done with monitored anesthesia care. We did review that it would be important to assess for any significant esophagitis, Clark's esophagus, and/or a hiatal hernia. In the meantime, I did advise her to continue the daily omeprazole, use TUMS p.r.n., and to try to watch her diet carefully and lose weight. I've also given her the phone number for the [facility] weight loss clinic. We did review that she will be due for a followup screening colonoscopy in 2025 as well. Jacqueline was comfortable with this plan. Thank you again for allowing me to participate in Jacqueline's care. I shall continue to keep you advised of her progress. 07/31/2023 Irritable bowel syndrome with diarrhea (ICD-10 - K58.0) Use Imodium as needed for loose stools Overall, Yaas reflux remains somewhat problematic despite daily omeprazole. She is also having some discomfort with swallowing. We did have a detailed discussion today regarding her weight and eating habits which certainly play a role in her GI symptoms, as well as in her other medical issues including her sleep apnea and fatigue. Given her increasing upper GI complaints, long-standing symptomatology of reflux, and ongoing heartburn despite omeprazole, I did recommend she undergo an upper endoscopy for further evaluation. Full consent was obtained from her for this, including risks of bleeding and perforation. The procedure will be done with monitored anesthesia care. We did review that it would be important to assess for any significant esophagitis, Clark's esophagus, and/or a hiatal hernia. In the meantime, I did advise her to continue the daily omeprazole, use TUMS p.r.n., and to try to watch her diet carefully and lose weight. I've also given her the phone number for the [facility] weight loss clinic. We did review that she will be due for a followup screening colonoscopy in 2025 as well. Jacqueline was comfortable with this plan. Thank you again for allowing me to participate in Jacqueline's care. I shall continue to keep you advised of her progress. 07/31/2023 Encounter for screening for malignant neoplasm of colon (ICD-10 - Z12.11) Repeat colonoscopy in 2025 Overall, Yaas reflux remains somewhat problematic despite daily omeprazole. She is also having some discomfort with swallowing. We did have a detailed discussion today regarding her weight and eating habits which certainly play a role in her GI symptoms, as well as in her other medical issues including her sleep apnea and fatigue. Given her increasing upper GI complaints, long-standing symptomatology of reflux, and ongoing heartburn despite omeprazole, I did recommend she undergo an upper endoscopy for further evaluation. Full consent was obtained from her for this, including risks of bleeding and perforation. The procedure will be done with monitored anesthesia care. We did review that it would be important to assess for any significant esophagitis, Clark's esophagus, and/or a hiatal hernia. In the meantime, I did advise her to continue the daily omeprazole, use TUMS p.r.n., and to try to watch her diet carefully and lose weight. I've also given her the phone number for the [facility] weight loss clinic. We did review that she will be due for a followup screening colonoscopy in 2025 as well. Jacqueline was comfortable with this plan. Thank you again for allowing me to participate in Jacqueline's care. I shall continue to keep you advised of her progress. Plan Of Treatment Medication Medication Name Sig Start Date Stop [...] Follow Up: prn, Reason: Progress Notes * JACQUELINE CASILLAS MDOB:1960 ( 63 yo F)Acc No.[id number]:07/31/2023 Progress Notes Patient:?JACQUELINE CASILLAS Provider:?Anthony Alvarado MD :1960???Age:63 Y???Sex:Female D ate:07/31/2023 Address:[address] [place] [address] Pcp:Lorie Nova Subjective: * Chief Complaints: * ???Patient presents today fo r gerd * HPI: ???incontinence:? I saw Jacqueline in consultation today in regard to further evaluation of her chronic gastroesophageal reflux, irritable bowel syndrome, and discussion of colorectal cancer screen. ?I last saw Jacqueline in 2015, at which time she underwent a negative screening colonoscopy. She has had a long-standing history of GI complaints including reflux, irregular bowel movements, and occasional incontinence. She has been on long- standing omeprazole with generally good relief of reflux symptoms. She had upper endoscopy in 1995 that was negative for any significant esophagitis nor Clark's esophagus. ?Recently she has been having increasing symptoms of heartburn and some discomfort with swallowing. She denies any actual dysphagia, early satiety, nausea, nor vomiting. She does take intermittent TUMS with some relief. She reports her bowel movements remain somewhat irregular and she does use Imodium with generally good relief of diarrhea. She has not noticed any hematochezia nor melena. She denies abdominal pains nor jaundice. ?She has been troubled by issues with eating and her weight for many years. Since she was here last she has gained 20 pounds. * ROS:?General/Constitutional:?Change in appetite?denies.?Chills?denies.?Fatigue?denies.?Ophthalmologic:?Comments?all negative.?ENT:?Comments?all negative.?Respiratory:?hemoptysis?denies.?Cough?denies.?Cardiovascular:?Chest pain?denies.?Orthopnea?denies.?Gastrointestinal:?Comments?See HPI for details.?Genitourinary:?Hematuria?denies.?Dysuria?denies.?Musculoskeletal:?Painful joints?Per [facility].?Weakness?denies.?Skin:?Itching?denies.?Rash?denies.?Neurologic:?Headache?denies.?Seizures?denies.?Psychiatric:?Comments?Per [facility].? * Medical History:? * Surgical History:?Appendecto my JOSE Left breast lumpectomy-benign Foot surgery * Hospitalization/Major Diagno stic Procedure:?No Hospitalization History. * Family History:?Father: dece ased 78 yrs, diagnosed with Colon polyps.?Mother: 100 yrs.? No colorectal cancer. * Social History:?Tobacco Use:?Tobacco Use/Smoking?Patient is a?former smoker,?How long has it been since you last smoked??5-10 years.?Drugs/Alcohol:?Alcohol Screen?Points: 0, Interpretation: Negative.?Miscellaneous:?Caffeine: more than 4 cups per day--she reports at least 6 cups of coffee per day. Marital status: single, . Occupation: unemployed. ???Nonsmoker since 2019; no alcohol. * Medications:?TakingVoltaren ibuprofen tylenol buPROPion HCl 300 mg Tablet 1 tablet Orally once a dayOmeprazole 20 MG Capsule Delayed Release 1 capsule Orally Once a dayLevothyroxine Sodium 125 MCG Tablet 1 capsule Orally Once a dayLoperamide HCl 2 MG Tablet 1 tablet Orally 1-3 times a dayLorazepam 0.5 mg tablet 1 tablet Oral once a dayAmphetamine-Dextroamphetamine 20 MG Tablet Oral Telmisartan 80 MG Tablet TAKE 1 TABLET BY MOUTH ONCE DAILY Oral Spironolactone 25 MG Tablet Oral Solifenacin Succinate 10 MG Tablet TAKE 1 TABLET BY MOUTH ONCE DAILY Oral Triamcinolone Acetonide 0.5 % Cream APPLY TOPICALLY TO RASH TWICE DAILY External Nystatin 993318 UNIT/GM Cream APPLY TOPICALLY TO AFFECTED AREA(S) THREE TIMES DAILY External Taking Voltaren Taking ibuprofen Taking tylenol Taking buPROPion HCl 300 mg Tablet 1 tablet Orally once a dayTaking Omeprazole 20 MG Capsule Delayed Release 1 capsule Orally Once a dayTaking Levothyroxine Sodium 125 MCG Tablet 1 capsule Orally Once a dayTaking Loperamide HCl 2 MG Tablet 1 tablet Orally 1-3 times a dayTaking Lorazepam 0.5 mg tablet 1 tablet Oral once a dayTaking Amphetamine-Dextroamphetamine 20 MG Tablet Oral Taking Telmisartan 80 MG Tablet TAKE 1 TABLET BY MOUTH ONCE DAILY Oral Taking Spironolactone 25 MG Tablet Oral Taking Solifenacin Succinate 10 MG Tablet TAKE 1 TABLET BY MOUTH ONCE DAILY Oral Taking Triamcinolone Acetonide 0.5 % Cream APPLY TOPICALLY TO RASH TWICE DAILY External Taking Nystatin 810656 UNIT/GM Cream APPLY TOPICALLY TO AFFECTED AREA(S) THREE TIMES DAILY External DiscontinuedAdderall 10 MG Tablet 1 tablet in the morning Orally TIDProAir HFA 108 (90 Base) MCG/ACT Aerosol Solution 2 puffs as needed Inhalation every 4 hrsClotrimazole-Betamethasone 1- 0.05 % Cream 1 application to affected area Externally as neededNaproxen 500 MG Tablet Delayed Release 1 tablet Orally Twice a daytiZANidine HCl 4 MG Tablet 1 tablet as needed Orally 1-3 times a dayMedication List reviewed and reconciled with the patientDiscontinued Adderall 10 MG Tablet 1 tablet in the morning Orally TIDDiscontinued ProAir HFA 108 (90 Base) MCG/ACT Aerosol Solution 2 puffs as needed Inhalation every 4 hrsDiscontinued Clotrimazole-Betamethasone 1-0.05 % Cream 1 application to affected area Externally as neededDiscontinued Naproxen 500 MG Tablet Delayed Release 1 tablet Orally Twice a dayDiscontinued tiZANidine HCl 4 MG Tablet 1 tablet as needed Orally 1-3 times a dayMedication List reviewed and reconciled with the patient * Allergies:?Clindamycin HClSu lfabandage adhesiveEpinephrineyes[Allergies Verified] Objective: * Vitals:?Wt: 240 lbs, Ht: 62 in, BMI:43.89 Index, BP: 00/00 mm Hg, Temp: 97.1. * Examination: ???General Examination: ?GENERAL APPEARANCE:?pleasant, well nourished, well developed, in no acute distress.?EYES:?sclera non-icteric.?ORAL CAVITY:?mucosa moist.?NECK/THYROID:?no cervical lymphadenopathy, neck supple.?SKIN:?nonjaundiced, no spider angiomata.?HEART:?S1, S2 normal.?LUNGS:?clear to auscultation bilaterally.?ABDOMEN:?normal bowel sounds, no guarding or rigidity, no guarding or rigidity, no masses palpable, soft, nontender, nondistended.?EXTREMITIES:?no edema.?NEUROLOGIC:?alert and oriented.? Assessment: * Assessment: 1.?Chronic GERD - K21.9 (Jemma melissa)?2.?Irritable bowel syndrome with diarrhea - K58.0?3.?Encounter for screening for malignant neoplasm of colon - Z12.11? Overall, Jacqueline's reflux remai ns somewhat problematic despite daily omeprazole. She is also having some discomfort with swallowing. We did have a detailed discussion today regarding her weight and eating habits which certainly play a role in her GI symptoms, as well as in her other medical issues including her sleep apnea and fatigue. Given her increasing upper GI complaints, long-standing symptomatology of reflux, and ongoing heartburn despite omeprazole, I did recommend she undergo an upper endoscopy for further evaluation. Full consent was obtained from her for this, including risks of bleeding and perforation. The procedure will be done with monitored anesthesia care. We did review that it would be important to assess for any significant esophagitis, Clark's esophagus, and/or a hiatal hernia. In the meantime, I did advise her to continue the daily omeprazole, use TUMS p.r.n., and to try to watch her diet carefully and lose weight. I've also given her the phone number for the [facility] weight loss clinic. We did review that she will be due for a followup screening colonoscopy in 2025 as well. Jacqueline was comfortable with this plan. Thank you again for allowing me to participate in Jacqueline's care. I shall continue to keep you advised of her progress. Plan: * Treatment: 2.?Irritable bowel syndrome with diarrhea? Notes: Use Imodium as needed for loose stools??3.?Encounter for screening for malignant neoplasm of colon? Notes: Repeat colonoscopy in 2025??4.?Others? Continue Omeprazole Capsule Delayed Release, 20 MG, 1 capsule, Orally, Once a day.?? * Procedure Codes:?3017F COLOR ECTAL CA SCREEN DOC [id number] TOBACCO [id number] BP SCR NOT PRFRM REC REASON NOS * Preventive Medicine:? ??Counseling:?Care goal follow-up plan:?Above Normal BMI Follow-up?Giving encouragement to exercise,?BMI management provided?Yes.? ??Urinary Incontinence:?Urinary Incontinence?Assessment:?Present,?Plan of care documented:?Yes,?Type of plan of care:?Lifestyle interventions.? * Follow Up:?prn * * Sign off status: Completed true * Provider:?Anthony Alvarado MD Date:? 024 Generated for Santino lópez/Angelica/Shawnitting on:?07/26/2024 02:50 PM EDT History and Physical Notes * HPI (History of Present Illness) Category Sub-Category Detail Notes Category Not es incontinence I saw Jacqueline in consultation today in regard to further evaluation of her chronic gastroesophageal reflux, irritable bowel syndrome, and discussion of colorectal cancer screen. I last saw Jacquelien in 2016, at which time she underwent a negative screening colonoscopy. She has had a long-standing history of GI complaints including reflux, irregular bowel movements, and occasional incontinence. She has been on long-standing omeprazole with generally good relief of reflux symptoms. She had upper endoscopy in 1995 that was negative for any significant esophagitis nor Clark's esophagus. Recently she has been having increasing symptoms of heartburn and some discomfort with swallowing. She denies any actual dysphagia, early satiety, nausea, nor vomiting. She does take intermittent TUMS with some relief. She reports her bowel movements remain somewhat irregular and she does use Imodium with generally good relief of diarrhea. She has not noticed any hematochezia nor melena. She denies abdominal pains nor jaundice. She has been troubled by issues with eating and her weight for many years. Since she was here last she has gained 20 pounds. Examination Category Sub-Category Detail Notes Category Not es General Examination GENERAL APPEARANCE: pleasant , well [...]
--- OUTSIDE RECORDS SUMMARY | 2024-07-26 14:50 | XMS_ITS ---
Author Organization [facility] Address [address] [place] [address] Care Team Providers Care Information Consultant Name Role Phone Lorie Nova Primary Care Provider Unavailab Anthony Hughes Unavailable [phone] REASON FOR VISIT gerd Problems Problem Type SNOMED Code ICD Code Onset Dates Problem Status W/U Status Risk Notes Problem Gastro-esophagea l reflux disease without esophagitis (433139915) Gastro-esophage al reflux disease without esophagitis (K21.9) Active confirmed Problem Chronic gastritis (9774668) Gastritis, chronic (K29.50) Active confirmed Encounters Encounter Location Date Provider Diagnosis [facility] [address] [place] [phone] 10/08/2023 Anthony Alvarado Gastro-esophageal reflux disease without esophagitis K21.9 ; Gastritis, chronic K29.50 and Hiatal hernia K44.9 Assessments Encounter Date Diagnosis (ICD Code) Assessment Notes Treatment Notes Treatment Clinical Notes Section Notes 10/08/2023 Gastro-esophagea l reflux disease without esophagitis (ICD-10 - K21.9) 10/08/2023 Gastritis, chronic (ICD-10 - K29.50) 10/08/2023 Hiatal hernia (ICD-10 - K44.9) Plan Of Treatment No Information Progress Notes * JACQUELINE CASILLAS MDOB:1960 ( 64 yo F)Acc No.[id number]:10/08/2023 EGD/MAC Patient:?ELAINE JACQUELINE Abdi Provider:?Anthony Alvarado MD :1960???Age:63 Y???Sex:Female D ate:10/08/2023 Address:[address] [place], [place] [id number] Pcp:Lorie Nova Subjective: * Chief Complaints: * ???1. Gerd. * Medical History:? Objective: * Vitals:? Assessment: * Assessment: 1.?Gastro-esophageal reflux disease without esophagitis - K21.9 (Primary)???2.?Gastritis, chronic - K29.50???3.?Hiatal hernia - K44.9??? Plan: * Treatment: * Procedure Codes:?92318 UPPER GI ENDOSCOPY, BIOPSY * * The named appointment provid er may or may not be the originator of this progress note, and it is not deemed complete until electronically signed by the appointment provider. Sign off status: Pending * Provider:?Anthony Alvarado MD Date:? 024 Generated for Santino lópez/Angelica/Annesmitting on:?07/26/2024 02:49 PM EDT
--- OUTSIDE RECORDS SUMMARY | 2024-07-26 14:50 | XMS_ITS | Encounter Summary ---
Author Organization [employer] Address [address] [place] [address] [place] [address] Care Team Providers Care Principle Industrial Hygienist Name Role Phone Unavailable Primary Care Provider Unavailabl e Reason for Visit * Reason Comments Filling #9, #10, #11 Encounter Details Date Type Department Care Team (Late st Contact Info) Description 07/08/2024 3:00 PM EST Office Visit [facility] [address] [place] [address] Crista Ray BDS [address] [place] [address] Dental caries (Primary Dx) Social History Tobacco Use Types Packs/Day Years Used Date Smoking Tobacco: Former Cigarettes Smokeless Tobacco: Never Comments Unknown Sex and Gender Information Value Date Recorded Sex Assigned at Female 03/18/2022 10:23 AM EDT Legal Sex Female 10:23 AM EDT Gender Identity Female 03/18/2022 10:23 AM EDT Sexual Orientation Straight 03/18/2022 10 :23 AM EDT documented as of this encounter Last Filed Vital Signs Vital Sign Reading Time Taken Comments Blood Pressure 120/72 07/08/2024 3:01 PM EST Pulse - - Temperature - - Respiratory Rate - - Oxygen Saturation - - Inhaled Oxygen Concentration - - Weight - - Height - - Body Mass Index - - documented in this encounter Progress Notes * Crista Ray BDS - 07/08/2024 3:00 PM EST Images from the original note were not included. Patient seen composite yazidism on tooth #11,13-14. Medical History Reviewed. Today's treatment reason- Existing yazidism with poor marginal integrity, Caries noted with explorer, recurrent caries noted, Decay present on radiograph. Decay excavated and tooth restored using matrix band/mylar strip and wedges as needed. Cavity Cleanser-CHX. Desensitizer - Gluma. Base-Ionosit. Etch tooth - Yes. Policy Change Clerk-i-bond. Composite material - [employer]ent Bioactive, Cami Jody. Vitapan classical A3.5. pe- Contoured, occlusion checked and adjusted, established proximal contacts, finished, polished. Patient made aware of post-op sensitivity, patient understood and satisfied. documented in this encounter Miscellaneous Notes * Addendum Note - Crista Ray BDS - 07/08/2024 3:00 PM ESTAddended by: CRISTA RAY on: 07/13/2024 10:42 AM Modules accepted: Orders documented in this encounter Plan of Treatment Upcoming Encounters Date Type Department Care Team (Late st Contact Info) Description 07/28/2024 3:00 PM EDT Office Visit [facility] [address] [place] [address] Crista Ray BDS [address] [place] [address] 10/27/2024 11:00 AM EDT Office Visit [facility] [address] [place] [address] Dory Heard [address] [place] [address] Scheduled Orders Name Type Priority Associated Diagnoses Orde r Schedule DENTURE IMPRESSION Dental Routine 1 Occu rrences starting 07/08/2024 BITE REGISTRATION Dental Routine 1 Occur rences starting 07/08/2024 WAX TRY IN Dental Routine 1 Occurrences starting 07/08/2024 documented as of this encounter Procedures Procedure Name Priority Date/Time Associated Diagnosis Comments 13 B RESIN-BASED COMPOSITE - 1 SURF, POSTERIOR Routine 07/08/2024 3:00 PM EST 14 B RESIN-BASED COMPOSITE - 1 SURF, POSTERIOR Routine 07/08/2024 3:00 PM EST 11 DFL RESIN-BASED COMPOSITE - 3 SURF, ANTERIOR Routine 07/08/2024 3:00 PM EST CASE PRESENTATION, DETAILED AND EXTENSIVE TREATMENT PLANNING Routine 07/08/2024 3:00 PM EST documented in this encounter Visit Diagnoses Diagnosis Dental caries- Primary Unspecified dental caries documented in this encounter
--- OUTSIDE RECORDS SUMMARY | 2024-07-26 14:50 | XMS_ITS | Clinical Summary ---
Author Organization [employer] Address [address] [place] [address] 7[address] [place] [address] Care Team Providers Care Mild Disabilities Teacher Name Role Phone Unavailable Primary Care Provider [...] TOPICALLY TO RASH TWICE DAILY 3 Active amphetamine-de xtroamphetamin e (Adderall) 10 MG tablet Take 1 tablet [...] by mouth 2 times daily. 3 Active clotrimazole-b etamethasone (Lotrisone) cream APPLY CREAM TOPICALLY TWICE DAILY 2 Active ciclopirox (Loprox) 0.77 % cream Apply topically every 12 (twelve) hours. Active Ventolin HFA 108 (90 Base) MCG/ACT inhaler INHALE 2 PUFFS BY MOUTH 4 TIMES DAILY NEEDED 3 Active solifenacin (VESIcare) 5 MG tablet 5 Active levothyroxine (Synthroid, Levoxyl) 112 MCG tablet TAKE 1 TABLET BY MOUTH ONCE DAILY STOP LEVOTHYROXIN 125 MCG 4 Active estradiol (Estrace) 0.1 MG/GM vaginal cream 5 Active fluticasone (Flonase) 50 MCG/ACT nasal spray use 1 spray(s) in each nostril twice daily 5 Active chlorhexidine (Peridex) 0.12 % solution Use 15 mL in the mouth or throat if needed for wound care for up to 14 days. 473 mL 5 07/28/19 25 Active amoxicillin (Amoxil) 500 MG capsule Take 1 capsule (500 mg) by mouth every 8 (eight) hours for 10 days. 30 capsule 5 07/24/19 25 acetaminophen (Tylenol 8 Hour) 650 MG ER tablet Take 1 tablet (650 mg) by mouth every 8 (eight) hours if needed for mild pain for up to 10 days. Do not crush, chew, or split. 30 tablet 5 07/24/19 25 Active Problems Problem Noted Date Diagnosed Date Chronic gastritis 07/08/2024 Gastro-esophageal reflux disease without esophag itis 07/08/2024 Arthritis 08/23/2013 Back problem 08/23/2013 High blood pressure 08/23/2013 Mental disorder 08/23/2013 Nervousness 08/23/2013 Encounters Date Type Department Care Team Description 07/08/2024 3:00 PM EST Office Visit [facility] [address] [place] [address] Nino Ray BDS Dental caries (Primary Dx) from Last 3 Months Social History Tobacco [...] Pressure 120/72 07/08/2024 3:01 PM EST Pulse 88 04/22/2024 2:18 PM EST Temperature - - Respiratory Rate - - Oxygen Saturation - - Inhaled Oxygen Concentration - - Weight - - Height - - Body Mass Index - - Plan of Treatment Upcoming Encounters Date Type Department Care Team (Late st Contact Info) Description 07/28/2024 3:00 PM EDT Office Visit [facility] [address] [place] [address] Nino Ray BDS [address] [place] [address] 10/27/2024 11:00 AM EDT Office Visit [facility] [address] [place] [address] Dory Heard [address] [place] [address] Health Maintenance Due Date Last Done Comments CT Colonography 1960 Colonoscopy 1960 Colorectal Cancer Screening 1960 Depression Screening 1960 FIT DNA/Cologuard 1960 FIT 1960 FOBT 1960 Lipid Panel 1960 SDOH Screening 1960 Sigmoidoscopy 1960 Alcohol/Substance Use Screening 1970 Hepatitis C Screening 02/24/1976 DTaP/Tdap/Td Vaccines (1 - Tdap) 1977 Mammogram 1998 Pneumococcal Vaccine: 50+ Years (1 of 1 - PCV) 02/24/2008 Zoster Vaccines (1 of 2) 02/24/2008 Dental X-Ray: Full Mouth 06/20/2015 06/19/2012 COVID-19 Vaccine ( - 2023- season) 2024 Influenza Vaccine (#1) 2024 Dental Oral Exam 10/22/2024 04/22/2024, , 05/01/2018, Additional history exists Dental Prophylaxis 10/22/2024 04/22/2024, 1 , 05/06/2019, Additional history exists Dental X-Ray: Bitewings 04/23/2025 04/22/20 24, 10/03/2022, 02/28/2022, Additional history exists Tobacco Screening 07/08/2025 07/08/2024 RSV Patients and Patients Aged 60 years [...] Procedure Name Priority Date/Time Associated Diagnosis Comments CASE PRESENTATION, DETAILED AND EXTENSIVE TREATMENT PLANNING Routine 07/08/2024 3:00 PM EST 13 B RESIN-BASED COMPOSITE - 1 SURF, POSTERIOR Routine 07/08/2024 3:00 PM EST 11 DFL RESIN-BASED COMPOSITE - 3 SURF, ANTERIOR Routine 07/08/2024 3:00 PM EST 14 B RESIN-BASED COMPOSITE - 1 SURF, POSTERIOR Routine 07/08/2024 3:00 PM EST PROPHYLAXIS - ADULT Routine 04/22/2024 2 :00 PM EST BITEWINGS - 4 RADIOGRAPHIC IMAGES Routine 04/22/2024 2:00 PM EST PERIODIC ORAL EVALUATION - ESTABLISHED PATIENT Routine 04/22/2024 2:00 PM EST INTRAORAL - COMPLETE SERIES OF RADIOGRAPHIC IMAGES Routine 06/19/2012 12:00 AM EST from Last 3 Months or Most Recently Relevant to Health Maintenance Insurance [facility] MEDICAID STAND ADULT Member Subscriber Plan / Payer (Ef fective 2022-Present) Name:Jacqueline Casillas Relation to Subscriber:Self Name:Jacqueline Casillas Payer ID:Not on file Group ID:Not on file Type:Not on file Address: [place] [phone]
--- OUTSIDE RECORDS SUMMARY | 2024-07-26 14:50 | XMS_ITS ---
Author Organization [facility] Address [address] [place] [address] Care Team Providers Care Gm Name Role Phone Lorie Nova Primary Care Provider Unavailab Anthony Hughes [phone] REASON FOR VISIT Patient presents today for gerd Encounters Encounter Location Date Provider Diagnosis [facility] [address] [facility] [address] [place] [phone] 04/17/2023 Anthony Alvarado Plan Of Treatment No Information Progress Notes * JACQUELINE CASILLAS MDOB:1960 ( 64 yo F)Acc No.[id number]:04/17/2023 Progress Notes Patient:?JACUQELINE CASILLAS Provider:?Anthony Alvarado MD :1960???Age:63 Y???Sex:Female D ate:04/17/2023 Address:[address] [place], [place] [phone] Pcp:Lorie Nova Subjective: * Chief Complaints: * ???1. Patient presents today for gerd. * Medical History:? Objective: * Vitals:? Assessment: Plan: * Treatment: * * The named appointment provid er may or may not be the originator of this progress note, and it is not deemed complete until electronically signed by the appointment provider. Sign off status: Pending * Provider:?Anthony Alvarado MD Date:? 023 Generated for Printi ng/Fadollyg/eTransmitting on:?07/26/2024 02:50 PM EDT
--- OUTSIDE RECORDS SUMMARY | 2024-07-26 14:50 | XMS_ITS | Patient Health Record ---
Author Organization [facility] Address [address] [place] [phone] Care Team Providers Care Chief Creative Officer Name Role Phone Lorie Nova Primary Care Provider UnavailAnthony Medellin [phone] Allergies Allergen (clinical drug ingredient) Drug/Non Drug Allergy documented on EMR Reaction Allergy Type Onset Date Status epinephrine Epinephrine Unknown Drug Allergy Act garrett Sulfa Unknown Drug Allergy Active clindamycin Clindamycin HCl Unknown Drug Allergy Active bandage adhesive (uncoded) Unknown Allergy Active Results Component Value Reference Range Notes Pathology Reviewed date:10/30/2023 10:36:04 AM Interpretation: Performing Lab:[facility], [address] [place] [phone] Notes/Report: Name: ElaineJacqueline Ag e/Sex: 63/F : 1960 Unit#: [id number] Attend Dr: Anthony Alvarado Re10/08/23 Status : [facility] Location: [facility] Disch: SPEC : [id number] RECD : 10/08/23 STATUS: TIA BURTON NUM: [id number] HUI: 10/08/230755 [facility] DR: Anthony Alvarado ENTERED: 10/08/23 SP TYPE: Surgical OTHR DR: Lorie Nova MD ORDERED: HE Stain/6, Gross Micro L4/2, IHC, Special st. 2/2, H. pylori, AB/PAS/2 Diagnosis A. Esophagogastric j unction, at 35 cm, biopsy: Squamous mucosa with hyperplasia and rare intraepithelial neutrophils, compatible with esophagitis, and columnar mucosa with mild chronic inflamm ation and focal intestinal metaplasia; negative for dysplasia (see comment). B. Gastric antrum, b iopsy: Gastric antral mucosa with congestion, focal ectatic vessels, and minimal chronic inactive gastritis; negative for H pylori, intestinal metaplasia and dysplasia. Comment: (A): These findings are consistent with Clark's esophagus if the biopsies were taken from above the anato ezio gastroesophageal junction. Clinical and endoscopic correlation is advised. Clinical History Pre-Op Dx: Reflux, GERD Post-Op Dx: Hiatal h ernia, reflux and gastritis Microscopic Description Microscopic sections reviewed. Immunostain for H. pylori on B is negative. AB/PAS on A is positive for intesti nal metaplasia. AB/PAS on B is negative for intestinal metaplasia. Controls stain appropriately. Material Received A. EG junction at 35 cm B. Gastric antrum Gross Description Received in two parts. Part A: Received in formalin labeled ?EG junction at 35 cm? are 4 calderon-pink irregular and rectangular tissue f ragments ranging from 0.2-0.4 cm, submitted in toto in a cassette labeled A. Part B: Received in formalin labeled ?gastric antrum? are 3 calderon-pink irregular and rectangular tissue f ragments ranging from 0.3-0.5 cm, submitted in toto in a cassette labeled B. CONTINUED ON NEXT PAGE Name: Jacqueline Casillas ge/Sex: 63/F : 1960 [id number]#: [id number] Attend Dr: Anthony Alvarado Re10/08/23 Status : [facility] Location: [facility] Disch: SPEC : [id number] RECD : 10/08/23 STATUS: TIA BURTON NUM: [id number] HUI: 10/08/[address] [facility] [address]: Anthony Alvarado ENTERED: 10/08/23 57 SP TYPE: Surgical OTHR DR: Lorie Nova MD ORDERED: HE Stain/6, Gross Micro L4/2, IHC, Special st. 2/2, H. pylori, AB/PAS/2 Gross Description (Continued) CEDS Special studies orde red and performed: Immunostain for H. pylori on B1; AB/PAS stains on A1 and B1. Copies To: Lorie Nova MD [address] [place] [address] Drive Eren [address] [place] [address], [place] [phone] Anthony Alvarado [address] [place] [address] [address] [place] [id number] Signed (si gnature on file) Dejah Joan 10/10/23 0935 END OF REPORT Reason For Referral No Information Medications Medication SIG (Take, Route, Frequency, Duration) Notes Start Date End Date Status Spironolactone 25 MG Oral for 90 Active buPROPion HCl 300 mg 1 tablet Orally onc e a day Active tylenol Active Nystatin 587671 UNIT/GM APPLY TOPICALLY TO AFFECTED AREA(S) THREE [...] e 20 MG Oral for 30 Active Immunizations Vaccine Route Administration Date Status Comme nts Influenza Unknown 02/16/2015 Administered Social History Tobacco Use: Social History Observation Description Date Details (start date - stop date) Former Smoker NA - NA Tobacco Use/Smoking Question Answer Notes Patient is a former smoker How long has it been since you last smoked? 5-10 years Section Notes: Smoker; no alcohol Nonsmoker since 2019; no alc ohol Problems Problem Type SNOMED Code ICD Code Onset Dates Problem Status W/U Status Risk Notes Problem Gastro-esophageal reflux disease without esophagitis (824410696) Gastro-esophageal reflux disease without esophagitis (K21.9) Active confirmed Problem 667009059 Encounter for screening for malignant neoplasm of colon (Z12.11) Active confirmed Problem 400467487 Irritable bowel syndrome with diarrhea (K58.0) Active confirmed Problem Screening for malignant neoplasm of rectum (899569099) Encounter for screening for malignant neoplasm of rectum (Z12.12) Active confirmed Problem 790525531 Gastroesophageal reflux disease, esophagitis presence not specified (K21.9) Active confirmed Problem Chronic gastritis (2844517) Gastritis, chronic (K29.50) Active confirmed Problem Gastroesophageal reflux disease (372503175) Chronic GERD (K21.9) Active confirmed Vital Signs Temperature 97.1 degrees Fahrenheit 07/31/2023 Blood pressure diastolic 00 mm Hg 07/31/2023 Height 62 in 07/31/2023 Blood pressure systolic 00 mm Hg 07/31/2023 Weight 240 lbs 07/31/2023 BMI 43.89 kg/m2 07/31/2023 Encounters Encounter Location Date Provider Diagnosis [facility] Outpatient [address] [place], [place] [phone] 10/08/2023 Anthony Alvarado Gastro-esophageal reflux disease without esophagitis K21.9 ; Gastritis, chronic K29.50 and Hiatal hernia K44.9 [facility] [address] [place] [address] 07/31/2023 Anthony Alvarado Chronic GERD K21.9 ; Irritable bowel syndrome with diarrhea K58.0 and Encounter for screening for malignant neoplasm of colon Z12.11 Assessments Encounter Date Diagnosis (ICD Code) Assessment Notes Treatment Notes Treatment Clinical Notes Section Notes 10/08/2023 Gastro-esophage al reflux disease without esophagitis (ICD-10 - K21.9) [...] given her the phone number for the [facility] weight loss clinic. We did review that she will be due for a followup screening colonoscopy in 2025 as well. Jacqueline was comfortable with this plan. Thank you again for allowing me to participate in Jacqueline's care. I shall continue to keep you advised of her progress. 07/31/2023 Chronic GERD (ICD-10 - K21.9) Overall, Yaas reflux remains somewhat problematic despite [...] given her the phone number for the [facility] weight loss clinic. We did review that she will be due for a followup screening colonoscopy in 2025 as well. Jacqueline was comfortable with this plan. Thank you again for allowing me to participate in Jacqueline's care. I shall continue to keep you advised of her progress. 10/08/2023 Hiatal hernia (ICD-10 - K44.9) 07/31/2023 [...] given her the phone number for the [facility] weight loss clinic. We did review that she will be due for a followup screening colonoscopy in 2025 as well. Jacqueline was comfortable with this plan. Thank you again for allowing me to participate in Jacqueline's care. I shall continue to keep you advised of her progress. Plan Of Treatment Future Test Test Name Order Date COLONOSCOPY 08/29/2015 UPPER GI ENDOSCOPY 07/31/2023 Insurance Providers Payer Name Payer Address Payer Phone Subscriber Number Group Number Insured Name Patient Relationship to Insured Coverage Start Date Coverage End Date MEDICARE OF [place] [address] [place] [id number] JACQUELINE CASILLAS Self - patient is the insured MEDICAID OF [facility] [address] [place] [address] [id number] JACQUELINE CASILLAS Self - patient is the insured Medical (General) History Medical History History ICD Code Colonoscopy 03/2005--hyperplastic polyp, no colitis Irritable bowel syndrome--no rmal duodenal biopsies in 1995 and colon biopsies in 2004; she had negative transglutaminase antibodies in 2008 Reflux--EGD in 1995--no esophagitis Hypertension Arthritis/back and knee Urinary incontinence/UTI's Depression/Anxiety ADHD GERD--EGD in 1995-no esophagitis Sleep apnea--uses CPAP Denies NV,DM,CVA,Lung disease,renal dise ase Grave's disease Eating disorder--overeats--goes to a sup port group Negative screening colonoscopy in 2015 Surgical History Surgery Date(Month/Year) Appendectomy JOSE Left breast lumpectomy-benign Foot surgery
[2024-07-26 15:02] LABS: Alanine Aminotransferase 28 U/L (0-31); Alkaline Phosphatase 70 U/L (39-117); Anion Gap 13 (12-20); Aspartate Amino Transferase 16 U/L (5-31); Bilirubin Total 0.5 mg/dL (0.0-1.0); Blood Urea Nitrogen 16 mg/dL (9-16); Calcium 8.9 mg/dL (8.4-10.2); Carbon Dioxide 21 mmol/L (22-29); Chloride 109 mmol/L (96-108); Estimated Glomerular Filt Rate 60; Glucose Random 96 mg/dL (60-115); Potassium 4.1 mmol/L (3.3-5.1); Sodium 139 mmol/L (135-145); Total Protein 7.3 g/dL (6.5-8.0)
[2024-07-26 15:18] LABS: Thyroid Stimulating Hormone 0.09 uIU/mL (0.32-4.0)
== END 2024-07-26 13:09 | disposition home or self-care (01) ==
LOC: HO.LAB 13:08
PROVIDERS: PCP Internal Medicine; Visit Provider Internal Medicine
DX: E78.00 Pure hypercholesterolemia, unspecified (principal); E89.0 Postprocedural hypothyroidism; G47.33 Obstructive sleep apnea (adult) (pediatric); I10 Essential (primary) hypertension
CPT/HCPCS: 36415; 80053; 84443

== ENCOUNTER 2024-08-26 16:34 | Outpatient (REF) | payer MEDICARE, MEDICAID, SELFPAY ==
[2024-08-26 17:25] LABS: Appearance Urine Clear; Color Urine Yellow; Glucose Urine UA Negative (Negative); Leukocyte Esterase Urine Negative (Negative); Nitrite Urine Negative (Negative); PH 6.5 (5.0-9.0); Specific Gravity - Urine <= 1.005 (1.005-1.025); Urine Blood Negative (Negative); Urine Ketones Negative (Negative); Urine Protein Negative (Neg-Trace)
[2024-08-26 17:34] LABS: Bacteria Urine 4+ (None Seen); Hyaline Casts Urine 0-2 /LPF (0-2); RBC Urine 0-2 /HPF (0-2); Squamous Epithelial Cell Urine 0-2 /HPF (0-2); WBC Urine 0-5 /HPF (0-5)
--- OUTSIDE RECORDS SUMMARY | 2024-08-26 18:06 | XMS_ITS ---
Author Organization [facility] Address [address] [place] [phone] Care Team Providers Care Relay Mechanic Name Role Phone Lorie Nova Primary Care Provider Unavailab Anthony Hughes Unavailable [phone] REASON FOR VISIT gerd Problems Problem Type SNOMED Code ICD Code Onset Dates Problem Status W/U Status Risk Notes Problem Gastro-esophagea l reflux disease without esophagitis (716581337) Gastro-esophage al reflux disease without esophagitis (K21.9) Active confirmed Problem Chronic gastritis (4555262) Gastritis, chronic (K29.50) Active confirmed Encounters Encounter Location Date Provider Diagnosis [facility] Outpatient [address] [place] [phone] 10/08/2023 Anthony Alvarado Gastro-esophageal reflux disease without [...] JACQUELINE CASILLAS MDOB:1960 ( 64 yo F)Acc No.[id number]:10/08/2023 EGD/MAC Patient:?ELAINE JACQUELINE Abdi Provider:?Anthony Alvarado MD :1960???Age:63 Y???Sex:Female D ate:10/08/2023 Address:[address] [place], [place] [phone] Pcp:Lorie Nova Subjective: * Chief Complaints: * ???1. Gerd. * Medical History:? Objective: * Vitals:? Assessment: * Assessment: 1.?Gastro-esophageal reflux disease without esophagitis - K21.9 (Primary)???2.?Gastritis, chronic - K29.50???3.?Hiatal hernia - K44.9??? Plan: * Treatment: * Procedure Codes:?55625 UPPER GI ENDOSCOPY, BIOPSY * * The named appointment provid er may or may not be the originator of this progress note, and it is not deemed complete until electronically signed by the appointment provider. Sign off status: Pending * Provider:?Anthony Alvarado MD Date:? 024 Generated for Santino lópez/Angelica/Annesmitting on:?08/26/2024 06:05 PM EDT
--- OUTSIDE RECORDS SUMMARY | 2024-08-26 18:06 | XMS_ITS | Clinical Summary ---
Author Organization [employer] Address [address] [place] [address] 7[address] [place] [address] Care Team Providers Care Hospice Office Coordinator Name Role Phone Unavailable Primary Care Provider [...] in each nostril twice daily 5 Active amoxicillin-cl avulanate (Augmentin) 875-125 MG tablet Take 1 tablet by mouth 2 times daily. 20 tablet 5 Active chlorhexidine (Peridex) 0.12 % solution Use 15 mL in the mouth or throat if needed for wound care for up to 14 days. 473 mL 5 07/28/19 25 acetaminophen (Tylenol 8 Hour) 650 MG ER tablet Take 1 tablet (650 mg) by mouth every 8 (eight) hours if needed for mild pain for up to 10 days. Do not crush, chew, or split. 30 tablet 5 08/23/19 25 Active Problems Problem Noted Date Diagnosed Date Chronic gastritis 07/08/2024 Gastro-esophageal reflux disease without esophag itis 07/08/2024 Arthritis 08/23/2013 Back problem 08/23/2013 High blood pressure 08/23/2013 Mental disorder 08/23/2013 Nervousness 08/23/2013 Encounters Date Type Department Care Team Description 08/17/2024 2:00 PM EDT Office Visit [facility] [address] [place] [address] Makonahally, Deviprasad, BDS 08/16/2024 11:00 AM EDT Office Visit [facility] [address] [place] [address] Makonahally, Deviprasad, BDS 08/12/2024 3:00 PM EDT Office Visit [facility] [address] [place] [address] Makonahally, Deviprasad, BDS 07/28/2024 3:00 PM EDT Office Visit [facility] [address] [place] [phone] Makonahally, Deviprasad, BDS Dental caries (Primary Dx) 07/08/2024 3:00 PM EST Office Visit [facility] [address] [place] [phone] Makonahally, Deviprasad, BDS Dental caries (Primary Dx) from Last [...] Sign Reading Time Taken Comments Blood Pressure 124/70 08/17/2024 2:15 PM EDT Pulse 88 04/22/2024 2:18 PM EST Temperature - - Respiratory Rate - - Oxygen Saturation - - Inhaled Oxygen Concentration - - Weight - - Height - - Body Mass Index - - Plan of Treatment Upcoming Encounters Date Type Department Care Team (Late st Contact Info) Description 09/01/2024 1:00 PM EDT Office Visit [facility] [address] [place] [address] Patrickonahally, Deviprasad, BDS [address] [place] [address] 10/27/2024 11:00 AM EDT Office Visit [facility] [address] [place], [place] [phone] Dory Heard [address], [place] [phone] Health Maintenance Due Date Last Done Comments [...] X-Ray: Full Mouth 06/20/2015 06/19/2012 COVID-19 Vaccine (1 - 2023- season) 2024 Influenza Vaccine (#1) 2024 Dental Oral Exam 10/22/2024 04/22/2024, , 05/01/2018, Additional history exists Dental Prophylaxis 10/22/2024 04/22/2024, 1 , 05/06/2019, Additional history exists Dental X-Ray: Bitewings 04/23/2025 04/22/20 24, 10/03/2022, 02/28/2022, Additional history exists Tobacco Screening 08/17/2025 08/17/2024 RSV Patients and Patients Aged 60 years [...] PRESENTATION, DETAILED AND EXTENSIVE TREATMENT PLANNING Routine 08/17/2024 2:00 PM EDT NO CHARGE PROCEDURE Routine 08/17/2024 2 :00 PM EDT UL ALVEOLOPLASTY NOT IN CONJ W/ EXTRACTIONS - 1-3 TEETH, PER QUAD Routine 08/16/2024 11:00 AM EDT 14 EXTRACTION, ERUPTED TOOTH REQ REMOVAL OF BONE AND/OR SECTIONING OF TOOTH Routine 08/12/2024 3:00 PM EDT CASE PRESENTATION, DETAILED AND EXTENSIVE TREATMENT PLANNING Routine 08/12/2024 3:00 PM EDT CASE PRESENTATION, DETAILED AND EXTENSIVE TREATMENT PLANNING Routine 07/28/2024 3:00 PM EDT 10 ML RESIN-BASED COMPOSITE - 2 SURF, ANTERIOR Routine 07/28/2024 3:00 PM EDT CASE PRESENTATION, DETAILED AND EXTENSIVE TREATMENT PLANNING [...] Most Recently Relevant to Health Maintenance Insurance [facility] STAND ADULT
--- OUTSIDE RECORDS SUMMARY | 2024-08-26 18:06 | XMS_ITS ---
Author Organization [facility] Address [address] [place] [address] Care Team Providers Care Foreign Languages Professor Name Role Phone Lorie Nova Primary Care Provider Unavailab Anthony Hughes [phone] REASON FOR VISIT Patient presents today for gerd Encounters Encounter Location Date Provider Diagnosis [facility] [address] [place] [phone] 04/17/2023 Anthony Alvarado Plan Of Treatment No Information Progress Notes * JACQUELINE CASILLAS MDOB:1960 ( 64 yo F)Acc No.[id number]:04/17/2023 Progress Notes Patient:?JACQUELINE CASILLAS Provider:?Anthony Alvarado MD :1960???Age:63 Y???Sex:Female D ate:04/17/2023 Address:[address] [place], [place] [phone] Pcp:Lorie Nova Subjective: * Chief Complaints: * [...] MD Date:? 023 Generated for Printi ng/Fadollyg/eTransmitting on:?08/26/2024 06:06 PM EDT
--- OUTSIDE RECORDS SUMMARY | 2024-08-26 18:06 | XMS_ITS | Encounter Summary ---
Author Organization [employer] Address [address] [place] [address] 7 [place] [address] Care Team Providers Care Meat Cooler Name Role Phone Unavailable Primary Care Provider Unavailabl e Encounter Details Date Type Department Care Team (Latest Contact Info) Description 02/28/2022 Abstract [facility] CONVERSIONS Dental, Provider, DDS Social History Tobacco [...] 09/01/2024 1:00 PM EDT Office Visit [facility] [address] [place] [phone] Nino Ray BDS [address] [place] [address] 10/27/2024 11:00 AM EDT Office Visit [facility] [address] [place] [address] Dory Heard [address] [place] [address] documented as of this encounter Visit Diagnoses Not on filedocumented in this encounter
--- OUTSIDE RECORDS SUMMARY | 2024-08-26 18:06 | XMS_ITS | Patient Health Record ---
Author Organization [facility] Address [address] [place] [phone] Care Team Providers Care Hypoid Gear Generator Name Role Phone Lorie Nova Primary Care Provider UnavailAnthony Medellin [phone] Allergies Allergen (clinical drug ingredient) Drug/Non Drug Allergy documented on EMR Reaction Allergy Type Onset Date Status epinephrine Epinephrine Unknown Drug Allergy Act garrett Sulfa Unknown Drug Allergy Active clindamycin Clindamycin HCl Unknown Drug Allergy Active bandage adhesive (uncoded) Unknown Allergy Active Results Component Value Reference Range Notes Pathology Reviewed date:10/30/2023 10:36:04 AM Interpretation: Performing Lab:[facility], [address] [place] [phone] Notes/Report: Name: Jacqueline Casillas Ag e/Sex: 63/F : 1960 Unit#: [id number] Attend Dr: Anthony Alvarado Re10/08/23 Status : [facility] Location: [facility] Disch: SPEC : [id number] RECD : 10/08/23 STATUS: TIA BURTON NUM: [id number] HUI: 10/08/230755 [facility] DR: Anthony Alvarado ENTERED: 10/08/23 SP TYPE: [...] Name: Jacqueline Casillas ge/Sex: 63/F : 1960 [id number]#: [id number] Attend Dr: Anthony Alvarado Re10/08/23 Status : [facility] Location: [facility] Disch: SPEC : [id number] RECD : 10/08/23 STATUS: [facility]IA [facility]URTON NUM: [id number] HUI: 10/08/[address] [facility] [address]: Anthony Alvarado ENTERED: 10/08/23 57 SP TYPE: Surgical OTHR DR: Lorie Nova MD ORDERED: HE Stain/6, Gross Micro L4/2, IHC, Special st. 2/2, H. pylori, AB/PAS/2 Gross Description (Continued) CEDS Special studies orde red and performed: Immunostain for H. pylori on B1; AB/PAS stains on A1 and B1. Copies To: Lorie Nova MD [address] [place] [address] Drive Eren [address] [place], [place] [address], [place] [phone] Anthony Alvarado [address] [place] [address] [id number] [place] [id number] Signed (si gnature on file) Dejah Joan 10/10/23 0935 END OF REPORT Reason For Referral No Information Medications Medication SIG (Take, Route, Frequency, Duration) Notes Start Date End Date Status Spironolactone 25 MG Oral for 90 Active buPROPion HCl 300 mg 1 tablet Orally onc e a day Active tylenol Active Nystatin 964361 UNIT/GM APPLY TOPICALLY TO AFFECTED AREA(S) THREE [...] Notes Problem Gastro-esophageal reflux disease without esophagitis (530903450) Gastro-esophageal reflux disease without esophagitis (K21.9) Active confirmed Problem 536662630 Encounter for screening for malignant neoplasm of colon (Z12.11) Active confirmed Problem 112985573 Irritable bowel syndrome with diarrhea (K58.0) Active confirmed Problem Screening for malignant neoplasm of rectum (845182437) Encounter for screening for malignant neoplasm of rectum (Z12.12) Active confirmed Problem 326542615 Gastroesophageal reflux disease, esophagitis presence not specified (K21.9) Active confirmed Problem Chronic gastritis (0044560) Gastritis, chronic (K29.50) Active confirmed Problem Gastroesophageal reflux disease (580811504) Chronic GERD (K21.9) Active confirmed Encounters Encounter Location Date Provider Diagnosis [facility] [address] [place] [phone] 10/08/2023 Anthony Alvarado Gastro-esophageal reflux disease without esophagitis K21.9 ; Gastritis, chronic K29.50 and Hiatal hernia K44.9 Assessments Encounter Date Diagnosis (ICD Code) Assessment Notes Treatment Notes Treatment Clinical Notes Section Notes 10/08/2023 Gastro-esophagea l reflux disease without esophagitis (ICD-10 - K21.9) 10/08/2023 Gastritis, chronic (ICD-10 - K29.50) 10/08/2023 Hiatal hernia (ICD-10 - K44.9) Plan Of Treatment Future Test Test Name Order Date COLONOSCOPY 08/29/2015 UPPER GI ENDOSCOPY 07/31/2023 Insurance Providers Payer Name Payer Address Payer Phone Subscriber Number Group Number Insured Name Patient Relationship to Insured Coverage Start Date Coverage End Date MEDICARE OF [place] [address] [place] [id number] [phone] [id number] JACQUELINE CASILLAS Self - patient is the insured MEDICAID OF [facility] [address] [place] [address] [phone] [id number] JACQUELINE CASILLAS Self - patient is the insured Medical (General) History Medical History History ICD Code Colonoscopy 03/2005--hyperplastic polyp, no colitis Irritable bowel syndrome--no rmal duodenal biopsies in 1995 and colon biopsies in 2004; she had negative transglutaminase antibodies in 2008 Reflux--EGD in 1995--no esophagitis Hypertension Arthritis/back and knee Urinary incontinence/UTI's Depression/Anxiety ADHD GERD--EGD in 1995-no esophagitis Sleep apnea--uses CPAP Denies WA,DM,CVA,Lung disease,renal dise ase Grave's disease Eating disorder--overeats--goes to a sup port group Negative screening colonoscopy in 2015 Surgical History Surgery Date(Month/Year) Appendectomy JOSE Left breast lumpectomy-benign Foot surgery
--- OUTSIDE RECORDS SUMMARY | 2024-08-26 18:06 | XMS_ITS ---
Author Organization [facility] Address [address] [place] [address] Care Team Providers Care Supervisor Pipe Joints Name Role Phone Lorie Nova Primary Care Provider Anthony Chacon Unavailable [phone] Allergies Allergen (clinical drug ingredient) Drug/Non Drug [...] 25 MG Oral for 90 Active Nystatin 035993 UNIT/GM APPLY TOPICALLY TO AFFECTED AREA(S) THREE [...] Status Risk Notes Problem Gastroesophageal reflux disease (595053848) Chronic GERD (K21.9) Active confirmed Vital Signs Temperature 97.1 degrees Fahrenheit 07/31/19 24 Blood pressure systolic 00 mm Hg 07/31/19 24 Blood pressure diastolic 00 mm Hg 024 Height 62 in 07/31/2023 Weight 240 lbs 07/31/2023 BMI 43.89 kg/m2 07/31/2023 Encounters Encounter Location Date Provider Diagnosis [facility] [address] [place] [address] 07/31/2023 Anthony Alvarado Chronic GERD K21.9 ; [...] given her the phone number for the [facility] weight loss clinic. We did review that [...] given her the phone number for the [facility] weight loss clinic. We did review that [...] given her the phone number for the [facility] weight loss clinic. We did review that [...] JACQUELINE CASILLAS MDOB:1960 ( 63 yo F)Acc No.[id number]:07/31/2023 Progress Notes Patient:?JACQUELINE CASILLAS Provider:?Anthony Alvarado MD :1960???Age:63 Y???Sex:Female D ate:07/31/2023 Address:[address] [place] [address] Pcp:Lorie Nova Subjective: * Chief Complaints: * [...] TOPICALLY TO RASH TWICE DAILY External Nystatin 682090 UNIT/GM Cream APPLY TOPICALLY TO AFFECTED AREA(S) [...] TO RASH TWICE DAILY External Taking Nystatin 435806 UNIT/GM Cream APPLY TOPICALLY TO AFFECTED AREA(S) [...] given her the phone number for the [facility] weight loss clinic. We did review that [...] Procedure Codes:?3017F COLOR ECTAL CA SCREEN DOC [id number] TOBACCO NON-SFTDZ6012 BP SCR NOT PRFRM REC REASON NOS * Preventive Medicine:? ??Counseling:?Care goal follow-up plan:?Above Normal BMI Follow-up?Giving encouragement to exercise,?BMI management provided?Yes.? ??Urinary Incontinence:?Urinary Incontinence?Assessment:?Present,?Plan of care documented:?Yes,?Type of plan of care:?Lifestyle interventions.? * Follow Up:?prn * * Sign off status: Completed true * Provider:?Anthony Alvarado MD Date:? 024 Generated for Santino lópez/Angelica/Shawnitting on:?08/26/2024 06:05 PM EDT History and Physical Notes * HPI (History of Present Illness) Category Sub-Category Detail Notes Category Not es incontinence I saw Jacqueline in consultation today in regard to further evaluation of her chronic gastroesophageal reflux, irritable bowel syndrome, and discussion of colorectal cancer screen. I last saw Jacqueline in 2016, at which time she underwent [...]
== END 2024-08-26 16:35 | disposition home or self-care (01) ==
LOC: HO.LAB 16:34
PROVIDERS: PCP Internal Medicine; Visit Provider Nurse Practitioner Family
DX: R33.9 Retention of urine, unspecified (principal); N32.81 Overactive bladder; R32 Unspecified urinary incontinence; R39.89 Other symptoms and signs involving the genitourinary system; R82.90 Unspecified abnormal findings in urine
CPT/HCPCS: 81001; 87086; 87088; 87186

== ENCOUNTER 2024-08-30 10:27 | Outpatient (AMB) | payer MEDICARE, MEDICAID, SELFPAY ==
[2024-08-30 10:44] VITALS: BP 102/68; PULSE 85; O2SAT 95
--- NOTE | 2024-08-30 10:44 | MHC.OFFVIS ---
Vital Signs 08/30/24 10:44 Height 52 ft Weight 198 lb BMI 0.4 BP 102/68 Blood Pressure Location Lt brachial Pulse 85 Pulse Source Pulse Oximeter Pulse Oximetry (%) 95 Oxygen Delivery Method Room Air Intake Visit Reasons: dyspnea Intake Note: pt is here for follow up and is using her machine, but has chip for compliance and will call [employer] also, due to getting wrong supplies. Hospice Admitting Clerk Required: No Allergies adhesive tape [ADHESIVE TAPE] Allergy (Intermediate, Verified 08/30/24 11:15) BLISTERS clindamycin [CLINDAMYCIN] Allergy (Intermediate, Verified 08/30/24 11:15) FACE SWELLING/ITCHING epinephrine [EPINEPHRINE] Adverse Reaction (Intermediate, Verified 08/30/24 11:15) TACHYCARDIA FROM SANIYA W/EPINEPHRINE adhesive Allergy (Unknown, Uncoded 08/30/24 11:15) Unknown Clindamycin HCl Allergy (Unknown, Uncoded 08/30/24 11:15) Unknown -SANIYA W/EPINEPHRINE Adverse Reaction (Intermediate, Uncoded 08/30/24 11:15) TACHYCARDIA Medication List - Last Reconciled 08/30/24 by Mac Irene MD albuterol sulfate 90 mcg/actuation (Ventolin HFA) 1 inh inhalation QID PRN bupropion HCl XL 300 mg PO QAM dextroamphetamine-amphetamine 10 mg 10 tabs PO TID estradiol 0.01%(0.1mg/gram) (Estrace) 1 g vaginal 3XW ibuprofen 600 mg PO TID PRN levothyroxine 88 mcg PO DAILY loperamide 2 mg PO DAILY lorazepam 0.5 mg PO DAILY PRN nystatin 1 appl topical TID PRN omeprazole 20 mg PO DAILY solifenacin (Vesicare) 5 mg PO DAILY 90 days sulfamethoxazole-trimethoprim 800-160 mg (Bactrim DS) 1 tab PO BID 7 days telmisartan 80 mg PO DAILY Do you need a note to return to daycare/school/sports/work: No HPI HPI dyspnea: Details: Jacqueline is 64 years old female a case of moderate obesity and obstructive sleep apnea, comes after 6 months for her routine follow-up. The meantime she had left shoulder surgery, quite successfully and is happy with the results. She has also been trying to limit her calories intake and has lost some weight. This may also be due to better control of her thyroid condition. She uses her CPAP every night at least for 6 hours per night, and sleeps good except for going to the bathroom once or twice during the night. She has an old CPAP model and does not transmit the compliance indices , by wire , as to send in a chip to the [email or web address]. According to her statement her compliance is good. COUNTS INCLUDE 234 BEDS AT THE [facility] Medical History Bowel obstruction COVID-19 Hx of radiation therapy Thyroid disease IBS (irritable bowel syndrome) GERD (gastroesophageal reflux disease) HTN (hypertension) Back pain Arthritis Anxiety Depression ADHD Overactive bladder Urinary incontinence Bladder pain History of Graves' disease Personal history of nicotine dependence VAHE (obstructive sleep apnea) (~2010) Dyspnea on exertion Morbid obesity Frequent UTI Surgical History History of esophagogastroduodenoscopy (EGD) Hx of foot surgery Hx of breast lump removal History of hysterectomy History of eye surgery History of colonoscopy History of appendectomy (~1999) Social History Are you a primary manager progressive care to a significant other at home: No Do you presently have visiting nurse or other home services: No Patient Tobacco Use Status: Former Tobacco user Years Smoked: (onset 14, 1on/off - 1ppd x 35yrs, 35pyh - quit 07/2019) Review of Systems Const All systems reviewed & are unremarkable except as noted in HPI and below Reports fatigue and Reports weight gain Eyes Reports no additional complaints ENT Reports no additional complaints Card Denies chest pain, Denies edema and Denies irregular heart rhythm Resp Reports as per HPI GI Reports heartburn (GERD symptoms controlled with medicine) Reports nocturia Musc Reports myalgias (Chronic muscle aches) Skin/Breast Reports system reviewed and no additional complaints, except as documented Neuro Reports no additional complaints Psych Reports anxiety Endo Reports fatigue Physical Exam Vital Signs: Last Vital Signs Pulse 85 08/30/24 10:44 BP 102/68 08/30/24 10:44 Pulse Ox 95 08/30/24 10:44 Oxygen Delivery Method Room Air 08/30/24 10:44 BMI result Body Mass Index 0.4 Patient is grossly obese with a round face and short and obese neck Const General: comfortable (But short of breath during conversation), no acute distress, alert and awake Orientation/consciousness: patient oriented x3 HEENT Head: Yes normal to inspection General nose exam: No nasal polyps present and No nasal discharge present Face and sinus: Yes sinuses nontender Mouth: oropharynx normal Throat: Yes posterior oropharynx normal Eyes General: appearance normal, both eyes and all related structures Neck Neck: Yes normal visual inspection, Yes no lymphadenopathy, Yes trachea midline, Yes no JVD and Yes other (Neck circumference 18 in) Thyroid: Thyroid normal Chest Chest palpation & inspection: normal inspection of the chest, normal palpation of entire chest wall and no tenderness Resp Other: Percussion note is not perceptible because of the obese chest wall. Breath sounds are distant and decreased especially over the basilar areas. No wheezes or rhonchi are heard. Cardio Palpation: PMI not normal (Not palpable) Rate: regular rate Rhythm: regular rhythm Heart sounds: no gallops and no murmurs GI Palpation (GI): Soft to palpation, nontender, No hepatosplenomegaly present, no masses and Other GI palpation findings present (Abdomen is grossly obese and protuberant) Auscultation: normal bowel sounds Back/Spine/Pelvis Thoracic/Lumbar Spine: thoracic and lumbar spine normal to inspection and thoraco-lumbar ROM limited Skin General skin exam: no rashes or lesions noted Neuro General: patient oriented x3 and no focal motor deficits Cranial nerves: Yes CN's II-XII intact bilaterally Extrem General: Yes normal to inspection (But somewhat bulky), Yes no clubbing, cyanosis or edema and Yes no calf tenderness Psych Speech and movement: Normal speech and movement present Affect: Anxious affect present Assessment & Plan Assessment & Plan (1) Morbid obesity: Comment: CONTINUES TO BE GROSSLY OBESE BMI WAS 46.5. NOW DOWN TO 39.5 ( WAS 4 EXERCISES AT THE [employer], AND IS WATCHING HER DIET ) Code(s): E66.01 - Morbid (severe) obesity due to excess calories Category: Medical Plan: Commended for losing more weight. Encouraged to keep on doing exercises at the [employer]. Encouraged to cut down the calories intake especially reduce the intake of carbohydrates. (2) VAHE (obstructive sleep apnea): Onset Date: ~2010 Comment: (Hx VAHE, dx 2011 - on cpap) PATIENT DOES HAVE CPAP, HAS A NEW REFURBISHED DEVICE. FUNCTIONS WELL, BUT DOES NOT TRANSMIT THE DATA FOR COMPLIANCE. COMPLIANCE IS GOOD. Code(s): G47.33 - Obstructive sleep apnea (adult) (pediatric) Category: Medical Plan: ADVISED TO CONTINUE USING THE CPAP REGULARLY EVERY NIGHT FOR AT LEAST 6 HOURS PER NIGHT (3) Personal history of nicotine dependence: Comment: (onset 14, 1on/off - 1ppd x 35yrs, 35pyh - QUIT IN 2019 . SHE IS IN ANNUAL SCREENING PROGRAM . LAST CT SCAN IN AUGUST 2023, BENIGN AND NO EVIDENCE OF ANY SIGNIFICANT NODULE OR MASS. Code(s): Z87.891 - Personal history of nicotine dependence Category: Medical Plan: COMMENDED FOR NOT SMOKING. CONTINUE ANNUAL LUNG SCREENING, WITH LDCT Coding Level of Care Code Est Pt Level 3 ([address]154) Diagnoses Morbid obesity E66.01 VAHE (obstructive sleep apnea) G47.33 Personal history of nicotine dependence Z87.891
--- OUTSIDE RECORDS SUMMARY | 2024-08-30 12:06 | XMS_ITS ---
Author Organization [facility] Address [address] [place] [address] Care Team Providers Care Systems Software Designer Name Role Phone Lorie Nova Primary Care Provider Unavailab Anthony Hughes [phone] REASON FOR VISIT gerd Problems Problem Type SNOMED Code ICD Code Onset Dates Problem Status W/U Status Risk Notes Problem Gastro-esophagea l reflux disease without esophagitis (516356446) Gastro-esophage al reflux disease without esophagitis (K21.9) Active confirmed Problem Chronic gastritis (0518270) Gastritis, chronic (K29.50) Active confirmed Encounters Encounter Location Date Provider Diagnosis [facility] [place] [address] [place] [phone] 10/08/2023 Anthony Alvarado Gastro-esophageal reflux disease without [...] JACQUELINE CASILLAS MDOB:1960 ( 64 yo F)Acc No.[id number]:10/08/2023 EGD/MAC Patient:?ELAINE JACQUELINE Abdi Provider:?Anthony Alvarado MD :1960???Age:63 Y???Sex:Female D ate:10/08/2023 Address:[address] [place], [place] [id number] Pcp:Lorie Nova Subjective: * Chief Complaints: * ???1. Gerd. * Medical History:? Objective: * Vitals:? Assessment: * Assessment: 1.?Gastro-esophageal reflux disease without esophagitis - K21.9 (Primary)???2.?Gastritis, chronic - K29.50???3.?Hiatal hernia - K44.9??? Plan: * Treatment: * Procedure Codes:?64063 UPPER GI ENDOSCOPY, BIOPSY * * The named appointment provid er may or may not be the originator of this progress note, and it is not deemed complete until electronically signed by the appointment provider. Sign off status: Pending * Provider:?Anthony Alvarado MD Date:? 024 Generated for Santino lópez/Angelica/Annesmitting on:?08/30/2024 12:06 PM EDT
--- OUTSIDE RECORDS SUMMARY | 2024-08-30 12:06 | XMS_ITS | Patient Health Record ---
Author Organization [facility] Address [address] [place] [address] Care Team Providers Care Master Pilot Name Role Phone Lorie Nova Primary Care Provider UnavailAnthony Medellin [phone] Allergies Allergen (clinical drug ingredient) Drug/Non Drug Allergy documented on EMR Reaction Allergy Type Onset Date Status epinephrine Epinephrine Unknown Drug Allergy Act garrett Sulfa Unknown Drug Allergy Active clindamycin Clindamycin HCl Unknown Drug Allergy Active bandage adhesive (uncoded) Unknown Allergy Active Results Component Value Reference Range Notes Pathology Reviewed date:10/30/2023 10:36:04 AM Interpretation: Performing Lab:[facility], [address] [place] [phone] Notes/Report: Name: Jacqueline Casillas Ag e/Sex: 63/F : 1960 Unit#: [id number] Attend Dr: Anthony Alvarado Re10/08/23 Status : [facility] Location: [facility] Disch: SPEC : [id number] RECD : 10/08/23 STATUS: TIA BURTON NUM: [id number] HUI: 10/08/230755 [facility] DR: Anthony Alvarado ENTERED: 10/08/23 SP TYPE: [...] Jacqueline Casillas ge/Sex: 63/F : 1960 [id number] Unit#: [id number] Attend Dr: Anthony Alvarado Re10/08/23 Status : [facility] Location: [facility] Disch: SPEC : [id number] RECD : 10/08/23 STATUS: ITA BURTON NUM: [id number] HUI: 10/08/[address] [facility] [address]: Anthony Alvarado ENTERED: 10/08/23 55 SP TYPE: Surgical OTHR DR: Lorie Nova MD ORDERED: HE Stain/6, Gross Micro L4/2, IHC, Special st. 2/2, H. pylori, AB/PAS/2 Gross Description (Continued) CEDS Special studies orde red and performed: Immunostain for H. pylori on B1; AB/PAS stains on A1 and B1. Copies To: Lorie Nova MD [address] [place] [address] Drive Eren [address] [place], [place] [address], [place] [id number] Anthony Alvarado [address] [place] [address] [address] [place] [address] Signed (si gnature on file) Dejah Joan 10/10/23 0935 END OF REPORT Reason For Referral No Information Medications Medication SIG (Take, Route, Frequency, Duration) Notes Start Date End Date Status Spironolactone 25 MG Oral for 90 Active buPROPion HCl 300 mg 1 tablet Orally onc e a day Active tylenol Active Nystatin 177267 UNIT/GM APPLY TOPICALLY TO AFFECTED AREA(S) THREE [...] Notes Problem Gastro-esophageal reflux disease without esophagitis (415191371) Gastro-esophageal reflux disease without esophagitis (K21.9) Active confirmed Problem 494670290 Encounter for screening for malignant neoplasm of colon (Z12.11) Active confirmed Problem 087706698 Irritable bowel syndrome with diarrhea (K58.0) Active confirmed Problem Screening for malignant neoplasm of rectum (419867349) Encounter for screening for malignant neoplasm of rectum (Z12.12) Active confirmed Problem 662143177 Gastroesophageal reflux disease, esophagitis presence not specified (K21.9) Active confirmed Problem Chronic gastritis (5021960) Gastritis, chronic (K29.50) Active confirmed Problem Gastroesophageal reflux disease (996245695) Chronic GERD (K21.9) Active confirmed Encounters Encounter Location Date Provider Diagnosis [facility] [address] [place] [phone] 10/08/2023 Anthony Alvarado Gastro-esophageal reflux disease without [...] OF [place] [address] [place] [address] [id number] JACQUELINE CASILLAS Self - patient is the insured MEDICAID OF [facility] [address] [place] [address] [id number] JACQUELINE CASILLAS Self - patient is the insured Medical (General) History Medical History History ICD Code Colonoscopy 03/2005--hyperplastic polyp, no colitis Irritable bowel syndrome--no rmal duodenal biopsies in 1995 and colon biopsies in 2004; she had negative transglutaminase antibodies in 2008 Reflux--EGD in 1995--no esophagitis Hypertension Arthritis/back and knee Urinary incontinence/UTI's Depression/Anxiety ADHD GERD--EGD in 1995-no esophagitis Sleep apnea--uses CPAP Denies [place],DM,CVA,Lung disease,renal dise ase Grave's disease Eating disorder--overeats--goes to a sup port group Negative screening colonoscopy in 2015 Surgical History Surgery Date(Month/Year) Appendectomy JOSE Left breast lumpectomy-benign Foot surgery
--- OUTSIDE RECORDS SUMMARY | 2024-08-30 12:07 | XMS_ITS | Clinical Summary ---
Author Organization [employer] Address [address] [place] [address] 7t [place] [address] Care Team Providers Care Case Worker Name Role Phone Unavailable Primary Care Provider [...] 2 times daily. 20 tablet 5 Active acetaminophen (Tylenol 8 Hour) 650 MG ER [...] Description 08/17/2024 2:00 PM EDT Office Visit [facility] [address] [place] [address] Nino Rya BDS 08/16/2024 11:00 AM EDT Office Visit [facility] [address] [place] [address] Nino Ray, BDS 08/12/2024 3:00 PM EDT Office Visit [facility] [address] [place] [address] PatrickNino wilson, BDS 07/28/2024 3:00 PM EDT Office Visit [facility] [address] [place] [address] PatrickNino wilson, BDS Dental caries (Primary Dx) 07/08/2024 3:00 PM EST Office Visit [facility] [address] [place] [address] Patrickkatie Nino, BDS Dental caries (Primary Dx) from Last [...] Description 09/01/2024 1:00 PM EDT Office Visit [facility] [address] [place] [address] Nino Ray, BDS [address] [place] [address] 10/27/2024 11:00 AM EDT Office Visit [facility] [address] [place] [address] Dory Heard [address] [place] [address] Health Maintenance Due Date Last Done Comments [...] Mouth 06/20/2015 06/19/2012 COVID-19 Vaccine (1 - season) 2024 Influenza [...] Most Recently Relevant to Health Maintenance Insurance DENTAL - HSN FULL (MEDICAID)
--- OUTSIDE RECORDS SUMMARY | 2024-08-30 12:07 | XMS_ITS | Encounter Summary ---
Author Organization [facility] [employer] Address [address] [place] [address] 7 [place] [address] Care Team Providers Care Asset Administrator Name Role Phone Unavailable Primary Care Provider Unavailabl e Encounter Details Date Type Department Care Team (Latest Contact Info) Description 02/28/2022 Abstract [facility] CONVERSIONS Dental, Provider, DDS Social History [...] Description 09/01/2024 1:00 PM EDT Office Visit [facility] [address] [place] [address] Nino Ray BDS [address] [place] [address] 10/27/2024 11:00 AM EDT Office Visit [facility] [address] [place] [address] Dory Heard [address] [place] [address] documented as of this encounter Visit Diagnoses Not on filedocumented in this encounter
--- OUTSIDE RECORDS SUMMARY | 2024-08-30 12:07 | XMS_ITS ---
Author Organization [facility] Address [address] [place] [address] Care Team Providers Care Shell Molding Roller Blast Operator Name Role Phone Lorie Nova Primary Care Provider Unavailab Anthony Hughes [phone] REASON FOR VISIT Patient presents today for gerd Encounters Encounter Location Date Provider Diagnosis [facility] [address] [place] [phone] 04/17/2023 Anthony Alvarado Plan Of Treatment No Information Progress Notes * JACQUELINE CASILLAS MDOB:1960 ( 64 yo F)Acc No.[id number]:04/17/2023 Progress Notes Patient:?JACQUELINE CASILLAS Provider:?Anthony Alvarado MD :1960???Age:63 Y???Sex:Female D ate:04/17/2023 Address:[address] [place], [place] [phone] Pcp:Lorie Nova Subjective: * Chief Complaints: * [...] MD Date:? 023 Generated for Printi ng/Fadollyg/eTransmitting on:?08/30/2024 12:07 PM EDT
--- OUTSIDE RECORDS SUMMARY | 2024-08-30 12:07 | XMS_ITS ---
Author Organization [facility] Address [address] [place] [address] Care Team Providers Care Conflicts Analyst Name Role Phone Lorie Nova Primary Care Provider Anthony Chacon Unavailable [phone] Allergies Allergen (clinical drug ingredient) Drug/Non Drug [...] 25 MG Oral for 90 Active Nystatin 133355 UNIT/GM APPLY TOPICALLY TO AFFECTED AREA(S) THREE [...] Status Risk Notes Problem Gastroesophageal reflux disease (205316853) Chronic GERD (K21.9) Active confirmed Vital Signs Temperature 97.1 degrees Fahrenheit 07/31/19 24 Blood pressure systolic 00 mm Hg 07/31/19 24 Blood pressure diastolic 00 mm Hg 024 Height 62 in 07/31/2023 Weight 240 lbs 07/31/2023 BMI 43.89 kg/m2 07/31/2023 Encounters Encounter Location Date Provider Diagnosis [facility] [address] [place] [address] 07/31/2023 Anthony Alvarado Chronic GERD K21.9 ; [...] given her the phone number for the [facility] weight loss clinic. We did review that [...] given her the phone number for the [facility] weight loss clinic. We did review that [...] given her the phone number for the [facility] weight loss clinic. We did review that [...] JACQUELINE CASILLAS MDOB:1960 ( 63 yo F)Acc No.[id number]:07/31/2023 Progress Notes Patient:?JACQUELINE CASILLAS Provider:?Anthony Alvarado MD :1960???Age:63 Y???Sex:Female D ate:07/31/2023 Address:[address] [place] [address] Pcp:Lorie Nova Subjective: * Chief Complaints: * [...] TOPICALLY TO RASH TWICE DAILY External Nystatin 479917 UNIT/GM Cream APPLY TOPICALLY TO AFFECTED AREA(S) [...] TO RASH TWICE DAILY External Taking Nystatin 786675 UNIT/GM Cream APPLY TOPICALLY TO AFFECTED AREA(S) [...] given her the phone number for the [facility] weight loss clinic. We did review that [...] Procedure Codes:?3017F COLOR ECTAL CA SCREEN DOC [id number] TOBACCO NON-OIVEN1887 BP SCR NOT PRFRM REC REASON NOS * Preventive Medicine:? ??Counseling:?Care goal follow-up plan:?Above Normal BMI Follow-up?Giving encouragement to exercise,?BMI management provided?Yes.? ??Urinary Incontinence:?Urinary Incontinence?Assessment:?Present,?Plan of care documented:?Yes,?Type of plan of care:?Lifestyle interventions.? * Follow Up:?prn * * Sign off status: Completed true * Provider:?Anthony Alvarado MD Date:? 024 Generated for Santino lópez/Angelica/Shawnitting on:?08/30/2024 12:06 PM EDT History and Physical Notes * [...]
== END 2024-08-30 11:16 | disposition home or self-care (01) ==
LOC: HO.HPS 10:32
PROVIDERS: PCP Internal Medicine; Visit Provider Internal Medicine
DX: E66.01 Morbid (severe) obesity due to excess calories (principal); G47.33 Obstructive sleep apnea (adult) (pediatric); Z87.891 Personal history of nicotine dependence
CPT/HCPCS: 99213

== ENCOUNTER → 2024-08-30 10:27 | Outpatient (BNVA) | payer MEDICARE, MEDICAID, SELFPAY | PROVIDERS: PCP Internal Medicine; Visit Provider Internal Medicine | DX: G47.33 Obstructive sleep apnea (adult) (pediatric) (principal); E66.01 Morbid (severe) obesity due to excess calories; Z87.891 Personal history of nicotine dependence | CPT/HCPCS: 99212 ==

== ENCOUNTER 2024-08-31 14:40 | Outpatient (AMB) | payer MEDICARE, MEDICAID, SELFPAY ==
--- NOTE | 2024-08-31 14:47 | MHC.OFFVIS ---
Vital Signs 08/31/24 14:49 Height 5 ft 2 in Weight 198 lb BMI 36.2 Intake Visit Reasons: OV-LT shoulder 03/19/24 YAMILETHF/U Intake Note: Jacqueline is a 64 year old female who presents today for follow up after undergoing a left shoulder arthroscopy on 03/19/2024. The patient reports mild intermittent discomfort along the lateral aspect of her left shoulder. She continues to go to the [facility] 2 days per week to exercise. She denies any fevers or chills. She denies any weakness. She reports mild discomfort when lifting her left hand above shoulder height. Allergies amoxicillin [From Augmentin] Allergy (Severe, Verified 08/31/24 14:50) Diarrhea, Hives clavulanic acid [From Augmentin] Allergy (Severe, Verified 08/31/24 14:50) Diarrhea, Hives adhesive tape [ADHESIVE TAPE] Allergy (Intermediate, Verified 08/30/24 11:15) BLISTERS clindamycin [CLINDAMYCIN] Allergy (Intermediate, Verified 08/30/24 11:15) FACE SWELLING/ITCHING epinephrine [EPINEPHRINE] Adverse Reaction (Intermediate, Verified 08/30/24 11:15) TACHYCARDIA FROM SANIYA W/EPINEPHRINE adhesive Allergy (Unknown, Uncoded 08/30/24 11:15) Unknown Clindamycin HCl Allergy (Unknown, Uncoded 08/30/24 11:15) Unknown -SANIYA W/EPINEPHRINE Adverse Reaction (Intermediate, Uncoded 08/30/24 11:15) TACHYCARDIA Medication List - Last Reconciled 08/31/24 by Alvaro Jaquez MD albuterol sulfate 90 mcg/actuation (Ventolin HFA) 1 inh inhalation QID PRN bupropion HCl XL 300 mg PO QAM dextroamphetamine-amphetamine 10 mg 10 tabs PO TID estradiol 0.01%(0.1mg/gram) (Estrace) 1 g vaginal 3XW ibuprofen 600 mg PO TID PRN levothyroxine 88 mcg PO DAILY loperamide 2 mg PO DAILY lorazepam 0.5 mg PO DAILY PRN nystatin 1 appl topical TID PRN omeprazole 20 mg PO DAILY solifenacin (Vesicare) 5 mg PO DAILY 90 days sulfamethoxazole-trimethoprim 800-160 mg (Bactrim DS) 1 tab PO BID 7 days telmisartan 80 mg PO DAILY PFSH Medical History Bowel obstruction COVID-19 Hx of radiation therapy Thyroid disease IBS (irritable bowel syndrome) GERD (gastroesophageal reflux disease) HTN (hypertension) Back pain Arthritis Anxiety Depression ADHD Overactive bladder Urinary incontinence Bladder pain History of Graves' disease Personal history of nicotine dependence VAHE (obstructive sleep apnea) (~2010) Dyspnea on exertion Morbid obesity Frequent UTI Surgical History History of esophagogastroduodenoscopy (EGD) Hx of foot surgery Hx of breast lump removal History of hysterectomy History of eye surgery History of colonoscopy History of appendectomy (~1999) Social History Are you a primary child care center administrator to a significant other at home: No Do you presently have visiting nurse or other home services: No Patient Tobacco Use Status: Former Tobacco user Years Smoked: (onset 14, 1on/off - 1ppd x 35yrs, 35pyh - quit 07/2019) Physical Exam Vital Signs: BMI result Body Mass Index 36.2 Const Other: Well-nourished well-developed very friendly female awake alert and oriented x3 in no acute distress Extrem Other: Bilateral upper extremity examination shows good capillary refill, no skin lesions noted, normal sensation light touch Left shoulder examination shows that the surgical incisions are well healed, no erythema, almost full range of motion when compared to her right shoulder, 5/5 strength with supraspinatus testing, mild discomfort with resisted forward flexion, no instability Assessment & Plan Assessment & Plan (1) Left shoulder pain: Code(s): M25.512 - Pain in left shoulder Category: Medical Plan Ms. Casillas continues to do well after undergoing left shoulder arthroscopic surgery on 03/19/2024. She does have intermittent discomfort due to rotator cuff tendinosis. At this point the patient's symptoms are tolerable to her. We will hold off on a cortisone injection. The do's and don'ts of lifting were discussed at length with the patient. She will contact me prior to her follow-up appointment in 3 months should any questions or concerns arise. Feel free to call me at any time should questions regarding her orthopedic management arise. I spent 20 minutes in reviewing the patient's records and imaging studies, seeing the patient and documenting in the medical record. Coding Level of Care Code Est Pt Level 3 (04852) Complex EM visit Add On G2211 Diagnoses Left shoulder pain M25.512
[2024-08-31 14:49] VITALS: BMI 36.2
--- OUTSIDE RECORDS SUMMARY | 2024-08-31 17:56 | XMS_ITS | Patient Health Record ---
Author Organization [facility] Address [address] [place] [address] Care Team Providers Care Fitness/Wellness Director Name Role Phone Lorie Nova Primary Care Provider UnavailAnthony Medellin [phone] Allergies Allergen (clinical drug ingredient) Drug/Non Drug Allergy documented on EMR Reaction Allergy Type Onset Date Status epinephrine Epinephrine Unknown Drug Allergy Act garrett Sulfa Unknown Drug Allergy Active clindamycin Clindamycin HCl Unknown Drug Allergy Active bandage adhesive (uncoded) Unknown Allergy Active Results Component Value Reference Range Notes Pathology Reviewed date:10/30/2023 10:36:04 AM Interpretation: Performing Lab:[facility], [address] [place] [phone] Notes/Report: Name: Jacqueline Casillas Ag e/Sex: 63/F : 1960 Unit#: [id number] Attend Dr: Anthony Alvarado Re10/08/23 Status : [facility] Location: [facility] Disch: SPEC : [id number] RECD : 10/08/23 STATUS: TIA BURTON NUM: [id number] HUI: 10/08/230755 [facility] DR: Anthony Alvarado ENTERED: 10/08/23 [...] Name: Jacqueline Casillas ge/Sex: 63/F : 1960 [id number] Unit#: [id number] Attend Dr: Anthony Alvarado Re10/08/23 Status : [facility] Location: [facility] Disch: SPEC : [id number] RECD : 10/08/23 STATUS: TIA BURTON NUM: [id number] HUI: 10/08/[address] [facility] [address]: Anthony Alvarado ENTERED: 10/08/23 55 SP TYPE: Surgical OTHR DR: Lorie Nova MD ORDERED: HE Stain/6, Gross Micro L4/2, IHC, Special st. 2/2, H. pylori, AB/PAS/2 Gross Description (Continued) CEDS Special studies orde red and performed: Immunostain for H. pylori on B1; AB/PAS stains on A1 and B1. Copies To: Lorie Nova MD [address] [place] [address] [address] Eren [address] [place], [place] [address], [place] [id number] Anthony Alvarado [address] [place] [address] [address] [place] [phone] Signed (si gnature on file) Dejah Joan 10/10/23 0935 END OF REPORT Reason For Referral No Information Medications Medication SIG (Take, Route, Frequency, Duration) Notes Start Date End Date Status Spironolactone 25 MG Oral for 90 Active buPROPion HCl 300 mg 1 tablet Orally onc e a day Active tylenol Active Nystatin 406953 UNIT/GM APPLY TOPICALLY TO AFFECTED AREA(S) THREE [...] Notes Problem Gastro-esophageal reflux disease without esophagitis (241426525) Gastro-esophageal reflux disease without esophagitis (K21.9) Active confirmed Problem 782121174 Encounter for screening for malignant neoplasm of colon (Z12.11) Active confirmed Problem 242850564 Irritable bowel syndrome with diarrhea (K58.0) Active confirmed Problem Screening for malignant neoplasm of rectum (918080727) Encounter for screening for malignant neoplasm of rectum (Z12.12) Active confirmed Problem 328568162 Gastroesophageal reflux disease, esophagitis presence not specified (K21.9) Active confirmed Problem Chronic gastritis (9060153) Gastritis, chronic (K29.50) Active confirmed Problem Gastroesophageal reflux disease (333144207) Chronic GERD (K21.9) Active confirmed Encounters Encounter Location Date Provider Diagnosis [facility] [address] [place] [phone] 10/08/2023 Anthony Alvarado Gastro-esophageal reflux disease without [...] OF [place] [address] [place] [address] [id number] JACQUELINE CASILLAS Self - patient is the insured MEDICAID OF [facility] [address] [place] [phone] [id number] JACQUELINE CASILLAS Self - patient is the insured Medical (General) History Medical History History ICD Code Colonoscopy 03/2005--hyperplastic polyp, no colitis Irritable bowel syndrome--no rmal duodenal biopsies in 1995 and colon biopsies in 2004; she had negative transglutaminase antibodies in 2008 Reflux--EGD in 1995--no esophagitis Hypertension Arthritis/back and knee Urinary incontinence/UTI's Depression/Anxiety ADHD GERD--EGD in 1995-no esophagitis Sleep apnea--uses CPAP Denies [place],DM,CVA,Lung disease,renal dise ase Grave's disease Eating disorder--overeats--goes to a sup port group Negative screening colonoscopy in 2015 Surgical History Surgery Date(Month/Year) Appendectomy JOSE Left breast lumpectomy-benign Foot surgery
--- OUTSIDE RECORDS SUMMARY | 2024-08-31 17:56 | XMS_ITS ---
Author Organization [facility] Address [address] [place] [address] Care Team Providers Care Loan Workout Officer Name Role Phone Lorie Nova Primary Care Provider Unavailab Anthony Hughes Unavailable [phone] REASON FOR VISIT gerd Problems Problem Type SNOMED Code ICD Code Onset Dates Problem Status W/U Status Risk Notes Problem Gastro-esophagea l reflux disease without esophagitis (770357413) Gastro-esophage al reflux disease without esophagitis (K21.9) Active confirmed Problem Chronic gastritis (2003901) Gastritis, chronic (K29.50) Active confirmed Encounters Encounter Location Date Provider Diagnosis [facility] [address] [place] [phone] 10/08/2023 Anthony Alvarado Gastro-esophageal reflux disease without [...] JACQUELINE CASILLAS MDOB:1960 ( 64 yo F)Acc No.[id number]:10/08/2023 EGD/MAC Patient:?ELAINE JACQUELINE Abdi Provider:?Anthony Alvarado MD :1960???Age:63 Y???Sex:Female D ate:10/08/2023 Address:[address] [place], [place] [phone] Pcp:Lorie Nova Subjective: * Chief Complaints: * ???1. Gerd. * Medical History:? Objective: * Vitals:? Assessment: * Assessment: 1.?Gastro-esophageal reflux disease without esophagitis - K21.9 (Primary)???2.?Gastritis, chronic - K29.50???3.?Hiatal hernia - K44.9??? Plan: * Treatment: * Procedure Codes:?65561 UPPER GI ENDOSCOPY, BIOPSY * * The named appointment provid er may or may not be the originator of this progress note, and it is not deemed complete until electronically signed by the appointment provider. Sign off status: Pending * Provider:?Anthony Alvarado MD Date:? 024 Generated for Santino lópez/Angelica/Annesmitting on:?08/31/2024 05:56 PM EDT
--- OUTSIDE RECORDS SUMMARY | 2024-08-31 17:57 | XMS_ITS | Clinical Summary ---
Author Organization [employer] Address [address] [place] [address] 7t [place] [address] Care Team Providers Care Boiler Tube Reamer Name Role Phone Unavailable Primary Care Provider [...] Description 08/17/2024 2:00 PM EDT Office Visit [facility] [address] [place] [phone] Nino Ray BDS 08/16/2024 11:00 AM EDT Office Visit [facility] [address] [place] [address] Nino Ray, BDS 08/12/2024 3:00 PM EDT Office Visit [facility] [address] [place] [address] PatrickNino wilson, BDS 07/28/2024 3:00 PM EDT Office Visit [facility] [address] [place] [address] PatrickNino wilson, BDS Dental caries (Primary Dx) 07/08/2024 3:00 PM EST Office Visit [facility] [address] [place] [phone] Patrickkatie Nino, BDS Dental caries (Primary Dx) [...] Description 09/01/2024 1:00 PM EDT Office Visit [facility] [address] [place] [address] Nino Ray, BDS [address] [place] [address] 10/27/2024 11:00 AM EDT Office Visit [facility] [address] [place] [phone] Dory Heard [address] [place] [address] Health Maintenance Due Date Last Done Comments [...]
--- OUTSIDE RECORDS SUMMARY | 2024-08-31 17:57 | XMS_ITS | Encounter Summary ---
Author Organization [facility] [employer] Address [address] [place] [address] 7 [place] [address] Care Team Providers Care City Alderman Name Role Phone Unavailable Primary Care Provider Unavailabl e Encounter Details Date Type Department Care Team (Latest Contact Info) Description 02/28/2022 Abstract [facility] CONVERSIONS Dental, Provider, DDS Social History [...] Description 09/01/2024 1:00 PM EDT Office Visit [facility] [address] [place] [address] Nino Ray BDS [address] [place] [address] 10/27/2024 11:00 AM EDT Office Visit [facility] [address] [place] [address] Dory Heard [address] [place] [address] documented as of this encounter Visit Diagnoses Not on filedocumented in this encounter
--- OUTSIDE RECORDS SUMMARY | 2024-08-31 17:57 | XMS_ITS ---
Author Organization [facility] Address [address] [place] [address] Care Team Providers Care An/Sqq 89(V)15 Sonar System Journeyman Name Role Phone Lorie Nova Primary Care Provider Unavailab Anthony Hughes [phone] REASON FOR VISIT Patient presents today for gerd Encounters Encounter Location Date Provider Diagnosis [facility] [address] [facility] [address] [place] [phone] 04/17/2023 Anthony Alvarado Plan Of Treatment No Information Progress Notes * JACQUELINE CASILLAS MDOB:1960 ( 64 yo F)Acc No.[id number]:04/17/2023 Progress Notes Patient:?JACQUELINE CASILLAS Provider:?Anthony Alvarado MD :1960???Age:63 Y???Sex:Female D ate:04/17/2023 Address:[address] [place], [place] [id number] Pcp:Lorie Nova Subjective: * Chief Complaints: * [...] MD Date:? 023 Generated for Printi ng/Fadollyg/eTransmitting on:?08/31/2024 05:56 PM EDT
--- OUTSIDE RECORDS SUMMARY | 2024-08-31 17:57 | XMS_ITS ---
Author Organization [facility] Address [address] [place] [address] Care Team Providers Care Qualitative Field Coordinator Name Role Phone Lorie Nova Primary Care Provider Anthony Chacon Unavailable [phone] Allergies Allergen (clinical drug ingredient) Drug/Non Drug [...] 25 MG Oral for 90 Active Nystatin 229749 UNIT/GM APPLY TOPICALLY TO AFFECTED AREA(S) THREE [...] Status Risk Notes Problem Gastroesophageal reflux disease (193578086) Chronic GERD (K21.9) Active confirmed Vital Signs Temperature 97.1 degrees Fahrenheit 07/31/19 24 Blood pressure systolic 00 mm Hg 07/31/19 24 Blood pressure diastolic 00 mm Hg 024 Height 62 in 07/31/2023 Weight 240 lbs 07/31/2023 BMI 43.89 kg/m2 07/31/2023 Encounters Encounter Location Date Provider Diagnosis [facility] [address] [place] [address] 07/31/2023 Anthony Alvarado Chronic GERD K21.9 ; [...] given her the phone number for the [facility] weight loss clinic. We did review that [...] given her the phone number for the [facility] weight loss clinic. We did review that [...] given her the phone number for the [facility] weight loss clinic. We did review that [...] JACQUELINE CASILLAS MDOB:1960 ( 63 yo F)Acc No.[id number]:07/31/2023 Progress Notes Patient:?JACQUELINE CASILLAS Provider:?Anthony Alvarado MD :1960???Age:63 Y???Sex:Female D ate:07/31/2023 Address:[address] [place] [address] Pcp:Lorie Nova Subjective: * Chief Complaints: * [...] TOPICALLY TO RASH TWICE DAILY External Nystatin 725900 UNIT/GM Cream APPLY TOPICALLY TO AFFECTED AREA(S) [...] TO RASH TWICE DAILY External Taking Nystatin 269595 UNIT/GM Cream APPLY TOPICALLY TO AFFECTED AREA(S) [...] given her the phone number for the [facility] weight loss clinic. We did review that [...] Procedure Codes:?3017F COLOR ECTAL CA SCREEN DOC [id number] TOBACCO NON-IYQVT9940 BP SCR NOT PRFRM REC REASON NOS * Preventive Medicine:? ??Counseling:?Care goal follow-up plan:?Above Normal BMI Follow-up?Giving encouragement to exercise,?BMI management provided?Yes.? ??Urinary Incontinence:?Urinary Incontinence?Assessment:?Present,?Plan of care documented:?Yes,?Type of plan of care:?Lifestyle interventions.? * Follow Up:?prn * * Sign off status: Completed true * Provider:?Anthony Alvarado MD Date:? 024 Generated for Santino lópez/Angelica/Shawnitting on:?08/31/2024 05:56 PM EDT History and Physical Notes * [...]
== END 2024-08-31 15:00 | disposition home or self-care (01) ==
LOC: HO.HOS 14:40
PROVIDERS: PCP Internal Medicine; Visit Provider Orthopaedic Surgery
DX: M25.512 Pain in left shoulder (principal)
CPT/HCPCS: 99213; G2211

== ENCOUNTER → 2024-08-31 14:40 | Outpatient (BNVA) | payer MEDICARE, MEDICAID, SELFPAY | PROVIDERS: PCP Internal Medicine; Visit Provider Orthopaedic Surgery | DX: M25.512 Pain in left shoulder (principal) | CPT/HCPCS: 99212 ==

== ENCOUNTER 2024-09-08 15:18 | Outpatient (AMB) | payer MEDICARE, MEDICAID, SELFPAY ==
--- NOTE | 2024-09-08 15:27 | A.OFFVIS_ITS ---
Intake Visit Reasons: 3 month follow up/ PVR Intake Note: Patient is Present for a 3 month follow Up/PVR Urology Medication: Vesicare, Estradiol Antibiotic Allergies: Clindamycin Blood Thinners: None PVR:0ml [employer] Baseball [employer] Required: No Accompanied by: Self / Same As Patient Allergies amoxicillin [From Augmentin] Allergy (Severe, Verified 09/08/24 16:35) Diarrhea, Hives clavulanic acid [From Augmentin] Allergy (Severe, Verified 09/08/24 16:35) Diarrhea, Hives adhesive tape [ADHESIVE TAPE] Allergy (Intermediate, Verified 09/08/24 16:35) BLISTERS clindamycin [CLINDAMYCIN] Allergy (Intermediate, Verified 09/08/24 16:35) FACE SWELLING/ITCHING epinephrine [EPINEPHRINE] Adverse Reaction (Intermediate, Verified 09/08/24 16:35) TACHYCARDIA FROM SANIYA W/EPINEPHRINE adhesive Allergy (Unknown, Uncoded 09/08/24 16:35) Unknown Clindamycin HCl Allergy (Unknown, Uncoded 09/08/24 16:35) Unknown -SANIYA W/EPINEPHRINE Adverse Reaction (Intermediate, Uncoded 09/08/24 16:35) TACHYCARDIA Medication List - Last Reconciled 09/08/24 by DASH Restrepo- albuterol sulfate 90 mcg/actuation (Ventolin HFA) 1 inh inhalation QID PRN bupropion HCl XL 300 mg PO QAM dextroamphetamine-amphetamine 10 mg 10 tabs PO TID estradiol 0.01%(0.1mg/gram) (Estrace) 1 g vaginal 3XW ibuprofen 600 mg PO TID PRN levothyroxine 88 mcg PO DAILY loperamide 2 mg PO DAILY lorazepam 0.5 mg PO DAILY PRN nystatin 1 appl topical TID PRN omeprazole 20 mg PO DAILY solifenacin (Vesicare) 5 mg PO DAILY 90 days telmisartan 80 mg PO DAILY HPI Comments Details: Jacqueline is a 64-year-old female patient of Dr. Nova. She has a past medical history of overactive bladder, urinary incontinence, history of Graves disease, nicotine dependence quit in 2019, obstructive sleep apnea, obesity, and frequent urinary tract infections. She presents to the office today for follow- up of her lower urinary tract symptoms and recurrent urinary tract infections. In discussion with the patient today she reports having called the office [facility] this month for UTI like symptoms she had been experiencing at which time urinalysis was obtained and urine culture was submitted. These results were reviewed with the patient today. Urine cultures are as follows: 08/07 Proteus mirabilis, 02/07 office today Klebsiella pneumoniae, 11/08 Klebsiella pneumoniae, 01/08 Klebsiella pneumoniae, 02/08 Klebsiella pneumoniae, 04/10 3 E coli, 09/09 Citrobacter youngae, 7/ Klebsiella pneumoniae, 8/ E coli, 02/09 E coli, 06/12 E coli, 4/ Klebsiella pneumoniae. When asked she does report compliance with Estrace cream at least 3 times per week. She currently denies any UTI like symptoms however has recently completed a course of Bactrim for most recent positive urine culture noting Klebsiella pneumoniae. We discussed given recurrent urinary tract infections and compliance with Estrace cream over the last 6 months should consider other treatment options for recurrent urinary tract infections like methenamine and vitamin-C. She discusses feeling most recent urinary tract infection happen due to diarrhea she had been experiencing with Augmentin after a dental procedure. She discusses her intentional weight loss of over 20 lb. She reports be active at the [facility]. Previous workup has included a retroperitoneal ultrasound 03/10 noting bilateral kidneys with no calculi, lesions, and or hydronephrosis. The bladder is well distended and normal. Bilateral ureteral jets are demonstrated. Prevoid bladder volume is approximately 240 mL. Postvoid bladder volume is approximately 30 mLs. She discusses her longstanding history of overactive bladder as she previously used to perform tibial stimulation when following up with Dr. Mendoza. She reports utilizing approximately 5 Ashley pads per day for her mixed urinary incontinence. She otherwise denies gross/visible hematuria, dysuria, flank pain, fever, and or chills. PVR today 0 mL She otherwise offers no issues or concerns at this time. Discussion Notes During the consultation, the patient and I discussed the ongoing management of her recurrent urinary tract infections and the problematic incontinence issues. I recommended the initiation of methenamine and vitamin C as a preventive measure for UTIs, explaining it is a bladder neutralizing agent that, taken together, can help reduce infections. We reviewed the possibility of the patient's IBS impacting the frequency of UTIs and acknowledged that addressing bowel irregularities could positively affect urinary symptoms. For urinary incontinence, I provided information regarding various therapeutic options such as urodynamics to evaluate bladder function, and potential interventions depending on candidacy. The patient expressed interest in beginning methenamine and vitamin C, receiving prescriptions for both. I advised against the frequent use of incontinence products, emphasizing the importance of regular follow-up for further evaluation of her urinary symptoms. We agreed that the patient would initiate the methenamine and vitamin C therapy and consider follow-up testing and potential procedures for addressing incontinence. Plan Initiate methenamine 1g and vitamin C 1000mg daily to reduce UTI recurrence while monitoring potential side effects, especially avoidance during any concurrent antibiotic use. The patient reported diarrhea due to Augmentin, thus this medication will be avoided in the future. Continue with probiotics and adequate hydration to manage ongoing diarrhea. Discussed IBS management, emphasizing the importance of regular bowel movements and hydration, noting its potential positive effect on urinary symptoms. For urinary incontinence, the patient was informed about the option of a urodynamic study to evaluate bladder function and potential interventions if necessary. Patient education materials on bladder management and interventions were provided. Future follow-ups will further evaluate urinary improvements with methenamine and vitamin C therapy, assessing their impact together with addressing bowel irregularities. PFSH Medical History Bowel obstruction COVID-19 Hx of radiation therapy Thyroid disease IBS (irritable bowel syndrome) GERD (gastroesophageal reflux disease) HTN (hypertension) Back pain Arthritis Anxiety Depression ADHD Overactive bladder Urinary incontinence Bladder pain History of Graves' disease Personal history of nicotine dependence VAHE (obstructive sleep apnea) (~2010) Dyspnea on exertion Morbid obesity Frequent UTI Surgical History History of esophagogastroduodenoscopy (EGD) Hx of foot surgery Hx of breast lump removal History of hysterectomy History of eye surgery History of colonoscopy History of appendectomy (~1999) Social History Are you a primary career information specialist to a significant other at home: No Do you presently have visiting nurse or other home services: No Patient Tobacco Use Status: Former Tobacco user Years Smoked: (onset 14, 1on/off - 1ppd x 35yrs, 35pyh - quit 07/2019) Review of Systems Const Reports as per HPI Eyes Reports no additional complaints ENT Reports no additional complaints Card Reports as per HPI Resp Reports as per HPI GI Reports as per HPI Reports as per HPI Musc Reports no additional complaints Neuro Reports no additional complaints Psych Reports as per HPI Endo Reports as per HPI Evans/Lymph Reports no additional complaints Aller/Immun Reports no additional complaints Physical Exam Const General: cooperative, healthy appearing, comfortable, no acute distress, well developed, alert and awake Nutritional Appearance: overweight Orientation/consciousness: patient oriented x3 Limitations: no limitations HEENT Head: Yes normal to inspection, Yes normocephalic and Yes atraumatic Ears: hearing grossly normal bilaterally Eyes General: appearance normal, both eyes and all related structures Neck Neck: Yes normal visual inspection and Yes trachea midline Chest Chest palpation & inspection: normal inspection of the chest Resp Effort & Inspection: normal respiratory effort and able to speak in complete sentences Cardio Rate: regular rate GI Inspection: Yes normal to inspection General: Yes no CVA tenderness Back/Spine/Pelvis Back: no CVA tenderness Skin General skin exam: no rashes or lesions noted Neuro General: patient oriented x3 Extrem General: Yes normal to inspection Psych Appearance: grossly normal and well kempt Mental Status: mental status grossly normal Speech and movement: Normal speech and movement present and Clear speech present Affect: normal affect Attitude: cooperative Thought process: Normal thought process present Thought content: Normal thought content present Insight: Fair insight present (Psych) Judgement: Fair judgement present (Psych) Results AMB Urinalysis, Automated UA Leukoctes 0 Lluvia/uL Last Edit by Katya Stokes on 09/08/24 16:17 UA Nitrite Negative Last Edit by Katya Stokes on 09/08/24 16:17 UA Urobilinogen 0.2 mg/dL Last Edit by Katya Stokes on 09/08/24 16:17 UA Protein 0 mg/dL Last Edit by Katya Stokes on 09/08/24 16:17 UA pH 6.5 Last Edit by Katya Stokes on 09/08/24 16:17 UA Blood 0 Joss/uL Last Edit by Katya Stokes on 09/08/24 16:17 UA Specific Providence 1.010 Last Edit by Katya Stokes on 09/08/24 16:17 UA Ketone Negative Last Edit by Katya Stokes on 09/08/24 16:17 UA Bilirubin 0 mg/dL Last Edit by Katya Stokes on 09/08/24 16:17 UA Glucose 0 mg/dL Last Edit by Katya Stokes on 09/08/24 16:17 Assessment & Plan Assessment & Plan (1) Overactive bladder: Code(s): N32.81 - Overactive bladder Category: Medical (2) Urinary incontinence: Code(s): R32 - Unspecified urinary incontinence Category: Medical (3) Frequent UTI: Code(s): N39.0 - Urinary tract infection, site not specified Category: Medical Plan In office urinalysis results reviewed the patient today; as noted above. PVR 0 mL. Start methenamine and vitamin-C as prescribed. Continue Estrace cream. We discussed importance of management in bowel habits in relation to recurrent urinary tract infections. We discussed further treatment options of mixed urinary incontinence and risks and benefits of these treatment options; information provided. Discussed UTI prevention increasing fluid intake, behavioral therapy with timed voiding, perineal hygiene and postcoital voiding, and management of constipation with stool softeners and increased fiber intake. She currently denies any UTI like symptoms Follow-up in 3 months with PVR; or sooner with any issues, concerns, and or questions. Orders: Orders AMB Urinalysis Automated Today Z13.9 - Encounter for screening, unspecified AMB Post Void Residual by ultrasound Today R33.9 - Retention of urine, unspecified Medications: New ascorbic acid (vitamin C) 1 g PO DAILY 90 days 90 tabs 1RF N39.0 - Urinary tract infection, site not specified methenamine hippurate 1 g PO DAILY 90 days 90 tabs 1RF N39.0 - Urinary tract infection, site not specified Patient Instructions: The patient had an opportunity to ask questions regarding the treatment plan. All questions were answered. Physical exam, labs, and imaging were discussed and reviewed in detail. As well as risks, benefits, and discussion of treatment choices. No major barriers to understanding were identified. The patient expressed understanding and agreement with the above treatment plan. The patient was made aware they should contact our office by phone for worsening of their current condition, the appearance of new symptoms, or with any questions or concerns. Compliance is encouraged with any medications and follow up testing that is ordered. It is a privilege to be allowed the opportunity to participate in? your urological care.? Again, if you have any questions or concerns If you have any questions or concerns please do not hesitate to contact me. The office is [phone]. This note is constructed using voice recognition software. While every effort has been made to ensure accuracy strip feeder errors may have been included. Yours sincerely, GEE Restrepo Coding Level of Care Code Est Pt Level 4 (43214) Diagnoses Overactive bladder N32.81 Urinary incontinence R32 Frequent UTI N39.0
--- OUTSIDE RECORDS SUMMARY | 2024-09-08 18:03 | XMS_ITS ---
Author Organization [facility] Address [address] [place] [address] Care Team Providers Care Roll Cutting Operator Name Role Phone Lorie Nova Primary Care Provider Unavailab Anthony Hughes Unavailable [phone] REASON FOR VISIT gerd Problems Problem Type SNOMED Code ICD Code Onset Dates Problem Status W/U Status Risk Notes Problem Gastro-esophagea l reflux disease without esophagitis (580000280) Gastro-esophage al reflux disease without esophagitis (K21.9) Active confirmed Problem Chronic gastritis (4492950) Gastritis, chronic (K29.50) Active confirmed Encounters Encounter Location Date Provider Diagnosis [facility] [address] [place] [phone] 10/08/2023 Anthony Alvarado Gastro-esophageal reflux disease without [...] JACQUELINE CASILLAS MDOB:1960 ( 64 yo F)Acc No.[id number]:10/08/2023 EGD/MAC Patient:?ELAINE JACQUELINE Abdi Provider:?Anthony Alvarado MD :1960???Age:63 Y???Sex:Female D ate:10/08/2023 Address:[address] [place], [place] [phone] Pcp:Lorie Nova Subjective: * Chief Complaints: * ???1. Gerd. * Medical History:? Objective: * Vitals:? Assessment: * Assessment: 1.?Gastro-esophageal reflux disease without esophagitis - K21.9 (Primary)???2.?Gastritis, chronic - K29.50???3.?Hiatal hernia - K44.9??? Plan: * Treatment: * Procedure Codes:?18963 UPPER GI ENDOSCOPY, BIOPSY * * The named appointment provid er may or may not be the originator of this progress note, and it is not deemed complete until electronically signed by the appointment provider. Sign off status: Pending * Provider:?Anthony Alvarado MD Date:? 024 Generated for Santino lópez/Angelica/Annesmitting on:?09/08/2024 06:03 PM EDT
--- OUTSIDE RECORDS SUMMARY | 2024-09-08 18:03 | XMS_ITS | Patient Health Record ---
Author Organization [facility] Address [address] [place] [address] Care Team Providers Care Device Test Engineer Name Role Phone Lorie Nova Primary Care Provider UnavailAnthony Medellin [phone] Allergies Allergen (clinical drug ingredient) Drug/Non Drug Allergy documented on EMR Reaction Allergy Type Onset Date Status epinephrine Epinephrine Unknown Drug Allergy Act garrett Sulfa Unknown Drug Allergy Active clindamycin Clindamycin HCl Unknown Drug Allergy Active bandage adhesive (uncoded) Unknown Allergy Active Results Component Value Reference Range Notes Pathology Reviewed date:10/30/2023 10:36:04 AM Interpretation: Performing Lab:[facility], [address] [place] [phone] Notes/Report: Name: Jacqueline Casillas Ag e/Sex: 63/F : 1960 Unit#: [id number] Attend Dr: Anthony Alvarado Re10/08/23 Status : [facility] Location: [facility] Disch: SPEC : [id number] RECD : 10/08/23 STATUS: TIA BURTON NUM: [id number] HUI: 10/08/230755 [facility] DR: Anthony Alvarado ENTERED: 10/08/23 SP [...] Name: Jacqueline Casillas ge/Sex: 63/F : 1960 [id number] [id number] Attend Dr: Anthony Alvarado Re10/08/23 Status : [facility] Location: [facility] Disch: SPEC : [id number] RECD : 10/08/23 STATUS: TIA BURTON NUM: [id number] HUI: 10/08/[address] [facility] [address]: Anthony Alvarado ENTERED: 10/08/23 57 SP TYPE: Surgical OTHR DR: Lorie Nova MD ORDERED: HE Stain/6, Gross Micro L4/2, IHC, Special st. 2/2, H. pylori, AB/PAS/2 Gross Description (Continued) CEDS Special studies orde red and performed: Immunostain for H. pylori on B1; AB/PAS stains on A1 and B1. Copies To: Lorie Nova MD [address] [place] [address] Drive E[address] [place], [place] [address], [place] [id number] Anthony Alvarado [address] [place] [address] [phone] [place] [id number] Signed (si gnature on file) Dejah Joan 10/10/23 0935 END OF REPORT Reason For Referral No Information Medications Medication SIG (Take, Route, Frequency, Duration) Notes Start Date End Date Status Spironolactone 25 MG Oral for 90 Active buPROPion HCl 300 mg 1 tablet Orally onc e a day Active tylenol Active Nystatin 367332 UNIT/GM APPLY TOPICALLY TO AFFECTED AREA(S) THREE [...] Notes Problem Gastro-esophageal reflux disease without esophagitis (725908675) Gastro-esophageal reflux disease without esophagitis (K21.9) Active confirmed Problem 557992996 Encounter for screening for malignant neoplasm of colon (Z12.11) Active confirmed Problem 482299211 Irritable bowel syndrome with diarrhea (K58.0) Active confirmed Problem Screening for malignant neoplasm of rectum (170083107) Encounter for screening for malignant neoplasm of rectum (Z12.12) Active confirmed Problem 688129158 Gastroesophageal reflux disease, esophagitis presence not specified (K21.9) Active confirmed Problem Chronic gastritis (7451603) Gastritis, chronic (K29.50) Active confirmed Problem Gastroesophageal reflux disease (841335706) Chronic GERD (K21.9) Active confirmed Encounters Encounter Location Date Provider Diagnosis [facility] [place] [address] [place] [phone] 10/08/2023 Anthony Alvarado Gastro-esophageal reflux disease without [...] OF [place] [address] [place] [address] [id number] JACQUELINE CASILLAS Self - patient is the insured MEDICAID OF [facility] [address] [place] [phone] [id number] JACQUELINE CASILLAS Self - patient is the insured Medical (General) History Medical History History ICD Code Colonoscopy 03/2005--hyperplastic polyp, no colitis Irritable bowel syndrome--no rmal duodenal biopsies in 1995 and colon biopsies in 2004; she had negative transglutaminase antibodies in 2008 Reflux--EGD in 1995--no esophagitis Hypertension Arthritis/back and knee Urinary incontinence/UTI's Depression/Anxiety ADHD GERD--EGD in 1995-no esophagitis Sleep apnea--uses CPAP Denies NE,DM,CVA,Lung disease,renal dise ase Grave's disease Eating disorder--overeats--goes to a sup port group Negative screening colonoscopy in 2016 Surgical History Surgery Date(Month/Year) Appendectomy JOSE Left breast lumpectomy-benign Foot surgery
--- OUTSIDE RECORDS SUMMARY | 2024-09-08 18:03 | XMS_ITS ---
Author Organization [facility] Address [address] [place] [phone] Care Team Providers Care Operating System Programmer Name Role Phone Lorie Nova Primary Care Provider Anthony Chacon Unavailable [phone] Allergies Allergen (clinical drug ingredient) Drug/Non Drug [...] 25 MG Oral for 90 Active Nystatin 427145 UNIT/GM APPLY TOPICALLY TO AFFECTED AREA(S) THREE [...] Status Risk Notes Problem Gastroesophageal reflux disease (972594334) Chronic GERD (K21.9) Active confirmed Vital Signs Temperature 97.1 degrees Fahrenheit 07/31/19 24 Blood pressure systolic 00 mm Hg 07/31/19 24 Blood pressure diastolic 00 mm Hg 024 Height 62 in 07/31/2023 Weight 240 lbs 07/31/2023 BMI 43.89 kg/m2 07/31/2023 Encounters Encounter Location Date Provider Diagnosis [facility] [address] [place] [address] 07/31/2023 Anthony Alvarado Chronic GERD K21.9 ; [...] given her the phone number for the [facility] weight loss clinic. We did review that [...] given her the phone number for the [facility] weight loss clinic. We did review that [...] given her the phone number for the [facility] weight loss clinic. We did review that [...] JACQUELINE CASILLAS MDOB:1960 ( 63 yo F)Acc No.[id number]:07/31/2023 Progress Notes Patient:?JACQUELINE CASILLAS Provider:?Anthony Alvarado MD :1960???Age:63 Y???Sex:Female D ate:07/31/2023 Address:[address] [place] [address] Pcp:Lorie Nova Subjective: * Chief Complaints: * [...] TOPICALLY TO RASH TWICE DAILY External Nystatin 998759 UNIT/GM Cream APPLY TOPICALLY TO AFFECTED AREA(S) [...] TO RASH TWICE DAILY External Taking Nystatin 436139 UNIT/GM Cream APPLY TOPICALLY TO AFFECTED AREA(S) [...] given her the phone number for the [facility] weight loss clinic. We did review that [...] Procedure Codes:?3017F COLOR ECTAL CA SCREEN DOC [id number] TOBACCO NON-[id number] BP SCR NOT PRFRM REC REASON NOS * Preventive Medicine:? ??Counseling:?Care goal follow-up plan:?Above Normal BMI Follow-up?Giving encouragement to exercise,?BMI management provided?Yes.? ??Urinary Incontinence:?Urinary Incontinence?Assessment:?Present,?Plan of care documented:?Yes,?Type of plan of care:?Lifestyle interventions.? * Follow Up:?prn * * Sign off status: Completed true * Provider:?Anthony Alvarado MD Date:? 024 Generated for Santino lópez/Angelica/Shawnitting on:?09/08/2024 06:03 PM EDT History and Physical Notes * [...]
--- OUTSIDE RECORDS SUMMARY | 2024-09-08 18:03 | XMS_ITS | Clinical Summary ---
Author Organization [employer] Address [address] [place] [address] [address] [place] [address] Care Team Providers Care Traditional Chinese Herbalist Name Role Phone Unavailable Primary Care Provider [...] 2 times daily. 20 tablet 5 Active sulfamethoxazo le-trimethopri m (Bactrim) 200-40 MG/5ML suspension Take by mouth. Acti ve levothyroxine (Tirosint) 88 MCG capsule Take by mouth before breakfast. Active acetaminophen (Tylenol 8 Hour) 650 MG [...] Encounters Date Type Department Care Team Description 09/01/2024 1:00 PM EDT Office Visit [facility] [address] [place] [address] Makonahally, Deviprasad, BDS 08/17/2024 2:00 PM EDT Office Visit [facility] [address] [place] [address] Makonahally, Deviprasad, BDS 08/16/2024 11:00 AM EDT Office Visit [facility] [address] [place] [address] Makonahally, Deviprasad, BDS 08/12/2024 3:00 PM EDT Office Visit [facility] [address] [place] [address] Makonahally, Deviprasad, BDS 07/28/2024 3:00 PM EDT Office Visit [address] [address] Makonahally, Deviprasad, BDS Dental caries (Primary Dx) 07/08/2024 3:00 PM EST Office Visit [address] [address] Makonahally, Deviprasad, BDS Dental caries (Primary Dx) [...] Care Team (Late st Contact Info) Description 09/20/2024 11:00 AM EDT Office Visit [facility] [address] [place] [address] Nino Ray BDS [address] [place], [place] [phone] 10/27/2024 11:00 AM EDT Office Visit [facility] [address] [place] [address] Orquidea, Dory [address] [place], [place] [phone] Health Maintenance Due Date Last Done Comments [...] Mouth 06/20/2015 06/19/2012 COVID-19 Vaccine ( - season) 2024 Influenza Vaccine (#1) 2024 Dental Oral Exam 10/22/2024 04/22/2024, , 05/01/2018, Additional history exists Dental Prophylaxis 10/22/2024 04/22/2024, 1 , 05/06/2019, Additional history exists Dental X-Ray: Bitewings 04/23/2025 04/22/20 24, 10/03/2022, 02/28/2022, Additional history exists Tobacco Screening 09/01/2025 09/01/2024 RSV Patients and Patients Aged 60 years [...] PRESENTATION, DETAILED AND EXTENSIVE TREATMENT PLANNING Routine 09/01/2024 1:00 PM EDT DENTURE IMPRESSION Routine 09/01/2024 1: 00 PM EDT CASE PRESENTATION, DETAILED AND EXTENSIVE [...]
--- OUTSIDE RECORDS SUMMARY | 2024-09-08 18:04 | XMS_ITS ---
Author Organization [facility] Address [address] [place] [phone] Care Team Providers Care Survey Party Chief Name Role Phone Lorie Nova Primary Care Provider Unavailab Anthony Hughes [phone] REASON FOR VISIT Patient presents today for gerd Encounters Encounter Location Date Provider Diagnosis [facility] [address] [place] [phone] 04/17/2023 Anthony Alvarado Plan Of Treatment No Information Progress Notes * JACQUELINE CASILLAS MDOB:1960 ( 64 yo F)Acc No.[id number]:04/17/2023 Progress Notes Patient:?JACQUELINE CASILLAS Provider:?Anthony Alvarado MD :1960???Age:63 Y???Sex:Female D ate:04/17/2023 Address:[address] [place], [place] [phone] Pcp:Lorie Nova Subjective: * Chief Complaints: * [...] MD Date:? 023 Generated for Printi ng/Fadollyg/eTransmitting on:?09/08/2024 06:03 PM EDT
--- OUTSIDE RECORDS SUMMARY | 2024-09-08 18:04 | XMS_ITS | Encounter Summary ---
Author Organization [facility] [employer] Address [address] [place] [address] [address] [place] [address] Care Team Providers Care Sec Reporting Consultant Name Role Phone Unavailable Primary Care Provider Unavailabl e Encounter Details Date Type Department Care Team (Latest Contact Info) Description 02/28/2022 Abstract [facility] CONVERSIONS Dental, Provider, DDS Social History [...] Description 09/20/2024 11:00 AM EDT Office Visit [facility] [address] [place] [address] Nino Ray BDS [address] [place] [address] 10/27/2024 11:00 AM EDT Office Visit [facility] [address] [place] [address] Dory Heard [address] [place] [address] documented as of this encounter Visit Diagnoses Not on filedocumented in this encounter
== END 2024-09-08 16:27 | disposition home or self-care (01) ==
LOC: HO.HUSH 15:19
PROVIDERS: PCP Internal Medicine; Visit Provider Nurse Practitioner Family
DX: N32.81 Overactive bladder (principal); R32 Unspecified urinary incontinence; N39.0 Urinary tract infection, site not specified; Z13.9 Encounter for screening, unspecified
CPT/HCPCS: 99214

== ENCOUNTER → 2024-09-08 15:18 | Outpatient (BNVA) | payer MEDICARE, MEDICAID, SELFPAY | PROVIDERS: PCP Internal Medicine; Visit Provider Nurse Practitioner Family | DX: N32.81 Overactive bladder (principal); R32 Unspecified urinary incontinence; N39.0 Urinary tract infection, site not specified; R33.9 Retention of urine, unspecified | CPT/HCPCS: 81003; 99212 ==

== ENCOUNTER 2024-10-26 14:33 | Outpatient (REF) | payer MEDICARE, MEDICAID, SELFPAY ==
[2024-10-26 16:31] LABS: TSH reflex Free T4 0.89 uIU/mL (0.32-4.0)
--- OUTSIDE RECORDS SUMMARY | 2024-10-26 17:30 | XMS_ITS | Patient Health Record ---
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 Name Role Phone Lorie Nova Primary Care Provider Anthony Chacon [phone] Allergies Allergen (clinical drug ingredient) Drug/Non Drug Allergy documented on EMR Reaction Allergy Type Onset Date Status epinephrine Epinephrine Unknown Drug Allergy Act garrett Sulfa Unknown Drug Allergy Active clindamycin Clindamycin HCl Unknown Drug Allergy Active bandage adhesive (uncoded) Unknown Allergy Active Reason For Referral No Information Medications Medication SIG (Take, Route, Frequency, Duration) Notes Start Date End Date Status Spironolactone 25 MG Oral for 90 Active buPROPion HCl 300 mg 1 tablet Orally onc e a day Active tylenol Active Nystatin 242607 UNIT/GM APPLY TOPICALLY TO AFFECTED AREA(S) THREE [...] Notes Problem Gastro-esophageal reflux disease without esophagitis (734100406) Gastro-esophageal reflux disease without esophagitis (K21.9) Active confirmed Problem 294448871 Encounter for screening for malignant neoplasm of colon (Z12.11) Active confirmed Problem 905575229 Irritable bowel syndrome with diarrhea (K58.0) Active confirmed Problem Screening for malignant neoplasm of rectum (990905660) Encounter for screening for malignant neoplasm of rectum (Z12.12) Active confirmed Problem 990971583 Gastroesophageal reflux disease, esophagitis presence not specified (K21.9) Active confirmed Problem Gastritis, chron ic (K29.50) Active confirmed Problem Gastroesophageal reflux disease (987285680) Chronic GERD (K21.9) Active confirmed Plan Of Treatment Future Test Test Name Order Date COLONOSCOPY 08/29/2015 UPPER GI ENDOSCOPY 07/31/2023 Insurance Providers Payer Name Payer Address Payer Phone Subscriber Number Group Number Insured Name Patient Relationship to Insured Coverage Start Date Coverage End Date MEDICARE OF [place] [address] [place] [address] [id number] SONJA JACQUELINE Self - patient is the insured MEDICAID OF [facility] [address] [place] [address] [id number] JACQUELINE HENRY Self - patient is the insured Medical (General) History Medical History History ICD Code Colonoscopy 03/2005--hyperplastic polyp, no colitis Irritable bowel syndrome--no rmal duodenal biopsies in 1995 and colon biopsies in 2004; she had negative transglutaminase antibodies in 2008 Reflux--EGD in 1995--no esophagitis Hypertension Arthritis/back and knee Urinary incontinence/UTI's Depression/Anxiety ADHD GERD--EGD in 1995-no esophagitis Sleep apnea--uses CPAP Denies FL,DM,CVA,Lung disease,renal dise ase Grave's disease Eating disorder--overeats--[facility]es [facility] Negative screening colonoscopy in 2015 Surgical History Surgery Date(Month/Year) Appendectomy JOSE Left breast lumpectomy-benign Foot surgery
[2024-10-27 04:38] LABS: Triiodothyronine T3 Free 3.3 pg/mL (2.3-4.2)
== END 2024-10-26 14:34 | disposition home or self-care (01) ==
LOC: HO.LAB 14:33
PROVIDERS: PCP Internal Medicine; Visit Provider Internal Medicine
DX: E89.0 Postprocedural hypothyroidism (principal); G47.33 Obstructive sleep apnea (adult) (pediatric); I10 Essential (primary) hypertension; Z68.37 Body mass index [BMI] 37.0-37.9, adult
CPT/HCPCS: 36415; 84443; 84481

== ENCOUNTER 2024-12-15 11:29 | Outpatient (AMB) | payer MEDICARE, MEDICAID, SELFPAY ==
--- OUTSIDE RECORDS SUMMARY | 2023-10-08 06:00 | XMS_ITS ---
Author Organization [facility] Address [address] [place] [address] Care Team Providers Care Supervisor Word Processing Name Role Phone Lorie Nova Primary Care Provider Unavailab Anthony Hughes Unavailable [phone] REASON FOR VISIT gerd Problems Problem Type SNOMED Code ICD Code Onset Dates Problem Status W/U Status Risk Notes Problem Gastro-esophagea l reflux disease without esophagitis (597221734) Gastro-esophage al reflux disease without esophagitis (K21.9) Active confirmed Problem Gastritis, chronic (K29.50) Active confirmed Encounters Encounter Location Date Provider Diagnosis [facility] Out[place] [address] [place] [phone] 10/08/2023 Anthony Alvarado Gastro-esophageal reflux disease without [...] JACQUELINE HENRY MDOB:1960 ( 64 yo F)Acc No.[id number]:10/08/2023 EGD/MAC Patient: Denzel PECKJACQUELINE Kruger Provider: Douglas Alvarado MD :1960 A ge:63 Y S ex:Female Date:10/08/2023 Address:[address] [place], [place] [phone] Pcp:Lorie Nova Subjective: * Chief Complaints: * [...] MD Date: 0 10/08/2023 Generated for Santino lópze/Angelica/Shawnitting on: 0 12/15/2024 12:30 PM EDT
[2024-12-15 11:31] VITALS: BMI 36.8
--- NOTE | 2024-12-15 11:31 | MHC.OFFVIS ---
Vital Signs 12/15/24 11:31 Height 5 ft 1 in Weight 195 lb BMI 36.8 Intake Visit Reasons: OV-LT shoulder 03/19/24 Intake Note: Jacqueline is a 64 year old female who presents with complaints of mild intermittent discomfort in her left shoulder after undergoing left shoulder arthroscopic surgery on 03/19/2024. She continues with her home stretching program. She denies any fevers or chills. Allergies amoxicillin (From Augmentin) Allergy (Severe, Verified 12/15/24 11:36) Diarrhea, Hives clavulanic acid (From Augmentin) Allergy (Severe, Verified 12/15/24 11:36) Diarrhea, Hives adhesive tape (ADHESIVE TAPE) Allergy (Intermediate, Verified 12/15/24 11:36) BLISTERS clindamycin (CLINDAMYCIN) Allergy (Intermediate, Verified 12/15/24 11:36) FACE SWELLING/ITCHING epinephrine (EPINEPHRINE) Adverse Reaction (Intermediate, Verified 12/15/24 11:36) TACHYCARDIA FROM SANIYA W/EPINEPHRINE adhesive Allergy (Unknown, Uncoded 09/08/24 16:35) Unknown Clindamycin HCl Allergy (Unknown, Uncoded 09/08/24 16:35) Unknown -SANIYA W/EPINEPHRINE Adverse Reaction (Intermediate, Uncoded 09/08/24 16:35) TACHYCARDIA Medication List - Last Reconciled 12/15/24 by Alvaro Jaquez MD albuterol sulfate 90 mcg/actuation (Ventolin HFA) 1 inh inhalation QID PRN ascorbic acid (vitamin C) 1 g PO DAILY 90 days bupropion HCl XL 300 mg PO QAM dextroamphetamine-amphetamine 10 mg 10 tabs PO TID estradiol 0.01%(0.1mg/gram) (Estrace) 1 g vaginal 3XW ibuprofen 600 mg PO Q8H PRN incontinence pad, liner, disp As directed - 6 per day 180 total for 30 days levothyroxine 88 mcg PO DAILY loperamide 2 mg PO DAILY lorazepam 0.5 mg PO DAILY PRN methenamine hippurate 1 g PO DAILY 90 days nystatin 1 appl topical TID PRN omeprazole 20 mg PO DAILY solifenacin (Vesicare) 5 mg PO DAILY 90 days telmisartan 80 mg PO DAILY PFSH Medical History (Updated 09/09/24 @ 10:13 by Gayathri Anderson PA-C) Bowel obstruction COVID-19 Hx of radiation therapy Thyroid disease IBS (irritable bowel syndrome) GERD (gastroesophageal reflux disease) HTN (hypertension) Back pain Arthritis Anxiety Depression ADHD Overactive bladder Urinary incontinence Bladder pain History of Graves' disease Personal history of nicotine dependence VAHE (obstructive sleep apnea) (~2010) Dyspnea on exertion Morbid obesity Frequent UTI Surgical History History of esophagogastroduodenoscopy (EGD) Hx of foot surgery Hx of breast lump removal History of hysterectomy History of eye surgery History of colonoscopy History of appendectomy (~1999) Social History Are you a primary wound care center consultant to a significant other at home: No Do you presently have visiting nurse or other home services: No Patient Tobacco Use Status: Former Tobacco user Years Smoked: (onset 14, 1on/off - 1ppd x 35yrs, 35pyh - quit 07/2019) Physical Exam Vital Signs: BMI result Body Mass Index 36.8 Const Other: Well-nourished well-developed very friendly female awake alert and oriented x3 in no acute distress Extrem Other: Bilateral upper extremity examination shows good capillary refill, no skin lesions noted, normal sensation light touch Left shoulder examination shows that the surgical incisions are well healed, no erythema, full range of motion when compared to her right shoulder, 5/5 strength with supraspinatus testing, mild discomfort with resisted forward flexion Assessment & Plan Assessment & Plan (1) Left shoulder pain: Code(s): M25.512 - Pain in left shoulder Category: Medical Plan Ms. Casillas continues to do well after undergoing left shoulder arthroscopic surgery on 03/19/2024. She does have residual discomfort due to rotator cuff tendinosis. I had a lengthy discussion with the patient regarding the treatment options. At this point the patient's symptoms are tolerable to her. She will continue with her [id number] exercises. We will hold off on a cortisone injection for now. She will contact me prior to her follow-up appointment in 3 months should any questions or concerns arise. Feel free to call me at any time should questions regarding her orthopedic management arise. I spent 21 minutes in reviewing the patient's records and imaging studies, seeing the patient and documenting in the medical record. Medications: Changed From ibuprofen 600 mg PO TID PRN Pain To ibuprofen 600 mg PO Q8H PRN 90 tabs 3RF Pain Coding Level of Care Code Est Pt Level 3 (81997) Complex EM visit Add On G2211 Diagnoses Left shoulder pain M25.512
--- OUTSIDE RECORDS SUMMARY | 2024-12-15 12:31 | XMS_ITS | Clinical Summary ---
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 20 tablet 5 Active sulfamethoxazol e-trimethoprim (Bactrim) 200-40 MG/5ML suspension Take by mouth. Acti ve levothyroxine (Tirosint) 88 MCG capsule Take by mouth before breakfast. Active methenamine hippurate (Hiprex) 1 g tablet Take 1 tablet by mouth Once per day. 5 Active Active Problems Problem Noted Date Diagnosed Date Chronic gastritis 07/08/2024 Gastro-esophageal reflux disease without esophag itis 07/08/2024 Arthritis 08/23/2013 Back problem 08/23/2013 High blood pressure 08/23/2013 Mental disorder 08/23/2013 Nervousness 08/23/2013 Encounters Date Type Department Care Team Description 10/27/2024 11:00 AM EDT Office Visit [facility] [address] [place] [phone] Dory Heard 10/14/2024 2:30 PM EDT Office Visit [facility] [address] [place] [address] Alexandroviet Nino, BDS 10/06/2024 11:00 AM EDT Office Visit [facility] [address] [place] [address] Alexandroedwinkonstantin Nino, BDS 09/20/2024 11:00 AM EDT Office Visit [facility] [address] [place] [address] Alexandroviet Nnio, BDS from Last 3 Months Social History Tobacco [...] Sign Reading Time Taken Comments Blood Pressure 140/70 10/27/2024 10:58 AM EDT Pulse 70 10/27/2024 10:58 AM EDT Temperature - - Respiratory Rate - - Oxygen Saturation - - Inhaled Oxygen Concentration - - Weight - - Height - - Body Mass Index - - Plan of Treatment Upcoming Encounters Date Type Department Care Team (Late st Contact Info) Description 01/10/2025 1:00 PM EDT Office Visit [facility] [address] [place] [phone] AlexandroedwinLori pryorrufino, BDS [address] [place] [phone] Health Maintenance Due Date Last Done Comments [...] (1 - season) 2024 Influenza Vaccine (#1) 2025 Dental X-Ray: Bitewings 04/23/2025 04/22/20 24, 10/03/2022, 02/28/2022, Additional history exists Dental Oral Exam 04/29/2025 10/27/2024, 09/2023, 02/28/2022, Additional history exists Dental Prophylaxis 04/29/2025 10/27/2024, 1 06/23/2023, 02/28/2022, Additional history exists Tobacco Screening 10/27/2025 10/27/2024 RSV Patients and Patients Aged 60 years [...] patient's age to complete this topic Meningococcal B Vaccine Aged Out No l onger eligible based on patient's age to complete [...] PERIODIC ORAL EVALUATION - ESTABLISHED PATIENT Routine 10/27/2024 11:00 AM EDT CASE PRESENTATION, DETAILED AND EXTENSIVE TREATMENT PLANNING Routine 10/27/2024 11:00 AM EDT PROPHYLAXIS - ADULT Routine 10/27/2024 1 1:00 AM EDT CASE PRESENTATION, DETAILED AND EXTENSIVE TREATMENT PLANNING Routine 10/14/2024 2:30 PM EDT 3,4,12 MAXILLARY PARTIAL DENTURE - RESIN BASE (INCLUDING, RETENTIVE/CLASPING MATERIALS, RESTS, AND TEETH) Routine 10/14/2024 2:30 PM EDT 19,20,18 MANDIBULAR PARTIAL DENTURE - RESIN BASE (INCLUDING, RETENTIVE/CLASPING MATERIALS, RESTS, AND TEETH) Routine 10/14/2024 2:30 PM EDT CASE PRESENTATION, DETAILED AND EXTENSIVE TREATMENT PLANNING Routine 10/06/2024 11:00 AM EDT WAX TRY IN Routine 10/06/2024 11:00 AM EDT CASE PRESENTATION, DETAILED AND EXTENSIVE TREATMENT PLANNING Routine 09/20/2024 11:00 AM EDT BITE REGISTRATION Routine 09/20/2024 11: 00 AM EDT BITEWINGS - 4 RADIOGRAPHIC IMAGES Routine 04/22/2024 2:00 PM EST INTRAORAL - COMPLETE SERIES OF RADIOGRAPHIC IMAGES Routine 06/19/2012 12:00 AM EST from Last 3 Months or Most Recently Relevant to Health Maintenance Insurance DENTAL - [facility] FULL (MEDICAID)
== END 2024-12-15 11:59 | disposition home or self-care (01) ==
LOC: HO.HOS 11:30
PROVIDERS: PCP Internal Medicine; Visit Provider Orthopaedic Surgery
DX: M25.512 Pain in left shoulder (principal)
CPT/HCPCS: 99213; G2211

== ENCOUNTER → 2024-12-15 11:29 | Outpatient (BNVA) | payer MEDICARE, MEDICAID, SELFPAY | PROVIDERS: PCP Internal Medicine; Visit Provider Orthopaedic Surgery | DX: M25.512 Pain in left shoulder (principal); Z98.890 Other specified postprocedural states | CPT/HCPCS: 99212 ==

== ENCOUNTER 2024-12-22 13:24 | Outpatient (REF) | payer MEDICARE, MEDICAID, SELFPAY | END 2024-12-22 13:25 | disposition home or self-care (01) | LOC: HO.LAB 13:24 | PROVIDERS: PCP Internal Medicine; Visit Provider Nurse Practitioner Family | DX: Z13.9 Encounter for screening, unspecified (principal); N32.81 Overactive bladder; N39.0 Urinary tract infection, site not specified; R32 Unspecified urinary incontinence; R35.0 Frequency of micturition; R30.0 Dysuria; Z79.899 Other long term (current) drug therapy; Z79.891 Long term (current) use of opiate analgesic | CPT/HCPCS: 51798; 81003; 87086; 87088; 87186; 99212 ==

== ENCOUNTER 2024-12-22 13:24 | Outpatient (AMB) | payer MEDICARE, MEDICAID, SELFPAY ==
--- OUTSIDE RECORDS SUMMARY | 2023-10-08 06:00 | XMS_ITS ---
Author Organization [facility] Address [address] [place] [phone] Care Team Providers Care Stapler Coil Unit Name Role Phone Lorie Nova Primary Care Provider Unavailab Anthony Hughes Unavailable [phone] REASON FOR VISIT gerd Problems Problem Type SNOMED Code ICD Code Onset Dates Problem Status W/U Status Risk Notes Problem Gastro-esophagea l reflux disease without esophagitis (872484995) Gastro-esophage al reflux disease without esophagitis (K21.9) Active confirmed Problem Gastritis, chronic (K29.50) Active confirmed Encounters Encounter Location Date Provider Diagnosis [facility] Outpatient [address] [place] [phone] 10/08/2023 Anthony Alvarado Gastro-esophageal reflux disease without [...] JACQUELINE HENRY MDOB:1960 ( 64 yo F)Acc No.[id number]:10/08/2023 EGD/MAC Patient: Denzel JACQUELINE LARA Provider: Douglas Alvarado MD :1960 A ge:63 Y S ex:Female Date:10/08/2023 Address:[address] [place], [place] [phone] Pcp:Lorie Nova Subjective: * Chief Complaints: * [...] 10/08/2023 Generated for Santino lópez/Angelica/Shawnitting on: 0 12/22/2024 01:55 PM EDT
--- NOTE | 2024-12-22 13:27 | A.OFFVIS_ITS ---
Intake Visit Reasons: 3m FOLLOW UP- PVR Intake Note: Patient is present for 3M/ PVR Urology Medication:VITAMIN C,ESTRADIOL,SOLIFENACIN,METHENAMINE HIPPURATE Antibiotic Allergy:AMOXICILLIN,CLINDAMYCIN Blood Thinner:NONE Last PVR:0ML'S Todays PVR:0ML'S Watch Engine Operator Required: No Allergies amoxicillin (From Augmentin) Allergy (Severe, Verified 12/22/24 14:12) Diarrhea, Hives clavulanic acid (From Augmentin) Allergy (Severe, Verified 12/22/24 14:12) Diarrhea, Hives adhesive tape (ADHESIVE TAPE) Allergy (Intermediate, Verified 12/22/24 14:12) BLISTERS clindamycin (CLINDAMYCIN) Allergy (Intermediate, Verified 12/22/24 14:12) FACE SWELLING/ITCHING epinephrine (EPINEPHRINE) Adverse Reaction (Intermediate, Verified 12/22/24 14:12) TACHYCARDIA FROM SANIYA W/EPINEPHRINE adhesive Allergy (Unknown, Uncoded 12/22/24 14:12) Unknown Clindamycin HCl Allergy (Unknown, Uncoded 12/22/24 14:12) Unknown -SANIYA W/EPINEPHRINE Adverse Reaction (Intermediate, Uncoded 12/22/24 14:12) TACHYCARDIA Medication List - Last Reconciled 12/22/24 by DASH Restrepo-STACY albuterol sulfate 90 mcg/actuation (Ventolin HFA) 1 inh inhalation QID PRN ascorbic acid (vitamin C) 1 g PO DAILY 90 days bupropion HCl XL 300 mg PO QAM dextroamphetamine-amphetamine 10 mg 10 tabs PO TID estradiol 0.01%(0.1mg/gram) (Estrace) 1 g vaginal 3XW ibuprofen 600 mg PO Q8H PRN incontinence pad, liner, disp As directed - 6 per day 180 total for 30 days levothyroxine 88 mcg PO DAILY loperamide 2 mg PO DAILY lorazepam 0.5 mg PO DAILY PRN methenamine hippurate 1 g PO DAILY 90 days nystatin 1 appl topical TID PRN omeprazole 20 mg PO DAILY solifenacin (Vesicare) 5 mg PO DAILY 90 days telmisartan 80 mg PO DAILY HPI Comments Details: Jacqueline is a 64-year-old female patient of Dr. Nova. She has a past medical history of overactive bladder, urinary incontinence, history of Graves disease, nicotine dependence quit in 2019, obstructive sleep apnea, obesity, and frequent urinary tract infections. She presents to the office today for follow- up of her lower urinary tract symptoms and recurrent urinary tract infections. In discussion with the patient today she reports she had been doing well since her last office visit here however has noted a sore over the last 1-2 weeks she has been having increased episodes of urinary frequency as well as dysuria. She reports symptoms have been intermittent. She reports compliance with methenamine, vitamin-C, VESIcare, and Estrace as prescribed. In office urinalysis results reviewed with the patient today 1+ leukocytes negative nitrates. We did discussed potential for UTI given patient's lower urinary tract symptoms. Urine cultures are as follows: 08/07 Proteus mirabilis, 02/07 office today Klebsiella pneumoniae, 11/08 Klebsiella pneumoniae, 01/08 Klebsiella pneumoniae, 02/08 Klebsiella pneumoniae, 04/10 3 E coli, 09/09 Citrobacter youngae, 12/09 Klebsiella pneumoniae, 01/09 E coli, 02/09 E coli, 06/12 E coli, 09/10 Klebsiella pneumoniae. She discusses her intentional weight loss of over the last year of approximately 80 lb. She reports to be active at the [facility]. Previous workup has included a retroperitoneal ultrasound 03/10 noting bilateral kidneys with no calculi, lesions, and or hydronephrosis. The bladder is well distended and normal. Bilateral ureteral jets are demonstrated. Prevoid bladder volume is approximately 240 mL. Postvoid bladder volume is approximately 30 mLs. She discusses her longstanding history of overactive bladder as she previously used to perform tibial stimulation when following up with Dr. Mendoza. She reports utilizing approximately 5 Ashley pads per day for her mixed urinary incontinence. She otherwise denies gross/visible hematuria, dysuria, flank pain, fever, and or chills. PVR today 0 mL. We did discuss in office cystoscopy given patient's ongoing recurrent urinary tract infections. She otherwise offers no issues or concerns at this time. [facility] Medical History Bowel obstruction COVID-19 Hx of radiation therapy Thyroid disease IBS (irritable bowel syndrome) GERD (gastroesophageal reflux disease) HTN (hypertension) Back pain Arthritis Anxiety Depression ADHD Overactive bladder Urinary incontinence Bladder pain History of Graves' disease Personal history of nicotine dependence VAHE (obstructive sleep apnea) (~2010) Dyspnea on exertion Morbid obesity Frequent UTI Surgical History History of esophagogastroduodenoscopy (EGD) Hx of foot surgery Hx of breast lump removal History of hysterectomy History of eye surgery History of colonoscopy History of appendectomy (~1999) Social History Are you a primary child care director to a significant other at home: No Do you presently have visiting nurse or other home services: No Patient Tobacco Use Status: Former Tobacco user Years Smoked: (onset 14, 1on/off - 1ppd x 35yrs, 35pyh - quit 07/2019) Review of Systems Const Reports as per HPI Eyes Reports no additional complaints ENT Reports no additional complaints Card Reports as per HPI Resp Reports as per HPI GI Reports as per HPI Reports as per HPI Musc Reports no additional complaints Neuro Reports no additional complaints Psych Reports as per HPI Endo Reports as per HPI Evans/Lymph Reports no additional complaints Aller/Immun Reports no additional complaints Physical Exam Const General: cooperative, healthy appearing, comfortable, no acute distress, well developed, alert and awake Nutritional Appearance: overweight Orientation/consciousness: patient oriented x3 Limitations: no limitations HEENT Head: Yes normal to inspection, Yes normocephalic and Yes atraumatic Ears: hearing grossly normal bilaterally Eyes General: appearance normal, both eyes and all related structures Neck Neck: Yes normal visual inspection and Yes trachea midline Chest Chest palpation & inspection: normal inspection of the chest Resp Effort & Inspection: normal respiratory effort and able to speak in complete sentences Cardio Rate: regular rate GI Inspection: Yes normal to inspection General: Yes no CVA tenderness Back/Spine/Pelvis Back: no CVA tenderness Skin General skin exam: no rashes or lesions noted Neuro General: patient oriented x3 Extrem General: Yes normal to inspection Psych Appearance: grossly normal and well kempt Mental Status: mental status grossly normal Speech and movement: Normal speech and movement present and Clear speech present Affect: normal affect Attitude: cooperative Thought process: Normal thought process present Thought content: Normal thought content present Insight: Fair insight present (Psych) Judgement: Fair judgement present (Psych) Office Procedures Post Void Residual Post Residual Void Post Void Residual (PVR): 0 [id number]-[id number] Void Residual by ultrasound Results AMB Urinalysis, Automated UA Leukoctes 0 Lluvia/uL Last Edit by Anuja Fraire [facility] on 12/22/24 13:51 UA Nitrite Negative Last Edit by Anuja Fraire [facility] on 12/22/24 13:51 UA Urobilinogen 0.2 mg/dL Last Edit by Anuja Fraire [facility] on 12/22/24 13:5 1 UA Protein 0 mg/dL Last Edit by Anuja Fraire [facility] on 12/22/24 13:51 UA pH 6.0 Last Edit by Anuja Fraire [facility] on 12/22/24 13:51 UA Blood 0 Joss/uL Last Edit by Anuja Fraire [facility] on 12/22/24 13:51 UA Specific [place] 1.010 Last Edit by Anuja Fraire [facility] on 12/22/24 13: 51 UA Ketone Negative Last Edit by Anuja Fraire [facility] on 12/22/24 13:51 UA Bilirubin 0 mg/dL Last Edit by Anuja Fraire [facility] on 12/22/24 13:51 UA Glucose 0 mg/dL Last Edit by Anuja Fraire [facility] on 12/22/24 13:51 Results Reviewed Results Reviewed: Laboratory Last Values Urine pH (Auto) 6.0 12/22/24 13:50 Specific [place] (Auto) 1.010 12/22/24 13:50 Urine Protein (Auto) 0 mg/dL 12/22/24 13:50 Glucose (UA)(Auto) 0 mg/dL 12/22/24 13:50 Urine Ketones (Auto) Negative 12/22/24 13:50 Urine Blood (Auto) 0 Joss/uL 12/22/24 13:50 Urine Nitrite (Auto) Negative 12/22/24 13:50 Urine Bilirubin (Auto) 0 mg/dL 12/22/24 13:50 Urine Urobilinogen (Auto) 0.2 mg/dL 12/22/24 13:50 Leukocyte Esterase (Auto) 0 Lluvia/uL 12/22/24 13:50 Assessment & Plan Assessment & Plan (1) Frequent UTI: Code(s): N39.0 - Urinary tract infection, site not specified Category: Medical (2) Overactive bladder: Code(s): N32.81 - Overactive bladder Category: Medical (3) Urinary incontinence: Code(s): R32 - Unspecified urinary incontinence Category: Medical (4) Urinary frequency: Code(s): R35.0 - Frequency of micturition Category: Medical Plan In office urinalysis results reviewed with the patient today; as noted above; will send for urine culture. We discussed in office cystoscopy given recurrent urinary tract infections. All questions were answered. Continue methenamine, vitamin-C, and Estrace cream as prescribed. Will await urine culture results for potential treatment. We discussed the importance of adequate hydration relation to recurrent urinary tract infections as well as overall health and well-being. Discussed UTI prevention with D mannose supplement, vitamin-C, increasing fluid intake, behavioral therapy with timed voiding, perineal hygiene and postcoital voiding, and management of constipation with stool softeners and increased fiber intake. Follow-up in 3 months with PVR; or sooner with a issues, concerns, and or questions. Orders: Orders AMB Urinalysis Automated Today Z13.9 - Encounter for screening, unspecified Urine Culture Today N39.0 - Urinary tract infection, site not specified Patient Instructions: The patient had an opportunity to ask questions regarding the treatment plan. All questions were answered. Physical exam, labs, and imaging were discussed and reviewed in detail. As well as risks, benefits, and discussion of treatment choices. No major barriers to understanding were identified. The patient expressed understanding and agreement with the above treatment plan. The patient was made aware they should contact our office by phone for worsening of their current condition, the appearance of new symptoms, or with any questi ons or concerns. Compliance is encouraged with any medications and follow up testing that is ordered. It is a privilege to be allowed the opportunity to participate in? your urological care.? Again, if you have any questions or concerns If you have any questions or concerns please do not hesitate to contact me. The office is [phone]. This note is constructed using voice recognition software. While every effort has been made to ensure accuracy set key driver errors may have been included. Yours sincerely, GEE Restrepo Coding Level of Care Code Est Pt Level 4 (67433) Complex EM visit Add On G2211 Diagnoses Frequent UTI N39.0 Overactive bladder N32.81 Urinary incontinence R32 Urinary frequency R35.0 CPT Codes Post Residual Void - PVR CPT Code: 61709-Mmij Void Residual by ultrasound ([id number]) Time Spent (min) 40
--- OUTSIDE RECORDS SUMMARY | 2024-12-22 13:55 | XMS_ITS | Clinical Summary ---
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 Role Phone Unavailable Primary Care Provider [...] Description 10/27/2024 11:00 AM EDT Office Visit [facility] [address] [place] [id number] Dory Heard 10/14/2024 2:30 PM EDT Office Visit [facility] [address] [place] [id number] Nino Ray BDS 10/06/2024 11:00 AM EDT Office Visit [facility] [address] [place] [id number] AlexandroedwinLori pryorrufino LOUIERegino from Last 3 Months Social History Tobacco [...] Description 01/10/2025 1:00 PM EDT Office Visit [facility] [address] [place] [id number] Nino Ray BDS [address] [place] [id number] Health Maintenance Due Date Last Done Comments [...] ( - season) 2024 Influenza Vaccine (#1) 2025 [...] TRY IN Routine 10/06/2024 11:00 AM EDT BITEWINGS - 4 RADIOGRAPHIC IMAGES Routine 04/22/2024 2:00 PM EST INTRAORAL - COMPLETE SERIES OF RADIOGRAPHIC IMAGES Routine 06/19/2012 12:00 AM EST from Last 3 Months or Most Recently Relevant to Health Maintenance Insurance DENTAL - [place] FULL (MEDICAID)
== END 2024-12-22 14:11 | disposition home or self-care (01) ==
LOC: HO.HUSH 13:25
PROVIDERS: PCP Internal Medicine; Visit Provider Nurse Practitioner Family
DX: N39.0 Urinary tract infection, site not specified (principal); N32.81 Overactive bladder; R32 Unspecified urinary incontinence; R35.0 Frequency of micturition
CPT/HCPCS: 99214; G2211

== ENCOUNTER 2025-02-14 13:00 | Outpatient (REF) | payer MEDICARE, MEDICAID, SELFPAY ==
--- OUTSIDE RECORDS SUMMARY | 2023-10-08 06:00 | XMS_ITS ---
Author Organization [facility] Address [address] [place] [phone] Care Team Providers Care Assistant Drafter Name Role Phone Lorie Nova Primary Care Provider Unavailab Anthony Hughes Unavailable [phone] REASON FOR VISIT gerd Problems Problem Type SNOMED Code ICD Code Onset Dates Problem Status W/U Status Risk Notes Problem Gastro-esophagea l reflux disease without esophagitis (488373752) Gastro-esophage al reflux disease without esophagitis (K21.9) Active confirmed Problem Chronic gastritis (3333388) Gastritis, chronic (K29.50) Active confirmed Encounters Encounter Location Date Provider Diagnosis [facility] [place] [address] [place] [id number] 10/08/2023 Anthony Alvarado Gastro-esophageal reflux disease without [...] Progress Notes * JACQUELINE HENRY MDOB:1960 ( 64 yo F)Acc No.[id number]:10/08/2023 EGD/MAC Patient: Denzel LARA JACQUELINE Abdi Provider: Douglas Alvarado MD :1960 A ge:63 Y S ex:Female Date:10/08/2023 Address:[address] [place], [place] [phone] Pcp:Lorie Nova Subjective: * Chief Complaints: * [...] 0 10/08/2023 Generated for Santino lópez/Angelica/Shawnitting on: 0 02/14/2025 02:14 PM EDT
--- NOTE | ~2025-02-14 | CT_ITS ---
EXAMINATION: CT LOW-DOSE SCREENING CHEST WITHOUT CONTRAST CLINICAL INFORMATION: 64-year-old female, former smoker, quit 5 years ago, 30 pack years. Lung cancer screening. COMPARISON: 11/03/2023, 10/31/2022. TECHNIQUE: Multidetector volumetric CT imaging of the chest is performed on a Siemens SOMATOM Definition scanner without contrast using low dose technique. Additional 2D coronal and sagittal reformatted images and axial 3D maximum intensity projection (MIP) images are generated on the CT workstation. This CT examination was performed using dose optimization techniques as appropriate, variously including the following: *Automated exposure control *Adjustment of mA and/or kV according to patient size (this includes techniques or standardized protocols for targeted exams where dose is matched to indication/reason for exam; i.e. extremities or head) *Use of iterative reconstruction technique FINDINGS: PULMONARY NODULES: There are a few scattered punctate calcified granulomata present. These are unchanged. 3 mm right upper lobe nodule no longer visualized. A few scattered 2 mm nodules are stable. No new or enlarging pulmonary nodules. LUNGS: Mild emphysematous changes are present. The lungs are well inspired. No abnormal opacities or interstitial abnormalities. Small airways demonstrate minimal lower lobe cylindrical bronchiectasis without wall thickening. There is no effusion or pneumothorax. MEDIASTINUM: Partially imaged thyroid is diminutive. There is no adenopathy or mass. The aorta is normal. The cardiac size is normal. There is no pericardial effusion. Central airways are patent. Normal esophagus. CORONARY ARTERY CALCIFICATION: None visualized on this study. CHEST WALL/AXILLA: No masses or abnormal lymph nodes. UPPER ABDOMEN: Included portions of the solid organs in the upper abdomen unremarkable on noncontrast imaging. OSSEOUS STRUCTURES: No suspicious focal findings. CT/CT lung screening IMPRESSION: 1. No new or enlarging pulmonary nodule. A few micronodules are unchanged and stable. 2. Mild emphysema. No active pulmonary disease. ASSESSMENT: 1. Lung-RADS Category 2: Benign appearance or behavior of nodules. 2. Lung-RADS Category S: None. RECOMMENDATION: Continued routine annual low-dose CT lung screening in 1 year is recommended. An order for CT CHEST LOW DOSE CANCER SCREENING ([id number]) can be placed. Electronically signed by: Quinten Busby MD 02/14/2025 01:53 PM EDT
--- OUTSIDE RECORDS SUMMARY | 2025-02-14 14:14 | XMS_ITS | Patient Health Record ---
Author Organization [facility] Address [address] [place] [id number] Care Team Providers Care Aircraft Maintenance Instructor Name Role Phone Lorie Nova Primary Care Provider Anthony Chacon [phone] Allergies Allergen (clinical drug ingredient) Drug/Non Drug [...] e a day Active tylenol Active Nystatin 298033 UNIT/GM APPLY TOPICALLY TO AFFECTED AREA(S) THREE [...] Notes Problem Gastro-esophageal reflux disease without esophagitis (412760888) Gastro-esophageal reflux disease without esophagitis (K21.9) Active confirmed Problem 350954503 Encounter for screening for malignant neoplasm of colon (Z12.11) Active confirmed Problem 849650276 Irritable bowel syndrome with diarrhea (K58.0) Active confirmed Problem Screening for malignant neoplasm of rectum (273737527) Encounter for screening for malignant neoplasm of rectum (Z12.12) Active confirmed Problem 212024391 Gastroesophageal reflux disease, esophagitis presence not specified (K21.9) Active confirmed Problem Chronic gastritis (5099619) Gastritis, chronic (K29.50) Active confirmed Problem Gastroesophageal reflux disease (257441241) Chronic GERD (K21.9) Active confirmed Plan Of Treatment Future Test Test Name Order Date COLONOSCOPY 08/29/2015 UPPER GI ENDOSCOPY 07/31/2023 Insurance Providers Payer Name Payer Address Payer Phone Subscriber Number Group Number Insured Name Patient Relationship to Insured Coverage Start Date Coverage End Date MEDICARE OF [place] [address] [place] [id number] JACQUELINE HENRY Self - patient is the insured MEDICAID OF [facility] [address] [place] [phone] [id number] JACQUELINE HENRY Self - patient is the [...] ase Grave's disease Eating disorder--overeats--goes to a [facility] Negative screening colonoscopy in 2015 Surgical History Surgery Date(Month/Year) Appendectomy JOSE Left breast lumpectomy-benign Foot surgery
== END 2025-02-14 13:01 | disposition home or self-care (01) ==
LOC: HO.CT 13:00
PROVIDERS: PCP Internal Medicine; Visit Provider Physician Assistant Medical
DX: Z12.2 Encounter for screening for malignant neoplasm of respiratory organs (principal); Z87.891 Personal history of nicotine dependence
CPT/HCPCS: 71271

== ENCOUNTER → 2025-02-14 13:02 | Outpatient (BNV) | payer MEDICARE, MEDICAID, SELFPAY | PROVIDERS: PCP Internal Medicine; Visit Provider Radiology Diagnostic Radiology | DX: Z87.891 Personal history of nicotine dependence (principal) | CPT/HCPCS: 71271 ==

== ENCOUNTER 2025-03-07 10:56 | Outpatient (AMB) | payer MEDICARE, MEDICAID, SELFPAY ==
--- OUTSIDE RECORDS SUMMARY | 2023-10-08 06:00 | XMS_ITS ---
Author Organization [facility] Address [address] [place] [address] Care Team Providers Care Education Rep Name Role Phone Lorie Nova Primary Care Provider Unavailab Anthony Hughes Unavailable [phone] REASON FOR VISIT gerd Problems Problem Type SNOMED Code ICD Code Onset Dates Problem Status W/U Status Risk Notes Problem Gastro-esophagea l reflux disease without esophagitis (932240761) Gastro-esophage al reflux disease without esophagitis (K21.9) Active confirmed Problem Chronic gastritis (3730636) Gastritis, chronic (K29.50) Active confirmed Encounters Encounter Location Date Provider Diagnosis [facility] [place] [address] [place] [phone] 10/08/2023 Anthony Alvarado Gastro-esophageal reflux disease without [...] JACQUELINE HENRY MDOB:1960 ( 65 yo F)Acc No.[id number]:10/08/2023 EGD/MAC Patient: Denzel LARA JACQUELINE Abdi Provider: Douglas Alvarado MD :1960 A ge:63 Y S ex:Female Date:10/08/2023 Address:[address] [place], [place] [phone] Pcp:Lorie Nova Subjective: * Chief Complaints: * [...] 10/08/2023 Generated for Santino lópez/Angelica/Shawnitting on: 1 01:14 PM EDT
--- NOTE | 2025-03-07 10:59 | MHC.OFFVIS ---
Vital Signs 03/07/25 11:00 Height 5 ft 1 in Weight 192 lb 14.472 oz BMI 36.4 BP 110/68 Blood Pressure Location Lt brachial Position Sitting Pulse 74 Pulse Source Pulse Oximeter Pulse Oximetry (%) 98 Oxygen Delivery Method Room Air Intake Visit Reasons: dyspnea Intake Note: pt is here for follow up and is using erik resperonics machine, she states she is using her cpap, but only sleeps 4-5 hours a night. some tickle causes a cough Nanny Babysitter Required: No Amusement Park Ride Mechanic: Amusement Park Ride Mechanic offered & declined Allergies amoxicillin (From Augmentin) Allergy (Severe, Verified 03/07/25 11:31) Diarrhea, Hives clavulanic acid (From Augmentin) Allergy (Severe, Verified 03/07/25 11:31) Diarrhea, Hives adhesive tape (ADHESIVE TAPE) Allergy (Intermediate, Verified 03/07/25 11:31) BLISTERS clindamycin (CLINDAMYCIN) Allergy (Intermediate, Verified 03/07/25 11:31) FACE SWELLING/ITCHING epinephrine (EPINEPHRINE) Adverse Reaction (Intermediate, Verified 03/07/25 11:31) TACHYCARDIA FROM SANIYA W/EPINEPHRINE adhesive Allergy (Unknown, Uncoded 03/07/25 11:31) Unknown Clindamycin HCl Allergy (Unknown, Uncoded 03/07/25 11:31) Unknown -SANIYA W/EPINEPHRINE Adverse Reaction (Intermediate, Uncoded 03/07/25 11:31) TACHYCARDIA Medication List - Last Reconciled 03/07/25 by Mac Irene MD albuterol sulfate 90 mcg/actuation (Ventolin HFA) 1 inh inhalation QID PRN ascorbic acid (vitamin C) 1 g PO DAILY 90 days bupropion HCl XL 300 mg PO QAM dextroamphetamine-amphetamine 10 mg 10 tabs PO TID estradiol 0.01%(0.1mg/gram) (Estrace) 1 g vaginal 3XW ibuprofen 600 mg PO Q8H PRN incontinence pad, liner, disp As directed - 6 per day 180 total for 30 days levothyroxine 88 mcg PO DAILY loperamide 2 mg PO DAILY lorazepam 0.5 mg PO DAILY PRN losartan 100 mg PO DAILY methenamine hippurate 1 g PO DAILY 90 days nystatin 1 appl topical TID PRN omeprazole 20 mg PO DAILY solifenacin (Vesicare) 5 mg PO DAILY 90 days Do you need a note to return to daycare/school/sports/work: No HPI HPI dyspnea: Details: 65 years old female is here for her 6 months follow-up for obstructive sleep apnea and mild intermittent bronchial asthma. She uses her CPAP every night but it gets interrupted due to frequent awakening for going to the bathroom. Overall she has been compliant. She has occasional ticklish feeling in the throat which results in shortness of breath and for that she uses albuterol p.r.n.. Weight brantley has remained at the same level. She is trying to do exercises a few times a week, and is watching her diet. [facility] Medical History Bowel obstruction COVID-19 Hx of radiation therapy Thyroid disease IBS (irritable bowel syndrome) GERD (gastroesophageal reflux disease) HTN (hypertension) Back pain Arthritis Anxiety Depression ADHD Overactive bladder Urinary incontinence Bladder pain History of Graves' disease Personal history of nicotine dependence VAHE (obstructive sleep apnea) (~2010) Dyspnea on exertion Morbid obesity Frequent UTI Surgical History History of esophagogastroduodenoscopy (EGD) Hx of foot surgery Hx of breast lump removal History of hysterectomy History of eye surgery History of colonoscopy History of appendectomy (~1999) Social History Are you a primary respiratory care specialist to a significant other at home: No Do you presently have visiting nurse or other home services: No Patient Tobacco Use Status: Former Tobacco user Years Smoked: (onset 14, 1on/off - 1ppd x 35yrs, 35pyh - quit 07/2019) Review of Systems Const All systems reviewed & are unremarkable except as noted in HPI and below Reports fatigue and Reports weight gain Eyes Reports no additional complaints ENT Reports no additional complaints Card Denies chest pain, Denies edema and Denies irregular heart rhythm Resp Reports as per HPI GI Reports heartburn (GERD symptoms controlled with medicine) Reports nocturia Musc Reports myalgias (Chronic muscle aches) Skin/Breast Reports system reviewed and no additional complaints, except as documented Neuro Reports no additional complaints Psych Reports anxiety Endo Reports fatigue Physical Exam Vital Signs: Last Vital Signs Pulse 74 03/07/25 11:00 BP 110/68 03/07/25 11:00 Pulse Ox 98 03/07/25 11:00 Oxygen Delivery Method Room Air 03/07/25 11:00 BMI result Body Mass Index 36.4 Patient is grossly obese with a round face and short and obese neck Const General: comfortable (But short of breath during conversation), no acute distress, alert and awake Orientation/consciousness: patient oriented x3 HEENT Head: Yes normal to inspection General nose exam: No nasal polyps present and No nasal discharge present Face and sinus: Yes sinuses nontender Mouth: oropharynx normal Throat: Yes posterior oropharynx normal Eyes General: appearance normal, both eyes and all related structures Neck Neck: Yes normal visual inspection, Yes no lymphadenopathy, Yes trachea midline, Yes no JVD and Yes other (Neck circumference 18 in) Thyroid: Thyroid normal Chest Chest palpation & inspection: normal inspection of the chest, normal palpation of entire chest wall and no tenderness Resp Other: Percussion note is not perceptible because of the obese chest wall. Breath sounds are distant and decreased especially over the basilar areas. No wheezes or rhonchi are heard. Cardio Palpation: PMI not normal (Not palpable) Rate: regular rate Rhythm: regular rhythm Heart sounds: no gallops and no murmurs GI Palpation (GI): Soft to palpation, nontender, No hepatosplenomegaly present, no masses and Other GI palpation findings present (Abdomen is grossly obese and protuberant) Auscultation: normal bowel sounds Back/Spine/Pelvis Thoracic/Lumbar Spine: thoracic and lumbar spine normal to inspection and thoraco-lumbar ROM limited Skin General skin exam: no rashes or lesions noted Neuro General: patient oriented x3 and no focal motor deficits Cranial nerves: Yes CN's II-XII intact bilaterally Extrem General: Yes normal to inspection (But somewhat bulky), Yes no clubbing, cyanosis or edema and Yes no calf tenderness Psych Speech and movement: Normal speech and movement present Affect: Anxious affect present Results Reviewed Results Reviewed: Compliance report is reviewed and she has used regularly every night. Average usage per night is 5 hours 28 minutes no significant air leak residual AHI only 3.2. 02/14/25 LDCT ASSESSMENT: 1. Lung-RADS Category 2: Benign appearance or behavior of nodules. 2. Lung-RADS Category S: None. RECOMMENDATION: Continued routine annual low-dose CT lung screening in 1 year is recommended. An order for CT CHEST LOW DOSE CANCER SCREENING ([id number]) can be placed. Assessment & Plan Assessment & Plan (1) VAHE (obstructive sleep apnea): Onset Date: ~2010 Comment: (Hx VAHE, dx 2010 - on cpap) PATIENT DOES HAVE CPAP, HAS A NEW REFURBISHED DEVICE. FUNCTIONS WELL, COMPLIANCE HAS BEEN GOOD BUT SOMEWHAT INTERRUPTED DURING THE NIGHT DUE TO HER GOING TO THE BATHROOM. Code(s): G47.33 - Obstructive sleep apnea (adult) (pediatric) Category: Medical Plan: REVIEWED THE FINDINGS AND ENCOURAGED TO KEEP ON USING CPAP EVERY NIGHT. (2) Morbid obesity: Comment: CONTINUES TO BE GROSSLY OBESE BMI WAS 46.5. NOW DOWN TO 36.5 ( GOES FOR EXERCISES AT THE [employer], AND IS WATCHING HER DIET ) Code(s): E66.01 - Morbid (severe) obesity due to excess calories Category: Medical Plan: COMMENDED FOR LOSING WEIGHT SLOWLY AND ENCOURAGED TO KEEP ON GOING FOR EXERCISE PROGRAM. (3) Dyspnea on exertion: Comment: Dyspnea on exertion is multi factorial, including gross abdominal obesity, history of past smoking, PULMONARY FUNCTION TEST IN 2021 AND SPIROMETRY HAVE BEEN ESSENTIALLY NORMAL. HER EXERCISE PROGRAM AND WEIGHT LOSS IS DEFINITELY HELPING. Code(s): R06.00 - Dyspnea, unspecified Category: Medical Plan: ADVISED THAT SHE MAY USE ALBUTEROL 1 OR 2 PUFFS Q.6 HOURS PRN FOR ANY DYSPNEA OR WHEEZING, Medications: Changed From albuterol sulfate 90 mcg/actuation (Ventolin HFA) 1 inh inhalation QID PRN Shortness Of Breath Or Wheezing To albuterol sulfate 90 mcg/actuation (Ventolin HFA) 2 inhalations inhalation QID PRN Coding Level of Care Code Est Pt Level 3 (26238) Diagnoses VAHE (obstructive sleep apnea) G47.33 Morbid obesity E66.01 Dyspnea on exertion R06.00
[2025-03-07 11:00] VITALS: BP 110/68; PULSE 74; O2SAT 98; BMI 36.4
--- OUTSIDE RECORDS SUMMARY | 2025-03-07 13:15 | XMS_ITS | Encounter Summary ---
Author Organization [employer] Address [address] [facility] 7 [place] [address] Care Team Providers Care Corporate Security Manager Name Role Phone Unavailable Primary Care Provider Unavailabl e Encounter Details Date Type Department Care Team (Latest Contact Info) Description 02/28/2022 Abstract [facility] CONVERSIONS Dental, Provider, DDS Social History [...] Care Team (Late st Contact Info) Description 07/18/2025 11:00 AM EST Office Visit [facility]AL [address], [place] [phone] Nino Ray, BDS [address] [place], [place] [phone] documented as of this encounter Visit Diagnoses Not on filedocumented in this encounter
--- OUTSIDE RECORDS SUMMARY | 2025-03-07 13:15 | XMS_ITS | Patient Health Record ---
Author Organization [facility] Address [address] [place] [id number] Care Team Providers Care Scrap Dealer Name Role Phone Lorie Nova Primary Care Provider Anthony Chacon [phone] Allergies Allergen (clinical drug ingredient) Drug/Non Drug Allergy documented on EMR Reaction Allergy Type Onset Date Status epinephrine Epinephrine Unknown Drug Allergy Act garrett Sulfa Unknown Drug Allergy Active clindamycin Clindamycin HCl Unknown Drug Allergy Active bandage adhesive (uncoded) Unknown Allergy Active Reason For Referral No Information Medications Medication SIG (Take, Route, Frequency, Duration) Notes Start Date End Date Status Spironolactone 25 MG Oral; Duration: 90 Active buPROPion HCl 300 mg 1 tablet Orally onc e a day Active tylenol Active Nystatin 450828 UNIT/GM APPLY TOPICALLY TO AFFECTED AREA(S) THREE TIMES DAILY External; Duration: 14 Active ibuprofen Active Triamcinolone Acetonide 0.5 % APPLY TOPICALLY TO RASH TWICE DAILY External; Duration: 30 Active Omeprazole 20 MG 1 capsule Orally Onc e a day Active Voltaren Active Solifenacin Succinate 10 MG TAKE 1 TABLE T BY MOUTH ONCE DAILY Oral; Duration: 90 Active Lorazepam 0.5 mg 1 tablet Oral once a day Active Loperamide HCl 2 MG 1 tablet Orally 1-3 times a day Active Levothyroxine Sodium 125 MCG 1 capsule O rally Once a day Active Telmisartan 80 MG TAKE 1 TABLET BY TARAH TH ONCE DAILY Oral; Duration: 90 Active Amphetamine-Dextroamphetamin e 20 MG Oral; Duration: 30 Active Immunizations Vaccine Route Administration Date [...] Notes Problem Gastro-esophageal reflux disease without esophagitis (099397570) Gastro-esophageal reflux disease without esophagitis (K21.9) Active confirmed Problem Screening for malignant neoplasm of colon (333772030) Encounter for screening for malignant neoplasm of colon (Z12.11) Active confirmed Problem Irritable bowel syndrome with diarrhea (611944816) Irritable bowel syndrome with diarrhea (K58.0) Active confirmed Problem Screening for malignant neoplasm of rectum (008107738) Encounter for screening for malignant neoplasm of rectum (Z12.12) Active confirmed Problem Gastroesophageal reflux disease (880585814) Gastroesophageal reflux disease, esophagitis presence not specified (K21.9) Active confirmed Problem Chronic gastritis (3945066) Gastritis, chronic (K29.50) Active confirmed Problem Gastroesophageal reflux disease (disorder) (465556496) Chronic GERD (K21.9) Active confirmed Plan Of Treatment Future Test Test Name Order Date COLONOSCOPY 08/29/2015 UPPER GI ENDOSCOPY 07/31/2023 Insurance Providers Payer Name Payer Address Payer Phone Subscriber Number Group Number Insured Name Patient Relationship to Insured Coverage Start Date Coverage End Date MEDICARE OF [place] [address] JOSEPHTAL [place]Y [id number] JACQUELINE HENRY Self - patient is the insured MEDICAID OF [facility] [address] [place] [address] [id number] JACQUELINE HENRY Self - patient is the insured Medical (General) History Medical History History ICD Code Colonoscopy 03/2005--hyperplastic polyp, no colitis Irritable bowel syndrome--no rmal duodenal biopsies in 1995 and colon biopsies in 2004; she had negative transglutaminase antibodies in 2008 Reflux--EGD in 1995--no esophagitis Hypertension Arthritis/back and knee Urinary incontinence/UTI's Depression/Anxiety ADHD GERD--EGD in 1995-no esophagitis Sleep apnea--uses CPAP Denies AL,DM,CVA,Lung disease,renal dise ase Grave's disease Eating disorder--overeats--goes to a sup port group Negative screening colonoscopy in 2016 Surgical History Surgery Date(Month/Year) Appendectomy JOSE Left breast lumpectomy-benign Foot surgery
--- OUTSIDE RECORDS SUMMARY | 2025-03-07 13:15 | XMS_ITS | Clinical Summary ---
Author Organization [employer] Address [address] [facility] 7t [place] [address] Care Team Providers Care Nailhead Setter Name Role Phone Unavailable Primary Care Provider [...] Encounters Date Type Department Care Team Description 01/10/2025 1:00 PM EDT Office Visit [facility] D[facility] [address] [place] [phone] Nino Ray, CHRISTIE from Last 3 Months Social History Tobacco [...] Description 07/18/2025 11:00 AM EST Office Visit [facility] [address] [place] [phone] Nino Ray BDS [address] [place] [phone] Health Maintenance Due Date Last Done Comments [...] Full Mouth 06/20/2015 06/19/2012 COVID-19 Vaccine ( season) 2025 Influenza Vaccine (#1) 2025 Dental X-Ray: Bitewings 04/23/2025 04/22/20 24, 10/03/2022, 02/28/2022, Additional history exists Dental Oral Exam 04/29/2025 10/27/2024, 09/2023, 02/28/2022, Additional history exists Dental Prophylaxis 04/29/2025 10/27/2024, 1 06/23/2023, 02/28/2022, Additional history exists Tobacco Screening 01/10/2026 01/10/2025 RSV Patients and Patients Aged 60 years [...] PRESENTATION, DETAILED AND EXTENSIVE TREATMENT PLANNING Routine 01/10/2025 1:00 PM EDT NO CHARGE PROCEDURE Routine 01/10/2025 1 :00 PM EDT PROPHYLAXIS - ADULT Routine 10/27/2024 1 1:00 AM EDT PERIODIC ORAL EVALUATION - ESTABLISHED PATIENT Routine 10/27/2024 11:00 AM EDT BITEWINGS - 4 RADIOGRAPHIC IMAGES Routine 04/22/2024 2:00 PM EST INTRAORAL - COMPLETE SERIES OF RADIOGRAPHIC IMAGES Routine 06/19/2012 12:00 AM EST from Last 3 Months or Most Recently Relevant to Health Maintenance Insurance DENTAL - HSN FULL (MEDICAID)
== END 2025-03-07 11:32 | disposition home or self-care (01) ==
LOC: HO.HPS 10:57
PROVIDERS: PCP Internal Medicine; Visit Provider Internal Medicine
DX: G47.33 Obstructive sleep apnea (adult) (pediatric) (principal); E66.01 Morbid (severe) obesity due to excess calories; R06.00 Dyspnea, unspecified
CPT/HCPCS: 99213

== ENCOUNTER → 2025-03-07 10:56 | Outpatient (BNVA) | payer MEDICARE, MEDICAID, SELFPAY | PROVIDERS: PCP Internal Medicine; Visit Provider Internal Medicine | DX: G47.33 Obstructive sleep apnea (adult) (pediatric) (principal); E66.01 Morbid (severe) obesity due to excess calories; Z99.89 Dependence on other enabling machines and devices; Z68.36 Body mass index [BMI] 36.0-36.9, adult; Z87.891 Personal history of nicotine dependence | CPT/HCPCS: 99212 ==

== ENCOUNTER 2025-03-16 10:32 | Outpatient (AMB) | payer MEDICARE, MEDICAID, SELFPAY ==
--- OUTSIDE RECORDS SUMMARY | 2023-10-08 06:00 | XMS_ITS ---
Author Organization [facility] Address [address] [place] [phone] Care Team Providers Care Community Placement Worker Name Role Phone Lorie Nova Primary Care Provider Unavailab Anthony Hughes Unavailable [phone] REASON FOR VISIT gerd Problems Problem Type SNOMED Code ICD Code Onset Dates Problem Status W/U Status Risk Notes Problem Gastro-esophagea l reflux disease without esophagitis (555502867) Gastro-esophage al reflux disease without esophagitis (K21.9) Active confirmed Problem Chronic gastritis (2167470) Gastritis, chronic (K29.50) Active confirmed Encounters Encounter Location Date Provider Diagnosis [facility] [place] [address] [place] [phone] 10/08/2023 Anthony Alvarado Gastro-esophageal reflux disease without [...] JACQUELINE HENRY MDOB:1960 ( 65 yo F)Acc No.[id number]:10/08/2023 EGD/MAC Patient: Denzel LARA JACQUELINE Abdi Provider: Douglas Alvarado MD :1960 A ge:63 Y S ex:Female Date:10/08/2023 Address:[address] [place], [place] [id number] Pcp:Lorie Nova Subjective: * Chief Complaints: * [...] 0 10/08/2023 Generated for Santino lópez/Angelica/Shawnitting on: 01:05 PM EDT
--- NOTE | 2025-03-16 10:37 | MHC.OFFVIS ---
Vital Signs 03/16/25 10:40 Height 5 ft 1 in Weight 190 lb BMI 35.9 Intake Visit Reasons: OV-LT shoulder 03/19/24 Intake Note: Jacqueline is a 65 year old female who presents today as a follow up for left shoulder 03/19/24 . She reports mild intermittent discomfort in her left shoulder. She continues with her exercise program. She denies any fevers or chills. Allergies amoxicillin (From Augmentin) Allergy (Severe, Verified 03/07/25 11:31) Diarrhea, Hives clavulanic acid (From Augmentin) Allergy (Severe, Verified 03/07/25 11:31) Diarrhea, Hives adhesive tape (ADHESIVE TAPE) Allergy (Intermediate, Verified 03/07/25 11:31) BLISTERS clindamycin (CLINDAMYCIN) Allergy (Intermediate, Verified 03/07/25 11:31) FACE SWELLING/ITCHING epinephrine (EPINEPHRINE) Adverse Reaction (Intermediate, Verified 03/07/25 11:31) TACHYCARDIA FROM SANIYA W/EPINEPHRINE adhesive Allergy (Unknown, Uncoded 03/07/25 11:31) Unknown Clindamycin HCl Allergy (Unknown, Uncoded 03/07/25 11:31) Unknown -SANIYA W/EPINEPHRINE Adverse Reaction (Intermediate, Uncoded 03/07/25 11:31) TACHYCARDIA Medication List - Last Reconciled 03/16/25 by Alvaro Jaquez MD albuterol sulfate 90 mcg/actuation (Ventolin HFA) 2 inhalations inhalation QID PRN ascorbic acid (vitamin C) 1 g PO DAILY 90 days bupropion HCl XL 300 mg PO QAM dextroamphetamine-amphetamine 10 mg 10 tabs PO TID estradiol 0.01%(0.1mg/gram) (Estrace) 1 g vaginal 3XW ibuprofen 600 mg PO Q8H PRN incontinence pad, liner, disp As directed - 6 per day 180 total for 30 days levothyroxine 88 mcg PO DAILY loperamide 2 mg PO DAILY lorazepam 0.5 mg PO DAILY PRN losartan 100 mg PO DAILY methenamine hippurate 1 g PO DAILY 90 days nystatin 1 appl topical TID PRN omeprazole 20 mg PO DAILY solifenacin (Vesicare) 5 mg PO DAILY 90 days [facility] Medical History Bowel obstruction COVID-19 Hx of radiation therapy Thyroid disease IBS (irritable bowel syndrome) GERD (gastroesophageal reflux disease) HTN (hypertension) Back pain Arthritis Anxiety Depression ADHD Overactive bladder Urinary incontinence Bladder pain History of Graves' disease Personal history of nicotine dependence VAHE (obstructive sleep apnea) (~2010) Dyspnea on exertion Morbid obesity Frequent UTI Surgical History History of esophagogastroduodenoscopy (EGD) Hx of foot surgery Hx of breast lump removal History of hysterectomy History of eye surgery History of colonoscopy History of appendectomy (~1999) Social History Are you a primary critical care physician to a significant other at home: No Do you presently have visiting nurse or other home services: No Patient Tobacco Use Status: Former Tobacco user Years Smoked: (onset 14, 1on/off - 1ppd x 35yrs, 35pyh - quit 07/2019) Physical Exam Vital Signs: BMI result Body Mass Index 35.9 Extrem Other: Left shoulder examination shows that the surgical incisions are well healed, no erythema, almost full range of motion when compared to her right shoulder, minimal discomfort with range of motion, no instability Assessment & Plan Assessment & Plan (1) Left shoulder pain: Code(s): M25.512 - Pain in left shoulder Category: Medical Plan Ms. Casillas continues to do well after undergoing left shoulder arthroscopic surgery. She does have intermittent discomfort due to residual glenohumeral joint degenerative joint disease. I had a lengthy discussion with the patient regarding the treatment options. At this point the patient's symptoms are tolerable to her. She will continue with her home stretching program. The do's and don'ts of lifting were discussed at length with the patient. She will contact me prior to her follow-up appointment in 3 months should any questions or concerns arise. Feel free to call me at any time should questions regarding her orthopedic management arise. I spent 20 minutes in reviewing the patient's records and imaging studies, seeing the patient and documenting in the medical record. Coding Level of Care Code Est Pt Level 3 (76632) Complex EM visit Add On G2211 Diagnoses Left shoulder pain M25.512
[2025-03-16 10:40] VITALS: BMI 35.9
--- OUTSIDE RECORDS SUMMARY | 2025-03-16 13:05 | XMS_ITS | Patient Health Record ---
Author Organization [facility] Address [address] [place] [phone] Care Team Providers Care Food Sales Clerk Name Role Phone Lorie Nova Primary Care Provider Anthony Chacon [phone] Allergies Allergen (clinical drug ingredient) Drug/Non Drug [...] e a day Active tylenol Active Nystatin 793975 UNIT/GM APPLY TOPICALLY TO AFFECTED AREA(S) THREE [...] Notes Problem Gastro-esophageal reflux disease without esophagitis (746366194) Gastro-esophageal reflux disease without esophagitis (K21.9) Active confirmed Problem Screening for malignant neoplasm of colon (217123647) Encounter for screening for malignant neoplasm of colon (Z12.11) Active confirmed Problem Irritable bowel syndrome with diarrhea (717903328) Irritable bowel syndrome with diarrhea (K58.0) Active confirmed Problem Screening for malignant neoplasm of rectum (673002925) Encounter for screening for malignant neoplasm of rectum (Z12.12) Active confirmed Problem Gastroesophageal reflux disease (644379855) Gastroesophageal reflux disease, esophagitis presence not specified (K21.9) Active confirmed Problem Chronic gastritis (8131399) Gastritis, chronic (K29.50) Active confirmed Problem Gastroesophageal reflux disease (disorder) (474245366) Chronic GERD (K21.9) Active confirmed Plan Of Treatment Future Test Test Name Order Date COLONOSCOPY 08/29/2015 UPPER GI ENDOSCOPY 07/31/2023 Insurance Providers Payer Name Payer Address Payer Phone Subscriber Number Group Number Insured Name Patient Relationship to Insured Coverage Start Date Coverage End Date MEDICARE OF [place] [address] [place]SE[place] [id number] JACQUELINE HENRY Self - patient is the insured MEDICAID OF [facility] [address] [place] [address] [phone] [id number] JACQUELINE HENRY Self - patient is the [...]
--- OUTSIDE RECORDS SUMMARY | 2025-03-16 13:05 | XMS_ITS | Encounter Summary ---
Author Organization [employer] Address [address] [facility] 7 [place] [address] Care Team Providers Care Electron Beam Photo Mask Technician Name Role Phone Unavailable Primary Care Provider Unavailabl e Encounter Details Date Type Department Care Team (Latest Contact Info) Description 02/28/2022 Abstract [facility] CONVERSIONS Dental, Provider, DDS Social History [...] Description 07/18/2025 11:00 AM EST Office Visit [facility] DENT[facility] [address] [place], [place] [phone] Nino Ray, BDS [address] [place], [place] [phone] documented as of this encounter Visit Diagnoses Not on filedocumented in this encounter
--- OUTSIDE RECORDS SUMMARY | 2025-03-16 13:05 | XMS_ITS | Clinical Summary ---
Author Organization [employer] Address [address] [facility] 7t [place] [address] Care Team Providers Care Track Supervisor Name Role Phone Unavailable Primary Care Provider [...] Description 01/10/2025 1:00 PM EDT Office Visit [facility] DENTAL [address] [place] [phone] Nino Ray, CHRISTIE from Last 3 Months [...] Description 07/18/2025 11:00 AM EST Office Visit [facility] DENT[facility] [address] [place] [phone] Nino Ray BDS [address] [place] [id number] Health Maintenance Due Date Last Done Comments [...]
== END 2025-03-16 10:58 | disposition home or self-care (01) ==
LOC: HO.HOS 10:33
PROVIDERS: PCP Internal Medicine; Visit Provider Orthopaedic Surgery
DX: M25.512 Pain in left shoulder (principal)
CPT/HCPCS: 99213; G2211

== ENCOUNTER → 2025-03-16 10:32 | Outpatient (BNVA) | payer MEDICARE, MEDICAID, SELFPAY | PROVIDERS: PCP Internal Medicine; Visit Provider Orthopaedic Surgery | DX: M25.512 Pain in left shoulder (principal) | CPT/HCPCS: 99212 ==

== ENCOUNTER 2025-03-30 11:37 | Outpatient (REF) | payer MEDICARE, MEDICAID, SELFPAY | END 2025-03-30 11:38 | disposition home or self-care (01) | LOC: HO.LAB 11:37 | PROVIDERS: PCP Internal Medicine; Visit Provider Nurse Practitioner Family | DX: N39.0 Urinary tract infection, site not specified (principal); N32.81 Overactive bladder; Z79.899 Other long term (current) drug therapy; Z13.89 Encounter for screening for other disorder | CPT/HCPCS: 81003; 99212 ==

== ENCOUNTER 2025-03-30 11:37 | Outpatient (AMB) | payer MEDICARE, MEDICAID, SELFPAY ==
--- OUTSIDE RECORDS SUMMARY | 2023-10-08 05:00 | XMS_ITS ---
Author Organization [facility] Address [address] [place] [address] Care Team Providers Care Cattle Dipper Name Role Phone Lorie Nova Primary Care Provider Unavailab Anthony Hughes Unavailable [phone] REASON FOR VISIT gerd Problems Problem Type SNOMED Code ICD Code Onset Dates Problem Status W/U Status Risk Notes Problem Gastro-esophagea l reflux disease without esophagitis (099473553) Gastro-esophage al reflux disease without esophagitis (K21.9) Active confirmed Problem Chronic gastritis (6386168) Gastritis, chronic (K29.50) Active confirmed Encounters Encounter Location Date Provider Diagnosis [facility] Outpatient [address] [place] [id number] 10/08/2023 Anthony Alvarado Gastro-esophageal reflux disease without esophagitis K21.9 ; Gastritis, chronic K29.50 and Hiatal hernia K44.9 Assessments Encounter Date Diagnosis (ICD Code) Assessment Notes Treatment Notes Treatment Clinical Notes Section Notes 10/08/2023 Gastro-esophagea l reflux disease without esophagitis (ICD-10 - K21.9) 10/08/2023 Gastritis, chronic (ICD-10 - K29.50) 10/08/2023 Hiatal hernia (ICD-10 - K44.9) Plan Of Treatment No Information Progress Notes * JACQUELINE HENRY MDOB:1960 ( 65 yo F)Acc No.[id number]:10/08/2023 EGD/MAC Patient: Denzel LARA JACQUELINE Abdi Provider: Douglas Alvarado MD :1960 A ge:63 Y S ex:Female Date:10/08/2023 Address:[address] [place], [place] [id number] Pcp:Lorie Nova Subjective: * Chief Complaints: * 1 . Gerd. * Medical History: Objective: * Vitals: Assessment: * Assessment: 1. G jania-esophageal reflux disease without esophagitis - K21.9 (Primary) 2 .?Gastritis, chronic - K29.50 3 . H iatal hernia - K44.9 Plan: * Treatment: * Procedure Codes: 4 3239 UPPER GI ENDOSCOPY, BIOPSY * * The named appointment provid er may or may not be the originator of this progress note, and it is not deemed complete until electronically signed by the appointment provider. Sign off status: Pending * Provider: Douglas Alvarado MD Date: 0 10/08/2023 Generated for Santino lópez/Angelica/Shawnitting on: 1 05/30/2024 02:30 PM EST
--- NOTE | 2025-03-30 11:41 | A.OFFVIS_ITS ---
Intake Visit Reasons: 3m follow up/PVR Intake Note: Patient is present for 3m/PVR Urology Medication:VITAMIN C,METHENAMINE HIPPURATE,ESTRADIOL,SOLIFENACIN Antibiotic Allergy:AMOXICILLIN,CLINDAMYCIN Blood Thinner:NONE Last PVR:0ML'S Todays PVR: Stroke Program Coordinator Required: No Allergies amoxicillin (From Augmentin) Allergy (Severe, Verified 03/30/25 13:11) Diarrhea, Hives clavulanic acid (From Augmentin) Allergy (Severe, Verified 03/30/25 13:11) Diarrhea, Hives adhesive tape (ADHESIVE TAPE) Allergy (Intermediate, Verified 03/30/25 13:11) BLISTERS clindamycin (CLINDAMYCIN) Allergy (Intermediate, Verified 03/30/25 13:11) FACE SWELLING/ITCHING epinephrine (EPINEPHRINE) Adverse Reaction (Intermediate, Verified 03/30/25 13:11) TACHYCARDIA FROM SANIYA W/EPINEPHRINE adhesive Allergy (Unknown, Uncoded 03/30/25 13:11) Unknown Clindamycin HCl Allergy (Unknown, Uncoded 03/30/25 13:11) Unknown -SANIYA W/EPINEPHRINE Adverse Reaction (Intermediate, Uncoded 03/30/25 13:11) TACHYCARDIA Medication List - Last Reconciled 03/30/25 by DASH Restrepo-STACY albuterol sulfate 90 mcg/actuation (Ventolin HFA) 2 inhalations inhalation QID PRN ascorbic acid (vitamin C) 1 g PO DAILY 90 days bupropion HCl XL 300 mg PO QAM dextroamphetamine-amphetamine 10 mg 10 tabs PO TID estradiol 0.01%(0.1mg/gram) (Estrace) 1 g vaginal 3XW ibuprofen 600 mg PO Q8H PRN incontinence pad, liner, disp As directed - 6 per day 180 total for 30 days levothyroxine 88 mcg PO DAILY loperamide 2 mg PO DAILY lorazepam 0.5 mg PO DAILY PRN losartan 100 mg PO DAILY methenamine hippurate 1 g PO DAILY 90 days nystatin 1 appl topical TID PRN omeprazole 20 mg PO DAILY solifenacin (Vesicare) 5 mg PO DAILY 90 days HPI Comments Details: Jacqueline is a 65 year-old female patient of Dr. Nova. She has a past medical history of overactive bladder, urinary incontinence, history of Graves disease, nicotine dependence quit in 2019, obstructive sleep apnea, obesity, and frequent urinary tract infections. She presents to the office today for follow- up of her lower urinary tract symptoms and recurrent urinary tract infections. In discussion with the patient today she reports she has been doing and feeling well. She denies having had any UTIs and or UTI like symptoms since her last office visit here approximately 3 months ago. She reports compliance with VESIcare, methenamine, and vitamin-C as prescribed. She does however endorse feeling it is difficult to remember to apply Estrace cream 3 times per week. We did discuss trial of Vagifem. She is agreeable. In office urinalysis results reviewed with the patient today negative leukocytes positive nitrates. When asked she currently denies any UTI like symptoms. Urine cultures are as follows: 08/07 Proteus mirabilis, 02/07 office today Klebsiella pneumoniae, 11/08 Klebsiella pneumoniae, 01/08 Klebsiella pneumoniae, 02/08 Klebsiella pneumoniae, 04/10 3 E coli, 09/09 Citrobacter youngae, 12/09 Klebsiella pneumoniae, 01/09 E coli, 02/09 E coli, 06/12 E coli, 09/10 Klebsiella pneumoniae, 01/11 Klebsiella pneumoniae. She discusses her intentional weight loss of over the last year of approximately 80 lb. She reports to be active at the [facility]. Previous workup has included a retroperitoneal ultrasound 03/10 noting bilateral kidneys with no calculi, lesions, and or hydronephrosis. The bladder is well distended and normal. Bilateral ureteral jets are demonstrated. Prevoid bladder volume is approximately 240 mL. Postvoid bladder volume is approximately 30 mLs. She discusses her longstanding history of overactive bladder as she previously used to perform tibial stimulation when following up with Dr. Mendoza. She reports utilizing approximately 5 Ashley pads per day for her mixed urinary incontinence. She otherwise denies gross/visible hematuria, dysuria, flank pain, fever, and or chills. We did discuss in office cystoscopy given patient's ongoing recurrent urinary tract infections however she declines at this time. Information was provided. We did also review further treatment options of mixed urinary incontinence however she feels she is managing well with current management. She otherwise offers no issues or concerns at this time. [facility] Medical History Bowel obstruction COVID-19 Hx of radiation therapy Thyroid disease IBS (irritable bowel syndrome) GERD (gastroesophageal reflux disease) HTN (hypertension) Back pain Arthritis Anxiety Depression ADHD Overactive bladder Urinary incontinence Bladder pain History of Graves' disease Personal history of nicotine dependence VAHE (obstructive sleep apnea) (~2010) Dyspnea on exertion Morbid obesity Frequent UTI Surgical History History of esophagogastroduodenoscopy (EGD) Hx of foot surgery Hx of breast lump removal History of hysterectomy History of eye surgery History of colonoscopy History of appendectomy (~1999) Social History Are you a primary healthcare science specialist to a significant other at home: No Do you presently have visiting nurse or other home services: No Patient Tobacco Use Status: Former Tobacco user Years Smoked: (onset 14, 1on/off - 1ppd x 35yrs, 35pyh - quit 07/2019) Review of Systems Const Reports as per HPI Eyes Reports no additional complaints ENT Reports no additional complaints Card Reports as per HPI Resp Reports as per HPI GI Reports as per HPI Reports as per HPI Musc Reports no additional complaints Neuro Reports no additional complaints Psych Reports as per HPI Endo Reports as per HPI Evans/Lymph Reports no additional complaints Aller/Immun Reports no additional complaints Physical Exam Const General: cooperative, healthy appearing, comfortable, no acute distress, well developed, alert and awake Nutritional Appearance: overweight Orientation/consciousness: patient oriented x3 Limitations: no limitations HEENT Head: Yes normal to inspection, Yes normocephalic and Yes atraumatic Ears: hearing grossly normal bilaterally Eyes General: appearance normal, both eyes and all related structures Neck Neck: Yes normal visual inspection and Yes trachea midline Chest Chest palpation & inspection: normal inspection of the chest Resp Effort & Inspection: normal respiratory effort and able to speak in complete se ntences Cardio Rate: regular rate GI Inspection: Yes normal to inspection General: Yes no CVA tenderness Back/Spine/Pelvis Back: no CVA tenderness Skin General skin exam: no rashes or lesions noted Neuro General: patient oriented x3 Extrem General: Yes normal to inspection Psych Appearance: grossly normal and well kempt Mental Status: mental status grossly normal Speech and movement: Normal speech and movement present and Clear speech present Affect: normal affect Attitude: cooperative Thought process: Normal thought process present Thought content: Normal thought content present Insight: Fair insight present (Psych) Judgement: Fair judgement present (Psych) Results AMB Urinalysis, Automated UA Leukoctes 0 Lluvia/uL Last Edit by SARAH Guerra on 03/30/25 11:57 UA Nitrite Positive Last Edit by Anuja Fraire CCM on 03/30/25 11:57 UA Urobilinogen 0.2 mg/dL Last Edit by Anuja Fraire [facility] on 03/30/25 11:5 7 UA Protein 0 mg/dL Last Edit by Anuja Fraire [facility] on 03/30/25 11:57 UA pH 6.0 Last Edit by Anuja Fraire [facility] on 03/30/25 11:57 UA Blood 0 Joss/uL Last Edit by Anuja Fraire [facility] on 03/30/25 11:57 UA Specific [place] 1.015 Last Edit by Anuja Fraire [facility] on 03/30/25 11: 57 UA Ketone Negative Last Edit by Anuja Fraire [facility] on 03/30/25 11:57 UA Bilirubin 0 mg/dL Last Edit by Anuja Fraire [facility] on 03/30/25 11:57 UA Glucose 0 mg/dL Last Edit by Anuja Fraire [facility] on 03/30/25 11:57 Results Reviewed Results Reviewed: Laboratory Last Values Urine pH (Auto) 6.0 03/30/25 11:47 Specific [place] (Auto) 1.015 03/30/25 11:47 Urine Protein (Auto) 0 mg/dL 03/30/25 11:47 Glucose (UA)(Auto) 0 mg/dL 03/30/25 11:47 Urine Ketones (Auto) Negative 03/30/25 11:47 Urine Blood (Auto) 0 Joss/uL 03/30/25 11:47 Urine Nitrite (Auto) Positive 03/30/25 11:47 Urine Bilirubin (Auto) 0 mg/dL 03/30/25 11:47 Urine Urobilinogen (Auto) 0.2 mg/dL 03/30/25 11:47 Leukocyte Esterase (Auto) 0 Lluvia/uL 03/30/25 11:47 Assessment & Plan Assessment & Plan (1) Urinary incontinence: Code(s): R32 - Unspecified urinary incontinence Category: Medical (2) Overactive bladder: Code(s): N32.81 - Overactive bladder Category: Medical (3) Frequent UTI: Code(s): N39.0 - Urinary tract infection, site not specified Category: Medical (4) Urinary frequency: Code(s): R35.0 - Frequency of micturition Category: Medical Plan In office urinalysis results reviewed with the patient today; as noted above. She currently denies any bothersome urinary issues or concerns. She reports be happy with current voiding parameters. Continue methenamine, vitamin-C, and VESIcare as prescribed. Stop Estrace cream. Start Vagifem as discussed and prescribed. All questions were answered. We did discuss cystoscopy for further assessment evaluation given patient's recurrent urinary tract infections however she declines at this time. We did discussed potential delay in treatment she is aware. Discussed UTI prevention with D mannose supplement, vitamin-C, increasing fluid intake, behavioral therapy with timed voiding, perineal hygiene and postcoital voiding, and management of constipation with stool softeners and increased fiber intake. Follow-up in 3 months with PVR; or sooner with any issues, concerns, and or questions. Orders: Orders AMB Urinalysis Automated Today Z13.9 - Encounter for screening, unspecified Medications: New estradiol (Vagifem) 10 mcg vaginal 2XW 26 tabs 4RF 90 days Discontinued estradiol 0.01%(0.1mg/gram) (Estrace) pea sized amount to urethera daily times one month then 3 times per week there after. Discontinued Reason: Patient Completed Course 1 g vaginal 3XW 42.5 grams 3RF Patient Instructions: The patient had an opportunity to ask questions regarding the treatment plan. All questions were answered. Physical exam, labs, and imaging were discussed and reviewed in detail. As well as risks, benefits, and discussion of treatment choices. No major barriers to understanding were identified. The patient expressed understanding and agreement with the above treatment plan. The patient was made aware they should contact our office by phone for worsening of their current condition, the appearance of new symptoms, or with any questions or concerns. Compliance is encouraged with any medications and follow up testing that is ordered. It is a privilege to be allowed the opportunity to participate in? your urological care.? Again, if you have any questions or concerns If you have any questions or concerns please do not hesitate to contact me. The office is [phone]. This note is constructed using voice recognition software. While every effort has been made to ensure accuracy tufting creeler errors may have been included. Yours sincerely, GEE Restrepo Coding Level of Care Code Est Pt Level 3 (96710) Complex EM visit Add On G2211 Diagnoses Urinary incontinence R32 Overactive bladder N32.81 Frequent UTI N39.0 Urinary frequency R35.0
--- OUTSIDE RECORDS SUMMARY | 2025-03-30 14:30 | XMS_ITS | Clinical Summary ---
Author Organization [employer] Address [address] [place] [address] Care Team Providers Care Fire Safety Inspector Name Role Phone Unavailable Primary Care Provider [...] Description 01/10/2025 1:00 PM EDT Office Visit [facility] [address] [place] [id number] Nino Ray, CHRISTIE from Last 3 Months [...] Mass Index - - Plan of Treatment Health Maintenance Due Date Last Done Comments CT Colonography 1958 Colonoscopy 1958 Colorectal Cancer Screening 1958 Depression Screening 1958 FIT DNA/Cologuard 1958 FIT 1958 FOBT 1958 Lipid Panel 1958 SDOH Screening 1958 Sigmoidoscopy 1958 HIB Vaccines (1 of 1 - Risk 1-dose series) 05/26/1959 Meningococcal Vaccine (1 - Risk 2-dose series) 02/24/1960 Meningococcal B Vaccine (1 of 4 - Increased Risk) 02/24/1968 Alcohol/Substance Use Screening 1970 Hepatitis C Screening 02/24/1976 DTaP/Tdap/Td Vaccines (1 - Tdap) 1977 Mammogram 1998 Pneumococcal Vaccine: 50+ Years (1 of 1 - PCV) 02/24/2008 Zoster Vaccines (1 of 2) 02/24/2008 Dental X-Ray: Full Mouth 06/20/2015 06/19/2012 COVID-19 Vaccine ( - season) 2025 Influenza Vaccine (#1) 2025 Dental X-Ray: Bitewings 04/23/2025 04/22/20 24, 10/03/2022, 02/28/2022, Additional history exists Dental Oral Exam 04/29/2025 10/27/2024, 09/2023, 02/28/2022, Additional history exists Dental Prophylaxis 04/29/2025 10/27/2024, 1 06/23/2023, 02/28/2022, Additional history exists Tobacco Screening 01/10/2026 01/10/2025 RSV Patients and Patients Aged 60 years or older (1 - 1-dose 75+ series) 2033 HPV Vaccines Aged Out No longer eligi [...] Most Recently Relevant to Health Maintenance Insurance [facility] [place] [address] DENTAL - HSN FULL (MEDICAID)
--- OUTSIDE RECORDS SUMMARY | 2025-03-30 14:31 | XMS_ITS | Patient Health Record ---
Author Organization [facility] Address [address] [place] [id number] Care Team Providers Care Balancer Scale Name Role Phone Lorie Nova Primary Care Provider Anthony Chacon [phone] Allergies Allergen (clinical drug ingredient) Drug/Non Drug [...] e a day Active tylenol Active Nystatin 987366 UNIT/GM APPLY TOPICALLY TO AFFECTED AREA(S) THREE [...] Notes Problem Gastro-esophageal reflux disease without esophagitis (702161752) Gastro-esophageal reflux disease without esophagitis (K21.9) Active confirmed Problem Screening for malignant neoplasm of colon (590738381) Encounter for screening for malignant neoplasm of colon (Z12.11) Active confirmed Problem Irritable bowel syndrome with diarrhea (676129253) Irritable bowel syndrome with diarrhea (K58.0) Active confirmed Problem Screening for malignant neoplasm of rectum (157717204) Encounter for screening for malignant neoplasm of rectum (Z12.12) Active confirmed Problem Gastroesophageal reflux disease (302631498) Gastroesophageal reflux disease, esophagitis presence not specified (K21.9) Active confirmed Problem Chronic gastritis (9353410) Gastritis, chronic (K29.50) Active confirmed Problem Gastroesophageal reflux disease (disorder) (702710246) Chronic GERD (K21.9) Active confirmed Plan Of Treatment Future Test Test Name Order Date COLONOSCOPY 08/29/2015 UPPER GI ENDOSCOPY 07/31/2023 Insurance Providers Payer Name Payer Address Payer Phone Subscriber Number Group Number Insured Name Patient Relationship to Insured Coverage Start Date Coverage End Date MEDICARE OF [place] [address] [place] [id number] [phone] [id number] JACQUELINE HENRY Self - patient is the insured MEDICAID OF [facility] [address] [place] [address] [id number] JACQUELINE HENRY Self - patient is the [...]
--- OUTSIDE RECORDS SUMMARY | 2025-03-30 14:31 | XMS_ITS | Encounter Summary ---
Author Organization [employer] Address [address] [facility] [address] [facility] [address] [place] [address] Care Team Providers Care Distance Learning Program Coordinator Name Role Phone Unavailable Primary Care Provider Unavailabl e Encounter Details Date Type Department Care Team (Latest Contact Info) Description 02/28/2022 Abstract [facility] CONVERSIONS Dental, Provider, DDS Social History [...] as of this encounter Plan of Treatment Not on file documented as of this encounter Visit Diagnoses Not on filedocumented in this encounter
== END 2025-03-30 12:14 | disposition home or self-care (01) ==
LOC: HO.HUSH 11:38
PROVIDERS: PCP Internal Medicine; Visit Provider Nurse Practitioner Family
DX: R32 Unspecified urinary incontinence (principal); N32.81 Overactive bladder; N39.0 Urinary tract infection, site not specified; R35.0 Frequency of micturition; Z13.9 Encounter for screening, unspecified
CPT/HCPCS: 99213; G2211

== ENCOUNTER 2025-04-25 10:00 | Outpatient (REF) | payer MEDICARE, MEDICAID, SELFPAY ==
[2025-04-25 10:17] LABS: MANUAL DIFF FLAG NO
[2025-04-25 10:41] LABS: Hematocrit 40.7 % (37.0-47.0); Hemoglobin 13.7 g/dl (12.0-16.0); Imm Gran Abs Auto 0.01 X10*3/uL (0.00-0.03); Imm Gran Pct Auto 0.2 % (0.0-0.4); Lymphocytes Absolute Auto 1.9 X10*3/uL (1.2-4.9); Mean Corpuscular HGB Conc 33.7 g/dl (31.0-35.0); Mean Corpuscular Hemoglobin 32.3 pg (27.0-33.0); Mean Corpuscular Volume 96.0 fL (80.0-98.0); NRBC Abs Auto 0.000 X10*3/uL (0.0-0.012); NRBC Pct Auto 0.0 /100WBC (0.0-0.2); Platelet Count 211 X10*3/uL (160-400); Red Blood Count 4.24 X10*6/uL (4.20-5.50); White Blood Count 5.2 X10*3/uL (4.8-10.8)
[2025-04-25 11:28] LABS: Alanine Aminotransferase 24 U/L (0-31); Albumin Level 4.4 g/dL (3.5-5.0); Alkaline Phosphatase 58 U/L (39-117); Anion Gap 11 (12-20); Aspartate Amino Transferase 19 U/L (5-31); Blood Urea Nitrogen 19 mg/dL (9-16); Calcium 9.1 mg/dL (8.4-10.2); Carbon Dioxide 25 mmol/L (22-29); Chloride 106 mmol/L (96-108); Cholesterol 174 mg/dL (<200); Estimated Glomerular Filt Rate 50; Free T4 (Free Thyroxine) 1.07 ng/dL (0.71-1.85); HDL Cholesterol 58 mg/dL (>40); Potassium 4.0 mmol/L (3.3-5.1); Sodium 138 mmol/L (135-145); Thyroid Stimulating Hormone 1.90 uIU/mL (0.32-4.0); Total Protein 7.2 g/dL (6.5-8.0); Triglycerides 47 mg/dL (<150)
== END 2025-04-25 10:01 | disposition home or self-care (01) ==
LOC: HO.LAB 10:00
PROVIDERS: PCP Internal Medicine; Visit Provider Internal Medicine
DX: I10 Essential (primary) hypertension (principal); E89.0 Postprocedural hypothyroidism; F17.201 Nicotine dependence, unspecified, in remission; G47.33 Obstructive sleep apnea (adult) (pediatric)
CPT/HCPCS: 36415; 80053; 80061; 84439; 84443; 84481; 85025